=== PATIENT | male | born 1945 | race Caucasian/White ===

== ENCOUNTER 2016-11-16 01:10 | Observation (INO) ==
--- NOTE | 2016-11-16 02:07 | Emergency Department Note ---
IDenton Brittany, am scribing for, and in the presence of, Latasha Lomax DO 01:56. IDami Debra, DO, personally performed the services described in this documentation, ascribed by Carolyn Chawla in my presence, and it is both accurate and complete . Arrival - Arrival Chief Complaint: PEG TUBE Stated Complaint: feeding tube stopped up ED Nursing Triage Note: states while giving tonights meds patient's peg tube become stopped up. Mode of Arrival: Wheelchair Limitations: No Limitations Source: Significant other, RN Notes Reviewed Time Seen by Provider: 11/16/16 01:38 - History of Present Illness HPI Narrative: Patient is a 71 y/o white male presenting to the ED accompanied by with c/ o clogged PEG tube with an onset of tonight. Patient is non-verbal so his will be providing history. Patient's reports that while giving patient his dose of Flomax, a newly prescribed medication, his PEG tube became clogged. She notes that this medication was given with warm water and after noticing the clogging she tried irrigating with more water, but had no success. She states that she brought patient in due to him having other night time medications and a feeding tonight, necessitating unclogging. No other complaint/pain. Onset (ago): minute(s) Consistency: constant Allergies/Adverse Reactions: Allergies Allergy/AdvReac Type Severity Reaction Status Date / Time ciprofloxacin [From Cipro] Allergy Unknown Unknown/Unable Verified 03/14/16 22: 06 to obtain Home Medications: Home Medications Medication Instructions Recorded Confirmed Type Aspirin [Children's Aspirin] 81 mg PER TUBE BEDTIME 09/24/14 11/10/16 History Cholecalciferol (Vitamin D3) 5,000 unit PER TUBE DAILY 09/24/14 11/10/16 History [Vitamin D3] Memantine [Namenda] 5 mg PER TUBE BID 09/24/14 11/10/16 History Modafinil [Provigil] 200 mg PER TUBE DAILY 09/24/14 11/10/16 History Multivitamin [Daily Multiple 1 each PER TUBE DAILY 09/24/14 11/10/16 History Vitamin] Pregabalin [Lyrica] 200 mg PER TUBE BEDTIME 09/24/14 11/10/16 History Sertraline [Zoloft] 25 mg PER TUBE QPM 09/24/14 11/10/16 History Fluticasone 50 Mcg Nasal [place] 1 spray BOTH NARES DAILY PRN 09/26/14 11/10/16 History [Flonase Nasal [place]] Ipratropium 0.06% Nasal [place] 2 spray BOTH NARES BID 09/26/14 11/10/16 History [Atrovent 0.06% Nasal [place]] [place]-3 Fatty Acids [Fish Oil] 400 mg PER TUBE DAILY 09/26/14 11/10/16 History Cholestyramine [Questran] 4 gm PER TUBE BID 09/17/15 11/10/16 History Cetirizine HCl [ZyrTEC Cap] 10 mg PER TUBE BEDTIME 07/17/16 11/10/16 History Clorazepate [Tranxene] 3.75 mg PER TUBE BEDTIME 07/17/16 11/10/16 History Montelukast Tab [Singulair Tab] 10 mg PER TUBE DAILY 07/17/16 11/10/16 History Albuterol/Ipratropium Neb [Duoneb] 3 ml RESP TX RT QID #120 07/26/16 11/10/16 Rx nebulization solution Acetylcysteine Soln (APAP Od) 3 ml INH TID 11/10/16 11/10/16 History [Mucomyst 20% (APAP Od)] Folic Acid/Vit B Complex and C 5 mg PER TUBE DAILY 11/10/16 11/10/16 History [Folbee Plus Tablet] Glycopyrrolate Tab [Robinul Tab] 1 mg PER TUBE BID 11/10/16 11/10/16 History Omeprazole 2mg/Ml Oral Suspension 20 ml PER TUBE DAILY 11/10/16 11/10/16 History Potassium Iodide Oral Soln [Sski] 0.3 ml PER TUBE TID 11/10/16 11/10/16 History Pseudoephedrine [Sudafed] 30 mg PER TUBE Q12H 11/10/16 11/10/16 History Sodium Chloride [Sodium Chloride 2 spray BOTH NARES BID 11/10/16 11/10/16 History 0.65% Nasal [place]] Sulfameth/Trimeth 800-160 Tab 0.5 tablet PER TUBE BID 11/10/16 11/10/16 History [Bactrim DS Tab] buPROPion [Wellbutrin] 100 mg PER TUBE BID 11/10/16 11/10/16 History guaiFENesin [Guaifenesin] 20 ml PER TUBE TID 11/10/16 11/10/16 History predniSONE [PredniSONE] 2.5 mg PER TUBE DAILY 11/10/16 11/10/16 History Review of System - Review of System 12 point system: reviewed and no additional remarkable complaints except as stated - Review of System Constitutional: Absent: chills, fever Eyes: Absent: vision change Head/Ears/Nose/Throat: Absent: nasal drainage, sore throat Respiratory: Absent: respiratory distress Cardiovascular: Absent: chest pain, palpitations Gastrointestinal: Present: as per HPI (clogged PEG tube). Absent: abdominal pain, nausea, vomiting, diarrhea, constipation Genitourinary male: Absent: urgency, dysuria, frequency Musculoskeletal: Absent: arm pain, back pain, leg pain, neck pain Skin: Absent: rash Neurological: Absent: headache Psychiatric: Absent: anxiety, depression Medical,Surgical,& Family Hx - Medical History Cardio: No history of: Hypertension (HYPOTENSION) Psychological: History of: Depression Neurology: History of: Seizures, Neurological Problems (cerebellar ataxia) HEENT: History of: Eye Problem (WEARS GLASSES) Respiratory: History of: Bronchitis, COPD, Pneumonia, Respiratory Problems ( ASSOCIATED WITH CEREBLLA ATAXIA) Genitourinary: History of: Kidney Stones, Recurring Urinary Tract Infections Gastrointestinal: History of: GERD, GI Problems (difficulty swallowing) Musculoskeletal: History of: Musculoskeletal Problems (NEUROPATHY) No history of: Amputation Hematology: History of: Anemia - Surgical History Cardiac Surgeries: Patient Denies: Cardiac Catheterization Thoracic Surgeries: Patient denies;: Organ Transplant, Lobectomy Neurologic Surgeries: Surgical HX of: Neurologic Surgery HEENT Surgeries: Surgical HX of: Eye Surgery (CATARACT SURGERY) Patient denies: Thyroid Surgery, Tonsilectomy & Adenoidectomy Abdominal Surgeries: Surgical HX of: Colonoscopy Patient denies: Abdominal Surgery Reproductive Surgeries: Patient denies;: Genitourinary Surgery - Family History Family History: Reports;: Family Cancer (MOM-COLON) Denies;: Family Anesthesia Reaction, Family Diabetes, Family Heart Disease, Family Hypertension, Family Psychiatric Problems, Family Stroke - Social History Smoking Status: Never smoker Frequency of Alcohol Use: None Type of Drug Use: None Exam Vital Signs: Vital Signs Temperature 98.1 F 11/16/16 01:26 Pulse Rate 98 H 11/16/16 01:26 Respiratory Rate 20 11/16/16 01:26 Blood Pressure 103/80 11/16/16 01:26 O2 Sat by Pulse Oximetry 97 11/16/16 01:26 - General General appearance: alert, in no apparent distress - Head Head exam: Present: atraumatic, normocephalic, normal inspection - Eye Eye exam: Present: normal appearance, PERRL, EOMI - ENT ENT exam: Present: normal exam, normal oropharynx - Neck Neck exam: Present: normal inspection, full ROM, trachea midline - Chest Chest inspection: Present: normal inspection, symmetric chest wall rise - Respiratory Respiratory exam: Present: normal lung sounds bilaterally - Cardiovascular Cardiovascular exam: Present: regular rate, normal rhythm, normal heart sounds - Abdominal Exam Abdominal exam: Present: soft, normal bowel sounds, other (PEG tube) - Extremities Exam Extremities exam: Present: normal inspection - Back Exam Back exam: Present: normal inspection - Neurological Exam Neurological exam: Present: alert, oriented X3, CN II-XII intact. Absent: motor sensory deficit - Psychiatric Psychiatric exam: Present: normal affect, normal mood - Skin Skin exam: Present: warm, dry, intact, normal color
[2016-11-16] MEDS ORDERED: LIPASE/PROTEASE/AMYLASE 4,200 UNITS CAPSULE PO ONE (03:11)
[2016-11-16] MEDS ORDERED: SODIUM BICARBONATE 650 MG TABLET ONE (03:11)
--- NOTE | 2016-11-16 04:15 | Hospitalist History & Physical ---
Assessment and Plan (1) PEG tube malfunction Status: Acute Assessment and plan: Multiple efforts to correct the problem of been unsuccessful. GI plans likely procedure to clear the obstruction versus replace the tube. In the meantime antibiotics changed to IV and continue strict n.p.o. Maintenance IVF. Current Visit: Yes (2) Oropharyngeal candidiasis Status: Acute Assessment and plan: They have been doing mouth rinses at home without effect. As the patient continues antibiotics this will be difficult to clear up. Start IV Diflucan. Current Visit: Yes (3) Cerebellar ataxia Status: Chronic Assessment and plan: Debilitating chronic and progressive condition that results in multiple recurrent aspirations and bedbound status. Is receiving therapy through home health with modest progress. For the most part void spontaneously but his will occasionally in and out cath him. He is strictly n.p.o. and gets all nutrition and medications through his PEG tube. Current Visit: Yes (4) UTI (urinary tract infection) Status: Acute Assessment and plan: Patient was taking Bactrim and Ceftin at home. Will start IV Rocephin. I do not have culture data to guide my decision-making. Current Visit: Yes History of Present Illness Chief complaint: PEG tube malfunction History of present illness: Mr. Ashley is a 71 year old male with past medical history of cerebellar ataxia , multiple aspirations, PEG tube, decubital ulcers that presented with a chief complaint of PEG tube malfunction per his . Onset sudden. Duration several hours. There is no associated nausea, vomiting, abdominal pain, fever, constipation. Significant efforts both at home and in the emergency department to relieve the obstruction have been unsuccessful. The emergency department discussed the patient with Dr. Anne of GI who is aware. Other than a UTI for which he is currently undergoing treatment with Bactrim and Ceftin he was in his usual state of health with no other complaints. The is concerned about the loss of the tube as it is his only source of nutrition vacation delivery. I discussed his case with emergency department providers. I discussed CODE STATUS with the patient and his and they prefer full code. Home Medications Medication Instructions Recorded Confirmed Type Aspirin [Children's Aspirin] 81 mg PER TUBE BEDTIME 09/24/14 11/10/16 History Cholecalciferol (Vitamin D3) 5,000 unit PER TUBE DAILY 09/24/14 11/10/16 History [Vitamin D3] Memantine [Namenda] 5 mg PER TUBE BID 09/24/14 11/10/16 History Modafinil [Provigil] 200 mg PER TUBE DAILY 09/24/14 11/10/16 History Multivitamin [Daily Multiple 1 each PER TUBE DAILY 09/24/14 11/10/16 History Vitamin] Pregabalin [Lyrica] 200 mg PER TUBE BEDTIME 09/24/14 11/10/16 History Sertraline [Zoloft] 25 mg PER TUBE QPM 09/24/14 11/10/16 History Fluticasone 50 Mcg Nasal [place] 1 spray BOTH NARES DAILY PRN 09/26/14 11/10/16 History [Flonase Nasal [place]] Ipratropium 0.06% Nasal [place] 2 spray BOTH NARES BID 09/26/14 11/10/16 History [Atrovent 0.06% Nasal [place]] [place]-3 Fatty Acids [Fish Oil] 400 mg PER TUBE DAILY 09/26/14 11/10/16 History Cholestyramine [Questran] 4 gm PER TUBE BID 09/17/15 11/10/16 History Cetirizine HCl [ZyrTEC Cap] 10 mg PER TUBE BEDTIME 07/17/16 11/10/16 History Clorazepate [Tranxene] 3.75 mg PER TUBE BEDTIME 07/17/16 11/10/16 History Montelukast Tab [Singulair Tab] 10 mg PER TUBE DAILY 07/17/16 11/10/16 History Albuterol/Ipratropium Neb [Duoneb] 3 ml RESP TX RT QID #120 07/26/16 11/10/16 Rx nebulization solution Acetylcysteine Soln (APAP Od) 3 ml INH TID 11/10/16 11/10/16 History [Mucomyst 20% (APAP Od)] Folic Acid/Vit B Complex and C 5 mg PER TUBE DAILY 11/10/16 11/10/16 History [Folbee Plus Tablet] Glycopyrrolate Tab [Robinul Tab] 1 mg PER TUBE BID 11/10/16 11/10/16 History Omeprazole 2mg/Ml Oral Suspension 20 ml PER TUBE DAILY 11/10/16 11/10/16 History Potassium Iodide Oral Soln [Sski] 0.3 ml PER TUBE TID 11/10/16 11/10/16 History Pseudoephedrine [Sudafed] 30 mg PER TUBE Q12H 11/10/16 11/10/16 History Sodium Chloride [Sodium Chloride 2 spray BOTH NARES BID 11/10/16 11/10/16 History 0.65% Nasal [place]] Sulfameth/Trimeth 800-160 Tab 0.5 tablet PER TUBE BID 11/10/16 11/10/16 History [Bactrim DS Tab] buPROPion [Wellbutrin] 100 mg PER TUBE BID 11/10/16 11/10/16 History guaiFENesin [Guaifenesin] 20 ml PER TUBE TID 11/10/16 11/10/16 History predniSONE [PredniSONE] 2.5 mg PER TUBE DAILY 11/10/16 11/10/16 History Allergies Allergy/AdvReac Type Severity Reaction Status Date / Time ciprofloxacin [From Cipro] Allergy Unknown Unknown/Unable Verified 03/14/16 22: 06 to obtain Medical,Surgical,& Family Hx - Medical History Cardio: No history of: Hypertension (HYPOTENSION) Psychological: History of: Depression Neurology: History of: Seizures, Neurological Problems (cerebellar ataxia) HEENT: History of: Eye Problem (WEARS GLASSES) Respiratory: History of: Bronchitis, COPD, Pneumonia, Respiratory Problems ( ASSOCIATED WITH CEREBLLA ATAXIA) Genitourinary: History of: Kidney Stones, Recurring Urinary Tract Infections Gastrointestinal: History of: GERD, GI Problems (difficulty swallowing) Musculoskeletal: History of: Musculoskeletal Problems (NEUROPATHY) No history of: Amputation Hematology: History of: Anemia - Surgical History Cardiac Surgeries: Patient Denies: Cardiac Catheterization Thoracic Surgeries: Patient denies;: Organ Transplant, Lobectomy Neurologic Surgeries: Surgical HX of: Neurologic Surgery HEENT Surgeries: Surgical HX of: Eye Surgery (CATARACT SURGERY) Patient denies: Thyroid Surgery, Tonsilectomy & Adenoidectomy Abdominal Surgeries: Surgical HX of: Colonoscopy Patient denies: Abdominal Surgery Reproductive Surgeries: Patient denies;: Genitourinary Surgery - Family History Family History: Reports;: Family Cancer (MOM-COLON) Denies;: Family Anesthesia Reaction, Family Diabetes, Family Heart Disease, Family Hypertension, Family Psychiatric Problems, Family Stroke - Social History Smoking Status: Never smoker Frequency of Alcohol Use: None Type of Drug Use: None Marital Status: Lives With:: Spouse Functional capacity: bed bound Review of systems: - Constitutional Constitutional: Absent: chills, fatigue, fever(s), night sweats, weight loss - EENT Eyes: Absent: blurry vision Ears: Absent: decreased hearing, ear pain Nose, mouth and throat: Absent: nasal congestion, sore throat - Cardiovascular Cardiovascular: Absent: chest pain at rest, chest pain with activity, dyspnea on exertion, edema, orthopnea, palpitations - Respiratory Respiratory: Present: Bronchiectasis, recurrent aspiration absent: cough, dyspnea, hemoptysis - Gastrointestinal Gastrointestinal: Present: Malfunctioning PEG tube absent: abdominal pain, constipation, diarrhea, dysphagia, hematemesis, hematochezia, melena, nausea, vomiting - Genitourinary Genitourinary: Present: Currently on treatment for UTI absent: difficulty urinating, dysuria, hematuria - Musculoskeletal Musculoskeletal: Absent: arthralgias, joint swelling, myalgias - Neurological Neurological: Present: Diffuse weakness secondary to cerebellar ataxia, dementia absent: dizziness, focal weakness, headache(s), numbness, paresthesias , syncope - Psychiatric Psychiatric: Absent: anxiety, depression - Endocrine Endocrine: Absent: cold intolerance, heat intolerance, polydipsia, polyuria - Hematologic/Lymphatic Hematologic/Lymphatic: Absent: easy bleeding, easy bruising, lymphadenopathy Exam - Constitutional Vitals: Period Temp Pulse Resp BP Sys/Sims Pulse Ox Last 24 Hr 98 F-98.1 F 98-98 20-20 103-103/80-80 97 General appearance: under weight, other (Elderly white male appears older than stated age lying in bed with slurred speech but comfortable) Exam: - Eye Eye exam: Present: EOMI. Absent: conjunctival injection, scleral icterus Pupils: Present: JAYDE - ENT ENT exam: Present: normal external ear exam, normal oropharynx, temporal wasting - Expanded ENT Exam Mouth exam: Present: Thrush, fair dentition - Neck Neck exam: Present: normal inspection, loss of supraclavicular fat. Absent: lymphadenopathy, thyromegaly - Respiratory Respiratory exam: Present: clear to auscultation bilaterally. Absent: accessory muscle use, rales, rhonchi, wheezes - Cardiovascular Cardiovascular exam: Present: regular rate and rhythm. Absent: diastolic murmur , systolic murmur - Expanded Cardiovascular Exam Peripheral pulses: 2+: posterior tibialis (L), posterior tibialis (R) - GI/Abdominal GI/Abdominal exam: Present: normal bowel sounds, soft, PEG tube noted. Absent: distended, hyperactive bowel sounds, hypoactive bowel sounds, organomegaly, tenderness, rebound - Extremities Exam Extremities exam: Present: Mild bilateral ankle edema - Neurological Exam Neurological exam: Present: alert, oriented to place but thinks the year is 2016 , CN II-XII intact, generalized - Psychiatric Psychiatric exam: Present: Pleasantly demented affect - Skin Skin exam: Present: warm, dry. Absent: diaphoretic, rash
[2016-11-16] MEDS ORDERED: DEXTROSE 5% NACL 0.45% 1,000 ML IV SCH (05:17)
[2016-11-16] MEDS ORDERED: FLUTICASONE 50 MCG NASAL SPRAY 16 GM BOTTLE BOTH NARES PRN (05:17)
[2016-11-16] MEDS ORDERED: cefTRIAXone 1,000 MG in SODIUM CHLORIDE 0.9% 100 ML IV SCH (06:00)
[2016-11-16 06:57] LABS: Apearance,Urine Slightly Hazy (Clear); Bacteria,Urine Many /HPF (Few); Bilirubin,Urine Negative (Negative); Blood, Urine Negative (Negative); Glucose,Urine (UA) Negative (Negative); Ketones,Urine Negative (Negative); Mucus,Urine Moderate /LPF (Occasional); Nitrite,Urine Negative (Negative); Protein,Urine Negative; RBC,Urine 4 /HPF (0-4); Urine Color Yellow (Yellow); Urine Urobilinogen < 2.0 EU/DL (0.2-1.0); WBC,Urine 25 /HPF (0-6)
[2016-11-16] MEDS: ALBUTEROL/IPRATROPIUM 3 ML NEB RESP TX SCH ×3 (07:37→14:37)
[2016-11-16] MEDS ORDERED: FLUCONAZOLE INJ 200 MG in PREMIX 1 EACH IV SCH (08:00)
[2016-11-16] MEDS ORDERED: SODIUM CHLORIDE 0.65% NASAL SPRAY 45 ML BOTTLE BOTH NARES SCH (09:00)
[2016-11-16] MEDS ORDERED: IPRATROPIUM 0.06% NASAL SPRAY 15 ML BOTTLE BOTH NARES SCH (09:00)
--- NOTE | 2016-11-16 11:47 | Discharge Summary ---
Hospital Course - Hospital Course Hospital Course: Mr. Ashley is a 71 year old male with past medical history of cerebellar ataxia , multiple aspirations, PEG tube, decubital ulcers that presented with a chief complaint of PEG tube malfunction per his . Onset sudden. Duration several hours. There is no associated nausea, vomiting, abdominal pain, fever, constipation. Significant efforts both at home and in the emergency department to relieve the obstruction were unsuccessful. The emergency department discussed the patient with Dr. Leiws of GI who is aware. Other than a UTI for which he is currently undergoing treatment with Ceftin he was in his usual state of health with no other complaints. He was admitted to the hospitalist service for further evaluation. This morning his nurse was able to unclog his peg tube on the floor. The peg is now functioning normally. Patient's would like to talk to our extractor loader and unloader about patient's current tube feedings, consult has been placed. He has now reached maximal benefit of inpatient stay and will be discharged home. - Time spent with patient Time with patient DS: Less than 30 minutes (25) Diagnosis - Discharge Diagnosis (1) PEG tube malfunction Status: Resolved Discharge Plan - Discharge Data Disposition: Disch To Home/Self Care Condition at Discharge: Stable Discharge Diet: advance to your usual diet Activity: increase activity as tolerated Hygiene: no restrictions Contact your physician if you experience:: fever over 101, Nausea/Vomiting, Shortness of breath - Discharge Medications Continue Ipratropium 0.06% Nasal [place] [Atrovent 0.06% Nasal [place]] 2 spray BOTH NARES BID Fluticasone 50 Mcg Nasal [place] [Flonase Nasal [place]] 1 spray BOTH NARES DAILY PRN PRN Reason: Congestion Albuterol/Ipratropium Neb [Duoneb] 3 ml RESP TX RT QID #120 nebulization solution Sodium Chloride [Sodium Chloride 0.65% Nasal [place]] 2 spray BOTH NARES BID Acetylcysteine Soln (APAP Od) [Mucomyst 20% (APAP Od)] 3 ml INH TID No Action Multivitamin [Daily Multiple Vitamin] 1 each PER TUBE DAILY Sertraline [Zoloft] 25 mg PER TUBE QPM Cholecalciferol (Vitamin D3) [Vitamin D3] 5,000 unit PER TUBE DAILY Modafinil [Provigil] 200 mg PER TUBE DAILY Aspirin [Children's Aspirin] 81 mg PER TUBE BEDTIME Pregabalin [Lyrica] 200 mg PER TUBE BEDTIME Memantine [Namenda] 5 mg PER TUBE BID [place]-3 Fatty Acids [Fish Oil] 400 mg PER TUBE DAILY Cholestyramine [Questran] 4 gm PER TUBE BID Clorazepate [Tranxene] 3.75 mg PER TUBE BEDTIME Pseudoephedrine [Sudafed] 30 mg PER TUBE Q12H predniSONE [PredniSONE] 2.5 mg PER TUBE DAILY Potassium Iodide Oral Soln [Sski] 0.3 ml PER TUBE TID guaiFENesin [Guaifenesin] 20 ml PER TUBE TID Glycopyrrolate Tab [Robinul Tab] 1 mg PER TUBE BID buPROPion [Wellbutrin] 100 mg PER TUBE BID Sulfameth/Trimeth 800-160 Tab [Bactrim DS Tab] 0.5 tablet PER TUBE BID Cetirizine HCl [ZyrTEC Cap] 10 mg PER TUBE BEDTIME Montelukast Tab [Singulair Tab] 10 mg PER TUBE DAILY Omeprazole 2mg/Ml Oral Suspension 20 ml PER TUBE DAILY Folic Acid/Vit B Complex and C [Folbee Plus Tablet] 5 mg PER TUBE DAILY - Follow Up or Referral - Forms/Instructions Exam - Constitutional Vitals: Period Temp Pulse Resp BP Sys/Sims Pulse Ox Last 24 Hr 98 F-98.2 F 98-113 18-20 103-105/71-80 94-99 General appearance: under weight - Head Head exam: Present: normocephalic, atraumatic - Eye Eye exam: Present: EOMI Pupils: Present: JAYDE - ENT ENT exam: Present: normal exam - Neck Neck exam: Present: normal inspection - Respiratory Respiratory exam: Present: clear to auscultation bilaterally. Absent: rhonchi, wheezes - Cardiovascular Cardiovascular exam: Present: regular rate and rhythm - GI/Abdominal GI/Abdominal exam: Present: normal bowel sounds, soft. Absent: tenderness - Extremities Exam Extremities exam: Present: normal inspection - Back Exam Back exam: Present: normal inspection - Neurological Exam Neurological exam: Present: alert - Psychiatric Psychiatric exam: Present: normal affect, normal mood - Skin Skin exam: Present: warm, intact Discharge Results Procedures and tests throughout hospitalization: Pending Orders 11/16/16 Urine Culture Routine 11/17/16 04:00 Basic Metabolic Panel IN AM Comp Blood Count Auto Diff IN AM Magnesium IN AM PT & PTT IN AM Labs on day of discharge: Labs from last 24 hours 11/16/16 05:45 Urine Color Yellow Urine Appearance Slightly hazy Urine pH 8.0 Ur Specific [place] 1.010 Urine Protein Negative Urine Glucose (UA) Negative Urine Ketones Negative Urine Blood Negative Urine Nitrate Negative Urine Bilirubin Negative Urine Urobilinogen < 2.0 H Urine Leukocytes Small H Urine RBC 4 Urine WBC 25 Urine Bacteria Many Urine Mucus Moderate Ur Culture Indicated? Results to follow DS: Provider Date of admission: 11/16/16 04:05 Primary care physician: Mikael Renteria MD Attending physician on admission: Drew Barrios MD Consults: 11/16/16 11:01 Consult to Dietitian [CONS] Routine Reason for Dietitian: Other Consult Comment: weight loss, tube feedings 11/16/16 11:03 Consult to Physical Therapy [CONS] Routine Reason for Physical Therapy: Weakness Discharging clinician: Jeovanny Chery MD
[2016-11-16 22:39] VITALS: BP 114/69
== END 2016-11-16 18:55 | disposition home or self-care (01) ==
LOC: N.EDINP 01:10 → N.ED 01:10 → SUATTDRO 04:05 → N.2E 04:28
PROVIDERS: ADMIT Student in an Organized Health Care Education/Training Program; ATTEND Internal Medicine

== ENCOUNTER 2016-12-16 22:22 | Inpatient (IN) ==
[2016-12-16] MEDS ORDERED: ONDANSETRON 4 MG/2 ML VIAL ONE (23:34)
[2016-12-16] MEDS ORDERED: ONDANSETRON 4 MG/2 ML VIAL IV STA (23:36)
[2016-12-16] MEDS ORDERED: SODIUM CHLORIDE 0.9% 1,000 ML IV STA (23:36)
[2016-12-16] MEDS ORDERED: cefTRIAXone 1,000 MG in SODIUM CHLORIDE 0.9% 100 ML IV STA (23:36)
[2016-12-16 23:55] LABS: Basophils % 0.2 % (0.0-0.8); Eosinophils # 0.3 10*3/uL (0.0-0.87); Eosinophils % 1.3 % (0.00-10.9); Hematocrit 35.5 VOL% (42.0-52.0); Hemoglobin 11.8 GM/DL (14.0-18.0); Immature Granulocytes % 0.5 %; Immature Granulocytes Absolute 0.09 #; Lymphocytes # 0.5 10*3/uL (1.4-4.0); Lymphocytes % 2.5 % (21.2-54.2); Mean Corpuscular HGB Conc 33.2 GM/DL (32-36); Mean Corpuscular Hemoglobin 29 PG (27-34); Mean Corpuscular Volume 87.2 FL (87-102); Mean Platelet Volume 12.2 FL (9.6-12.0); Monocytes # 0.9 10*3/uL (0.11-0.8); Monocytes % 4.7 % (1.7-12.7); Neutrophils # 17.4 10*3/uL (1.4-7.4); Neutrophils % 90.8 % (38.7-73.9); Platelet Count 269 T/CUMM (130-400); Red Blood Count 4.07 MC/CUMM (3.8-5.5); Red Cell Distribution Width 16.1 % (9.3-17.3); White Blood Count 19.2 T/CUMM (4-12)
[2016-12-17 00:11] LABS: PT Patient Result 10.8 SECS; Partial Thromboplastin Time 26.5 SECS (0-40)
[2016-12-17 00:29] LABS: Alanine Aminotransferase 47 U/L (16-61); Albumin 3.2 G/DL (3.4-5.0); Alkaline Phosphatase 137 U/L (45-117); Amylase 37 U/L (25-115); Aspartate Amino Transferase 25 U/L (0-37); Bilirubin,Total < 0.39 MG/DL (0.2-1.0); Blood Urea Nitrogen 24 MG/DL (7-18); Glucose 126 MG/DL (74-106); Magnesium 2.3 MG/DL (1.8-2.4); Osmolality,Calculated 282.5 MOS/KG (273-304); Sodium 139 MMOL/L (136-145); Total Protein 7.3 G/DL (6.4-8.3); Troponin I Only < 0.015 NG/ML (0.00-0.045)
[2016-12-17 00:30] LABS: Eosinophils 1 % (0-10); Lymphocytes 3 % (20-55); Segmented Neutrophils 94 % (50-85)
[2016-12-17 00:32] LABS: Platelet Estimate Adequate
[2016-12-17 00:33] LABS: Total Cells Counted 100
[2016-12-17] MEDS ORDERED: cefTRIAXone 1,000 MG VIAL ONE (00:48)
[2016-12-17] MEDS ORDERED: SODIUM CHLORIDE 0.9% 100 ML IV ONE (00:49)
[2016-12-17] MEDS ORDERED: ACETAMINOPHEN 500 MG TABLET ONE (01:04)
[2016-12-17 01:16] LABS: Apearance,Urine CLOUDY (Clear); Bacteria,Urine Many /HPF (Few); Bilirubin,Urine Negative (Negative); Blood, Urine Negative (Negative); Glucose,Urine (UA) Negative (Negative); Ketones,Urine Negative (Negative); Mucus,Urine Occasional /LPF (Occasional); Nitrite,Urine Negative (Negative); Protein,Urine 30 MG/DL; RBC,Urine 3 /HPF (0-4); Squamous Epithelial Cell,Urine Few /HPF (0-10); Urine Color Yellow (Yellow); Urine Specific Gravity 1.012 (1.001-1.035); Urine Urobilinogen < 2.0 EU/DL (0.2-1.0); WBC,Urine 28 /HPF (0-6)
--- NOTE | 2016-12-17 01:56 | Emergency Department Note ---
Arrival - Arrival Chief Complaint: Shortness of Breath Stated Complaint: sob, cant walk, spitting up ED Nursing Triage Note: pt in WR vomiting and O2 sat was 82% on RA. pt brought immediately back to rm 9 and placed on O2 @ 2L/nc with HOB up. O2 sat now 98% on 2L/nc. pt gowned and triaged. reports fever, weakness and N/V and SOB x 2 hrs. Mode of Arrival: Wheelchair Limitations: Physical Limitation Source: Family Time Seen by Provider: 12/16/16 23:23 - History of Present Illness HPI Narrative: The family complains of onset of fever to 100.9, weakness, vomiting and shortness of breath approximately 2 hours prior to arrival. The patient has had problems with repeated bouts of pneumonia due to aspiration. And he has a feeding tube for this reason. He also has a history of chronic urinary tract infection. She denies any recent cough or complaints of pain Allergies/Adverse Reactions: Allergies Allergy/AdvReac Type Severity Reaction Status Date / Time ciprofloxacin [From Cipro] Allergy Unknown Unknown/Unable Verified 03/14/16 22: 06 to obtain lorazepam [From Ativan] AdvReac Intermediate Agitated Verified 11/16/16 05:58 Home Medications: Home Medications Medication Instructions Recorded Confirmed Type Aspirin [Children's Aspirin] 81 mg PER TUBE BEDTIME 09/24/14 11/10/16 History Cholecalciferol (Vitamin D3) 5,000 unit PER TUBE DAILY 09/24/14 11/10/16 History [Vitamin D3] Memantine [Namenda] 5 mg PER TUBE BID 09/24/14 11/10/16 History Modafinil [Provigil] 200 mg PER TUBE DAILY 09/24/14 11/10/16 History Multivitamin [Daily Multiple 1 each PER TUBE DAILY 09/24/14 11/10/16 History Vitamin] Pregabalin [Lyrica] 200 mg PER TUBE BEDTIME 09/24/14 11/10/16 History Sertraline [Zoloft] 25 mg PER TUBE QPM 09/24/14 11/10/16 History Fluticasone 50 Mcg Nasal [place] 1 spray BOTH NARES DAILY PRN 09/26/14 11/10/16 History [Flonase Nasal [place]] Ipratropium 0.06% Nasal [place] 2 spray BOTH NARES BID 09/26/14 11/10/16 History [Atrovent 0.06% Nasal [place]] [place]-3 Fatty Acids [Fish Oil] 400 mg PER TUBE DAILY 09/26/14 11/10/16 History Cholestyramine [Questran] 4 gm PER TUBE BID 09/17/15 11/10/16 History Cetirizine HCl [ZyrTEC Cap] 10 mg PER TUBE BEDTIME 07/17/16 11/10/16 History Clorazepate [Tranxene] 3.75 mg PER TUBE BEDTIME 07/17/16 11/10/16 History Montelukast Tab [Singulair Tab] 10 mg PER TUBE DAILY 07/17/16 11/10/16 History Albuterol/Ipratropium Neb [Duoneb] 3 ml RESP TX RT QID #120 07/26/16 11/10/16 Rx nebulization solution Acetylcysteine Soln (APAP Od) 3 ml INH TID 11/10/16 11/10/16 History [Mucomyst 20% (APAP Od)] Folic Acid/Vit B Complex and C 5 mg PER TUBE DAILY 11/10/16 11/10/16 History [Folbee Plus Tablet] Glycopyrrolate Tab [Robinul Tab] 1 mg PER TUBE BID 11/10/16 11/10/16 History Omeprazole 2mg/Ml Oral Suspension 20 ml PER TUBE DAILY 11/10/16 11/10/16 History Potassium Iodide Oral Soln [Sski] 0.3 ml PER TUBE TID 11/10/16 11/10/16 History Pseudoephedrine [Sudafed] 30 mg PER TUBE Q12H 11/10/16 11/10/16 History Sodium Chloride [Sodium Chloride 2 spray BOTH NARES BID 11/10/16 11/10/16 History 0.65% Nasal [place]] Sulfameth/Trimeth 800-160 Tab 0.5 tablet PER TUBE BID 11/10/16 11/10/16 History [Bactrim DS Tab] buPROPion [Wellbutrin] 100 mg PER TUBE BID 11/10/16 11/10/16 History guaiFENesin [Guaifenesin] 20 ml PER TUBE TID 11/10/16 11/10/16 History predniSONE [PredniSONE] 2.5 mg PER TUBE DAILY 11/10/16 11/10/16 History Review of System - Review of System Constitutional: Present: fever, weakness Respiratory: Present: respiratory distress. Absent: cough Gastrointestinal: Present: nausea, vomiting Medical,Surgical,& Family Hx - Medical History Cardio: No history of: Hypertension (HYPOTENSION) Psychological: History of: Depression Neurology: History of: Seizures, Neurological Problems (cerebellar ataxia) HEENT: History of: Eye Problem (WEARS GLASSES) Respiratory: History of: Bronchitis, COPD, Pneumonia, Respiratory Problems ( ASSOCIATED WITH CEREBLLA ATAXIA, bronchiectasis) Genitourinary: History of: Kidney Stones, Recurring Urinary Tract Infections Gastrointestinal: History of: GERD, GI Problems (difficulty swallowing) Musculoskeletal: History of: Musculoskeletal Problems (NEUROPATHY) No history of: Amputation Hematology: History of: Anemia - Surgical History Cardiac Surgeries: Patient Denies: Cardiac Catheterization Thoracic Surgeries: Patient denies;: Organ Transplant, Lobectomy Neurologic Surgeries: Surgical HX of: Neurologic Surgery HEENT Surgeries: Surgical HX of: Eye Surgery (CATARACT SURGERY) Patient denies: Thyroid Surgery, Tonsilectomy & Adenoidectomy Abdominal Surgeries: Surgical HX of: Colonoscopy Patient denies: Abdominal Surgery Reproductive Surgeries: Patient denies;: Genitourinary Surgery - Family History Family History: Reports;: Family Cancer (MOM-COLON) Denies;: Family Anesthesia Reaction, Family Diabetes, Family Heart Disease, Family Hypertension, Family Psychiatric Problems, Family Stroke - Social History Smoking Status: Never smoker Frequency of Alcohol Use: None Type of Drug Use: None Exam Physical Examination: GENERAL: Alert. No acute distress. HEENT: Normocephalic and atraumatic. There is no nasal drainage. No pharyngeal erythema or exudate. Dry mucous membranes. NECK: Normal inspection. Supple. No lymphadenopathy or meningismus. LUNGS: No respiratory distress. Coarse breath sounds in both bases. HEART: Regular rate and rhythm. ABDOMEN: Soft, nontender and nondistended with normoactive bowel sounds. There is a PEG tube in place. No drainage or erythema around the tube. The patient is vomiting while I am in the room. BACK: Normal inspection. SKIN: Color normal. Warm and dry. EXTREMITIES: Nontender. Normal range of motion. No pedal edema. NEUROLOGICAL/PSYCHIATRIC: Patient does not speak much. Cannot assess orientation.. Cranial nerves normal. No motor or sensory deficit. Vital Signs: Vital Signs Temperature 101.6 F H 12/17/16 00:37 Pulse Rate 127 H 12/16/16 22:58 Respiratory Rate 24 12/16/16 22:58 Blood Pressure 118/72 12/16/16 22:58 O2 Sat by Pulse Oximetry 82 L 12/16/16 22:58 Course - Reevaluation(s) Reevaluation #1: Still waiting on lactate. It was ordered around 1130. The labs says that the order did not print through and they are asking me to order it again. They have the blood sample. Time: 01:59 Reevaluation #2: Patient has remained stable in the ER. He appears comfortable at this time. He is still a little tachycardic but his blood pressure and oxygen saturation have remained stable. His chest x-ray does not show a definite pneumonia but given his clinical picture I think that is what he has. I have discussed the patient with Dr arias who will see him in the ER and admit. Time: 02:12 Results - Labs CBC & BMP: 12/16/16 23:25 12/16/16 23:25 Lab Results: I have reviewed the patients labs Labs: Laboratory Tests 12/16/16 12/16/16 12/17/16 23:25 23:25 01:00 INR 1.0 Calculated Osmolality 282.5 Total Bilirubin < 0.39 AST 25 ALT 47 Troponin I < 0.015 Albumin 3.2 L Globulin 4.1 H Amylase 37 Lipase 134.0 Urine Leukocytes Small H Urine RBC 3 Urine WBC 28 Urine Bacteria Many Ur Culture Indicated? Results to follow - Impressions EKG shows a sinus tachycardia at 126 with a incomplete right bundle branch block and low QRS voltage in precordial leads. Chest x-ray shows increased interstitial markings in both bases. This is unchanged from previous. Disposition Clinical Impression: Pneumonia, Nausea and vomiting, UTI (urinary tract infection) Case discussed with: patient, patient's family Disposition: Still a Patient Condition: Guarded Time of Disposition: 02:03
[2016-12-17] MEDS ORDERED: FLUTICASONE 50 MCG NASAL SPRAY 16 GM BOTTLE BOTH NARES PRN (03:55)
[2016-12-17] MEDS ORDERED: ACETAMINOPHEN 325 MG TABLET PO PRN (04:02)
[2016-12-17] MEDS ORDERED: ONDANSETRON 4 MG/2 ML VIAL IV PRN (04:02)
[2016-12-17] MEDS ORDERED: MORPHINE 2 MG/1 ML SYRINGE IV PRN (04:02)
--- NOTE | 2016-12-17 04:13 | Hospitalist History & Physical ---
Assessment and Plan (1) Aspiration pneumonia Status: Acute Current Visit: Yes Qualifiers: Aspiration pneumonia type: unspecified Laterality: unspecified laterality Lung location: unspecified part of lung Qualified Code(s): J69.0 - Pneumonitis due to inhalation of food and vomit (2) Acute UTI Status: Acute Current Visit: Yes (3) History of infection with vancomycin resistant Enterococcus (VRE) Status: Acute Current Visit: Yes (4) Infectious encephalopathy Status: Acute Current Visit: Yes (5) Cerebellar ataxia Status: Acute Current Visit: Yes (6) Status post insertion of percutaneous endoscopic gastrostomy (PEG) tube Status: Acute Assessment and plan: Plan: Start IV antibiotics to cover aspiration pneumonia and UTI, including VRE Supportive care with oxygen, steroids, duo nebs Consult his inspector publications IV fluid resuscitation Supportive care for nausea Current Visit: Yes History of Present Illness Chief complaint: Lethargy, fever History of present illness: Mr. Ashley is a 71 year old male with severe cerebellar ataxia, chronic aspiration with history of multiple episodes of aspiration pneumonia, recurrent UTIs, history of PEG tube placement who is here with abrupt onset of shortness of breath, lethargy. His states that he has been "acting a little funny," for the last 2 days. Tonight around 9:30 PM he acutely worsened and he was brought to the emergency room. At the bedside the patient is drowsy but easily arousable, blood pressure is a bit low however the states that he "always has low blood pressure, and has orthostatic blood pressure as well." He requires in and out cath and the reports change in color of the urine but no malodor. She is reported patient having fever at home as well. No diarrhea. Apparently while in the waiting room the patient vomited 2. His symptoms are constant and worsening. Home Medications Medication Instructions Recorded Confirmed Type Aspirin [Children's Aspirin] 81 mg PER TUBE BEDTIME 09/24/14 11/10/16 History Cholecalciferol (Vitamin D3) 5,000 unit PER TUBE DAILY 09/24/14 11/10/16 History [Vitamin D3] Memantine [Namenda] 5 mg PER TUBE BID 09/24/14 11/10/16 History Modafinil [Provigil] 200 mg PER TUBE DAILY 09/24/14 11/10/16 History Multivitamin [Daily Multiple 1 each PER TUBE DAILY 09/24/14 11/10/16 History Vitamin] Pregabalin [Lyrica] 200 mg PER TUBE BEDTIME 09/24/14 11/10/16 History Sertraline [Zoloft] 25 mg PER TUBE QPM 09/24/14 11/10/16 History Fluticasone 50 Mcg Nasal [place] 1 spray BOTH NARES DAILY PRN 09/26/14 11/10/16 History [Flonase Nasal [place]] Ipratropium 0.06% Nasal [place] 2 spray BOTH NARES BID 09/26/14 11/10/16 History [Atrovent 0.06% Nasal [place]] [place]-3 Fatty Acids [Fish Oil] 400 mg PER TUBE DAILY 09/26/14 11/10/16 History Cholestyramine [Questran] 4 gm PER TUBE BID 09/17/15 11/10/16 History Cetirizine HCl [ZyrTEC Cap] 10 mg PER TUBE BEDTIME 07/17/16 11/10/16 History Clorazepate [Tranxene] 3.75 mg PER TUBE BEDTIME 07/17/16 11/10/16 History Montelukast Tab [Singulair Tab] 10 mg PER TUBE DAILY 07/17/16 11/10/16 History Albuterol/Ipratropium Neb [Duoneb] 3 ml RESP TX RT QID #120 07/26/16 11/10/16 Rx nebulization solution Acetylcysteine Soln (APAP Od) 3 ml INH TID 11/10/16 11/10/16 History [Mucomyst 20% (APAP Od)] Folic Acid/Vit B Complex and C 5 mg PER TUBE DAILY 11/10/16 11/10/16 History [Folbee Plus Tablet] Glycopyrrolate Tab [Robinul Tab] 1 mg PER TUBE BID 11/10/16 11/10/16 History Omeprazole 2mg/Ml Oral Suspension 20 ml PER TUBE DAILY 11/10/16 11/10/16 History Potassium Iodide Oral Soln [Sski] 0.3 ml PER TUBE TID 11/10/16 11/10/16 History Pseudoephedrine [Sudafed] 30 mg PER TUBE Q12H 11/10/16 11/10/16 History Sodium Chloride [Sodium Chloride 2 spray BOTH NARES BID 11/10/16 11/10/16 History 0.65% Nasal [place]] Sulfameth/Trimeth 800-160 Tab 0.5 tablet PER TUBE BID 11/10/16 11/10/16 History [Bactrim DS Tab] buPROPion [Wellbutrin] 100 mg PER TUBE BID 11/10/16 11/10/16 History guaiFENesin [Guaifenesin] 20 ml PER TUBE TID 11/10/16 11/10/16 History predniSONE [PredniSONE] 2.5 mg PER TUBE DAILY 11/10/16 11/10/16 History Allergies Allergy/AdvReac Type Severity Reaction Status Date / Time ciprofloxacin [From Cipro] Allergy Unknown Unknown/Unable Verified 03/14/16 22: 06 to obtain lorazepam [From Ativan] AdvReac Intermediate Agitated Verified 11/16/16 05:58 Medical,Surgical,& Family Hx - Medical History Cardio: No history of: Hypertension (HYPOTENSION) Psychological: History of: Depression Neurology: History of: Seizures, Neurological Problems (cerebellar ataxia) HEENT: History of: Eye Problem (WEARS GLASSES) Respiratory: History of: Bronchitis, COPD, Pneumonia, Respiratory Problems ( ASSOCIATED WITH CEREBLLA ATAXIA, bronchiectasis) Genitourinary: History of: Kidney Stones, Recurring Urinary Tract Infections Gastrointestinal: History of: GERD, GI Problems (difficulty swallowing) Musculoskeletal: History of: Musculoskeletal Problems (NEUROPATHY) No history of: Amputation Hematology: History of: Anemia - Surgical History Cardiac Surgeries: Patient Denies: Cardiac Catheterization Thoracic Surgeries: Patient denies;: Organ Transplant, Lobectomy Neurologic Surgeries: Surgical HX of: Neurologic Surgery HEENT Surgeries: Surgical HX of: Eye Surgery (CATARACT SURGERY) Patient denies: Thyroid Surgery, Tonsilectomy & Adenoidectomy Abdominal Surgeries: Surgical HX of: Colonoscopy Patient denies: Abdominal Surgery Reproductive Surgeries: Patient denies;: Genitourinary Surgery - Family History Family History: Reports;: Family Cancer (MOM-COLON) Denies;: Family Anesthesia Reaction, Family Diabetes, Family Heart Disease, Family Hypertension, Family Psychiatric Problems, Family Stroke - Social History Smoking Status: Never smoker Frequency of Alcohol Use: None Type of Drug Use: None Marital Status: Lives With:: Spouse Functional capacity: uses cane/walker Review of systems: A 12 point review of systems is negative except as specified in the HPI Exam - Constitutional Vitals: Period Temp Pulse Resp BP Sys/Sims Pulse Ox Last 24 Hr 99.0 F-101.6 F 110-128 20-24 91-118/58-72 82-98 Exam: EXAM: CONSTITUTIONAL: non toxic, NAD HEENT: NC, AT, OP benign, JAYDE, EOMI CV: RRR no m/g/r RESP: clear B/L, no w/r/r GI: abd soft, NT, ND, +bowel sounds, PEG benign INTEGUMENTARY: no lesions or rash EXTREMITIES: no c/c/e NEURO: Consistent with baseline neurological disorder PSYCH: Drowsy but arousable Results - Labs CBC & BMP: 12/16/16 23:25 12/16/16 23:25 Lab Results: I have reviewed the past 24 hour labs - Diagnostic Findings Procedure: Chest x-ray: image reviewed by , STEVEN x-ray: image reviewed by me
[2016-12-17] MEDS ORDERED: SODIUM CHLORIDE 0.9% 1,000 ML IV SCH (04:30)
[2016-12-17] MEDS: ENOXAPARIN 40 MG/0.4 ML SYRINGE SUBCUT SCH (07:01)
[2016-12-17] MEDS: methylPREDNISolone SOD SUC 40 MG/1 ML VIAL IV SCH ×3 (07:01→22:49)
[2016-12-17] MEDS: PSEUDOEPHEDRINE 30 MG TABLET PER TUBE SCH ×2 (07:02→15:55)
[2016-12-17] MEDS: PIPERACILLIN/TAZOBACTAM 3,375 MG in SODIUM CHLORIDE 0.9% 100 ML IV SCH ×3 (07:10→20:38)
--- NOTE | 2016-12-17 07:43 | XRay Report ---
XR KUB Clinical Information: Abdominal Pain vomiting Comparison: 11/10/2016 Findings: The feeding tube overlies the upper abdomen, which is in similar position to prior. Bowel gas pattern is nonspecific. There is no free air identified. Multiple calcific densities overlie the left upper abdomen which may represent renal stones, which are in similar position as compared to prior. Multiple calcific pelvic phleboliths are similar to prior.. Lung bases are not visualized. There is no acute osseous abnormality. No suspicious osseous lesions are identified. Impression: Similar position of the feeding tube overlying the upper abdomen. No acute radiographic abnormality in the abdomen. Probable left nephrolithiasis. PROCEDURE INTERPRETED AT [facility] DEPARTMENT OF RADIOLOGY Final Report Signed by: Arun Lisa
[2016-12-17] MEDS: ALBUTEROL/IPRATROPIUM 3 ML NEB RESP TX SCH ×5 (07:48→23:46)
--- NOTE | 2016-12-17 07:49 | XRay Report ---
Exam: XR chest 1V portable Indication: Dyspnea Comparison study: Prior chest radiograph 11/10/2016 Findings: The heart, mediastinum and bony structures are stable from prior. Similar basilar interstitial opacities may represent underlying scarring changes. There is no focal consolidation, pneumothorax or pleural effusion identified. Impression: No acute cardiopulmonary process. Similar basilar interstitial scarring changes are suspected. PROCEDURE INTERPRETED AT [facility] DEPARTMENT OF RADIOLOGY Final Report Signed by: Arun Lisa
--- NOTE | 2016-12-17 07:58 | EKG Report ---
Stationary ECG Study [facility] ER Test Date: 12/16/2016 11:06:58 PM Pat Name: ISMAEL MCKEON Department: Room: 544 Gender: M Brass Sorter: : 1945 Requested by: Mikael Taylor Order Number: [id number] Reading MD: RICHARD ZABALA Intervals [place] Rate: 126 P: 52 AK: 166 QRS: 90 QRSD: 91 T: 52 QT: 310 QTc: 385 Interpretive Statements SINUS TACHYCARDIA at 126 bpm LOW QRS VOLTAGE IN PRECORDIAL LEADS INCOMPLETE RIGHT BUNDLE BRANCH BLOCK Mild NST Electronically Signed On 12-17-16 08:33:37 CDT by RICHARD ZABALA [email or web address]
[2016-12-17] MEDS: POTASSIUM IODIDE ORAL SOLN 1,000 MG/ML BOTTLE PER TUBE SCH ×3 (09:10→23:00)
[2016-12-17] MEDS: IPRATROPIUM 0.06% NASAL SPRAY 15 ML BOTTLE BOTH NARES SCH ×2 (09:11→20:46)
[2016-12-17] MEDS: SODIUM CHLORIDE 0.65% NASAL SPRAY 45 ML BOTTLE BOTH NARES SCH ×2 (09:13→20:46)
[2016-12-17] MEDS: CHOLECALCIFEROL 1,000 UNIT TABLET PER TUBE SCH (09:14)
[2016-12-17] MEDS: CHOLESTYRAMINE 4 GM PACK PER TUBE SCH ×2 (09:14→22:48)
[2016-12-17] MEDS: MULTIVITAMIN (CENTRUM) TABLET PER TUBE SCH (09:15)
[2016-12-17] MEDS: buPROPion 100 MG TABLET PER TUBE SCH ×2 (09:15→22:56)
[2016-12-17] MEDS: LANSOPRAZOLE ODT 30 MG TABLET PER TUBE SCH (09:15)
[2016-12-17] MEDS: MONTELUKAST 10 MG TABLET PER TUBE SCH (09:15)
[2016-12-17] MEDS: guaiFENesin 200 MG/10 ML UDCUP PER TUBE SCH ×3 (09:16→22:48)
[2016-12-17] MEDS: GLYCOPYRROLATE 1 MG TABLET PER TUBE SCH ×2 (09:16→22:48)
[2016-12-17] MEDS: OMEGA 3 ACID ETHYL ESTERS 1 GM CAPSULE PO SCH (09:17)
[2016-12-17] MEDS: MEMANTINE 5 MG TABLET PER TUBE SCH ×2 (09:18→22:48)
[2016-12-17] MEDS: MULTIVITAMIN LIQUID (CENTRUM) 60 ML BOTTLE PER TUBE SCH (09:19)
[2016-12-17] MEDS: SODIUM CHLORIDE 0.9% IV SCH (10:13)
[2016-12-17] MEDS: GENTAMICIN IV SCH (10:13)
--- NOTE | 2016-12-17 11:24 | Pulmonology Consult Note ---
History of Present Illness Chief complaint: UTI altered mental status. Possible aspiration History of present illness: Mr. Ashley is a 71 year old white male who is well known to me. He was admitted at this time with a 2 day history of altered mental status. Patient has to be cath for urinary bladder emptying. Turns out he has an acute urinary tract infection. He has also had an episode of vomiting. It was feared that he had aspiration. His chest x-ray shows some slight increase in bibasilar markings and will repeat this. Patient has had several urinary tract infections prior to this. He was reportedly having fever at home. He vomited twice while he was in the emergency room. The remainder review of systems is negative. Allergies: Cipro Home medications: See list Hospital medicines. See list. Past medical history: Cerebellar ataxia. Bronchiectasis. COPD. Obstructive sleep apnea. Peripheral neuropathy. Chronic sinusitis. History of dysphagia. PEG tube placed in [facility] spring 2016. History of anxiety and depression now under good control. History of small ulcers involving the superior gluteal folds. [place]'s hospitalization July 2016 with acute right lower and right upper lung pneumonia. Dehydration. Acute urinary tract infection. Bronchiectasis. Obstructive sleep apnea. Acute on chronic allergic sinusitis. Chronic aspiration with bilateral erosive friable bronchitis most prominent in the left lower lung and right lower lung. There was stenosis of the left lower lung superior segment. This was secondary to hypertrophied tissue. Iron deficiency anemia. [place]'s hospitalization 2016 on the care of Dr. Marni Chery. Patient had a PEG tube malfunction. Family history: His mother had colon cancer. Social history: The patient is . His is very supportive. He does not use alcohol or tobacco. Surgical history: Cataract surgery and "neurologic surgery". PEG tube. Placed in [facility] in the spring 2016 Past procedures: CT of the chest on 04/22/2016 showed worsening of his interstitial lung disease. There was no focal infiltrate seen. There is no pulmonary edema. There was borderline enlarged. Tracheal lymph nodes. There were stable subcentimeter hypodensities in the liver felt to represent benign cysts. This was read by Dr. Drew Silver and was compared to a CT scan done 03/04/2016. Microbiology. Sputum shows gram-positive cocci. Gram-positive rods. Diplococci. Gram-negative rods. Cultures are pending Lab. Urine shows evidence of infection. White blood cell count is 19,200 with 98.1 segs. H&H 11.8/35.5. Platelets of 269,000. INR is 1.0. Electrolytes are normal. Creatinine is 1.00. BUN is 24. Glucose 126. Total protein is 7.3. Albumin is low at 3.2 and globulins elevated 4.1. Alkaline [place] is minimally up to 137. Transaminases are normal and total bilirubin are normal. Magnesium is normal. Lactic acid is 1.0 which is normal KUB. No abnormalities noted. Chest x-ray. Slight increased markings in both bibasilar areas. EKG. No acute changes. Physical exam. Vital signs. See above. Patient's been febrile. Face. Symmetrical. No edema of the lips or tongue. Neck. Kyphotic. No meningismus. No masses. Thyroid was not palpated. General. No distress. Psychiatric. Patient's says he is closer back to normal. Neurologic. Cranial nerves are intact with some decreased hearing acuity. Patient can move all 4 extremities. Sensory exam was not done. Gait was not tested. Chest. Slight congestion in both bases. No chest wall tenderness. Heart. No gallop Abdomen. Nondistended. Rare bowel sounds. Lower extremities. No edema. No evidence of deep venous thrombophlebitis Musculoskeletal age-appropriate loss normal curvature cervical thoracic and lumbar spine Skin of the face and hand showed no cancerous or infectious lesions. No other areas of skin were examined. The remainder the exam is noncontributory. Impression. 1. Acute pyelonephritis. 2. Altered mental status probably secondary #1. 3. Watch for aspiration or bacterial pneumonia. 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 6. Bronchiectasis. 7. Inability to urinate. Requires bladder catheterization. 8. Inability to swallow. Has PEG tube. 9. History of obstructive sleep apnea 10. Chronic allergic sinusitis 11. Family history of colon cancer 12. History of anxiety and depression 13. History of small ulcers involving the superior gluteal folds. 10. Chronic aspiration with bilateral erosive friable bronchitis and partial stenosis of the superior segment of left lower lung secondary to hypertrophied tissue seen on fiberoptic bronchoscopy done 07/24/2016 11. History of iron deficiency anemia 12. See past history Plan. 1. I agree with your orders 2. Follow gentamicin daily BMP 3. Follow-up chest x-ray. Watch for possible lower lung infiltrates 4. See orders Home Medications Medication Instructions Recorded Confirmed Type Aspirin [Children's Aspirin] 81 mg PER TUBE BEDTIME 09/24/14 11/10/16 History Cholecalciferol (Vitamin D3) 5,000 unit PER TUBE DAILY 09/24/14 11/10/16 History [Vitamin D3] Memantine [Namenda] 5 mg PER TUBE BID 09/24/14 11/10/16 History Modafinil [Provigil] 200 mg PER TUBE DAILY 09/24/14 11/10/16 History Multivitamin [Daily Multiple 1 each PER TUBE DAILY 09/24/14 11/10/16 History Vitamin] Pregabalin [Lyrica] 200 mg PER TUBE BEDTIME 09/24/14 11/10/16 History Sertraline [Zoloft] 25 mg PER TUBE QPM 09/24/14 11/10/16 History Fluticasone 50 Mcg Nasal [place] 1 spray BOTH NARES DAILY PRN 09/26/14 11/10/16 History [Flonase Nasal [place]] Ipratropium 0.06% Nasal [place] 2 spray BOTH NARES BID 09/26/14 11/10/16 History [Atrovent 0.06% Nasal [place]] [place]-3 Fatty Acids [Fish Oil] 400 mg PER TUBE DAILY 09/26/14 11/10/16 History Cholestyramine [Questran] 4 gm PER TUBE BID 09/17/15 11/10/16 History Cetirizine HCl [ZyrTEC Cap] 10 mg PER TUBE BEDTIME 07/17/16 11/10/16 History Clorazepate [Tranxene] 3.75 mg PER TUBE BEDTIME 07/17/16 11/10/16 History Montelukast Tab [Singulair Tab] 10 mg PER TUBE DAILY 07/17/16 11/10/16 History Albuterol/Ipratropium Neb [Duoneb] 3 ml RESP TX RT QID #120 07/26/16 11/10/16 Rx nebulization solution Acetylcysteine Soln (APAP Od) 3 ml INH TID 11/10/16 11/10/16 History [Mucomyst 20% (APAP Od)] Folic Acid/Vit B Complex and C 5 mg PER TUBE DAILY 11/10/16 11/10/16 History [Folbee Plus Tablet] Glycopyrrolate Tab [Robinul Tab] 1 mg PER TUBE BID 11/10/16 11/10/16 History Omeprazole 2mg/Ml Oral Suspension 20 ml PER TUBE DAILY 11/10/16 11/10/16 History Potassium Iodide Oral Soln [Sski] 0.3 ml PER TUBE TID 11/10/16 11/10/16 History Pseudoephedrine [Sudafed] 30 mg PER TUBE Q12H 11/10/16 11/10/16 History Sodium Chloride [Sodium Chloride 2 spray BOTH NARES BID 11/10/16 11/10/16 History 0.65% Nasal [place]] Sulfameth/Trimeth 800-160 Tab 0.5 tablet PER TUBE BID 11/10/16 11/10/16 History [Bactrim DS Tab] buPROPion [Wellbutrin] 100 mg PER TUBE BID 11/10/16 11/10/16 History guaiFENesin [Guaifenesin] 20 ml PER TUBE TID 11/10/16 11/10/16 History predniSONE [PredniSONE] 2.5 mg PER TUBE DAILY 11/10/16 11/10/16 History Allergies Allergy/AdvReac Type Severity Reaction Status Date / Time ciprofloxacin [From Cipro] Allergy Unknown Unknown/Unable Verified 03/14/16 22: 06 to obtain lorazepam [From Ativan] AdvReac Intermediate Agitated Verified 11/16/16 05:58 Exam (Pulmonay) H&P - Constitutional Vitals: Period Temp Pulse Resp BP Sys/Sims Pulse Ox Last 24 Hr 98.5 F-101.6 F 94-128 16-24 91-118/56-72 82-99 Medical,Surgical,& Family Hx - Medical History Cardio: No history of: Hypertension (HYPOTENSION) Psychological: History of: Anxiety Disorders, Depression Neurology: History of: Seizures, Neurological Problems (cerebellar ataxia) HEENT: History of: Eye Problem (WEARS GLASSES) Respiratory: History of: Bronchitis, COPD, Pneumonia, Respiratory Problems ( ASSOCIATED WITH CEREBLLA ATAXIA, bronchiectasis) Genitourinary: History of: Kidney Stones, Recurring Urinary Tract Infections Gastrointestinal: History of: GERD, GI Problems (difficulty swallowing) Musculoskeletal: History of: Musculoskeletal Problems (NEUROPATHY) No history of: Amputation Hematology: History of: Anemia - Surgical History Cardiac Surgeries: Patient Denies: Cardiac Catheterization Thoracic Surgeries: Patient denies;: Organ Transplant, Lobectomy Neurologic Surgeries: Surgical HX of: Neurologic Surgery HEENT Surgeries: Surgical HX of: Eye Surgery (CATARACT SURGERY) Patient denies: Thyroid Surgery, Tonsilectomy & Adenoidectomy Abdominal Surgeries: Surgical HX of: Colonoscopy, EGD Patient denies: Abdominal Surgery Reproductive Surgeries: Patient denies;: Genitourinary Surgery - Family History Family History: Reports;: Family Cancer (MOM-COLON) Denies;: Family Anesthesia Reaction, Family Diabetes, Family Heart Disease, Family Hypertension, Family Psychiatric Problems, Family Stroke - Social History Smoking Status: Never smoker Frequency of Alcohol Use: None Type of Drug Use: None Results - Labs CBC & BMP: 12/16/16 23:25 12/16/16 23:25
[2016-12-17] MEDS: DESITIN 4OZ/NYSTATIN 15 GRAM MIXTURE PASTE TOP SCH ×2 (15:55→22:49)
--- NOTE | 2016-12-17 16:37 | Hospitalist Progress Note ---
Assessment and Plan (1) UTI (urinary tract infection) Status: Acute Assessment and plan: Patient seemed to have a sepsis with UTI as clinically improved no other source of suspected he is on antibiotics and will follow the cultures and adjust medication if needed Current Visit: Yes (2) COPD (chronic obstructive pulmonary disease) Status: Chronic Assessment and plan: Patient has a chronic obstructive lung disease and followed by the pulmonary he is stable from the standpoint will continue to monitor his respiratory status Current Visit: Yes (3) History of aspiration pneumonia Status: Chronic Assessment and plan: He has history of aspiration pneumonia and there was some suspicion on the time of admission. He has no respiratory symptom at present and his chest x-ray was also reported without any acute process. He is on PEG feeding will continue to monitor Current Visit: Yes Hospitalist: Subjective Interval history: Mr. Ashley is a 71 year old male with severe cerebellar ataxia, chronic aspiration with history of multiple episodes of aspiration pneumonia, recurrent UTIs, history of PEG tube placement. He is now being fed with a PEG tube. He is not able to provide good history is not present while I made the wrong. Looking at the record he was admitted with 2 day history of altered mental status fever vomiting and shortness of breath his WBC count was 19.2 on admission his T-max was 101.6. Urinalysis showed small 28 WBCs. X-ray as well as negative for any acute cardiopulmonary process. Patient was started on antibiotics. He is on Zosyn and gentamicin. Last month he had the UTI with the VRE and E. coli and he it was sensitive to gentamicin. Urine culture and blood culture from this admission is pending Is alert and afebrile today receiving feeding via the PEG tube Exam - Constitutional Vitals: Period Temp Pulse Resp BP Sys/Sims Pulse Ox Last 24 Hr 98.2 F-101.6 F 78-128 16-24 88-118/53-72 82-99 General appearance: no acute distress - Respiratory Respiratory exam: Present: clear to auscultation bilaterally. Absent: rales, rhonchi - Cardiovascular Cardiovascular exam: Present: regular rate and rhythm. Absent: tachycardia - GI/Abdominal GI/Abdominal exam: Present: normal bowel sounds, soft. Absent: distended, tenderness - Extremities Exam Extremities exam: Present: normal inspection. Absent: edema - Neurological Exam Neurological exam: Present: alert Results - Labs CBC & BMP: 12/16/16 23:25 12/16/16 23:25
--- NOTE | 2016-12-17 17:48 | Infectious Disease Consult ---
Assessment and Plan (1) Acute UTI Status: Acute Assessment and plan: Culture pending, patient will continue empiric gentamicin and Zosyn. Watch renal function closely and gentamicin. Current Visit: Yes (2) Aspiration pneumonia Status: Acute Assessment and plan: X-ray not impressive but patient at risk for aspiration pneumonia. Continue gentamicin and Zosyn. Thank you very much for the consult. Will follow. Current Visit: Yes Qualifiers: Aspiration pneumonia type: unspecified Laterality: unspecified laterality Lung location: unspecified part of lung Qualified Code(s): J69.0 - Pneumonitis due to inhalation of food and vomit (3) Cerebellar ataxia Status: Acute Current Visit: Yes History of Present Illness Chief complaint: Fever, pneumonia History of present illness: Mr. Ashley is a 71 year old male admitted to hospital yesterday for shortness of breath and fever. Spiked to 101.6 overnight. [place] to have pneumonia though no actual consolidation on chest x-ray. White blood cell count was 19 and he started on empiric antibiotics. He has past history of recurring aspiration pneumonia and also urinary tract infection. does not and out catheterizations at home. I am asked to assist with management. Home Medications Medication Instructions Recorded Confirmed Type Aspirin [Children's Aspirin] 81 mg PER TUBE BEDTIME 09/24/14 11/10/16 History Cholecalciferol (Vitamin D3) 5,000 unit PER TUBE DAILY 09/24/14 11/10/16 History [Vitamin D3] Memantine [Namenda] 5 mg PER TUBE BID 09/24/14 11/10/16 History Modafinil [Provigil] 200 mg PER TUBE DAILY 09/24/14 11/10/16 History Multivitamin [Daily Multiple 1 each PER TUBE DAILY 09/24/14 11/10/16 History Vitamin] Pregabalin [Lyrica] 200 mg PER TUBE BEDTIME 09/24/14 11/10/16 History Sertraline [Zoloft] 25 mg PER TUBE QPM 09/24/14 11/10/16 History Fluticasone 50 Mcg Nasal [place] 1 spray BOTH NARES DAILY PRN 09/26/14 11/10/16 History [Flonase Nasal [place]] Ipratropium 0.06% Nasal [place] 2 spray BOTH NARES BID 09/26/14 11/10/16 History [Atrovent 0.06% Nasal [place]] [place]-3 Fatty Acids [Fish Oil] 400 mg PER TUBE DAILY 09/26/14 11/10/16 History Cholestyramine [Questran] 4 gm PER TUBE BID 09/17/15 11/10/16 History Cetirizine HCl [ZyrTEC Cap] 10 mg PER TUBE BEDTIME 07/17/16 11/10/16 History Clorazepate [Tranxene] 3.75 mg PER TUBE BEDTIME 07/17/16 11/10/16 History Montelukast Tab [Singulair Tab] 10 mg PER TUBE DAILY 07/17/16 11/10/16 History Albuterol/Ipratropium Neb [Duoneb] 3 ml RESP TX RT QID #120 07/26/16 11/10/16 Rx nebulization solution Acetylcysteine Soln (APAP Od) 3 ml INH TID 11/10/16 11/10/16 History [Mucomyst 20% (APAP Od)] Folic Acid/Vit B Complex and C 5 mg PER TUBE DAILY 11/10/16 11/10/16 History [Folbee Plus Tablet] Glycopyrrolate Tab [Robinul Tab] 1 mg PER TUBE BID 11/10/16 11/10/16 History Omeprazole 2mg/Ml Oral Suspension 20 ml PER TUBE DAILY 11/10/16 11/10/16 History Potassium Iodide Oral Soln [Sski] 0.3 ml PER TUBE TID 11/10/16 11/10/16 History Pseudoephedrine [Sudafed] 30 mg PER TUBE Q12H 11/10/16 11/10/16 History Sodium Chloride [Sodium Chloride 2 spray BOTH NARES BID 11/10/16 11/10/16 History 0.65% Nasal [place]] Sulfameth/Trimeth 800-160 Tab 0.5 tablet PER TUBE BID 11/10/16 11/10/16 History [Bactrim DS Tab] buPROPion [Wellbutrin] 100 mg PER TUBE BID 11/10/16 11/10/16 History guaiFENesin [Guaifenesin] 20 ml PER TUBE TID 11/10/16 11/10/16 History predniSONE [PredniSONE] 2.5 mg PER TUBE DAILY 11/10/16 11/10/16 History Allergies Allergy/AdvReac Type Severity Reaction Status Date / Time ciprofloxacin [From Cipro] Allergy Unknown Unknown/Unable Verified 03/14/16 22: 06 to obtain lorazepam [From Ativan] AdvReac Intermediate Agitated Verified 11/16/16 05:58 ROS unobtainable: due to mental status Medical,Surgical,& Family Hx - Medical History Cardio: No history of: Hypertension (HYPOTENSION) Psychological: History of: Anxiety Disorders, Depression Neurology: History of: Seizures, Neurological Problems (cerebellar ataxia) HEENT: History of: Eye Problem (WEARS GLASSES) Respiratory: History of: Bronchitis, COPD, Pneumonia, Respiratory Problems ( ASSOCIATED WITH CEREBLLA ATAXIA, bronchiectasis) Genitourinary: History of: Kidney Stones, Recurring Urinary Tract Infections Gastrointestinal: History of: GERD, GI Problems (difficulty swallowing) Musculoskeletal: History of: Musculoskeletal Problems (NEUROPATHY) No history of: Amputation Hematology: History of: Anemia - Surgical History Cardiac Surgeries: Patient Denies: Cardiac Catheterization Thoracic Surgeries: Patient denies;: Organ Transplant, Lobectomy Neurologic Surgeries: Surgical HX of: Neurologic Surgery HEENT Surgeries: Surgical HX of: Eye Surgery (CATARACT SURGERY) Patient denies: Thyroid Surgery, Tonsilectomy & Adenoidectomy Abdominal Surgeries: Surgical HX of: Colonoscopy, EGD Patient denies: Abdominal Surgery Reproductive Surgeries: Patient denies;: Genitourinary Surgery - Family History Family History: Reports;: Family Cancer (MOM-COLON) Denies;: Family Anesthesia Reaction, Family Diabetes, Family Heart Disease, Family Hypertension, Family Psychiatric Problems, Family Stroke - Social History Smoking Status: Never smoker Frequency of Alcohol Use: None Type of Drug Use: None Infectious Disease Exam H&P - Constitutional Vitals: Vital Signs Temp Pulse Resp BP Pulse Ox 98.0 F 84 20 91/56 96 12/17/16 16:00 12/17/16 16:00 12/17/16 16:00 12/17/16 16:00 12/17/16 16:00 Intake and Output 12/17/16 12/17/16 12/17/16 07:59 15:59 23:59 Intake Total 100 / 100 Output Total 600 / 600 Balance -600 / -600 100 / 100 Intake: IV 100 / 100 Zosyn 3,375 mg In Ns 100 100 / 100 ml @ 25 mls/hr IV Q8H [facility] Rx#:[id number] Output: Urine 500 / 500 Post Void Residual Amount 100 / 100 Uretheral (Jimenez) 100 / 100 Other: Voiding Method Indwelling Catheter Weight 77.564 kg Patient Weight 12/17/16 23:59 Weight 77.564 kg Exam: General: Patient chronically ill looking HEENT: Mucous membranes pale pink and moist, anicteric acyanotic, JAYDE, no oral exudates Neck: Supple, no thyroid gland enlargement Respiratory system: Breath sounds vesicular, no crepitations or wheezes Cardiovascular: Normal S1 and S2, no murmurs appreciated Abdomen: Normal bowel sounds, soft nontender throughout, no organomegaly or mass Genitourinary: No suprapubic pain or bladder distention, clear urine from Jimenez catheter Extremities: no edema Skin: No rash, stage II clean ulcer to right side of sacrum Reports - Labs CBC & BMP: 12/16/16 23:25 12/16/16 23:25 Labs: Laboratory Results - last 24 hr 12/16/16 12/16/16 12/16/16 23:25 23:25 23:25 WBC 19.2 H RBC 4.07 Hgb 11.8 L Hct 35.5 L MCV 87.2 MCH 29 MCHC 33.2 RDW 16.1 Plt Count 269 MPV 12.2 H Neut % (Auto) 90.8 H Lymph % (Auto) 2.5 L Petroleum % (Auto) 4.7 Eos % (Auto) 1.3 Baso % (Auto) 0.2 Neut # (Auto) 17.4 H Lymph # (Auto) 0.5 L [place]roleum # (Auto) 0.9 H Eos # (Auto) 0.3 Baso # (Auto) 0.0 Total Counted 100 Immature Gran % 0.5 Nucleated RBC % 0.0 Immature Gran # 0.09 Segmented Neutrophils 94 H Lymphocytes 3 L Monocytes 2 Eosinophils 1 Nucleated RBCs # 0.00 Platelet Estimate Adequate INR 1.0 PT Patient/Control Mix 10.8 Circ Anticoag PTT 26.5 Sodium 139 Potassium 5.0 Chloride 101 Carbon Dioxide 29 Anion Gap 14.0 BUN 24 H Creatinine 1.00 GFR Calculation 90 BUN/Creatinine Ratio 24.00 H Glucose 126 H Calculated Osmolality 282.5 Lactic Acid Calcium 9.0 Magnesium 2.3 Total Bilirubin < 0.39 AST 25 ALT 47 Alkaline Phosphatase 137 H Total Creatine Kinase 60 CK-MB (CK-2) < 1.0 Troponin I < 0.015 Total Protein 7.3 Albumin 3.2 L Globulin 4.1 H Albumin/Globulin Ratio 0.7 L Amylase 37 Lipase 134.0 Urine Color Urine Appearance Urine pH Ur Specific [place] Urine Protein Urine Glucose (UA) Urine Ketones Urine Blood Urine Nitrate Urine Bilirubin Urine Urobilinogen Urine Leukocytes Urine RBC Urine WBC Ur Squamous Epith Cells Urine Bacteria Urine Mucus Ur Culture Indicated? 12/17/16 12/17/16 00:00 01:00 WBC RBC Hgb Hct MCV MCH MCHC RDW Plt Count MPV Neut % (Auto) Lymph % (Auto) Petroleum % (Auto) Eos % (Auto) Baso % (Auto) Neut # (Auto) Lymph # (Auto) [place] # (Auto) Eos # (Auto) Baso # (Auto) Total Counted Immature Gran % Nucleated RBC % Immature Gran # Segmented Neutrophils Lymphocytes Monocytes Eosinophils Nucleated RBCs # Platelet Estimate INR PT Patient/Control Mix Circ Anticoag PTT Sodium Potassium Chloride Carbon Dioxide Anion Gap BUN Creatinine GFR Calculation BUN/Creatinine Ratio Glucose Calculated Osmolality Lactic Acid 1.0 Calcium Magnesium Total Bilirubin AST ALT Alkaline Phosphatase Total Creatine Kinase CK-MB (CK-2) Troponin I Total Protein Albumin Globulin Albumin/Globulin Ratio Amylase Lipase Urine Color Yellow Urine Appearance Cloudy Urine pH 8.0 Ur Specific [place] 1.012 Urine Protein 30 Urine Glucose (UA) Negative Urine Ketones Negative Urine Blood Negative Urine Nitrate Negative Urine Bilirubin Negative Urine Urobilinogen < 2.0 H Urine Leukocytes Small H Urine RBC 3 Urine WBC 28 Ur Squamous Epith Cells Few Urine Bacteria Many Urine Mucus Occasional Ur Culture Indicated? Results to follow - Reports Microbiology: Microbiology 12/17/16 06:00 Gram Stain - Final Sputum - Expectorated - Diagnostic Findings Procedure: Chest x-ray: report reviewed by me (No consolidation reported)
[2016-12-17] MEDS: SERTRALINE 25 MG TABLET PER TUBE SCH (18:33)
[2016-12-17] MEDS: PREGABALIN 100 MG CAPSULE PER TUBE SCH (22:48)
[2016-12-17] MEDS: CETIRIZINE 10 MG TABLET PER TUBE SCH (22:49)
[2016-12-18] MEDS: ALBUTEROL/IPRATROPIUM 3 ML NEB RESP TX SCH ×6 (03:51→23:14)
[2016-12-18] MEDS: PSEUDOEPHEDRINE 30 MG TABLET PER TUBE SCH ×2 (04:37→17:47)
[2016-12-18] MEDS: PIPERACILLIN/TAZOBACTAM 3,375 MG in SODIUM CHLORIDE 0.9% 100 ML IV SCH ×3 (04:37→22:08)
[2016-12-18] MEDS: ENOXAPARIN 40 MG/0.4 ML SYRINGE SUBCUT SCH (04:41)
[2016-12-18] MEDS: methylPREDNISolone SOD SUC 40 MG/1 ML VIAL IV SCH ×3 (05:25→22:09)
[2016-12-18 06:15] LABS: Basophils % 0.1 % (0.0-0.8); Hematocrit 29.4 VOL% (42.0-52.0); Hemoglobin 9.4 GM/DL (14.0-18.0); Immature Granulocytes % 0.6 %; Immature Granulocytes Absolute 0.12 #; Lymphocytes # 0.4 10*3/uL (1.4-4.0); Lymphocytes % 2.2 % (21.2-54.2); Mean Corpuscular Hemoglobin 29 PG (27-34); Mean Corpuscular Volume 89.4 FL (87-102); Mean Platelet Volume 12.5 FL (9.6-12.0); Monocytes # 0.6 10*3/uL (0.11-0.8); Monocytes % 3.3 % (1.7-12.7); Neutrophils # 18.2 10*3/uL (1.4-7.4); Neutrophils % 93.8 % (38.7-73.9); Platelet Count 229 T/CUMM (130-400); Red Blood Count 3.29 MC/CUMM (3.8-5.5); Red Cell Distribution Width 16.2 % (9.3-17.3); White Blood Count 19.4 T/CUMM (4-12)
[2016-12-18 06:42] LABS: Alanine Aminotransferase 31 U/L (16-61); Albumin 2.4 G/DL (3.4-5.0); Alkaline Phosphatase 105 U/L (45-117); Aspartate Amino Transferase 11 U/L (0-37); Bilirubin,Total < 0.39 MG/DL (0.2-1.0); Blood Urea Nitrogen 20 MG/DL (7-18); Calcium 8.4 MG/DL (8.5-10.1); Glucose 166 MG/DL (74-106); Magnesium 2.3 MG/DL (1.8-2.4); Osmolality,Calculated 287.3 MOS/KG (273-304); Potassium 4.3 MMOL/L (3.5-5.1); Sodium 141 MMOL/L (136-145)
[2016-12-18 06:43] LABS: Band Neutrophils 1 % (0-10); Hypochromasia Slight; Lymphocytes 1 % (20-55); Platelet Estimate Adequate; Segmented Neutrophils 96 % (50-85); Total Cells Counted 100
[2016-12-18 07:07] LABS: Calcium 8.4 MG/DL (8.5-10.1); Osmolality,Calculated 289.1 MOS/KG (273-304); Phosphorous 2.2 MG/DL (2.5-4.9); Potassium 4.3 MMOL/L (3.5-5.1); Prealbumin 15.5 MG/DL (20-40)
--- NOTE | 2016-12-18 07:38 | XRay Report ---
Exam: XR chest 1V portable Date: 12/18/2016 4:00 AM Indication: Aspiration Comparison: 12/16/2016 Technical: AP Findings: Bilateral basilar interstitial infiltrates are present with some reticular nodular type pattern. The heart is probably prominent. ASVD is present. Oxygen tubing external cardiac leads are present. No pneumothorax. Lateral marginal osteophytes are present. Impression: 1. Cardiomegaly 2. Bilateral interstitial alveolar infiltrates and tiny effusions. PROCEDURE INTERPRETED AT [facility] DEPARTMENT OF RADIOLOGY Final Report Signed by: Dr. Mikael Osborn
[2016-12-18] MEDS: CHOLECALCIFEROL 1,000 UNIT TABLET PER TUBE SCH (10:12)
[2016-12-18] MEDS: OMEGA 3 ACID ETHYL ESTERS 1 GM CAPSULE PO SCH (10:12)
[2016-12-18] MEDS: MEMANTINE 5 MG TABLET PER TUBE SCH ×2 (10:13→22:16)
[2016-12-18] MEDS: POTASSIUM IODIDE ORAL SOLN 1,000 MG/ML BOTTLE PER TUBE SCH ×3 (10:13→22:09)
[2016-12-18] MEDS: guaiFENesin 200 MG/10 ML UDCUP PER TUBE SCH ×3 (10:13→22:10)
[2016-12-18] MEDS: MONTELUKAST 10 MG TABLET PER TUBE SCH (10:13)
[2016-12-18] MEDS: MULTIVITAMIN LIQUID (CENTRUM) 60 ML BOTTLE PER TUBE SCH (10:13)
[2016-12-18] MEDS: buPROPion 100 MG TABLET PER TUBE SCH ×2 (10:13→22:10)
[2016-12-18] MEDS: CHOLESTYRAMINE 4 GM PACK PER TUBE SCH ×3 (10:13→22:28)
[2016-12-18] MEDS: GLYCOPYRROLATE 1 MG TABLET PER TUBE SCH ×2 (10:13→22:16)
[2016-12-18] MEDS: MULTIVITAMIN (CENTRUM) TABLET PER TUBE SCH (10:13)
[2016-12-18] MEDS: LANSOPRAZOLE ODT 30 MG TABLET PER TUBE SCH (10:13)
[2016-12-18] MEDS: SODIUM CHLORIDE 0.65% NASAL SPRAY 45 ML BOTTLE BOTH NARES SCH ×2 (10:13→22:14)
[2016-12-18] MEDS: SODIUM CHLORIDE 0.9% IV SCH (10:14)
[2016-12-18] MEDS: IPRATROPIUM 0.06% NASAL SPRAY 15 ML BOTTLE BOTH NARES SCH ×2 (10:14→22:13)
[2016-12-18] MEDS: DESITIN 4OZ/NYSTATIN 15 GRAM MIXTURE PASTE TOP SCH ×2 (10:14→22:12)
[2016-12-18] MEDS: GENTAMICIN IV SCH (10:14)
--- NOTE | 2016-12-18 10:31 | Hospitalist Progress Note ---
Assessment and Plan - Time spent with patient Time spent with patient: Less than 30 minutes (1) UTI (urinary tract infection) Status: Acute Assessment and plan: 12/18/16 - Patient is currently on antibiotic and will continue. Blood cultures pending final results. Current Visit: Yes (2) COPD (chronic obstructive pulmonary disease) Status: Chronic Assessment and plan: Patient has a significant History of COPD. He is being followed by pulmonary services. He is stable and will continue antibiotic coverage. will continue to follow pulmonary for any further recommendations in treatment. Current Visit: Yes (3) History of aspiration pneumonia Status: Chronic Assessment and plan: 12/18/16 - patient is afebrile. Chest xray this a.m.: cardiomegaly, bilateral interstitial alveolar infiltrates and tiny effusions. Pending blood cultures. Will order a.m. labs. Will continue with current antibiotic coverage. Will continue to monitor patient tolerating PEG tube feedings. Will continue nasal cannula oxygen therapy. Current Visit: Yes Hospitalist: Subjective Interval history: Mr sarah is resting comfortable in bed, easily awakened and family (daughter) at bedside. He denies fever, chills, nausea, or vomiting. He verbalizes a better night last night. Daughter verbalizes that he has not had any vomiting and appears to be resting better without shortness of breath throughout the night, and he continues to use Nasal Cannula at 2 liters, and without any acute distress noted. Exam - Constitutional Vitals: Period Temp Pulse Resp BP Sys/Sims Pulse Ox Last 24 Hr 96.8 F-98.2 F 70-95 16-20 87-113/42-60 93-99 General appearance: under weight - Head Head exam: Present: normal inspection - Eye Eye exam: Present: EOMI Pupils: Present: JAYDE - Neck Neck exam: Present: normal inspection. Absent: tenderness - Respiratory Respiratory exam: Present: clear to auscultation bilaterally - Cardiovascular Cardiovascular exam: Present: regular rate and rhythm - GI/Abdominal GI/Abdominal exam: Present: normal bowel sounds, soft. Absent: firm, tenderness , rebound - Extremities Exam Extremities exam: Present: full ROM. Absent: edema - Neurological Exam Neurological exam: Present: alert (moves all extremities without difficulty) - Psychiatric Psychiatric exam: Present: normal mood. Absent: agitated - Skin Skin exam: Present: normal color, warm, dry Results - Labs CBC & BMP: 12/18/16 05:34 12/18/16 05:34 Lab Results: I have reviewed the past 24 hour labs - Diagnostic Findings Procedure: Chest x-ray: report reviewed by me (Cardiomegaly, bilateral interstitial alveolar infiltrate and tiny effusions)
--- NOTE | 2016-12-18 10:50 | Pulmonology Progress Note ---
Pulmonary - PN: Subj Interval history: Kj Fuller, [facility]-, acting as scribe for Dr. Mikael Renteria Mr. Ashley is a 71-year-old white male who we saw in initial pulmonary consultation on 12/17/2016. At that time, our impressions were: 1. Acute pyelonephritis. 2. Altered mental status probably secondary #1. 3. Watch for aspiration or bacterial pneumonia. 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 6. Bronchiectasis. 7. Inability to urinate. Requires bladder catheterization. 8. Inability to swallow. Has PEG tube. 9. History of obstructive sleep apnea 10. Chronic allergic sinusitis 11. Family history of colon cancer 12. History of anxiety and depression 13. History of small ulcers involving the superior gluteal folds. 14. Chronic aspiration with bilateral erosive friable bronchitis and partial stenosis of the superior segment of left lower lung secondary to hypertrophied tissue seen on fiberoptic bronchoscopy done 07/24/2016 15. History of iron deficiency anemia 16. See past history 12/18/2016. The patient was seen today along with his and a sitter. Patient's chest x-ray shows a faint right lower lung infiltrate compatible with pneumonia. In the past approximately 24 hours or so, his maximum temperature recorded has been 101.6 and that was at 0037 on 12/17/2016. He has been afebrile since approximately 5:00 yesterday morning. He is on gentamicin and Zosyn. Sputum Gram stain showed gram-positive cocci in pairs, gram-positive rods, gram-negative rods, and rare gram-negative diplococci. Sputum cultures pending. The patient's feels that he is getting back to his baseline, but is somewhat somnolent. She reports she feels he is markedly improved from admission. She asked about when the patient possibly could be discharged home. We told her we were pleased with his improvement, and he could possibly be considered for discharge tomorrow or Friday. We will repeat a chest x-ray tomorrow. Medications have been reviewed. We made no changes. [place] [address] with 93.8% segs; H&H 9.4/29.4; platelet count 229,000; creatinine 1.00, BUN 20, sodium 142, potassium 4.3, magnesium 2.3; calcium 8.4 reflected in a low albumin of 2.4, total protein 6.0 ; liver function tests within normal limits; random gentamicin level today is 1.0 Microbiology has been reviewed. Blood cultures are growing no organisms at day 1. Sputum cultures pending. Exam (Progress Note) - Constitutional Vitals: Period Temp Pulse Resp BP Sys/Sims Pulse Ox Last 24 Hr 96.8 F-98.2 F 70-95 16-20 87-113/42-60 93-99 Exam: Chest with slight congestion, but overall fairly clear Heart no gallop Abdomen is nontender and nondistended; rare bowel sounds Extremities with nothing to suggest acute deep venous thrombophlebitis Psychiatric... See above Neurologic unchanged Plan: Continue present treatment. Repeat chest x-ray in the morning. See orders. Results - Labs CBC & BMP: 12/18/16 05:34 12/18/16 05:34
--- NOTE | 2016-12-18 11:50 | Infectious Disease Progress ---
Assessment and Plan (1) Acute UTI Status: Acute Assessment and plan: Culture pending, patient will continue empiric gentamicin and Zosyn. Watch renal function closely and gentamicin [sulfites normal]. Current Visit: Yes (2) Aspiration pneumonia Status: Acute Assessment and plan: X-ray not impressive but patient at risk for aspiration pneumonia and a sputum Gram stain is positive. Continue gentamicin and Zosyn. Discussed with at bedside Current Visit: Yes Qualifiers: Aspiration pneumonia type: unspecified Laterality: unspecified laterality Lung location: unspecified part of lung Qualified Code(s): J69.0 - Pneumonitis due to inhalation of food and vomit (3) Cerebellar ataxia Status: Acute Current Visit: Yes Infectious Disease - PN: Subj Interval history: Patient is doing fair, provided not much better than yesterday still a bit lethargic. No breathing difficulties. He has not had any fever in 24 hours. Infectious Disease Exam (PN) - Constitutional Vitals: Temp Pulse Resp BP Pulse Ox 96.9 F L 85 20 118/67 98 12/18/16 11:31 12/18/16 11:31 12/18/16 11:31 12/18/16 11:31 12/18/16 11:31 General appearance: under weight Exam: General appearance: no acute distress, looks a little more alert today than when I saw him last evening - Eye Eye exam: Present: EOMI. no icterus Pupils: Present: JAYDE - ENT ENT exam: no oral exudates - Respiratory Respiratory exam: vesicular BS, no crepitations or wheezes - Cardiovascular Cardiovascular exam: regular rate and rhythm, no murmurs - GI/Abdominal GI/Abdominal exam: normal bowel sounds, soft, non-tender, no organomegaly or mass - Extremities Exam Extremities exam: no edema - Skin Skin exam: no rash Results - Labs CBC & BMP: 12/18/16 05:34 12/18/16 05:34 Lab Results: I have reviewed the past 24 hour labs (Blood cultures negative at day 1, sputum Gram stain positive) - Diagnostic Findings Procedure: Chest x-ray: image reviewed by me, report reviewed by me (Increased markings in both bases but no kory consolidation)
[2016-12-18] MEDS ORDERED: GLUCAGON 1 MG VIAL IM PRN (11:54)
[2016-12-18] MEDS ORDERED: DEXTROSE 50% 25 GM/50 ML VIAL IV PRN (11:54)
[2016-12-18] MEDS: SERTRALINE 25 MG TABLET PER TUBE SCH (17:47)
[2016-12-18] MEDS: CETIRIZINE 10 MG TABLET PER TUBE SCH (22:10)
[2016-12-18] MEDS: PREGABALIN 100 MG CAPSULE PER TUBE SCH (22:11)
[2016-12-18] MEDS: CLORAZEPATE 3.75 MG TABLET PER TUBE PRN (22:33)
[2016-12-18] MEDS ORDERED: POLYETHYLENE GLYCOL POWDER 17 GM PACK PO PRN (23:46)
[2016-12-19] MEDS: ALBUTEROL/IPRATROPIUM 3 ML NEB RESP TX SCH ×6 (03:28→23:34)
[2016-12-19] MEDS: ENOXAPARIN 40 MG/0.4 ML SYRINGE SUBCUT SCH (04:28)
[2016-12-19] MEDS: PIPERACILLIN/TAZOBACTAM 3,375 MG in SODIUM CHLORIDE 0.9% 100 ML IV SCH ×3 (04:28→21:05)
[2016-12-19] MEDS: PSEUDOEPHEDRINE 30 MG TABLET PER TUBE SCH ×2 (04:29→16:07)
[2016-12-19] MEDS: methylPREDNISolone SOD SUC 40 MG/1 ML VIAL IV SCH ×3 (05:24→22:08)
[2016-12-19 07:14] LABS: Basophils % 0.1 % (0.0-0.8); Hemoglobin 9.8 GM/DL (14.0-18.0); Immature Granulocytes % 0.7 %; Immature Granulocytes Absolute 0.13 #; Lymphocytes # 0.6 10*3/uL (1.4-4.0); Lymphocytes % 3.2 % (21.2-54.2); Mean Corpuscular HGB Conc 31.6 GM/DL (32-36); Mean Corpuscular Hemoglobin 28 PG (27-34); Mean Corpuscular Volume 89.9 FL (87-102); Mean Platelet Volume 12.2 FL (9.6-12.0); Monocytes # 0.7 10*3/uL (0.11-0.8); Monocytes % 3.7 % (1.7-12.7); Neutrophils # 17.5 10*3/uL (1.4-7.4); Neutrophils % 92.3 % (38.7-73.9); Platelet Count 257 T/CUMM (130-400); Red Blood Count 3.45 MC/CUMM (3.8-5.5); Red Cell Distribution Width 16.5 % (9.3-17.3); White Blood Count 18.9 T/CUMM (4-12)
[2016-12-19 07:39] LABS: Hypochromasia 1+; Lymphocytes 1 % (20-55); Microcytosis 1+; Segmented Neutrophils 97 % (50-85); Total Cells Counted 100
[2016-12-19 07:48] LABS: Calcium 8.1 MG/DL (8.5-10.1); Osmolality,Calculated 288.1 MOS/KG (273-304); Potassium 4.5 MMOL/L (3.5-5.1)
--- NOTE | 2016-12-19 08:38 | XRay Report ---
Exam: XR chest 1V portable Date: 12/19/2016 4:00 AM Indication: Question aspiration Comparison: 12/18/2016 Technical: AP portable Findings: Cardiomegaly is present. Patchy infiltrates are present in the basilar regions bilaterally. External cardiac leads are present. Arthritic change present over the shoulders bilaterally at the AC joints. Degenerative change present thoracic spine. Impression: 1. Cardiomegaly 2. Bibasilar atelectatic change or infiltrates and effusions. PROCEDURE INTERPRETED AT [facility] DEPARTMENT OF RADIOLOGY Final Report Signed by: Dr. Mikael Osborn
--- NOTE | 2016-12-19 09:09 | Physician Query Form ---
CLICK EDIT DOCUMENT TO SELECT QUERY ANSWER --> OK --> SIGN Lou Dee RN Clinical Developer Architect W) [phone] (f) [phone] [email or web address]: Make your selection(s) from the choices in EACH section by typing an "x" and enter comments in the comment section. Please use your independent medical judgment in providing your response. This request does not imply that any particular answer is desired or expected. CLINICAL INDICATORS: (Providers should not edit this section) Pt. admitted with UTI. Based on documentation of "He requires in and out cath". Based on the above, could you clarify the appropriate diagnosis, if significant , that supports the above abnormalities and additional evaluation, monitoring, and/or treatment rendered: (x ) UTI due to in and out catheterizations ( ) UTI not due to in and out catheterizations ( ) Other, please specify: ( ) Clinically unable to determine COMMENTS: PLEASE ALSO DOCUMENT RESPONSE IN PROGRESS NOTES AND/OR DISCHARGE SUMMARY Use of terms such as suspected, likely, or probable (associated with a specific diagnosis that is being evaluated, monitored, or treated as if it exists) are acceptable and can be restated in the discharge summary if not ruled out. [facility]
[2016-12-19] MEDS: IPRATROPIUM 0.06% NASAL SPRAY 15 ML BOTTLE BOTH NARES SCH ×2 (10:26→22:09)
[2016-12-19] MEDS: MULTIVITAMIN LIQUID (CENTRUM) 60 ML BOTTLE PER TUBE SCH (10:28)
--- NOTE | 2016-12-19 10:28 | Hospitalist Progress Note ---
Assessment and Plan - Time spent with patient Time spent with patient: Less than 30 minutes (1) UTI (urinary tract infection) Status: Acute Assessment and plan: 12/19/16 - Will continue current antibiotics. Waiting on final culture results. 12/18/16 - Patient is currently on antibiotic and will continue. Blood cultures pending final results. Current Visit: Yes (2) COPD (chronic obstructive pulmonary disease) Status: Chronic Assessment and plan: 12/19/16 - Slight decrease in WBC to 18.9 from 19.4. Will continue antibiotic coverage. Will order a.m. labs. Will order a.m. chest xray. Appreciate Pulmonary following patient and any recommendations of care. Patient has a significant History of COPD. He is being followed by pulmonary services. He is stable and will continue antibiotic coverage. will continue to follow pulmonary for any further recommendations in treatment. Current Visit: Yes (3) History of aspiration pneumonia Status: Chronic Assessment and plan: 12/19/16 -Patient continues to be afebrile. Denies any vomiting. WBC down to 18.9 from 19.4. Chest xray report this a.m. is essentially reports unchanged from yesterday. Will continue antibiotic coverage. Dr Flores is following and greatly appreciate her assistance and recommendations for further care. 12/18/16 - patient is afebrile. Chest xray this a.m.: cardiomegaly, bilateral interstitial alveolar infiltrates and tiny effusions. Pending blood cultures. Will order a.m. labs. Will continue with current antibiotic coverage. Will continue to monitor patient tolerating PEG tube feedings. Will continue nasal cannula oxygen therapy. Current Visit: Yes Hospitalist: Subjective Interval history: 12/19/16 - Mr Ashley is sitting up in bed much more alert this morning, at bedside. Reports no vomiting and a better rest. No fever noted, no chills reported. WBC is still elevated down to 18.9 from 19.4. Exam - Constitutional Vitals: Period Temp Pulse Resp BP Sys/Sims Pulse Ox Last 24 Hr 96.9 F-98.3 F 85-106 16-20 101-129/62-73 95-99 General appearance: normal weight - Head Head exam: Present: normal inspection - Eye Eye exam: Present: EOMI Pupils: Present: JAYDE - Respiratory Respiratory exam: Present: clear to auscultation bilaterally - Cardiovascular Cardiovascular exam: Present: regular rate and rhythm - GI/Abdominal GI/Abdominal exam: Present: normal bowel sounds, soft. Absent: firm, guarding, tenderness - Extremities Exam Extremities exam: Present: full ROM. Absent: edema - Neurological Exam Neurological exam: Present: alert, oriented X3 - Psychiatric Psychiatric exam: Present: other (Cerebellar ataxia) - Skin Skin exam: Present: normal color, warm, dry Results - Labs CBC & BMP: 12/19/16 06:43 12/19/16 06:43 Lab Results: I have reviewed the past 24 hour labs - Diagnostic Findings Procedure: Chest x-ray: report reviewed by me (Cardiomegaly, bibasilar atelectatic change or infiltrates and effusions)
[2016-12-19] MEDS: CHOLECALCIFEROL 1,000 UNIT TABLET PER TUBE SCH (10:30)
[2016-12-19] MEDS: GLYCOPYRROLATE 1 MG TABLET PER TUBE SCH ×2 (10:31→22:07)
[2016-12-19] MEDS: MONTELUKAST 10 MG TABLET PER TUBE SCH (10:31)
[2016-12-19] MEDS: LANSOPRAZOLE ODT 30 MG TABLET PER TUBE SCH (10:31)
[2016-12-19] MEDS: buPROPion 100 MG TABLET PER TUBE SCH ×2 (10:32→22:07)
[2016-12-19] MEDS: guaiFENesin 200 MG/10 ML UDCUP PER TUBE SCH ×3 (10:32→22:06)
[2016-12-19] MEDS: MEMANTINE 5 MG TABLET PER TUBE SCH ×2 (10:32→22:12)
[2016-12-19] MEDS: SODIUM CHLORIDE 0.65% NASAL SPRAY 45 ML BOTTLE BOTH NARES SCH ×2 (10:33→22:08)
[2016-12-19] MEDS: OMEGA 3 ACID ETHYL ESTERS 1 GM CAPSULE PO SCH (10:33)
[2016-12-19] MEDS: DESITIN 4OZ/NYSTATIN 15 GRAM MIXTURE PASTE TOP SCH ×2 (10:34→22:09)
[2016-12-19] MEDS: POTASSIUM IODIDE ORAL SOLN 1,000 MG/ML BOTTLE PER TUBE SCH ×3 (10:41→22:09)
[2016-12-19] MEDS: MULTIVITAMIN (CENTRUM) TABLET PER TUBE SCH (10:50)
--- NOTE | 2016-12-19 11:19 | Pulmonology Progress Note ---
Pulmonary - PN: Subj Interval history: [facility] acting as scribe for Dr. Mikael Renteria Mr. Ashley is a 71-year-old white male who we saw in initial pulmonary consultation on 12/17/2016. At that time, our impressions were: 1. Acute pyelonephritis. 2. Altered mental status probably secondary #1. 3. Watch for aspiration or bacterial pneumonia. 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 6. Bronchiectasis. 7. Inability to urinate. Requires bladder catheterization. 8. Inability to swallow. Has PEG tube. 9. History of obstructive sleep apnea 10. Chronic allergic sinusitis 11. Family history of colon cancer 12. History of anxiety and depression 13. History of small ulcers involving the superior gluteal folds. 14. Chronic aspiration with bilateral erosive friable bronchitis and partial stenosis of the superior segment of left lower lung secondary to hypertrophied tissue seen on fiberoptic bronchoscopy done 07/24/2016 15. History of iron deficiency anemia 16. See past history 12/18/2016. The patient was seen today along with his and a sitter. Patient's chest x-ray shows a faint right lower lung infiltrate compatible with pneumonia. In the past approximately 24 hours or so, his maximum temperature recorded has been 101.6 and that was at 0037 on 12/17/2016. He has been afebrile since approximately 5:00 yesterday morning. He is on gentamicin and Zosyn. Sputum Gram stain showed gram-positive cocci in pairs, gram-positive rods, gram-negative rods, and rare gram-negative diplococci. Sputum cultures pending. The patient's feels that he is getting back to his baseline, but is somewhat somnolent. She reports she feels he is markedly improved from admission. She asked about when the patient possibly could be discharged home. We told her we were pleased with his improvement, and he could possibly be considered for discharge tomorrow or Friday. We will repeat a chest x-ray tomorrow. 12/19/2016. Patient was seen today along with his and Fernanda Quinn RN. Eneida Lema RN was also present. Patient is more awake and alert this morning. Chest x-ray stable. Sputum cultures showing a gram-negative yudelka. Urine cultures growing a gram-negative yudelka and gram-positive cocci. Final ID and sensitivities are pending. Presently the patient is on gentamicin and Zosyn. We made no changes to these today. Mrs. Ashley inquired about the patient's Flomax being changed to another medication. She states that she has been unable to adequately crush this enough at home to give through his J-tube. We have asked nursing staff to show her how to do this correctly and safely. In the meantime, we have asked her speech therapy evaluation for bedside swallow eval. Medications have been reviewed. Labs have been reviewed. White count is 18,900 with 92.3% segs; H&H 9.8/31.0; platelet count 257,000; creatinine 0.80, BUN 20, electrolytes are normal Microbiology has been reviewed. Blood cultures are growing no organisms at day 1. Sputum culture is growing a gram-negative yudelka. Urine cultures growing a gram-negative yudelka and gram-positive cocci. Exam (Progress Note) - Constitutional Vitals: Period Temp Pulse Resp BP Sys/Sims Pulse Ox Last 24 Hr 96.9 F-98.3 F 85-106 16-20 101-129/62-73 95-99 Exam: Chest with slight congestion, but overall fairly clear Heart no gallop Abdomen is nontender and nondistended; rare bowel sounds Extremities with nothing to suggest acute deep venous thrombophlebitis Psychiatric... See above Neurologic unchanged Plan: Continue present treatment. Consult speech therapy for swallowing evaluation. Follow-up sputum culture and urine cultures when available. See orders. Results - Labs CBC & BMP: 12/19/16 06:43 12/19/16 06:43
[2016-12-19] MEDS ORDERED: BISACODYL 10 MG SUPP RECTAL PRN (11:45)
[2016-12-19] MEDS: TAMSULOSIN 0.4 MG CAPSULE PO SCH ×2 (12:53→13:54)
--- NOTE | 2016-12-19 17:59 | Infectious Disease Progress ---
Assessment and Plan (1) Acute UTI Status: Acute Assessment and plan: Due to Klebsiella, few colonies of gram-positive cocci likely a contaminant. Recommendations continue current antibiotics which are also covering the pneumonia. Current Visit: Yes (2) Aspiration pneumonia Status: Acute Assessment and plan: Continue current antibiotics and follow-up final sputum culture tomorrow. Hopefully we can put him on something oral to go home on for a few days. Current Visit: Yes Qualifiers: Aspiration pneumonia type: unspecified Laterality: unspecified laterality Lung location: unspecified part of lung Qualified Code(s): J69.0 - Pneumonitis due to inhalation of food and vomit (3) Cerebellar ataxia Status: Acute Current Visit: Yes Infectious Disease - PN: Subj Interval history: Patient says he is feeling better overall, thinks he will be ready to go home tomorrow. No fever, not coughing much. No vomiting or diarrhea. Infectious Disease Exam (PN) - Constitutional Vitals: Temp Pulse Resp BP Pulse Ox 98.6 F 98 H 18 120/63 93 L 12/19/16 15:58 12/19/16 15:58 12/19/16 15:58 12/19/16 15:58 12/19/16 15:58 General appearance: normal weight Exam: General appearance: Looks comfortable - Eye Eye exam: Present: EOMI. no icterus Pupils: Present: JAYDE - ENT ENT exam: no oropharyngeal exudates - Respiratory Respiratory exam: vesicular BS, no crepitations or wheezes - Cardiovascular Cardiovascular exam: regular rate and rhythm, no murmurs - GI/Abdominal GI/Abdominal exam: normal bowel sounds, soft, non-tender, no organomegaly or mass - Extremities Exam Extremities exam: no edema - Skin Skin exam: no rash Results - Labs CBC & BMP: 12/19/16 06:43 12/19/16 06:43 Lab Results: I have reviewed the past 24 hour labs (Klebsiella in urine along with 9000 CFU's of gram-positive cocci, gram-negative rods from sputum)
[2016-12-19] MEDS: SERTRALINE 25 MG TABLET PER TUBE SCH (18:39)
[2016-12-19] MEDS: CLORAZEPATE 3.75 MG TABLET PER TUBE PRN (22:06)
[2016-12-19] MEDS: CETIRIZINE 10 MG TABLET PER TUBE SCH (22:07)
[2016-12-19] MEDS: PREGABALIN 100 MG CAPSULE PER TUBE SCH (22:07)
[2016-12-19] MEDS: SODIUM CHLORIDE 0.9% IV SCH (22:12)
[2016-12-19] MEDS: GENTAMICIN IV SCH (22:12)
[2016-12-20] MEDS: SODIUM CHLORIDE 0.9% IV SCH (00:58)
[2016-12-20] MEDS: GENTAMICIN IV SCH (00:58)
[2016-12-20] MEDS: ALBUTEROL/IPRATROPIUM 3 ML NEB RESP TX SCH ×5 (02:42→19:23)
[2016-12-20] MEDS: methylPREDNISolone SOD SUC 40 MG/1 ML VIAL IV SCH ×2 (04:30→12:57)
[2016-12-20] MEDS: PSEUDOEPHEDRINE 30 MG TABLET PER TUBE SCH ×2 (04:30→15:33)
[2016-12-20] MEDS: ENOXAPARIN 40 MG/0.4 ML SYRINGE SUBCUT SCH (04:30)
[2016-12-20] MEDS: PIPERACILLIN/TAZOBACTAM 3,375 MG in SODIUM CHLORIDE 0.9% 100 ML IV SCH (05:19)
[2016-12-20 06:23] LABS: Basophils % 0.1 % (0.0-0.8); Hematocrit 31.4 VOL% (42.0-52.0); Hemoglobin 10.3 GM/DL (14.0-18.0); Immature Granulocytes % 0.5 %; Immature Granulocytes Absolute 0.06 #; Lymphocytes # 0.5 10*3/uL (1.4-4.0); Lymphocytes % 4.6 % (21.2-54.2); Mean Corpuscular HGB Conc 32.8 GM/DL (32-36); Mean Corpuscular Hemoglobin 29 PG (27-34); Mean Corpuscular Volume 88.7 FL (87-102); Mean Platelet Volume 12.3 FL (9.6-12.0); Monocytes # 0.6 10*3/uL (0.11-0.8); Monocytes % 5.5 % (1.7-12.7); Neutrophils # 9.8 10*3/uL (1.4-7.4); Neutrophils % 89.3 % (38.7-73.9); Platelet Count 261 T/CUMM (130-400); Red Blood Count 3.54 MC/CUMM (3.8-5.5); Red Cell Distribution Width 16.3 % (9.3-17.3)
[2016-12-20 06:48] LABS: Lymphocytes 7 % (20-55); Platelet Estimate Normal; Segmented Neutrophils 92 % (50-85); Total Cells Counted 100
[2016-12-20 06:50] LABS: Calcium 8.6 MG/DL (8.5-10.1); Magnesium 2.1 MG/DL (1.8-2.4); Osmolality,Calculated 285.3 MOS/KG (273-304); Potassium 4.3 MMOL/L (3.5-5.1)
--- NOTE | 2016-12-20 08:18 | XRay Report ---
Exam: XR chest 1V portable Date: 12/20/2016 4:00 AM Indication: Pneumonia Comparison: 12/19/2016 Technical: AP portable Findings: Mild cardiomegaly present. External cardiac leads are present. Patchy interstitial infiltrates are present in the basilar regions bilaterally with some component of underlying scarring also present. Mediastinum is intact. No pneumothorax. Lateral marginal osteophytes are present. Impression: Bilateral basilar interstitial infiltrates superimposed on component of underlying fibrotic scarring in the lung quinonez. Findings are similar to and not significant change from previous study PROCEDURE INTERPRETED AT [facility] DEPARTMENT OF RADIOLOGY Final Report Signed by: Dr. Mikael Osborn
[2016-12-20] MEDS: IPRATROPIUM 0.06% NASAL SPRAY 15 ML BOTTLE BOTH NARES SCH (10:02)
[2016-12-20] MEDS: MULTIVITAMIN LIQUID (CENTRUM) 60 ML BOTTLE PER TUBE SCH (10:02)
[2016-12-20] MEDS: TAMSULOSIN 0.4 MG CAPSULE PO SCH (10:03)
[2016-12-20] MEDS: MULTIVITAMIN (CENTRUM) TABLET PER TUBE SCH (10:03)
[2016-12-20] MEDS: OMEGA 3 ACID ETHYL ESTERS 1 GM CAPSULE PO SCH (10:04)
[2016-12-20] MEDS: MEMANTINE 5 MG TABLET PER TUBE SCH (10:04)
[2016-12-20] MEDS: GLYCOPYRROLATE 1 MG TABLET PER TUBE SCH (10:05)
[2016-12-20] MEDS: MONTELUKAST 10 MG TABLET PER TUBE SCH (10:05)
[2016-12-20] MEDS: guaiFENesin 200 MG/10 ML UDCUP PER TUBE SCH ×2 (10:05→15:33)
[2016-12-20] MEDS: LANSOPRAZOLE ODT 30 MG TABLET PER TUBE SCH (10:05)
[2016-12-20] MEDS: SODIUM CHLORIDE 0.65% NASAL SPRAY 45 ML BOTTLE BOTH NARES SCH (10:05)
[2016-12-20] MEDS: DESITIN 4OZ/NYSTATIN 15 GRAM MIXTURE PASTE TOP SCH (10:06)
[2016-12-20] MEDS: buPROPion 100 MG TABLET PER TUBE SCH (10:06)
[2016-12-20] MEDS: POTASSIUM IODIDE ORAL SOLN 1,000 MG/ML BOTTLE PER TUBE SCH ×2 (10:06→15:33)
[2016-12-20] MEDS: CHOLECALCIFEROL 1,000 UNIT TABLET PER TUBE SCH (10:06)
[2016-12-20] MEDS ORDERED: TERAZOSIN 5 MG CAPSULE PER TUBE SCH (11:00)
[2016-12-20] MEDS: MODAFINIL 200 MG PER TUBE SCH ×2 (11:33→11:34)
--- NOTE | 2016-12-20 11:38 | Pulmonology Progress Note ---
Pulmonary - PN: Subj Interval history: Kj Fuller, [facility] acting as scribe for Dr. Mikael Renteria Mr. Ashley is a 71-year-old white male who we saw in initial pulmonary consultation on 12/17/2016. At that time, our impressions were: 1. Acute pyelonephritis. 2. Altered mental status probably secondary #1. 3. Watch for aspiration or bacterial pneumonia. 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 6. Bronchiectasis. 7. Inability to urinate. Requires bladder catheterization. 8. Inability to swallow. Has PEG tube. 9. History of obstructive sleep apnea 10. Chronic allergic sinusitis 11. Family history of colon cancer 12. History of anxiety and depression 13. History of small ulcers involving the superior gluteal folds. 14. Chronic aspiration with bilateral erosive friable bronchitis and partial stenosis of the superior segment of left lower lung secondary to hypertrophied tissue seen on fiberoptic bronchoscopy done 07/24/2016 15. History of iron deficiency anemia 16. See past history 12/18/2016. The patient was seen today along with his and a sitter. Patient's chest x-ray shows a faint right lower lung infiltrate compatible with pneumonia. In the past approximately 24 hours or so, his maximum temperature recorded has been 101.6 and that was at 0037 on 12/17/2016. He has been afebrile since approximately 5:00 yesterday morning. He is on gentamicin and Zosyn. Sputum Gram stain showed gram-positive cocci in pairs, gram-positive rods, gram-negative rods, and rare gram-negative diplococci. Sputum cultures pending. The patient's feels that he is getting back to his baseline, but is somewhat somnolent. She reports she feels he is markedly improved from admission. She asked about when the patient possibly could be discharged home. We told her we were pleased with his improvement, and he could possibly be considered for discharge tomorrow or Friday. We will repeat a chest x-ray tomorrow. 12/19/2016. Patient was seen today along with his and Fernanda Quinn RN. Eneida Lema RN was also present. Patient is more awake and alert this morning. Chest x-ray stable. Sputum cultures showing a gram-negative yudelka. Urine cultures growing a gram-negative yudelka and gram-positive cocci. Final ID and sensitivities are pending. Presently the patient is on gentamicin and Zosyn. We made no changes to these today. Mrs. Ashley inquired about the patient's Flomax being changed to another medication. She states that she has been unable to adequately crush this enough at home to give through his J-tube. We have asked nursing staff to show her how to do this correctly and safely. In the meantime, we have asked her speech therapy evaluation for bedside swallow eval. 12/20/2016. Patient was seen today along with his , Fernanda Quinn, SUSAN, and Eneida Lema RN. Mr. Ashley is doing reasonably well today. Sputum and urinalysis both obtained 12/17/2016 growing multiple organisms. Urine culture is growing a gram-positive cocci which is yet to be identified and also Klebsiella pneumoniae. Sputum culture is growing a gram-negative yudelka and it has not been identified either. Clearly, the patient is improving, but we would not suggest discharging him until the final IDs have been reported and we can make sure that he has appropriate antibiotic coverage with good OTILIA's. This was discussed with the patient and his to their understanding. They are in agreement. Patient's Flomax cannot be dissolved to adequately get through his J-tube. Hytrin (name brand; not Terazosin) is a tablet. We will see if this can be crushed and put in his tub safely. There are no appropriate liquid medications for BPH that we are aware of. Nursing staff states that they have spoken with pharmacy and this is being reviewed. The patient failed his swallowing evaluation yesterday. See the speech therapy notes for more information. Medications have been reviewed. Labs have been reviewed. White count is 11,000 with 89.3% segs; H&H 10.3/31.4; platelet count 261,000; creatinine 0.90, BUN 23, electrolytes are normal Microbiology has been reviewed. Blood cultures are growing no organisms at day 3. Sputum culture is growing a gram-negative yudelka which still has not been identified. Urine cultures growing Klebsiella pneumoniae and a gram-positive cocci which has still not been identified. Exam (Progress Note) - Constitutional Vitals: Period Temp Pulse Resp BP Sys/Sims Pulse Ox Last 24 Hr 98.1 F-98.9 F 63-107 16-20 109-130/48-88 87-99 Exam: Chest with slight congestion, but overall fairly clear Heart no gallop Abdomen is nontender and nondistended; rare bowel sounds Extremities with nothing to suggest acute deep venous thrombophlebitis Psychiatric... See above Neurologic unchanged Plan: Continue present treatment. Follow-up sputum culture and urine cultures when available. We would recommend keeping him inpatient until the final ID sensitivities have been reported to assure that this patient has good OTILIA coverage with outpatient antibiotics. See orders. Results - Labs CBC & BMP: 12/20/16 04:53 12/20/16 04:54
--- NOTE | 2016-12-20 12:50 | Infectious Disease Progress ---
Assessment and Plan (1) Acute UTI Status: Acute Assessment and plan: Due to Klebsiella, few colonies of gram-positive cocci likely a contaminant. Recommendations: Can stop Zosyn and gentamicin and he will be going home on cefuroxime. Current Visit: Yes (2) Aspiration pneumonia Status: Acute Assessment and plan: Relatively sensitive E. coli cultured. Recommendations: Zosyn and gentamicin to be stopped and patient can go home on cefuroxime 500 mg twice a day for 4 days to complete a total of 7 days of therapy. The cefuroxime will also cover UTI. Current Visit: Yes Qualifiers: Aspiration pneumonia type: unspecified Laterality: unspecified laterality Lung location: unspecified part of lung Qualified Code(s): J69.0 - Pneumonitis due to inhalation of food and vomit (3) Cerebellar ataxia Status: Acute Current Visit: Yes Infectious Disease - PN: Subj Interval history: Patient generally doing well, no significant respiratory distress, mild cough nonproductive. Afebrile. Infectious Disease Exam (PN) - Constitutional Vitals: Temp Pulse Resp BP Pulse Ox 97.8 F 92 H 18 131/74 92 L 12/20/16 12:00 12/20/16 12:00 12/20/16 12:00 12/20/16 12:00 12/20/16 12:00 General appearance: normal weight Exam: General appearance: comfortable - Eye Eye exam: Present: EOMI. no icterus Pupils: Present: JAYDE - ENT ENT exam: no oral exudates - Respiratory Respiratory exam: vesicular BS, no crepitations or wheezes - Cardiovascular Cardiovascular exam: regular rate and rhythm, no murmurs - GI/Abdominal GI/Abdominal exam: normal bowel sounds, soft, non-tender, no organomegaly or mass - Extremities Exam Extremities exam: no edema - Skin Skin exam: no rash Results - Labs CBC & BMP: 12/20/16 04:53 12/20/16 04:54 Lab Results: I have reviewed the past 24 hour labs (Called and spoke with Rajiv schwarz and the gram-negative rods in the sputum E. coli sensitive to everything except ampicillin)
--- NOTE | 2016-12-20 16:56 | Discharge Summary ---
Hospital Course - Hospital Course Hospital Course: This hospitalization included patient admitted for altered mental status. Is felt the patient may have had a pneumonia versus a urinary tract infection. He continued to do acceptable. He was started on empiric antibiotics after cultures were drawn. Within a 24 hour. His mentation continued to improve. No fevers or chills. Pulmonary was consulted as patient is known to Dr. Renteria. Moreover, the patient did have a follow-up swallowing study for which he was still a high aspiration risk. Therefore his PEG tube was continued for his nutritional therapy. He does in and out cath at home and had a Jimenez placed during this hospitalization. Urine culture as well as sputum culture were noted. He grew out Klebsiella pneumonia in the urine and E. coli was noted in the sputum culture. Infectious disease was able to make modifications to antibiotics and recommended cefuroxime. The rest of hospital stay was unremarkable. He is reached maximal hospitalization is prepared to be discharged home. 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 (3) Cerebellar ataxia Status: Chronic (4) COPD (chronic obstructive pulmonary disease) Status: Chronic Discharge Plan - Discharge Data Disposition: Disch To Home/Self Care Condition at Discharge: Stable Discharge Diet: advance to your usual diet - Discharge Medications New Cefuroxime Tab [Ceftin] 500 mg PO BID #28 tablet Ipratropium 0.06% Nasal [place] [Atrovent 0.06% Nasal [place]] 2 spray BOTH NARES BID spray Pregabalin [Lyrica] 200 mg PER TUBE BEDTIME capsule Sodium Chloride 0.65% Nasal Sp [[place] Nasal [place]] 2 spray BOTH NARES BID bottle Terazosin [Hytrin] 5 mg PER TUBE BID #60 capsule Continue Multivitamin [Daily Multiple Vitamin] 1 each PO DAILY Modafinil [Provigil] 200 mg PER TUBE DAILY Aspirin [Children's Aspirin] 81 mg PO BEDTIME Memantine [Namenda] 5 mg PO BID Clorazepate [Tranxene] 3.75 mg PO BEDTIME Albuterol/Ipratropium Neb [Duoneb] 3 ml RESP TX RT QID #120 nebulization solution Pseudoephedrine [Sudafed] 30 mg PO DAILY predniSONE [PredniSONE] 2.5 mg PER TUBE DAILY Potassium Iodide Oral Soln [Sski] 0.3 ml PO TID guaiFENesin [Guaifenesin] 20 ml PER TUBE TID Glycopyrrolate Tab [Robinul Tab] 1 mg PO BID buPROPion [Wellbutrin] 100 mg PO BID Iron Fum/Folic Acid/Mv,Min 15 [Hemocyte Plus Capsule] 1 tablet PO DAILY Tamsulosin [Flomax] 1 tablet PO DAILY Pregabalin [Lyrica] 100 mg PO BEDTIME Cetirizine HCl [ZyrTEC Cap] 10 mg PER TUBE BEDTIME Montelukast Tab [Singulair Tab] 10 mg PER TUBE DAILY Acetylcysteine Soln (APAP Od) [Mucomyst 20% (APAP Od)] 3 ml INH TID Folic Acid/Vit B Complex and C [Folbee Plus Tablet] 5 mg PER TUBE DAILY Ferrous Sulfate Tab [Feosol Original Tab] 1 tablet PO BID - Follow Up or Referral - Forms/Instructions Instructions: Cefuroxime (By mouth), Terazosin (By mouth), Urinary Tract Infection in Men (DC) Additional Discharge Instructions: Follow-up primary provider in 1 week. Continue with home health. Exam - Constitutional Vitals: Period Temp Pulse Resp BP Sys/Sims Pulse Ox Last 24 Hr 97.8 F-98.9 F 63-107 16-20 109-131/73-88 92-99 General appearance: normal weight - Head Head exam: Present: normal inspection - ENT ENT exam: Present: normal exam - Respiratory Respiratory exam: Present: clear to auscultation bilaterally - Cardiovascular Cardiovascular exam: Present: regular rate and rhythm - GI/Abdominal GI/Abdominal exam: Present: normal bowel sounds Discharge Results Procedures and tests throughout hospitalization: Pending Orders 12/16/16 23:37 Blood Culture Stat 12/17/16 Urine Culture Routine 12/17/16 12:01 Factor V Leiden ([id number]) Mutati DAILY 12/23/16 04:00 Prealbumin MOTH Labs on day of discharge: Labs from last 24 hours 12/20/16 12/20/16 04:54 04:53 WBC 11.0 D RBC 3.54 L Hgb 10.3 L Hct 31.4 L MCV 88.7 MCH 29 MCHC 32.8 RDW 16.3 Plt Count 261 MPV 12.3 H Neut % (Auto) 89.3 H Lymph % (Auto) 4.6 L [place] % (Auto) 5.5 Eos % (Auto) 0.0 Baso % (Auto) 0.1 Neut # (Auto) 9.8 H Lymph # (Auto) 0.5 L [place] # (Auto) 0.6 Eos # (Auto) 0.0 Baso # (Auto) 0.0 Total Counted 100 Immature Gran % 0.5 Nucleated RBC % 0.0 Immature Gran # 0.06 Segmented Neutrophils 92 H Lymphocytes 7 L Monocytes 1 L Nucleated RBCs # 0.00 Platelet Estimate Normal Sodium 141 Potassium 4.3 Chloride 105 Carbon Dioxide 27 Anion Gap 13.3 BUN 23 H Creatinine 0.90 GFR Calculation 102 BUN/Creatinine Ratio 25.00 H Glucose 121 H Calculated Osmolality 285.3 Calcium 8.6 Magnesium 2.1 Preliminary micro results at discharge 12/17/16 Unknown Urine Culture - Preliminary Urine,Catheterized Klebsiella pneumoniae Gram Positive Cocci 12/17/16 00:13 Blood Culture - Preliminary Blood No growth at 3 days 12/17/16 00:13 Blood Culture - Preliminary Blood No growth at 3 days DS: Provider Date of admission: 12/17/16 04:02 Primary care physician: Mikael Renteria MD Attending physician on admission: Alex Barnett DO Consults: 12/17/16 04:02 Consult to Physician [CONS] Routine Comment: recurrent aspiration, SOB, hypoxia Consulting Provider: Mikael Renteria When should Consulting Provider be notified: In am Person Notified: JAMES Date Notified: 12/17/16 Time Notified: 10:21 12/17/16 04:06 Consult to Physician [CONS] Routine Comment: Consulting Provider: Naomie Flores Consult to Specialist Group: Infectious Disease Person Notified: NIRAV Date Notified: 12/17/16 Time Notified: 09:59 12/17/16 04:12 Consult to Pharmacy [CONS] Routine Reason for Pharmacy Consult: Dose/Manage Gentamicin 12/17/16 06:17 Consult to Dietitian [CONS] Routine Reason for Dietitian: Other Consult Comment: Receives J-tube feedings at home Discharging clinician: Bc Lazo Jr., MD
[2016-12-20] MEDS ORDERED: CEFUROXIME 500 MG TABLET PO SCH (21:00)
[2016-12-20 22:05] VITALS: BP 130/70
[2016-12-23 12:14] LABS: F5DNA Reviewed By SEE COMMENTS; Factor V Leiden (R506Q) Mutati Negative (Negative)
== END 2016-12-20 18:10 | disposition home or self-care (01) | DRG 177 ==
LOC: N.ED 22:22 → N.EDINP 12-17 04:02 → SUATTDRO 12-17 04:02 → N.5E 12-17 05:08
PROVIDERS: ADMIT Internal Medicine; ATTEND Internal Medicine Nephrology

== ENCOUNTER 2016-12-21 16:00 | Inpatient (IN) ==
--- NOTE | 2016-12-21 18:39 | Emergency Department Note ---
IDenton Brittany, am scribing for, and in the presence of, Latasha Lomax DO 18:25. IDami Debra, DO, personally performed the services described in this documentation, ascribed by Carolyn Chawla in my presence, and it is both accurate and complete [id number] . Arrival - Arrival Chief Complaint: Non-Specific Stated Complaint: TUBE IS CLOGGED ED Nursing Triage Note: c/o feeding tube not working , states he was released from the hospital last evening, states it is a J-TUBE , states he is unable to get any medications since this has occured., the patients states she noticed it was not working last night after they got home around 2100, currently being tx for UTI Mode of Arrival: Wheelchair Limitations: No Limitations Source: Patient, Significant other, RN Notes Reviewed Time Seen by Provider: 12/21/16 18:12 - History of Present Illness HPI Narrative: Patient is a 71 y/o white male presenting to the ED with c/o occluded J-tube which his noticed around 2100 last night. reports that she and patient arrived home s/p being DC'd from here. She states that patient was recently admitted here for Aspiration PNA and UTI. notes that she was attempting to give patient his nighttime medications last night when she noticed that his J-tube was occluded. She tried flushing the tube with water and coke, with no success. She also tried aspirating contents from J-tube, but was unsuccessful with this measure also. There is still some coke in tubing currently. She reports that her greatest concern is that patient will not be able to receive his medications, notably abx he's been rx for UTI. He has not had any nutritional feedings since yesterday. Patient had J-tube placed due to frequent aspiration. Patient does not appear to be in any discomfort. His PCP is Dr. Renteria. No other complaint/pain. Onset (ago): hour(s) Consistency: constant Allergies/Adverse Reactions: Allergies Allergy/AdvReac Type Severity Reaction Status Date / Time ciprofloxacin [From Cipro] Allergy Unknown Unknown/Unable Verified 12/21/16 16: 07 to obtain lorazepam [From Ativan] AdvReac Intermediate Agitated Verified 12/21/16 16:07 Home Medications: Home Medications Medication Instructions Recorded Confirmed Type Aspirin [Children's Aspirin] 81 mg PO BEDTIME 09/24/14 12/21/16 History Memantine [Namenda] 5 mg PO BID 09/24/14 12/21/16 History Modafinil [Provigil] 200 mg PER TUBE DAILY 09/24/14 12/21/16 History Multivitamin [Daily Multiple 1 each PO DAILY 09/24/14 12/21/16 History Vitamin] Cetirizine HCl [ZyrTEC Cap] 10 mg PER TUBE BEDTIME 07/17/16 12/21/16 History Clorazepate [Tranxene] 3.75 mg PO BEDTIME 07/17/16 12/21/16 History Montelukast Tab [Singulair Tab] 10 mg PER TUBE DAILY 07/17/16 12/21/16 History Albuterol/Ipratropium Neb [Duoneb] 3 ml RESP TX RT QID #120 07/26/16 12/21/16 Rx nebulization solution Acetylcysteine Soln (APAP Od) 3 ml INH TID 11/10/16 12/21/16 History [Mucomyst 20% (APAP Od)] Folic Acid/Vit B Complex and C 5 mg PER TUBE DAILY 11/10/16 12/21/16 History [Folbee Plus Tablet] Glycopyrrolate Tab [Robinul Tab] 1 mg PO BID 11/10/16 12/21/16 History Potassium Iodide Oral Soln [Sski] 0.3 ml PO TID 11/10/16 12/21/16 History Pseudoephedrine [Sudafed] 30 mg PO DAILY 11/10/16 12/21/16 History buPROPion [Wellbutrin] 100 mg PO BID 11/10/16 12/21/16 History guaiFENesin [Guaifenesin] 20 ml PER TUBE TID 11/10/16 12/21/16 History predniSONE [PredniSONE] 2.5 mg PER TUBE DAILY 11/10/16 12/21/16 History Ferrous Sulfate Tab [Feosol 1 tablet PO BID 12/17/16 12/21/16 History Original Tab] Iron Fum/Folic Acid/Mv,Min 15 1 tablet PO DAILY 12/17/16 12/21/16 History [Hemocyte Plus Capsule] Pregabalin [Lyrica] 100 mg PO BEDTIME 12/17/16 12/21/16 History Tamsulosin [Flomax] 1 tablet PO DAILY 12/17/16 12/21/16 History Cefuroxime Tab [Ceftin] 500 mg PO BID #28 tablet 12/20/16 12/21/16 Rx Ipratropium 0.06% Nasal [place] 2 spray BOTH NARES BID spray 12/20/16 12/21/16 Rx [Atrovent 0.06% Nasal [place]] Pregabalin [Lyrica] 200 mg PER TUBE BEDTIME capsule 12/20/16 12/21/16 Rx Sodium Chloride 0.65% Nasal Sp 2 spray BOTH NARES BID bottle 12/20/16 12/21/16 Rx [[place] Nasal [place]] Terazosin [Hytrin] 5 mg PER TUBE BID #60 capsule 12/20/16 12/21/16 Rx Review of System - Review of System 12 point system: reviewed and no additional remarkable complaints except as stated - Review of System Constitutional: Absent: chills, fever Eyes: Absent: vision change Head/Ears/Nose/Throat: Absent: nasal drainage, sore throat Respiratory: Absent: respiratory distress Cardiovascular: Absent: chest pain Gastrointestinal: Present: other (clogged J-tube). Absent: abdominal pain, nausea, vomiting, diarrhea, constipation Genitourinary male: Absent: urgency, dysuria, frequency Musculoskeletal: Absent: arm pain, back pain, leg pain, neck pain Skin: Absent: rash Neurological: Absent: headache Psychiatric: Absent: anxiety, depression Medical,Surgical,& Family Hx - Medical History Cardio: No history of: Hypertension (HYPOTENSION) Psychological: History of: Anxiety Disorders, Depression Neurology: History of: Seizures, Neurological Problems (cerebellar ataxia) HEENT: History of: Eye Problem (WEARS GLASSES) Respiratory: History of: Bronchitis, COPD, Pneumonia, Respiratory Problems ( ASSOCIATED WITH CEREBLLA ATAXIA, bronchiectasis) Genitourinary: History of: Kidney Stones, Recurring Urinary Tract Infections Gastrointestinal: History of: GERD, GI Problems (difficulty swallowing) Musculoskeletal: History of: Musculoskeletal Problems (NEUROPATHY) No history of: Amputation Hematology: History of: Anemia - Surgical History Cardiac Surgeries: Patient Denies: Cardiac Catheterization Thoracic Surgeries: Patient denies;: Organ Transplant, Lobectomy Neurologic Surgeries: Surgical HX of: Neurologic Surgery HEENT Surgeries: Surgical HX of: Eye Surgery (CATARACT SURGERY) Patient denies: Thyroid Surgery, Tonsilectomy & Adenoidectomy Abdominal Surgeries: Surgical HX of: Colonoscopy, EGD Patient denies: Abdominal Surgery Reproductive Surgeries: Patient denies;: Genitourinary Surgery - Family History Family History: Reports;: Family Cancer (MOM-COLON) Denies;: Family Anesthesia Reaction, Family Diabetes, Family Heart Disease, Family Hypertension, Family Psychiatric Problems, Family Stroke - Social History Smoking Status: Never smoker Frequency of Alcohol Use: None Type of Drug Use: None Exam Vital Signs: Vital Signs Temperature 97.9 F 12/21/16 18:28 Pulse Rate 78 12/21/16 18:30 Respiratory Rate 18 12/21/16 18:28 Blood Pressure 109/70 12/21/16 18:30 O2 Sat by Pulse Oximetry 97 12/21/16 18:30 - General General appearance: alert, in no apparent distress - Head Head exam: Present: atraumatic, normocephalic, normal inspection - Eye Eye exam: Present: normal appearance, PERRL, EOMI - ENT ENT exam: Present: normal exam, normal oropharynx - Neck Neck exam: Present: normal inspection, full ROM, trachea midline - Chest Chest inspection: Present: normal inspection, symmetric chest wall rise - Respiratory Respiratory exam: Present: normal lung sounds bilaterally - Cardiovascular Cardiovascular exam: Present: regular rate, normal rhythm, normal heart sounds - Abdominal Exam Abdominal exam: Present: soft, normal bowel sounds, other (J-tube in place). Absent: tenderness - Extremities Exam Extremities exam: Present: normal inspection - Back Exam Back exam: Present: normal inspection - Neurological Exam Neurological exam: Present: alert, oriented X3, CN II-XII intact. Absent: motor sensory deficit - Psychiatric Psychiatric exam: Present: normal affect, normal mood - Skin Skin exam: Present: warm, dry Course Course Narrative: spoke with hospitalist who will admit pt. Disposition Clinical Impression: Malfunctioning jejunostomy tube Case discussed with: patient, patient's family Disposition: Still a Patient Condition: Stable Time of Disposition: 19:04
--- NOTE | 2016-12-21 19:28 | Hospitalist History & Physical ---
Assessment and Plan (1) COPD (chronic obstructive pulmonary disease) Status: Chronic Current Visit: No (2) History of aspiration pneumonia Status: Chronic Current Visit: No (3) Malfunctioning jejunostomy tube Status: Acute Assessment and plan: Plan for this patient will be drawing labs. My concern is that he might have dehydrated secondary to nonfunctioning J-tube. Will place him on IV antibiotics for while he is in the hospital. Consult GI for their evaluation of his J-tube. Current Visit: Yes History of Present Illness Chief complaint: Malfunctioning J-tube History of present illness: Mr. Ashley is a 71 year old male who was recently admitted to our hospital for dehydration VRE COPD and cerebellar ataxia. He was admitted on 12/17/2016 and discharged on 12/20/2016. He was initially admitted for altered mental status and may have a pneumonia versus urinary tract infection. He did acceptable during the hospitalization he was started on empiric antibiotics after the cultures were drawn. Within 24 hours its mentation continued to improve no fever or chills. He is a patient of Dr. Vitale's who knows him very well. He is at high aspiration risk therefore he has a J-tube. He grew out Klebsiella pneumonia in the urine and E. coli was noted on the sputum culture. Infection disease was consulted during that time and recommend discharging him on cefuroxime. Patient was let go late in the evening yesterday. Around 9 PM realized that his J-tube was malfunctioning. He did not get any nutrition or antibiotics during this time and she brought him up to our hospital for further evaluation. They attempted working with the J-tube without any results in the emergency room. And I was consulted to admit him. Home Medications Medication Instructions Recorded Confirmed Type Aspirin [Children's Aspirin] 81 mg PO BEDTIME 09/24/14 12/21/16 History Memantine [Namenda] 5 mg PO BID 09/24/14 12/21/16 History Modafinil [Provigil] 200 mg PER TUBE DAILY 09/24/14 12/21/16 History Multivitamin [Daily Multiple 1 each PO DAILY 09/24/14 12/21/16 History Vitamin] Cetirizine HCl [ZyrTEC Cap] 10 mg PER TUBE BEDTIME 07/17/16 12/21/16 History Clorazepate [Tranxene] 3.75 mg PO BEDTIME 07/17/16 12/21/16 History Montelukast Tab [Singulair Tab] 10 mg PER TUBE DAILY 07/17/16 12/21/16 History Albuterol/Ipratropium Neb [Duoneb] 3 ml RESP TX RT QID #120 07/26/16 12/21/16 Rx nebulization solution Acetylcysteine Soln (APAP Od) 3 ml INH TID 11/10/16 12/21/16 History [Mucomyst 20% (APAP Od)] Folic Acid/Vit B Complex and C 5 mg PER TUBE DAILY 11/10/16 12/21/16 History [Folbee Plus Tablet] Glycopyrrolate Tab [Robinul Tab] 1 mg PO BID 11/10/16 12/21/16 History Potassium Iodide Oral Soln [Sski] 0.3 ml PO TID 11/10/16 12/21/16 History Pseudoephedrine [Sudafed] 30 mg PO DAILY 11/10/16 12/21/16 History buPROPion [Wellbutrin] 100 mg PO BID 11/10/16 12/21/16 History guaiFENesin [Guaifenesin] 20 ml PER TUBE TID 11/10/16 12/21/16 History predniSONE [PredniSONE] 2.5 mg PER TUBE DAILY 11/10/16 12/21/16 History Ferrous Sulfate Tab [Feosol 1 tablet PO BID 12/17/16 12/21/16 History Original Tab] Iron Fum/Folic Acid/Mv,Min 15 1 tablet PO DAILY 12/17/16 12/21/16 History [Hemocyte Plus Capsule] Pregabalin [Lyrica] 100 mg PO BEDTIME 12/17/16 12/21/16 History Tamsulosin [Flomax] 1 tablet PO DAILY 12/17/16 12/21/16 History Cefuroxime Tab [Ceftin] 500 mg PO BID #28 tablet 12/20/16 12/21/16 Rx Ipratropium 0.06% Nasal [place] 2 spray BOTH NARES BID spray 12/20/16 12/21/16 Rx [Atrovent 0.06% Nasal [place]] Pregabalin [Lyrica] 200 mg PER TUBE BEDTIME capsule 12/20/16 12/21/16 Rx Sodium Chloride 0.65% Nasal Sp 2 spray BOTH NARES BID bottle 12/20/16 12/21/16 Rx [[place] Nasal Magnolia] Terazosin [Hytrin] 5 mg PER TUBE BID #60 capsule 12/20/16 12/21/16 Rx Allergies Allergy/AdvReac Type Severity Reaction Status Date / Time ciprofloxacin [From Cipro] Allergy Unknown Unknown/Unable Verified 12/21/16 16: 07 to obtain lorazepam [From Ativan] AdvReac Intermediate Agitated Verified 12/21/16 16:07 Medical,Surgical,& Family Hx - Medical History Cardio: No history of: Hypertension (HYPOTENSION) Psychological: History of: Anxiety Disorders, Depression Neurology: History of: Seizures, Neurological Problems (cerebellar ataxia) HEENT: History of: Eye Problem (WEARS GLASSES) Respiratory: History of: Bronchitis, COPD, Pneumonia, Respiratory Problems ( ASSOCIATED WITH CEREBLLA ATAXIA, bronchiectasis) Genitourinary: History of: Kidney Stones, Recurring Urinary Tract Infections Gastrointestinal: History of: GERD, GI Problems (difficulty swallowing) Musculoskeletal: History of: Musculoskeletal Problems (NEUROPATHY) No history of: Amputation Hematology: History of: Anemia - Surgical History Cardiac Surgeries: Patient Denies: Cardiac Catheterization Thoracic Surgeries: Patient denies;: Organ Transplant, Lobectomy Neurologic Surgeries: Surgical HX of: Neurologic Surgery HEENT Surgeries: Surgical HX of: Eye Surgery (CATARACT SURGERY) Patient denies: Thyroid Surgery, Tonsilectomy & Adenoidectomy Abdominal Surgeries: Surgical HX of: Colonoscopy, EGD Patient denies: Abdominal Surgery Reproductive Surgeries: Patient denies;: Genitourinary Surgery - Family History Family History: Reports;: Family Cancer (MOM-COLON) Denies;: Family Anesthesia Reaction, Family Diabetes, Family Heart Disease, Family Hypertension, Family Psychiatric Problems, Family Stroke - Social History Smoking Status: Never smoker Frequency of Alcohol Use: None Type of Drug Use: None 12 point system: reviewed and no additional remarkable complaints except as stated Exam - Constitutional Vitals: Period Temp Pulse Resp BP Sys/Sims Pulse Ox Last 24 Hr 97.9 F-98.0 F 78-96 18-18 89-109/62-70 97-100 General appearance: normal weight - Head Head exam: Present: normal inspection - Eye Eye exam: Present: EOMI Pupils: Present: JAYDE - ENT ENT exam: Present: normal exam - Respiratory Respiratory exam: Present: clear to auscultation bilaterally - Cardiovascular Cardiovascular exam: Present: regular rate and rhythm - GI/Abdominal GI/Abdominal exam: Present: normal bowel sounds, other (J-tube in place no signs of erythema at the site nonfunctioning according to nursing staff). Absent: tenderness - Extremities Exam Extremities exam: Present: normal inspection - Back Exam Back exam: Present: normal inspection - Neurological Exam Neurological exam: Present: alert - Psychiatric Psychiatric exam: Present: normal affect, normal mood - Skin Skin exam: Present: normal color
[2016-12-21] MEDS ORDERED: ONDANSETRON 4 MG/2 ML VIAL IV PRN (19:32)
[2016-12-21 19:57] LABS: Basophils % 0.2 % (0.0-0.8); Eosinophils # 0.1 10*3/uL (0.0-0.87); Eosinophils % 1.1 % (0.00-10.9); Hematocrit 35.1 VOL% (42.0-52.0); Hemoglobin 11.6 GM/DL (14.0-18.0); Immature Granulocytes % 0.5 %; Immature Granulocytes Absolute 0.05 #; Lymphocytes # 1.2 10*3/uL (1.4-4.0); Mean Corpuscular Hemoglobin 29 PG (27-34); Mean Corpuscular Volume 88.4 FL (87-102); Monocytes # 0.9 10*3/uL (0.11-0.8); Monocytes % 9.2 % (1.7-12.7); Neutrophils # 7.4 10*3/uL (1.4-7.4); Platelet Count 253 T/CUMM (130-400); Red Blood Count 3.97 MC/CUMM (3.8-5.5); Red Cell Distribution Width 16.1 % (9.3-17.3); White Blood Count 9.6 T/CUMM (4-12)
[2016-12-21 20:19] LABS: Calcium 8.4 MG/DL (8.5-10.1); Osmolality,Calculated 287.1 MOS/KG (273-304); Potassium 3.7 MMOL/L (3.5-5.1)
[2016-12-21] MEDS: PIPERACILLIN/TAZOBACTAM 3,375 MG in SODIUM CHLORIDE 0.9% 100 ML IV SCH (23:33)
[2016-12-21] MEDS: IPRATROPIUM 0.06% NASAL SPRAY 15 ML BOTTLE BOTH NARES SCH (23:33)
[2016-12-21] MEDS: SODIUM CHLORIDE 0.9% 1,000 ML IV SCH (23:33)
[2016-12-21] MEDS: SODIUM CHLORIDE 0.65% NASAL SPRAY 45 ML BOTTLE BOTH NARES SCH (23:33)
[2016-12-22] MEDS: ALBUTEROL/IPRATROPIUM 3 ML NEB RESP TX SCH ×6 (03:00→19:08)
[2016-12-22] MEDS: PIPERACILLIN/TAZOBACTAM 3,375 MG in SODIUM CHLORIDE 0.9% 100 ML IV SCH ×3 (04:17→20:17)
[2016-12-22] MEDS: SODIUM CHLORIDE 0.9% 1,000 ML IV SCH ×2 (05:18→17:20)
[2016-12-22 05:50] LABS: Basophils % 0.2 % (0.0-0.8); Eosinophils # 0.2 10*3/uL (0.0-0.87); Eosinophils % 2.4 % (0.00-10.9); Hematocrit 33.9 VOL% (42.0-52.0); Immature Granulocytes % 0.3 %; Immature Granulocytes Absolute 0.03 #; Lymphocytes # 1.2 10*3/uL (1.4-4.0); Lymphocytes % 14.5 % (21.2-54.2); Mean Corpuscular HGB Conc 32.4 GM/DL (32-36); Mean Corpuscular Hemoglobin 28 PG (27-34); Mean Corpuscular Volume 87.4 FL (87-102); Mean Platelet Volume 11.1 FL (9.6-12.0); Monocytes # 0.9 10*3/uL (0.11-0.8); Monocytes % 10.3 % (1.7-12.7); Neutrophils # 6.2 10*3/uL (1.4-7.4); Neutrophils % 72.3 % (38.7-73.9); Platelet Count 261 T/CUMM (130-400); Red Blood Count 3.88 MC/CUMM (3.8-5.5); White Blood Count 8.6 T/CUMM (4-12)
[2016-12-22 06:23] LABS: Calcium 8.4 MG/DL (8.5-10.1); Potassium 3.6 MMOL/L (3.5-5.1)
--- NOTE | 2016-12-22 08:19 | Gastrointestinal Consult Note ---
Assessment and Plan (1) Malfunctioning jejunostomy tube Status: Acute Assessment and plan: This is a patient of Dr. Love is will return to his care tomorrow. Unfortunately despite attempts at stripping the tube at the bedside and insertion of flush into this PEJ (percutaneous endoscopic jejunal feeding tube) have failed and we will not be able to be salvage the current PEG tube. It is my strong suggestion for place this current PEG tube with a 20 or 22 [place] PEG tube and use a PEJ (percutaneous endoscopic jejunal feeding tube) adapter inserted through the center of the [place] as an alternative. I will add this to Dr. Love's list the patient is due tomorrow and inform him of the case tonight. Patient can remain n.p.o. until this procedure is done. As a potential alternative the patient could be taken to PEG/PEJ placement by interventional radiology. Current Visit: Yes (2) History of esophageal stricture Status: Acute Assessment and plan: The patient is currently not swallowing much. Dr. Love can consider if he wants to do a dilation at the time of the PEG tube insertion tomorrow. This may simply add to the risk without additional benefit as the patient is not eating and does not appear to be having any difficulty handling his secretions. Current Visit: Yes (3) History of aspiration pneumonia Status: Chronic Assessment and plan: We will leave the patient off of tube feeds for the present time in order to avoid a recurrence of the aspiration pneumonia. Patient can certainly get his current antibiotics through the IV until the PEG/PEJ can be placed tomorrow. Current Visit: No History of Present Illness Chief complaint: Blockage of PEG/PEJ--needs replacement History of present illness: Mr. Ashley is a 71 year old male who is a patient of Dr. 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 He is also followed by Dr. Vitale of pulmonology. The patient last been seen by Dr. Love as an inpatient back in April 26 2016, when he developed sudden onset of nausea and vomiting 12 hours after EGD with dilation with fever up to 102. The patient did end up getting a PEG tube around September 2016 and was transferred over to [place] for rehabilitation unfortunately developed problems with the PEG tube at their center. The full story is somewhat unclear, but appears the PEG tube came out and he was doing so poorly that the had called up his neurologist at [facility] in [place] who is a specialist in ataxic movement disorders, and it was elected to fly him out of their institution for evaluation. At that point in early October the patient's PEG tube was replaced with a PEG/PEJ combined tube which has since worked well for the patient. Unfortunately over the last 6 days or so the patient has been having some difficulties with intermittent obstruction of the PEG/PEJ, not surprisingly a jejunal feeding port, likely accelerated by the need for antibiotics to be flushed through this port as well as feedings in general. The PEJ (percutaneous endoscopic jejunal feeding tube) will now need to be changed out as an adapter to regular PEG tube to be placed tomorrow by Dr. Love. Otherwise the patient is doing fairly well with only mild pneumonia and no further feedings for the last day due to obstruction of the tube. Unfortunately the was using the enteral portion of the PEJ/PEG for all feedings and medications. He is not having any abdominal pain, he is continued to have mild dysphagia. Home Medications Medication Instructions Recorded Confirmed Type Aspirin [Children's Aspirin] 81 mg PO BEDTIME 09/24/14 12/21/16 History Memantine [Namenda] 5 mg PO BID 09/24/14 12/21/16 History Modafinil [Provigil] 200 mg PER TUBE DAILY 09/24/14 12/21/16 History Multivitamin [Daily Multiple 1 each PO DAILY 09/24/14 12/21/16 History Vitamin] Cetirizine HCl [ZyrTEC Cap] 10 mg PER TUBE BEDTIME 07/17/16 12/21/16 History Clorazepate [Tranxene] 3.75 mg PO BEDTIME 07/17/16 12/21/16 History Montelukast Tab [Singulair Tab] 10 mg PER TUBE DAILY 07/17/16 12/21/16 History Albuterol/Ipratropium Neb [Duoneb] 3 ml RESP TX RT QID #120 07/26/16 12/21/16 Rx nebulization solution Acetylcysteine Soln (APAP Od) 3 ml INH TID 11/10/16 12/21/16 History [Mucomyst 20% (APAP Od)] Folic Acid/Vit B Complex and C 5 mg PER TUBE DAILY 11/10/16 12/21/16 History [Folbee Plus Tablet] Glycopyrrolate Tab [Robinul Tab] 1 mg PO BID 11/10/16 12/21/16 History Potassium Iodide Oral Soln [Sski] 0.3 ml PO TID 11/10/16 12/21/16 History Pseudoephedrine [Sudafed] 30 mg PO DAILY 11/10/16 12/21/16 History buPROPion [Wellbutrin] 100 mg PO BID 11/10/16 12/21/16 History guaiFENesin [Guaifenesin] 20 ml PER TUBE TID 11/10/16 12/21/16 History predniSONE [PredniSONE] 2.5 mg PER TUBE DAILY 11/10/16 12/21/16 History Ferrous Sulfate Tab [Feosol 1 tablet PO BID 12/17/16 12/21/16 History Original Tab] Iron Fum/Folic Acid/Mv,Min 15 1 tablet PO DAILY 12/17/16 12/21/16 History [Hemocyte Plus Capsule] Pregabalin [Lyrica] 100 mg PO BEDTIME 12/17/16 12/21/16 History Tamsulosin [Flomax] 1 tablet PO DAILY 12/17/16 12/21/16 History Cefuroxime Tab [Ceftin] 500 mg PO BID #28 tablet 12/20/16 12/21/16 Rx Ipratropium 0.06% Nasal Media 2 spray BOTH NARES BID spray 12/20/16 12/21/16 Rx [Atrovent 0.06% Nasal Media] Pregabalin [Lyrica] 200 mg PER TUBE BEDTIME capsule 12/20/16 12/21/16 Rx Sodium Chloride 0.65% Nasal Sp 2 spray BOTH NARES BID bottle 12/20/16 12/21/16 Rx [[place] Nasal Media] Terazosin [Hytrin] 5 mg PER TUBE BID #60 capsule 12/20/16 12/21/16 Rx Allergies Allergy/AdvReac Type Severity Reaction Status Date / Time ciprofloxacin [From Cipro] Allergy Unknown Unknown/Unable Verified 12/21/16 16: 07 to obtain lorazepam [From Ativan] AdvReac Intermediate Agitated Verified 12/21/16 16:07 Medical,Surgical,& Family Hx - Medical History Cardio: No history of: Hypertension (HYPOTENSION) Psychological: History of: Anxiety Disorders, Depression Neurology: History of: Seizures, Neurological Problems (cerebellar ataxia) HEENT: History of: Eye Problem (WEARS GLASSES) Respiratory: History of: Bronchitis, COPD, Pneumonia, Respiratory Problems ( ASSOCIATED WITH CEREBLLA ATAXIA, bronchiectasis) Genitourinary: History of: Kidney Stones, Recurring Urinary Tract Infections Gastrointestinal: History of: GERD, GI Problems (difficulty swallowing) Musculoskeletal: History of: Musculoskeletal Problems (NEUROPATHY) No history of: Amputation Hematology: History of: Anemia - Surgical History Cardiac Surgeries: Patient Denies: Cardiac Catheterization Thoracic Surgeries: Patient denies;: Organ Transplant, Lobectomy Neurologic Surgeries: Surgical HX of: Neurologic Surgery HEENT Surgeries: Surgical HX of: Eye Surgery (CATARACT SURGERY) Patient denies: Thyroid Surgery, Tonsilectomy & Adenoidectomy Abdominal Surgeries: Surgical HX of: Colonoscopy, EGD Patient denies: Abdominal Surgery Reproductive Surgeries: Patient denies;: Genitourinary Surgery - Family History Family History: Reports;: Family Cancer (MOM-COLON) Denies;: Family Anesthesia Reaction, Family Diabetes, Family Heart Disease, Family Hypertension, Family Psychiatric Problems, Family Stroke - Social History Smoking Status: Never smoker Frequency of Alcohol Use: None Type of Drug Use: None Review of systems: Constitutional: Denies fever, chills, nausea, and vomiting Eyes: Denies dry eyes, and scleral icterus HENT: Occasional headaches headaches Cardiovascular: Denies acute chest pain and claudication Respiratory: Patient does have some shortness of breath, wheezing, occasional difficulty breathing, as well as occasional cough Gastrointestinal: As noted in the HPI Genitourinary: He does have mild dysuria but no hematuria Neurologic: Denies vision loss, and loss of sensation Musculoskeletal: Denies joint swelling, but does have some joint stiffness, and muscular weakness Psychiatric: Denies depression and ruth symptoms Heme-Lymph: Denies easy bruising, lymph node enlargement or tenderness, night sweats, excessive bleeding Allergies-immunologic: Denies pruritus and rhinorrhea Exam - Constitutional Vitals: Period Temp Pulse Resp BP Sys/Sims Pulse Ox Last 24 Hr 97.5 F-98.3 F 78-106 18-20 89-137/55-82 90-100 General appearance: no acute distress Exam: Constitutional: Well-developed, well-nourished, alert, and in no acute distress Head and face: Head: Normocephalic atraumatic Eyes: Conjunctiva without injection, no gross scleral icterus, pupils equal and round bilaterally Ears: Intact to conversation in both ears Nose: External appearance is normal, nares patent Mouth: Oral mucous membranes moist without erythema dentition noted to be without erosion Neck: Normal appearance, no masses or tenderness, trachea midline Thyroid: Gland midline and appropriate size for age Respiratory: Normal respiratory effort, clear to auscultation without wheezes, rhonchi or rales to my exam Cardiovascular: Regular rate and rhythm, normal S1, S2, the exam is without rubs, murmurs or gallops. Gastrointestinal: Nontender to palpation, normal active bowel sounds, tone normal without rigidity or guarding, no masses present, no hepatomegaly, no spleen tip felt. There is a PEG tube that appears to be clean and relatively fresh in the left upper quadrant with a very thin jejunal feeding tube in the center--attempts that flushing with water resulted in the proximal ballooning of the PEG tube that appears to be in danger of imminent rupture. No rectal exam obtained. Lymphatic: Neck without adenopathy, axilla without lymphadenopathy present Musculoskeletal: Right and left lower extremities without evidence of edema Skin and subcutaneous tissue: No rashes or ulcerations noted, normal skin turgor, digits and nails without clubbing/cyanosis/deformities. Neurologic: The patient can answer questions but appears to be mildly demented. He does not move much but does have signs and symptoms of cerebral ataxia Psychiatric: No hallucinations or delusions are present, does not appear depressed Results - Labs CBC & BMP: 12/22/16 05:40 12/22/16 05:40
[2016-12-22] MEDS: PANTOPRAZOLE 40 MG VIAL IV SCH (09:22)
[2016-12-22] MEDS: IPRATROPIUM 0.06% NASAL SPRAY 15 ML BOTTLE BOTH NARES SCH ×2 (09:22→20:17)
[2016-12-22] MEDS: SODIUM CHLORIDE 0.65% NASAL SPRAY 45 ML BOTTLE BOTH NARES SCH ×2 (09:24→20:17)
--- NOTE | 2016-12-22 09:27 | Hospitalist Progress Note ---
Assessment and Plan (1) Malfunctioning jejunostomy tube Status: Acute Assessment and plan: Impression: 1. Malfunctioning feeding tube 2. Chronic aspiration; this problem appears stable 3. Recurrent urinary infections; this problem appears stable 4. Cerebellar ataxia Plan: Await further GI recommendations regarding tube revision. We may try some enzymes and Coke in the tube overnight to see if this will restore patency. This note was completed using [employer] voice recognition software. There may be long term care pharmacist errors as a result. Current Visit: Yes Hospitalist: Subjective Interval history: Follow-up malfunctioning feeding tube, cerebellar ataxia, recurrent aspiration, and recurrent urinary infections. History is outlined in the GI note, and also in the history and physical. Briefly, the patient has had cerebellar ataxia since 1998. During that time, he has had a gradual deterioration in neurologic function. He has developed chronic aspiration, and had a feeding tube placed in September of this year. He has had episodes of recurrent aspiration pneumonia, as well as recurrent urinary infections. He likely has a neurogenic bladder, at least by the description of the . She reports that she does in and out catheterizations of the bladder, and that a suprapubic tube was contemplated at one time but never placed. He had just been hospitalized here, and was discharged home on . He returned today later with a malfunctioning feeding tube. The tube remains clogged despite efforts at the bedside to restore patency. He is tentatively scheduled for revision or replacement tomorrow. Exam - Constitutional Vitals: Period Temp Pulse Resp BP Sys/Sims Pulse Ox Last 24 Hr 97.5 F-98.3 F 78-106 18-20 89-137/55-82 90-100 Vital signs are noted above. Heart is regular with distant tones. I do not hear murmur. He has a few scattered rhonchi in the chest. PEG site looks clean. He is awake and attempts to converse. He appears chronically ill Results - Labs CBC & BMP: 12/22/16 05:40 12/22/16 05:40 Lab Results: I have reviewed the past 24 hour labs
[2016-12-23] MEDS: ALBUTEROL/IPRATROPIUM 3 ML NEB RESP TX SCH ×7 (00:28→23:59)
[2016-12-23] MEDS: PIPERACILLIN/TAZOBACTAM 3,375 MG in SODIUM CHLORIDE 0.9% 100 ML IV SCH ×3 (04:11→21:32)
[2016-12-23] MEDS: SODIUM CHLORIDE 0.9% 1,000 ML IV SCH ×2 (04:11→16:17)
[2016-12-23] MEDS: PANTOPRAZOLE 40 MG VIAL IV SCH (11:08)
[2016-12-23] MEDS: IPRATROPIUM 0.06% NASAL SPRAY 15 ML BOTTLE BOTH NARES SCH ×2 (11:09→21:32)
[2016-12-23] MEDS: SODIUM CHLORIDE 0.65% NASAL SPRAY 45 ML BOTTLE BOTH NARES SCH ×2 (11:09→21:32)
--- NOTE | 2016-12-23 11:10 | Pulmonology Progress Note ---
Pulmonary - PN: Subj Interval history: [facility]j Fuller[facility] acting as scribe for Dr. Mikael Renteria Mr. Ashley is a 71-year-old white male who we saw in initial pulmonary consultation on 12/17/2016. He was discharged home on 12/20/2016. Please see the hospital records for more information. At the time of our initial consultation on 12/17/2016, our impressions were: 1. Acute pyelonephritis. 2. Altered mental status probably secondary #1. 3. Watch for aspiration or bacterial pneumonia. 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 6. Bronchiectasis. 7. Inability to urinate. Requires bladder catheterization. 8. Inability to swallow. Has PEG tube. 9. History of obstructive sleep apnea 10. Chronic allergic sinusitis 11. Family history of colon cancer 12. History of anxiety and depression 13. History of small ulcers involving the superior gluteal folds. 14. Chronic aspiration with bilateral erosive friable bronchitis and partial stenosis of the superior segment of left lower lung secondary to hypertrophied tissue seen on fiberoptic bronchoscopy done 07/24/2016 15. History of iron deficiency anemia 16. See past history 12/18/2016. The patient was seen today along with his and a sitter. Patient's chest x-ray shows a faint right lower lung infiltrate compatible with pneumonia. In the past approximately 24 hours or so, his maximum temperature recorded has been 101.6 and that was at 0037 on 12/17/2016. He has been afebrile since approximately 5:00 yesterday morning. He is on gentamicin and Zosyn. Sputum Gram stain showed gram-positive cocci in pairs, gram-positive rods, gram-negative rods, and rare gram-negative diplococci. Sputum cultures pending. The patient's feels that he is getting back to his baseline, but is somewhat somnolent. She reports she feels he is markedly improved from admission. She asked about when the patient possibly could be discharged home. We told her we were pleased with his improvement, and he could possibly be considered for discharge tomorrow or Friday. We will repeat a chest x-ray tomorrow. 12/19/2016. Patient was seen today along with his and Fernanda Quinn RN. Eneida Lema RN was also present. Patient is more awake and alert this morning. Chest x-ray stable. Sputum cultures showing a gram-negative yudelka. Urine cultures growing a gram-negative yudelka and gram-positive cocci. Final ID and sensitivities are pending. Presently the patient is on gentamicin and Zosyn. We made no changes to these today. Mrs. Ashley inquired about the patient's Flomax being changed to another medication. She states that she has been unable to adequately crush this enough at home to give through his J-tube. We have asked nursing staff to show her how to do this correctly and safely. In the meantime, we have asked her speech therapy evaluation for bedside swallow eval. 12/20/2016. Patient was seen today along with his , Fernanda Quinn RN, and Eneida Lema RN. Mr. Ashley is doing reasonably well today. Sputum and urinalysis both obtained 12/17/2016 growing multiple organisms. Urine culture is growing a gram-positive cocci which is yet to be identified and also Klebsiella pneumoniae. Sputum culture is growing a gram-negative yudelka and it has not been identified either. Clearly, the patient is improving, but we would not suggest discharging him until the final IDs have been reported and we can make sure that he has appropriate antibiotic coverage with good OTILIA's. This was discussed with the patient and his to their understanding. They are in agreement. Patient's Flomax cannot be dissolved to adequately get through his J-tube. Hytrin (name brand; not Terazosin) is a tablet. We will see if this can be crushed and put in his tube safely. There are no appropriate liquid medications for BPH that we are aware of. Nursing staff states that they have spoken with pharmacy and this is being reviewed. The patient failed his swallowing evaluation yesterday. See the speech therapy notes for more information. 12/23/2016. The patient was readmitted on 12/21/2016. His reports that after they got home, his J-tube malfunction. She was unable to get anything to pass through it. Presented back to the ER, and on evaluation it was felt that the patient could possibly be dehydrated secondary to no intake in 24 hours and also that he would most likely require replacement of his J-tube. According to Mrs. Ashley, they have had a very difficult weekend. This is being handled by nursing administration. Nonetheless, the patient has been seen in GI consultation by Dr. Taylor and it is felt that the patient require a replacement J-tube. He is routinely followed by Dr. Love. Dr. Love we will see him later on today. Mrs. Ashley states that she would like to speak with Dr. Love before having this done. We have explained to her that we would wholeheartedly agree with any recommendations from Dr. Taylor and/or Dr. Love. In the meantime, we will ask dietary to initiate PPN. He has had no chest x-ray this admission, so one has been ordered. Again, he was recently inpatient with acute pyelonephritis secondary to Klebsiella pneumoniae and VRE. I am unsure if all the ID and sensitivities were available at discharge. He also had an acute pneumonia secondary to E. coli. He is presently on Zosyn which covers the Klebsiella and E. coli with OTILIA's of less than 16. The VRE had a low colony count, but Zosyn does not cover it. Given his significant past history, multiple comorbidities, and acute illness, we will start Zyvox 300 mg IV every 12 hours. Repeat urinalysis has been ordered. Medications have been reviewed. We would suggest restarting his home medications. Labs have been reviewed. Yesterday, white count was 8600 with 72.3% segs, 14.5 % lymphs, and 10.3% monos; H&H 11.0/33.9 with normal indices and top normal red blood cell distribution width; platelet count 261,000; creatinine 0.90, BUN 28, sodium 143, potassium 3.6 Exam (Progress Note) - Constitutional Vitals: Period Temp Pulse Resp BP Sys/Sims Pulse Ox Last 24 Hr 97 F-98.2 F 74-98 16-20 100-120/59-73 94-100 Exam: Chest with loose large airway congestion; no wheeze Heart no gallop Abdomen is nontender and nondistended; bowel sounds are positive 4; J-tube is in place Extremities with nothing to suggest acute deep venous thrombophlebitis Psychiatric awake, alert, and oriented Neurologic unchanged Plan: Continue Zosyn, but add Zyvox 300 mg IV every 12 hours. Start IV peripheral hyperalimentation. Obtain chest x-ray and urinalysis. Agree with workup by Dr. Taylor. Await Dr. Love' recommendations. Would recommend restarting the patient's home medications. See orders. Results - Labs CBC & BMP: 12/22/16 05:40 12/22/16 05:40
[2016-12-23] MEDS ORDERED: DEXTROSE 50% 25 GM/50 ML VIAL IV PRN (11:13)
[2016-12-23] MEDS ORDERED: GLUCAGON 1 MG VIAL IM PRN (11:13)
--- NOTE | 2016-12-23 11:28 | XRay Report ---
History is coughing Comparison 12/20/2016 The heart is normal in size There are mild reticular nodular opacities in both lung bases similar on multiple prior studies. No new consolidative infiltrates are seen Impression: Mild chronic interstitial opacities in the lung bases without more confluent infiltrates seen PROCEDURE INTERPRETED AT [facility] DEPARTMENT OF RADIOLOGY Final Report Signed by: Dr. Liz Chilel
[2016-12-23] MEDS: LINEZOLID INJ 600 MG in PREMIX 1 EACH IV SCH (12:42)
--- NOTE | 2016-12-23 12:51 | Gastrointestinal Progress Note ---
<Oumou Foster - Last Filed: 12/23/16 12:49> Assessment and Plan (1) Malfunctioning jejunostomy tube Status: Acute Assessment and plan: 12/23-PEG tube replacement postponed at present time. Awaiting procedure records from last feeding tube placement in [place] per patient's . Will reevaluate tomorrow. Plan an addendum to followed by Dr. Love. Current Visit: Yes Gastroenterology - PN: Subj Interval history: CC: Malfunctioning PEG tube Patient is seen, awake and alert, with at bedside. He had an uneventful night but denies any abdominal pain at this time. Patient was scheduled for PEG replacement however further evaluation was necessary to determine specifics on his current feeding tube. After discussion with patient's , we will await records from [place] regarding the placement of his current PEG tube before proceeding with replacement. Abdomen is soft, nontender. Patient's is in agreement with this plan at this time. She is going to attempt to obtain these records today. ROS: No acute distress noted Exam (Progress Note) - Constitutional Vitals: Period Temp Pulse Resp BP Sys/Sims Pulse Ox Last 24 Hr 97 F-98.2 F 74-98 16-20 100-131/59-85 94-100 General appearance: normal weight, no acute distress - Head Head exam: Present: normal inspection, normocephalic - Eye Eye exam: Present: other (Lids and conjunctive are unremarkable). Absent: scleral icterus - ENT ENT exam: Present: normal exam, normal oropharynx - Neck Neck exam: Present: normal inspection - Respiratory Respiratory exam: Present: clear to auscultation bilaterally. Absent: rales, rhonchi, wheezes - Cardiovascular Cardiovascular exam: Present: regular rate and rhythm. Absent: diastolic murmur , JVD, systolic murmur - GI/Abdominal GI/Abdominal exam: Present: normal bowel sounds, soft. Absent: ascites, distended, mass, organomegaly, tenderness - Extremities Exam Extremities exam: Present: normal inspection, full ROM - Back Exam Back exam: Present: normal inspection - Neurological Exam Neurological exam: Present: alert, altered - Psychiatric Psychiatric exam: Present: normal affect, normal mood - Skin Skin exam: Present: normal color, warm, dry Results - Labs CBC & BMP: 12/22/16 05:40 12/22/16 05:40 Lab Results: I have reviewed the past 24 hour labs <Zeyad Love - Last Filed: 12/23/16 20:29> Exam (Progress Note) - Constitutional Vitals: Period Temp Pulse Resp BP Sys/Sims Pulse Ox Last 24 Hr 97.4 F-98.2 F 82-98 16-20 100-131/59-85 96-100 Results - Labs CBC & BMP: 12/22/16 05:40 12/22/16 05:40
[2016-12-23 14:21] LABS: Apearance,Urine CLEAR (Clear); Bilirubin,Urine Negative (Negative); Blood, Urine Negative (Negative); Glucose,Urine (UA) Negative (Negative); Ketones,Urine 20 mg/dL (Negative); Nitrite,Urine Negative (Negative); Protein,Urine Negative; RBC,Urine 1 /HPF (0-4); Urine Color Yellow (Yellow); Urine Specific Gravity 1.015 (1.001-1.035); Urine Urobilinogen < 2.0 EU/DL (0.2-1.0); WBC,Urine 1 /HPF (0-6)
[2016-12-23] MEDS: FAT EMULSION 20% 250 ML IV SCH (15:41)
[2016-12-23] MEDS: DEXT 5% NACL 0.45% KCL 20 MEQ 20 MEQ/1,000 ML BAG IV SCH (16:14)
--- NOTE | 2016-12-23 16:33 | Hospitalist Progress Note ---
Assessment and Plan - Time spent with patient Time spent with patient: Less than 30 minutes (1) Malfunctioning jejunostomy tube Status: Acute Assessment and plan: GI is following for J tube replacement, currently awaiting records from [place] where tube was originally placedHe is NPO due to risk of aspiration, cont IVF. Current Visit: Yes Hospitalist: Subjective Interval history: Follow-up malfunctioning feeding tube, cerebellar ataxia, recurrent aspiration, and recurrent urinary infections. History is outlined in the GI note, and also in the history and physical. Briefly, the patient has had cerebellar ataxia since 1998. During that time, he has had a gradual deterioration in neurologic function. He has developed chronic aspiration, and had a feeding tube placed in September of this year. He has had episodes of recurrent aspiration pneumonia, as well as recurrent urinary infections. He likely has a neurogenic bladder, at least by the description of the . She reports that she does in and out catheterizations of the bladder, and that a suprapubic tube was contemplated at one time but never placed. He had just been hospitalized here, and was discharged home on . He returned today with a malfunctioning feeding tube. The tube remains clogged despite efforts at the bedside to restore patency. GI is following for tube replacement. Exam - Constitutional Vitals: Period Temp Pulse Resp BP Sys/Sims Pulse Ox Last 24 Hr 97 F-98.2 F 82-98 16-20 100-131/59-85 96-100 General appearance: no acute distress - Head Head exam: Present: normal inspection, normocephalic - Eye Eye exam: Present: EOMI Pupils: Present: JAYDE - ENT ENT exam: Present: normal exam - Neck Neck exam: Present: normal inspection - Respiratory Respiratory exam: Present: clear to auscultation bilaterally - Cardiovascular Cardiovascular exam: Present: regular rate and rhythm - GI/Abdominal GI/Abdominal exam: Present: normal bowel sounds - Extremities Exam Extremities exam: Present: normal inspection - Back Exam Back exam: Present: normal inspection - Neurological Exam Neurological exam: Present: alert - Psychiatric Psychiatric exam: Present: normal affect, normal mood - Skin Skin exam: Present: normal color, warm, dry Results - Labs CBC & BMP: 12/22/16 05:40 12/22/16 05:40
--- NOTE | 2016-12-23 16:51 | Hospitalist Progress Note ---
Assessment and Plan (1) Malfunctioning jejunostomy tube Status: Acute Assessment and plan: GI is following for J tube replacement, currently awaiting records from [place] where tube was originally placedHe is NPO due to risk of aspiration, cont IVF. 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 Pt underwent excisional debridement of left lower extremity ulcer and underlying necrotizing fascitis 12/23 Exam - Constitutional Vitals: Period Temp Pulse Resp BP Sys/Sims Pulse Ox Last 24 Hr 97 F-98.2 F 82-98 16-20 100-131/59-85 96-100 Results - Labs CBC & BMP: 12/22/16 05:40 12/22/16 05:40
[2016-12-23] MEDS: TRACE ELEMENTS (5) 1 ML, MULTIVITAMIN INJ 10 ML in AMINO ACIDS/DEXT/LYTES 4.25-5% 2,000 ML IV SCH (17:28)
[2016-12-24] MEDS: LINEZOLID INJ 600 MG in PREMIX 1 EACH IV SCH ×2 (01:24→11:40)
[2016-12-24] MEDS: ALBUTEROL/IPRATROPIUM 3 ML NEB RESP TX SCH ×6 (03:31→23:52)
[2016-12-24] MEDS: PIPERACILLIN/TAZOBACTAM 3,375 MG in SODIUM CHLORIDE 0.9% 100 ML IV SCH ×3 (04:02→21:12)
[2016-12-24] MEDS: DEXT 5% NACL 0.45% KCL 20 MEQ 20 MEQ/1,000 ML BAG IV SCH ×3 (05:40→19:26)
[2016-12-24 06:57] LABS: Calcium 7.9 MG/DL (8.5-10.1); Magnesium 2.2 MG/DL (1.8-2.4); Osmolality,Calculated 281.4 MOS/KG (273-304); Phosphorous 2.1 MG/DL (2.5-4.9); Potassium 3.8 MMOL/L (3.5-5.1)
[2016-12-24] MEDS: IPRATROPIUM 0.06% NASAL SPRAY 15 ML BOTTLE BOTH NARES SCH ×2 (09:17→20:25)
[2016-12-24] MEDS: SODIUM CHLORIDE 0.65% NASAL SPRAY 45 ML BOTTLE BOTH NARES SCH ×2 (09:17→20:25)
[2016-12-24] MEDS: PANTOPRAZOLE 40 MG VIAL IV SCH (09:18)
--- NOTE | 2016-12-24 11:19 | Pulmonology Progress Note ---
Pulmonary - PN: Subj Interval history: Mr. Ashley is a 71-year-old white male who we saw in initial pulmonary consultation on 12/17/2016. He was discharged home on 12/20/2016. Please see the hospital records for more information. At the time of our initial consultation on 12/17/2016, our impressions were: 1. Acute pyelonephritis. 2. Altered mental status probably secondary #1. 3. Watch for aspiration or bacterial pneumonia. 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 6. Bronchiectasis. 7. Inability to urinate. Requires bladder catheterization. 8. Inability to swallow. Has PEG tube. 9. History of obstructive sleep apnea 10. Chronic allergic sinusitis 11. Family history of colon cancer 12. History of anxiety and depression 13. History of small ulcers involving the superior gluteal folds. 14. Chronic aspiration with bilateral erosive friable bronchitis and partial stenosis of the superior segment of left lower lung secondary to hypertrophied tissue seen on fiberoptic bronchoscopy done 07/24/2016 15. History of iron deficiency anemia 16. See past history 12/18/2016. The patient was seen today along with his and a sitter. Patient's chest x-ray shows a faint right lower lung infiltrate compatible with pneumonia. In the past approximately 24 hours or so, his maximum temperature recorded has been 101.6 and that was at 0037 on 12/17/2016. He has been afebrile since approximately 5:00 yesterday morning. He is on gentamicin and Zosyn. Sputum Gram stain showed gram-positive cocci in pairs, gram-positive rods, gram-negative rods, and rare gram-negative diplococci. Sputum cultures pending. The patient's feels that he is getting back to his baseline, but is somewhat somnolent. She reports she feels he is markedly improved from admission. She asked about when the patient possibly could be discharged home. We told her we were pleased with his improvement, and he could possibly be considered for discharge tomorrow or Friday. We will repeat a chest x-ray tomorrow. 12/19/2016. Patient was seen today along with his and Fernanda Quinn RN. Eneida Lema RN was also present. Patient is more awake and alert this morning. Chest x-ray stable. Sputum cultures showing a gram-negative yudelka. Urine cultures growing a gram-negative yudelka and gram-positive cocci. Final ID and sensitivities are pending. Presently the patient is on gentamicin and Zosyn. We made no changes to these today. Mrs. Ashley inquired about the patient's Flomax being changed to another medication. She states that she has been unable to adequately crush this enough at home to give through his J-tube. We have asked nursing staff to show her how to do this correctly and safely. In the meantime, we have asked her speech therapy evaluation for bedside swallow eval. 12/20/2016. Patient was seen today along with his , Fernanda Quinn, SUSAN, and Eneida Lema RN. Mr. Ashley is doing reasonably well today. Sputum and urinalysis both obtained 12/17/2016 growing multiple organisms. Urine culture is growing a gram-positive cocci which is yet to be identified and also Klebsiella pneumoniae. Sputum culture is growing a gram-negative yudelka and it has not been identified either. Clearly, the patient is improving, but we would not suggest discharging him until the final IDs have been reported and we can make sure that he has appropriate antibiotic coverage with good OTILIA's. This was discussed with the patient and his to their understanding. They are in agreement. Patient's Flomax cannot be dissolved to adequately get through his J-tube. Hytrin (name brand; not Terazosin) is a tablet. We will see if this can be crushed and put in his tube safely. There are no appropriate liquid medications for BPH that we are aware of. Nursing staff states that they have spoken with pharmacy and this is being reviewed. The patient failed his swallowing evaluation yesterday. See the speech therapy notes for more information. 12/23/2016. The patient was readmitted on 12/21/2016. His reports that after they got home, his J-tube malfunction. She was unable to get anything to pass through it. Presented back to the ER, and on evaluation it was felt that the patient could possibly be dehydrated secondary to no intake in 24 hours and also that he would most likely require replacement of his J-tube. According to Mrs. Ashley, they have had a very difficult weekend. This is being handled by nursing administration. Nonetheless, the patient has been seen in GI consultation by Dr. Taylor and it is felt that the patient require a replacement J-tube. He is routinely followed by Dr. Love. Dr. Love we will see him later on today. Mrs. Ashley states that she would like to speak with Dr. Love before having this done. We have explained to her that we would wholeheartedly agree with any recommendations from Dr. Taylor and/or Dr. Love. In the meantime, we will ask dietary to initiate PPN. He has had no chest x-ray this admission, so one has been ordered. Again, he was recently inpatient with acute pyelonephritis secondary to Klebsiella pneumoniae and VRE. I am unsure if all the ID and sensitivities were available at discharge. He also had an acute pneumonia secondary to E. coli. He is presently on Zosyn which covers the Klebsiella and E. coli with OTILIA's of less than 16. The VRE had a low colony count, but Zosyn does not cover it. Given his significant past history, multiple comorbidities, and acute illness, we will start Zyvox 300 mg IV every 12 hours. Repeat urinalysis has been ordered. Medications have been reviewed. We would suggest restarting his home medications. Labs have been reviewed. Yesterday, white count was 8600 with 72.3% segs, 14.5 % lymphs, and 10.3% monos; H&H 11.0/33.9 with normal indices and top normal red blood cell distribution width; platelet count 261,000; creatinine 0.90, BUN 28, sodium 143, potassium 3.6 12/24/2016. Chest x-ray done 12/23/2016 showed that there are some residual increase markings in the right lower lung. Pneumonia is resolving like it should. See my note 12/23/2016 concerning antibiotics. Follow-up urinalysis done 12/23/2016 shows resolution of patient's urinary tract infection. Electrolytes are normal. Creatinine is 0.90 with a BUN of 17. Calcium is low at 7.9 and phosphorus is low at 2.1. I will check a vitamin D. Agree with GI and interventional radiology plans. Follow-up chest x-ray in the morning Exam (Progress Note) - Constitutional Vitals: Period Temp Pulse Resp BP Sys/Sims Pulse Ox Last 24 Hr 97 F-98.2 F 74-98 16-20 100-120/59-73 94-100 Exam: Head. Symmetrical. No edema of the lips or tongue. Neck. Symmetrical. No meningismus. Lymphatics. No submandibular cervical supraclavicular or epitrochlear adenopathy. Chest with loose large airway congestion; no wheeze Heart no gallop Abdomen is nontender and nondistended; bowel sounds are positive 4; J-tube is in place Extremities with nothing to suggest acute deep venous thrombophlebitis Psychiatric awake, alert, and oriented Neurologic unchanged Plan: 12/23/2016 1. Continue Zosyn, but add Zyvox 300 mg IV every 12 hours. 2. Start IV peripheral hyperalimentation. Obtain chest x-ray and urinalysis. 3. Agree with workup by Dr. Taylor. 4. Await Dr. Love' recommendations. 5. Would recommend restarting the patient's home medications. 6.. 12/24/2016. 1. See my note above for today. 2. Follow-up chest x-ray tomorrow see orders. Exam (Progress Note) - Constitutional Vitals: Period Temp Pulse Resp BP Sys/Sims Pulse Ox Last 24 Hr 97.2 F-98.3 F 79-96 16-20 109-151/65-89 94-100 Results - Labs CBC & BMP: 12/22/16 05:40 12/24/16 04:54
--- NOTE | 2016-12-24 11:58 | Gastrointestinal Progress Note ---
<Augusta Fosterher Meme - Last Filed: 12/24/16 11:55> Assessment and Plan (1) Malfunctioning jejunostomy tube Status: Acute Assessment and plan: 12/24-no changes at present time. For tentative jejunal feeding tube replacement tomorrow with Dr. Lisa. Plan an addendum to follow by Dr. Love. 12/23-PEG tube replacement postponed at present time. Awaiting procedure records from last feeding tube placement in [place] per patient's . Will reevaluate tomorrow. Plan an addendum to followed by Dr. Love. Current Visit: Yes Gastroenterology - PN: Subj Interval history: CC: Malfunctioning PEG tube Patient is seen awake and alert with at bedside. He is denying any abdominal pain at this time. Dr. Lisa has consulted with patient and tentatively is scheduled to replace the jejunal feeding tube on tomorrow, without sedation, however awaiting for the arrival of the supplies. Abdomen is soft, nontender. ROS: Denies shortness of breath or chest pain Exam (Progress Note) - Constitutional Vitals: Period Temp Pulse Resp BP Sys/Sims Pulse Ox Last 24 Hr 97.2 F-98.3 F 79-96 16-20 109-151/65-89 94-100 General appearance: normal weight, no acute distress - Head Head exam: Present: normal inspection, normocephalic - Eye Eye exam: Present: other (Lids and conjunctivae are unremarkable). Absent: scleral icterus - ENT ENT exam: Present: normal exam, normal oropharynx - Neck Neck exam: Present: normal inspection - Respiratory Respiratory exam: Present: clear to auscultation bilaterally. Absent: rales, rhonchi, wheezes - Cardiovascular Cardiovascular exam: Present: regular rate and rhythm. Absent: diastolic murmur , JVD, systolic murmur - GI/Abdominal GI/Abdominal exam: Present: normal bowel sounds, soft. Absent: ascites, distended, mass, organomegaly, tenderness - Extremities Exam Extremities exam: Present: normal inspection, full ROM - Back Exam Back exam: Present: normal inspection - Neurological Exam Neurological exam: Present: alert, oriented X3 - Psychiatric Psychiatric exam: Present: normal affect, normal mood - Skin Skin exam: Present: normal color, warm, dry Results - Labs CBC & BMP: 12/22/16 05:40 12/24/16 04:54 Lab Results: I have reviewed the past 24 hour labs <Zeyad Love - Last Filed: 12/24/16 17:05> Exam (Progress Note) - Constitutional Vitals: Period Temp Pulse Resp BP Sys/Sims Pulse Ox Last 24 Hr 97.2 F-98.3 F 79-96 17-20 116-151/75-89 94-100 Results - Labs CBC & BMP: 12/22/16 05:40 12/24/16 04:54
[2016-12-24] MEDS: FAT EMULSION 20% 250 ML IV SCH (14:16)
--- NOTE | 2016-12-24 15:49 | Hospitalist Progress Note ---
Assessment and Plan (1) Malfunctioning jejunostomy tube Status: Acute Current Visit: Yes Hospitalist: Subjective Interval history: The patient has had cerebellar ataxia since 1998. During that time, he has had a gradual deterioration in neurologic function. He has developed chronic aspiration, and had a feeding tube placed in September of this year. He has had episodes of recurrent aspiration pneumonia, as well as recurrent urinary infections. He likely has a neurogenic bladder, at least by the description of the . She reports that she does in and out catheterizations of the bladder , and that a suprapubic tube was contemplated at one time but never placed. He had just been hospitalized here, and was discharged home on 12/20. He returned today with a malfunctioning feeding tube. The tube remains clogged despite efforts at the bedside to restore patency. GI is following for tube replacement. Exam - Constitutional Vitals: Period Temp Pulse Resp BP Sys/Sims Pulse Ox Last 24 Hr 97.2 F-98.3 F 79-96 17-20 109-151/65-89 94-100 Exam: EXAM: General: No Acute Distress HEENT: Normocephalic, atraumatic, Extra ocular movements intact Neck: Supple, No JVD Chest: Clear to auscultation B/L CV: S1 + S2 audible without murmur, gallop or rub Abd: soft, NT, Non-distended, BS + Ext: No edema Skin: No purpura, bruising or rash Rheumatologic: No Joint deformities Neurologic: Strengtg 5/5 all extremities, no gross sensory deficits Results - Labs CBC & BMP: 12/22/16 05:40 12/24/16 04:54 - Impressions (1) Malfunctioning jejunostomy tube Status: Acute Assessment and plan: GI is following for J tube replacement. He is NPO due to risk of aspiration, cont IVF. Current Visit: Yes (2) Ch COPD (chronic obstructive pulmonary disease) Status: Chronic, stable Current Visit: No (3) History of aspiration pneumonia Status: Chronic Current Visit: No (4) Ch Neurogenic Bladder Status: Chronic Current Visit: Yes Pt undergoes in and out catheterization at home as well as is to be continued in the hospital as well with as needed bladder scans. Urology has been consulted as per 's request. We will resume his oral Hytrin once his J- tube is replaced
[2016-12-24] MEDS: TRACE ELEMENTS (5) 1 ML, MULTIVITAMIN INJ 10 ML in AMINO ACIDS/DEXT/LYTES 4.25-5% 2,000 ML IV SCH (16:50)
--- NOTE | 2016-12-24 17:50 | Inventional Radiology Consult ---
Assessment and Plan - Time spent with patient Time spent with patient: Less than 30 minutes (1) Malfunctioning jejunostomy tube Problem details: plan for exchange tomorrow (as long as the ordered replacement arrives) Status: Acute Assessment and plan: plan for GJ exchange tomorrow Current Visit: Yes IR Consult - Data of Consult Patient: new to practice Consult date: 12/24/16 Requesting Physician: Zeyad Love - Consult Narrative Reason for consult: malfunctioning GJ tube History of present illness: Scales is a 71 year old M With cerebellar ataxia and nutrition via a gastrojejunostomy tube placed approximately 3 months ago while receiving treatment out of town. Patient has a gastrojejunostomy tube due to chronic aspiration related to prior gastric tube feedings. During this admission, the patient's GJ tube is noted to be malfunctioning with some leakage. - Home Medications and Allergies Home Medications: Home Medications Medication Instructions Recorded Confirmed Type Aspirin [Children's Aspirin] 81 mg PO BEDTIME 09/24/14 12/21/16 History Memantine [Namenda] 5 mg PO BID 09/24/14 12/21/16 History Modafinil [Provigil] 200 mg PER TUBE DAILY 09/24/14 12/21/16 History Multivitamin [Daily Multiple 1 each PO DAILY 09/24/14 12/21/16 History Vitamin] Cetirizine HCl [ZyrTEC Cap] 10 mg PER TUBE BEDTIME 07/17/16 12/21/16 History Clorazepate [Tranxene] 3.75 mg PO BEDTIME 07/17/16 12/21/16 History Montelukast Tab [Singulair Tab] 10 mg PER TUBE DAILY 07/17/16 12/21/16 History Albuterol/Ipratropium Neb [Duoneb] 3 ml RESP TX RT QID #120 07/26/16 12/21/16 Rx nebulization solution Acetylcysteine Soln (APAP Od) 3 ml INH TID 11/10/16 12/21/16 History [Mucomyst 20% (APAP Od)] Folic Acid/Vit B Complex and C 5 mg PER TUBE DAILY 11/10/16 12/21/16 History [[place] Plus Tablet] Glycopyrrolate Tab [Robinul Tab] 1 mg PO BID 11/10/16 12/21/16 History Potassium Iodide Oral Soln [Sski] 0.3 ml PO TID 11/10/16 12/21/16 History Pseudoephedrine [Sudafed] 30 mg PO DAILY 11/10/16 12/21/16 History buPROPion [Wellbutrin] 100 mg PO BID 11/10/16 12/21/16 History guaiFENesin [Guaifenesin] 20 ml PER TUBE TID 11/10/16 12/21/16 History predniSONE [PredniSONE] 2.5 mg PER TUBE DAILY 11/10/16 12/21/16 History Ferrous Sulfate Tab [Feosol 1 tablet PO BID 12/17/16 12/21/16 History Original Tab] Iron Fum/Folic Acid/Mv,Min 15 1 tablet PO DAILY 12/17/16 12/21/16 History [Hemocyte Plus Capsule] Pregabalin [Lyrica] 100 mg PO BEDTIME 12/17/16 12/21/16 History Tamsulosin [Flomax] 1 tablet PO DAILY 12/17/16 12/21/16 History Cefuroxime Tab [Ceftin] 500 mg PO BID #28 tablet 12/20/16 12/21/16 Rx Ipratropium 0.06% Nasal [place] 2 spray BOTH NARES BID spray 12/20/16 12/21/16 Rx [Atrovent 0.06% Nasal [place]] Pregabalin [Lyrica] 200 mg PER TUBE BEDTIME capsule 12/20/16 12/21/16 Rx Sodium Chloride 0.65% Nasal [place] 2 spray BOTH NARES BID bottle 12/20/16 12/21/16 Rx [[place] Nasal [place]] Terazosin [Hytrin] 5 mg PER TUBE BID #60 capsule 12/20/16 12/21/16 Rx Allergies/Adverse Reactions: Allergies Allergy/AdvReac Type Severity Reaction Status Date / Time ciprofloxacin [From Cipro] Allergy Unknown Unknown/Unable Verified 12/21/16 16: 07 to obtain lorazepam [From Ativan] AdvReac Intermediate Agitated Verified 12/21/16 16:07 12 point system: reviewed and no additional remarkable complaints except as stated Medical,Surgical,& Family Hx - Medical History Cardio: No history of: Hypertension (HYPOTENSION) Psychological: History of: Anxiety Disorders, Depression Neurology: History of: Seizures, Neurological Problems (cerebellar ataxia) HEENT: History of: Eye Problem (WEARS GLASSES) Respiratory: History of: Bronchitis, COPD, Pneumonia, Respiratory Problems ( ASSOCIATED WITH CEREBLLA ATAXIA, bronchiectasis) Genitourinary: History of: Kidney Stones, Recurring Urinary Tract Infections Gastrointestinal: History of: GERD, GI Problems (difficulty swallowing) Musculoskeletal: History of: Musculoskeletal Problems (NEUROPATHY) No history of: Amputation Hematology: History of: Anemia - Surgical History Cardiac Surgeries: Patient Denies: Cardiac Catheterization Thoracic Surgeries: Patient denies;: Organ Transplant, Lobectomy Neurologic Surgeries: Surgical HX of: Neurologic Surgery HEENT Surgeries: Surgical HX of: Eye Surgery (CATARACT SURGERY) Patient denies: Thyroid Surgery, Tonsilectomy & Adenoidectomy Abdominal Surgeries: Surgical HX of: Colonoscopy, EGD Patient denies: Abdominal Surgery Reproductive Surgeries: Patient denies;: Genitourinary Surgery - Family History Family History: Reports;: Family Cancer (MOM-COLON) Denies;: Family Anesthesia Reaction, Family Diabetes, Family Heart Disease, Family Hypertension, Family Psychiatric Problems, Family Stroke - Social History Smoking Status: Never smoker Frequency of Alcohol Use: None Type of Drug Use: None Exam - Labs CBC & BMP: 12/22/16 05:40 12/24/16 04:54 Lab Results: I have reviewed the past 24 hour labs - Constitutional Vitals: Period Temp Pulse Resp BP Sys/Sims Pulse Ox Last 24 Hr 97.2 F-98.3 F 79-96 17-20 116-151/75-89 94-100 General appearance: under weight - Eye Eye exam: Present: EOMI - Respiratory Respiratory exam: Present: clear to auscultation bilaterally - Cardiovascular Cardiovascular exam: Present: regular rate and rhythm - GI/Abdominal GI/Abdominal exam: Absent: tenderness, rebound - Neurological Exam Neurological exam: Present: alert, other (limited conversation ability) - Psychiatric Psychiatric exam: Present: flat affect - Skin Skin exam: Present: normal color, dry
--- NOTE | 2016-12-24 17:58 | Urology Consultation ---
Assessment and Plan - Time spent with patient Time spent with patient: Less than 30 minutes (1) BPH loc w urin obs/LUTS Status: Acute Assessment and plan: We will adjust his BPH medications. He now has a PEG tube. Flomax cannot go down through this. Uroxatrol can either. Rapaflo is the only one. It unfortunately is pricey. We can put the Proscar down the tube and we will order that. Current Visit: Yes History of Present Illness - Data of Consult Patient: known to practice within the last 3 years Consult date: 12/24/16 - Consult Narrative Reason for consult: BPH History of present illness: Mr. Ashley is a 71 year old male is a patient of Dr. Jeter's. He is on Flomax and Proscar by review of the last chart note. He has had 3 appointments that he did not show at. He is now in the hospital with a PEG tube in. Unfortunately Flomax cannot be opened or crush. Has to be swallowed whole so we will have to DC that and place him on Rapaflo. The other generic his Uroxatrol but it cannot be crushed either. He supposed to be on Proscar and that can be crushed and we can place that down the PEG tube. If he has to use the PEG tube and can swallow they are not going to like the andrade of Rapaflo. But I will let Dr. Jeter decide on that later. CC: Guera Logan MD - Home Medications and Allergies Home Medications: Home Medications Medication Instructions Recorded Confirmed Type Aspirin [Children's Aspirin] 81 mg PO BEDTIME 09/24/14 12/21/16 History Memantine [Namenda] 5 mg PO BID 09/24/14 12/21/16 History Modafinil [Provigil] 200 mg PER TUBE DAILY 09/24/14 12/21/16 History Multivitamin [Daily Multiple 1 each PO DAILY 09/24/14 12/21/16 History Vitamin] Cetirizine HCl [ZyrTEC Cap] 10 mg PER TUBE BEDTIME 07/17/16 12/21/16 History Clorazepate [Tranxene] 3.75 mg PO BEDTIME 07/17/16 12/21/16 History Montelukast Tab [Singulair Tab] 10 mg PER TUBE DAILY 07/17/16 12/21/16 History Albuterol/Ipratropium Neb [Duoneb] 3 ml RESP TX RT QID #120 07/26/16 12/21/16 Rx nebulization solution Acetylcysteine Soln (APAP Od) 3 ml INH TID 11/10/16 12/21/16 History [Mucomyst 20% (APAP Od)] Folic Acid/Vit B Complex and C 5 mg PER TUBE DAILY 11/10/16 12/21/16 History [Folbee Plus Tablet] Glycopyrrolate Tab [Robinul Tab] 1 mg PO BID 11/10/16 12/21/16 History Potassium Iodide Oral Soln [Sski] 0.3 ml PO TID 11/10/16 12/21/16 History Pseudoephedrine [Sudafed] 30 mg PO DAILY 11/10/16 12/21/16 History buPROPion [Wellbutrin] 100 mg PO BID 11/10/16 12/21/16 History guaiFENesin [Guaifenesin] 20 ml PER TUBE TID 11/10/16 12/21/16 History predniSONE [PredniSONE] 2.5 mg PER TUBE DAILY 11/10/16 12/21/16 History Ferrous Sulfate Tab [Feosol 1 tablet PO BID 12/17/16 12/21/16 History Original Tab] Iron Fum/Folic Acid/Mv,Min 15 1 tablet PO DAILY 12/17/16 12/21/16 History [Hemocyte Plus Capsule] Pregabalin [Lyrica] 100 mg PO BEDTIME 12/17/16 12/21/16 History Tamsulosin [Flomax] 1 tablet PO DAILY 12/17/16 12/21/16 History Cefuroxime Tab [Ceftin] 500 mg PO BID #28 tablet 12/20/16 12/21/16 Rx Ipratropium 0.06% Nasal [place] 2 spray BOTH NARES BID spray 12/20/16 12/21/16 Rx [Atrovent 0.06% Nasal [place]] Pregabalin [Lyrica] 200 mg PER TUBE BEDTIME capsule 12/20/16 12/21/16 Rx Sodium Chloride 0.65% Nasal Sp 2 spray BOTH NARES BID bottle 12/20/16 12/21/16 Rx [[place] Nasal [place]] Terazosin [Hytrin] 5 mg PER TUBE BID #60 capsule 12/20/16 12/21/16 Rx Allergies/Adverse Reactions: Allergies Allergy/AdvReac Type Severity Reaction Status Date / Time ciprofloxacin [From Cipro] Allergy Unknown Unknown/Unable Verified 12/21/16 16: 07 to obtain lorazepam [From Ativan] AdvReac Intermediate Agitated Verified 12/21/16 16:07 Exam - Constitutional Vitals: Period Temp Pulse Resp BP Sys/Sims Pulse Ox Last 24 Hr 97.2 F-98.3 F 79-96 17-20 116-151/75-89 94-100 Results - Labs CBC & BMP: 12/22/16 05:40 12/24/16 04:54
[2016-12-25] MEDS: LINEZOLID INJ 600 MG in PREMIX 1 EACH IV SCH ×2 (01:35→11:30)
[2016-12-25 02:20] LABS: Basophils % 0.2 % (0.0-0.8); Eosinophils # 0.5 10*3/uL (0.0-0.87); Hematocrit 34.8 VOL% (42.0-52.0); Hemoglobin 11.2 GM/DL (14.0-18.0); Immature Granulocytes % 0.7 %; Immature Granulocytes Absolute 0.06 #; Lymphocytes # 1.2 10*3/uL (1.4-4.0); Lymphocytes % 13.7 % (21.2-54.2); Mean Corpuscular HGB Conc 32.2 GM/DL (32-36); Mean Corpuscular Hemoglobin 28 PG (27-34); Mean Corpuscular Volume 87.2 FL (87-102); Mean Platelet Volume 10.9 FL (9.6-12.0); Monocytes # 1.1 10*3/uL (0.11-0.8); Monocytes % 12.2 % (1.7-12.7); Neutrophils # 5.8 10*3/uL (1.4-7.4); Neutrophils % 67.2 % (38.7-73.9); Platelet Count 294 T/CUMM (130-400); Red Blood Count 3.99 MC/CUMM (3.8-5.5); Red Cell Distribution Width 15.7 % (9.3-17.3); White Blood Count 8.7 T/CUMM (4-12)
[2016-12-25 02:47] LABS: Calcium 8.4 MG/DL (8.5-10.1); Osmolality,Calculated 279.5 MOS/KG (273-304); Potassium 3.8 MMOL/L (3.5-5.1)
[2016-12-25] MEDS: ALBUTEROL/IPRATROPIUM 3 ML NEB RESP TX SCH ×6 (03:03→23:00)
[2016-12-25] MEDS: PIPERACILLIN/TAZOBACTAM 3,375 MG in SODIUM CHLORIDE 0.9% 100 ML IV SCH ×3 (06:13→21:18)
--- NOTE | 2016-12-25 08:11 | XRay Report ---
History: Cough Date: 12/25/2016 Study: Chest x-ray AP portable Comparison exam: December 23, 2016 The cardiomediastinal silhouette is unchanged. The pulmonary vasculature is not engorged. There is reticular nodular chronic interstitial lung disease without change. There is no new or worsening infiltrate. There is no gross pleural effusion. There is mild to moderate thoracic spondylosis. Impression: There is slightly improved aeration in the lung bases compared to the previous study. There are chronic interstitial lung changes as before. There is no new or worsening process PROCEDURE INTERPRETED AT [facility] DEPARTMENT OF RADIOLOGY Final Report Signed by: Dr. Lynnette Keith
[2016-12-25] MEDS ORDERED: DIAZEPAM 5 MG TABLET PO ONE (08:30)
[2016-12-25] MEDS: PANTOPRAZOLE 40 MG VIAL IV SCH (08:58)
[2016-12-25] MEDS: FINASTERIDE 5 MG TABLET PO SCH ×2 (09:00→21:46)
[2016-12-25] MEDS ORDERED: SILODOSIN 8 MG CAPSULE PO SCH (09:00)
[2016-12-25] MEDS: SODIUM CHLORIDE 0.65% NASAL SPRAY 45 ML BOTTLE BOTH NARES SCH ×2 (09:00→21:20)
[2016-12-25] MEDS: IPRATROPIUM 0.06% NASAL SPRAY 15 ML BOTTLE BOTH NARES SCH ×2 (09:00→21:19)
[2016-12-25] MEDS: DEXT 5% NACL 0.45% KCL 20 MEQ 20 MEQ/1,000 ML BAG IV SCH ×2 (09:20→23:17)
--- NOTE | 2016-12-25 11:12 | Gastrointestinal Progress Note ---
<Augusta Fosterher Meme - Last Filed: 12/25/16 11:10> Assessment and Plan (1) Malfunctioning jejunostomy tube Problem details: plan for exchange tomorrow (as long as the ordered replacement arrives) Status: Acute Assessment and plan: 12/25-No changes at present time. For replacement tube today tentatively. Plan and addendum to follow by Dr Love. 12/24-no changes at present time. For tentative jejunal feeding tube replacement tomorrow with Dr. Lisa. Plan an addendum to follow by Dr. Love. 12/23-PEG tube replacement postponed at present time. Awaiting procedure records from last feeding tube placement in [place] per patient's . Will reevaluate tomorrow. Plan an addendum to followed by Dr. Love. Current Visit: Yes Gastroenterology - PN: Subj Interval history: CC: Malfunctioning feeding tube Pt is awake and alert with at bedside. He had a difficult night again up and down with the urgency to urinate. He has some relief now after being catherized. He is scheduled today to have his feeding tube replaced however this is pending arrival of the replacement tube. Abdomen is soft, nontender. ROS: No acute distress noted Exam (Progress Note) - Constitutional Vitals: Period Temp Pulse Resp BP Sys/Sims Pulse Ox Last 24 Hr 97.4 F-98.2 F 81-115 16-20 92-138/62-87 94-99 General appearance: normal weight, no acute distress - Head Head exam: Present: normal inspection, normocephalic - Eye Eye exam: Present: other (lids and conjunctiva unremarkable). Absent: scleral icterus - ENT ENT exam: Present: normal exam, normal oropharynx - Neck Neck exam: Present: normal inspection - Respiratory Respiratory exam: Present: clear to auscultation bilaterally. Absent: rales, rhonchi, wheezes - Cardiovascular Cardiovascular exam: Present: regular rate and rhythm. Absent: diastolic murmur , JVD, systolic murmur - GI/Abdominal GI/Abdominal exam: Present: normal bowel sounds, soft. Absent: ascites, distended, mass, organomegaly, tenderness - Extremities Exam Extremities exam: Present: normal inspection, full ROM - Back Exam Back exam: Present: normal inspection - Neurological Exam Neurological exam: Present: alert, oriented X3 - Psychiatric Psychiatric exam: Present: normal affect, normal mood - Skin Skin exam: Present: normal color, warm, dry Results - Labs CBC & BMP: 12/25/16 02:01 12/25/16 02:01 Lab Results: I have reviewed the past 24 hour labs <Zeyad Lvoe - Last Filed: 12/25/16 17:25> Exam (Progress Note) - Constitutional Vitals: Period Temp Pulse Resp BP Sys/Sims Pulse Ox Last 24 Hr 97.4 F-98.8 F 82-115 16-20 92-138/53-87 91-99 Results - Labs CBC & BMP: 12/25/16 02:01 12/25/16 02:01
--- NOTE | 2016-12-25 11:46 | Pulmonology Progress Note ---
Pulmonary - PN: Subj Interval history: Kj Fuller[facility] acting as scribe for Dr. Mikael Renteria Mr. Ashley is a 71-year-old white male who we saw in initial pulmonary consultation on 12/17/2016. He was discharged home on 12/20/2016. Please see the hospital records for more information. At the time of our initial consultation on 12/17/2016, our impressions were: 1. Acute pyelonephritis. 2. Altered mental status probably secondary #1. 3. Watch for aspiration or bacterial pneumonia. 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 6. Bronchiectasis. 7. Inability to urinate. Requires bladder catheterization. 8. Inability to swallow. Has PEG tube. 9. History of obstructive sleep apnea 10. Chronic allergic sinusitis 11. Family history of colon cancer 12. History of anxiety and depression 13. History of small ulcers involving the superior gluteal folds. 14. Chronic aspiration with bilateral erosive friable bronchitis and partial stenosis of the superior segment of left lower lung secondary to hypertrophied tissue seen on fiberoptic bronchoscopy done 07/24/2016 15. History of iron deficiency anemia 16. See past history 12/18/2016. The patient was seen today along with his and a sitter. Patient's chest x-ray shows a faint right lower lung infiltrate compatible with pneumonia. In the past approximately 24 hours or so, his maximum temperature recorded has been 101.6 and that was at 0037 on 12/17/2016. He has been afebrile since approximately 5:00 yesterday morning. He is on gentamicin and Zosyn. Sputum Gram stain showed gram-positive cocci in pairs, gram-positive rods, gram-negative rods, and rare gram-negative diplococci. Sputum cultures pending. The patient's feels that he is getting back to his baseline, but is somewhat somnolent. She reports she feels he is markedly improved from admission. She asked about when the patient possibly could be discharged home. We told her we were pleased with his improvement, and he could possibly be considered for discharge tomorrow or Friday. We will repeat a chest x-ray tomorrow. 12/19/2016. Patient was seen today along with his and Fernanda Quinn RN. Eneida Lema RN was also present. Patient is more awake and alert this morning. Chest x-ray stable. Sputum cultures showing a gram-negative yudelka. Urine cultures growing a gram-negative yudelka and gram-positive cocci. Final ID and sensitivities are pending. Presently the patient is on gentamicin and Zosyn. We made no changes to these today. Mrs. Ashley inquired about the patient's Flomax being changed to another medication. She states that she has been unable to adequately crush this enough at home to give through his J-tube. We have asked nursing staff to show her how to do this correctly and safely. In the meantime, we have asked her speech therapy evaluation for bedside swallow eval. 12/20/2016. Patient was seen today along with his , Fernanda Quinn RN, and Eneida Lema RN. Mr. Ashley is doing reasonably well today. Sputum and urinalysis both obtained 12/17/2016 growing multiple organisms. Urine culture is growing a gram-positive cocci which is yet to be identified and also Klebsiella pneumoniae. Sputum culture is growing a gram-negative yudelka and it has not been identified either. Clearly, the patient is improving, but we would not suggest discharging him until the final IDs have been reported and we can make sure that he has appropriate antibiotic coverage with good OTILIA's. This was discussed with the patient and his to their understanding. They are in agreement. Patient's Flomax cannot be dissolved to adequately get through his J-tube. Hytrin (name brand; not Terazosin) is a tablet. We will see if this can be crushed and put in his tube safely. There are no appropriate liquid medications for BPH that we are aware of. Nursing staff states that they have spoken with pharmacy and this is being reviewed. The patient failed his swallowing evaluation yesterday. See the speech therapy notes for more information. 12/23/2016. The patient was readmitted on 12/21/2016. His reports that after they got home, his J-tube malfunction. She was unable to get anything to pass through it. Presented back to the ER, and on evaluation it was felt that the patient could possibly be dehydrated secondary to no intake in 24 hours and also that he would most likely require replacement of his J-tube. According to Mrs. Ashley, they have had a very difficult weekend. This is being handled by nursing administration. Nonetheless, the patient has been seen in GI consultation by Dr. Taylor and it is felt that the patient require a replacement J-tube. He is routinely followed by Dr. Love. Dr. Love we will see him later on today. Mrs. Ashley states that she would like to speak with Dr. Love before having this done. We have explained to her that we would wholeheartedly agree with any recommendations from Dr. Taylor and/or Dr. Love. In the meantime, we will ask dietary to initiate PPN. He has had no chest x-ray this admission, so one has been ordered. Again, he was recently inpatient with acute pyelonephritis secondary to Klebsiella pneumoniae and VRE. I am unsure if all the ID and sensitivities were available at discharge. He also had an acute pneumonia secondary to E. coli. He is presently on Zosyn which covers the Klebsiella and E. coli with OTILIA's of less than 16. The VRE had a low colony count, but Zosyn does not cover it. Given his significant past history, multiple comorbidities, and acute illness, we will start Zyvox 300 mg IV every 12 hours. Repeat urinalysis has been ordered. 12/24/2016. Chest x-ray done 12/23/2016 showed that there are some residual increase markings in the right lower lung. Pneumonia is resolving like it should. See my note 12/23/2016 concerning antibiotics. Follow-up urinalysis done 12/23/2016 shows resolution of patient's urinary tract infection. Electrolytes are normal. Creatinine is 0.90 with a BUN of 17. Calcium is low at 7.9 and phosphorus is low at 2.1. I will check a vitamin D. Agree with GI and interventional radiology plans. Follow-up chest x-ray in the morning. 12/25/2016. The patient was seen today along with his . His nurse, Tatum, was also present. The patient will have his J-tube replaced by interventional radiology, however, we are awaiting for the appropriate devices to arrive. He has a malfunctioning J-tube and, therefore, his only way of nutrition at this time is TPN. TPN was started 12/23/2016. Mrs. Ashley reports that someone with the paper in the room stating that the patient was in observation only. Again, this patient requires TPN for nutrition. He cannot safely be discharged home as this serves as a source of infection in the outpatient setting. In our opinion, the patient should have met inpatient criteria at least by 12/23/2016 secondary to the initiation of TPN and due to his malfunctioning J-tube. The patient is having decreased urine output. He is requiring in and out caths. When his bladder gets distended, obviously, there is significant pain. He has been seen in consultation by Dr. Barry. His note has been reviewed. Medications have been reviewed. Labs have been reviewed. White count is 8700 with a normal differential; H&H 11.2/34.8; platelet count 294,000; creatinine 0.90, BUN 18, electrolytes were normal; D level was normal at 46.5 Exam (Progress Note) - Constitutional Vitals: Period Temp Pulse Resp BP Sys/Sims Pulse Ox Last 24 Hr 97.4 F-98.2 F 81-115 16-20 92-138/62-87 94-99 Exam: Chest with mild loose large airway congestion; no wheeze Heart no gallop Abdomen is nontender and nondistended; bowel sounds are positive 4 Extremities with nothing to suggest acute deep venous thrombophlebitis Psychiatric awake, alert, and oriented Neurologic unchanged Plan: Continue TPN. Agree with replacement of J-tube when appropriate devices are received. Continue present treatment. See orders. Results - Labs CBC & BMP: 12/25/16 02:01 12/25/16 02:01
[2016-12-25] MEDS: FAT EMULSION 20% 250 ML IV SCH (13:19)
[2016-12-25] MEDS: TRACE ELEMENTS (5) 1 ML, MULTIVITAMIN INJ 10 ML in AMINO ACIDS/DEXT/LYTES 4.25-5% 2,000 ML IV SCH (13:20)
--- NOTE | 2016-12-25 16:56 | Post Interventional Procedure ---
Pre-op diagnosis: malfunctioning GJ tube Post-op diagnosis: same Procedure: GJ tube exchange Contrast: 30 mL Flouroscopy: 40 min Radiologist: Arun Lisa Anesthesia: local Specimens: none sent Estimated blood loss: none Complications: none Condition: stable Description/Findings: Clogged indwelling GJ tube removed and a ew 18 Fr GJ tube placed. The tube is ready to use. I have discussed with the patient's /caregiver a scheduled exchange for this tube in approximately 3 months. She understands and will call sooner if needed. Assessment and Plan - Time spent with patient Time spent with patient: Greater than 30 minutes (1) Malfunctioning jejunostomy tube Problem details: plan for exchange tomorrow (as long as the ordered replacement arrives) Status: Acute Assessment and plan: plan for GJ exchange tomorrow 12/25 - New tube placement done will need regular exchanges (by IR) every three months or sooner if needed - I have discussed this with the patient's . Current Visit: Yes
--- NOTE | 2016-12-25 17:10 | Interventional Radiology Rpt ---
IR exchange GJ tube IR Gastrojejunostomy Catheter Exchange Gastrojejunostomy catheter exchange with fluoroscopic guidance Clinical Information: 71-year-old male with malfunctioning GJ tube. Patient requires jejunal feeds due to chronic aspiration. Indwelling tube is approximately 3 months old with new leakage noted externally. Physician[s]: Dr. Lisa Total fluoroscopy time: 41.1 minutes. Total number of images for the procedure: 253 Procedure: The patient was advised of the benefits, risks, and alternatives of the procedure and informed consent was obtained. A time out was performed with verification of the patient's name, MRN, site of procedure, and type of procedure to be performed. The patient was positioned in the supine position on the angiographic table. The site was prepped and draped in the usual sterile fashion. Local anesthesia only was used for the procedure. A ocean rescue lieutenant radiograph reveals a gastrojejunostomy catheter in expected location. The gastric port was patent. The jejunal port unfortunately was completely clogged. A Glidewire could not be advanced through the indwelling jejunal tube. Initial attempts at cannulation of the duodenum or unsuccessful with the indwelling tube in place. Therefore, with the distal duodenum accessed, the indwelling tube was removed. An 8 Mauritian sheath was advanced into the duodenum. After considerable effort, the duodenum was cannulated and a Glidewire was advanced to the jejunum. However, the large loop within the duodenal bulb could not be reduced initially. Subsequently, the large loop within the duodenal bulb was able to be reduced with a Major catheter (Ertel) traction technique. The standard Glidewire was exchanged for a stiff Glidewire, which was advanced through the catheter into the mid jejunum under fluoroscopic guidance. A new 18 Mauritian OTILIA gastrojejunostomy catheter was advanced over the wire into the proximal jejunum. The retention balloon was inflated and then retracted against the anterior stomach wall. Appropriate positioning of the catheter was confirmed with injection of contrast through the gastric and jejunal ports. The retention disc was approximated to the skin of the abdominal wall and secured with 2-0 prolene. A sterile dressing was applied. The patient tolerated the procedure well and was returned to the PRU in stable condition. EBL: < 5 mL. Complications: None. Conclusion: Successful exchange of a 18 Mauritian double lumen OTILIA gastrojejunostomy catheter. The catheter is ready for immediate use. Plan: Patient will return in approximately 3 months for routine catheter exchange by IR or sooner if needed. PROCEDURE INTERPRETED AT [facility] DEPARTMENT OF RADIOLOGY Final Report Signed by: Arun Lisa
--- NOTE | 2016-12-25 19:07 | Hospitalist Progress Note ---
Assessment and Plan (1) Malfunctioning jejunostomy tube Problem details: plan for exchange tomorrow (as long as the ordered replacement arrives) Status: Acute Current Visit: Yes Hospitalist: Subjective Interval history: The patient has had cerebellar ataxia since 1998. During that time, he has had a gradual deterioration in neurologic function. He has developed chronic aspiration, and had a feeding tube placed in September of this year. He has had episodes of recurrent aspiration pneumonia, as well as recurrent urinary infections. He likely has a neurogenic bladder, at least by the description of the . She reports that she does in and out catheterizations of the bladder , and that a suprapubic tube was contemplated at one time but never placed. He had just been hospitalized here, and was discharged home on 12/20. He returned with a malfunctioning feeding tube. Radiology placed a new J-tube today. He is currently on TPN only. We will initiate J-tube feedings and consult dietitian as well Exam - Constitutional Vitals: Period Temp Pulse Resp BP Sys/Sims Pulse Ox Last 24 Hr 97.4 F-98.8 F 82-115 16-20 92-138/53-87 91-99 Exam: EXAM: General: No Acute Distress HEENT: Normocephalic, atraumatic, Extra ocular movements intact Neck: Supple, No JVD Chest: Clear to auscultation B/L CV: S1 + S2 audible without murmur, gallop or rub Abd: soft, NT, Non-distended, BS + Ext: No edema Skin: No purpura, bruising or rash Rheumatologic: No Joint deformities Neurologic: Strengtg 5/5 all extremities, no gross sensory deficits Results - Labs CBC & BMP: 12/25/16 02:01 12/25/16 02:01 - Impressions (1) Malfunctioning jejunostomy tube Status: Acute Assessment and plan: GI is following for J tube replacement. He is NPO due to risk of aspiration, cont IVF. Current Visit: Yes (2) Ch COPD (chronic obstructive pulmonary disease) Status: Chronic, stable Current Visit: No (3) History of aspiration pneumonia Status: Chronic Current Visit: No (4) Ch Neurogenic Bladder Status: Chronic Current Visit: Yes Pt undergoes in and out catheterization at home as well as is to be continued in the hospital as well with as needed bladder scans. Urology has been consulted as per 's request. We will resume his oral Hytrin once his J- tube is replaced (5) BPH with Obstruction/LUTS This is a acute on chronic problem, he has been started on Proscar and Hytrin. Urologist is following (6) Nutrition Currently he is only on TPN. We have consulted nutrition to make recommendations for J-tube feedings, will need to initiate medications via J- tube as well as he is n.p.o. for aspiration risk
[2016-12-25] MEDS ORDERED: TERAZOSIN 10 MG CAPSULE PO SCH (21:00)
[2016-12-25] MEDS ORDERED: SODIUM CHLORIDE 0.9% 250 ML IV ONE ×2 (22:49→23:18)
--- NOTE | 2016-12-25 22:52 | Event Note ---
Rapid response and heart alert was called patient's room. Apparently patient had become decreased responsive. Complaining of chest pain. EKG was ordered there is no ST elevation. Cardiac enzymes were ordered. We will start patient back on some of his medications. He was restarted on some of his home medications. Will hold all blood pressure medications at this time blood pressure is low ordered a a fluid bolus.
[2016-12-25] MEDS: SODIUM CHLORIDE 0.9% 1,000 ML IV SCH (23:10)
[2016-12-25] MEDS: CLORAZEPATE 3.75 MG TABLET PO SCH (23:42)
[2016-12-25] MEDS: PREGABALIN 100 MG CAPSULE PO SCH (23:42)
[2016-12-26] MEDS: LINEZOLID INJ 600 MG in PREMIX 1 EACH IV SCH ×2 (01:37→11:59)
[2016-12-26] MEDS: PHENYLEPHRINE DRIP 40 MG/250 ML PREMIX IV SCH ×3 (01:37→23:42)
[2016-12-26] MEDS: ALBUTEROL/IPRATROPIUM 3 ML NEB RESP TX SCH ×5 (03:00→20:27)
--- NOTE | 2016-12-26 03:16 | EKG Report ---
Stationary ECG Study [facility] Test Date: 12/25/2016 10:44:03 PM Pat Name: ISMAEL MCKEON Department: Room: 123 Gender: M Latcher: OLGA LIDIA : 1945 Requested by: Drew Thomas Order Number: [id number] Reading MD: GREG LEON Intervals [place] Rate: 104 P: 37 W[place]: 152 QRS: 51 QRSD: 89 T: 46 QT: 340 QTc: 400 Interpretive Statements SINUS TACHYCARDIA LOW QRS VOLTAGE IN PRECORDIAL LEADS POOR QUALITY TRACING Electronically Signed On 12-27-16 15:57:17 CDT by GREG LEON [email or web address]
[2016-12-26] MEDS: SODIUM CHLORIDE 0.9% 1,000 ML IV SCH ×2 (03:19→14:41)
[2016-12-26 04:47] LABS: Calcium 8.2 MG/DL (8.5-10.1); Magnesium 2.2 MG/DL (1.8-2.4); Osmolality,Calculated 285.3 MOS/KG (273-304); Phosphorous 3.2 MG/DL (2.5-4.9); Potassium 4.2 MMOL/L (3.5-5.1)
[2016-12-26] MEDS: DEXT 5% NACL 0.45% KCL 20 MEQ 20 MEQ/1,000 ML BAG IV SCH ×3 (05:14→23:42)
[2016-12-26] MEDS: PIPERACILLIN/TAZOBACTAM 3,375 MG in SODIUM CHLORIDE 0.9% 100 ML IV SCH ×3 (06:02→21:37)
--- NOTE | 2016-12-26 08:10 | XRay Report ---
History is chest pain Comparison 12/25/2016 The heart is at the upper range normal in size Mild reticular opacities in both lung bases remain. No consolidation or pneumothorax seen Impression: No interval change PROCEDURE INTERPRETED AT [facility] DEPARTMENT OF RADIOLOGY Final Report Signed by: Dr. Liz Chilel
--- NOTE | 2016-12-26 09:58 | Gastrointestinal Progress Note ---
<CristianOumou Meme - Last Filed: 12/26/16 09:56> Assessment and Plan (1) Malfunctioning jejunostomy tube Problem details: plan for exchange tomorrow (as long as the ordered replacement arrives) Status: Acute Assessment and plan: 12/26-GJ tube exchange noted yesterday. Event also noted with drop in blood pressure and responsiveness and transferred to ICU. Awake and oriented today with continued Donnell infusion for pressor support. Plan an addendum to follow by Dr. Love. 12/25-No changes at present time. For replacement tube today tentatively. Plan and addendum to follow by Dr Love. 12/24-no changes at present time. For tentative jejunal feeding tube replacement tomorrow with Dr. Lisa. Plan an addendum to follow by Dr. Love. 12/23-PEG tube replacement postponed at present time. Awaiting procedure records from last feeding tube placement in [place] per patient's . Will reevaluate tomorrow. Plan an addendum to followed by Dr. Love. Current Visit: Yes Gastroenterology - PN: Subj Interval history: CC: Malfunctioning feeding tube Patient is seen, arouses to verbal stimuli. Noted to be moved to the ICU last night after he had a drop in his blood pressure. He was also reported to be less responsive. He is currently awake and alert and he does answer questions appropriately. He is noted to be on Donnell-Synephrine infusion for pressor support. He did have his GJ tube exchanged yesterday. He tolerated this well and is just having some abdominal soreness related to this today. Abdomen is soft, mild tenderness. ROS: Denies shortness of breath or chest pain Exam (Progress Note) - Constitutional Vitals: Period Temp Pulse Resp BP Sys/Sims Pulse Ox Last 24 Hr 98.0 F-98.8 F 79-122 10-30 48-133/33-83 91-100 General appearance: normal weight, no acute distress - Head Head exam: Present: normal inspection, normocephalic - Eye Eye exam: Present: other (Lids and conjunctive are unremarkable). Absent: scleral icterus - ENT ENT exam: Present: normal exam, normal oropharynx - Neck Neck exam: Present: normal inspection - Respiratory Respiratory exam: Present: clear to auscultation bilaterally. Absent: rales, rhonchi, wheezes - Cardiovascular Cardiovascular exam: Present: regular rate and rhythm. Absent: diastolic murmur , JVD, systolic murmur - GI/Abdominal GI/Abdominal exam: Present: normal bowel sounds, soft. Absent: ascites, distended, mass, organomegaly, tenderness - Extremities Exam Extremities exam: Present: normal inspection, full ROM - Back Exam Back exam: Present: normal inspection - Neurological Exam Neurological exam: Present: alert, oriented X3 - Psychiatric Psychiatric exam: Present: normal affect, normal mood - Skin Skin exam: Present: normal color, warm, dry Results - Labs CBC & BMP: 12/25/16 02:01 12/26/16 03:51 Lab Results: I have reviewed the past 24 hour labs <Zeyad Love - Last Filed: 12/26/16 17:17> Exam (Progress Note) - Constitutional Vitals: Period Temp Pulse Resp BP Sys/Sims Pulse Ox Last 24 Hr 98.0 F-98.8 F 77-122 10-30 48-144/33-129 96-100 Results - Labs CBC & BMP: 12/25/16 02:01 12/26/16 03:51
[2016-12-26] MEDS: TRACE ELEMENTS (5) 1 ML, MULTIVITAMIN INJ 10 ML in AMINO ACIDS/DEXT/LYTES 4.25-5% 2,000 ML IV SCH (10:21)
[2016-12-26] MEDS: PANTOPRAZOLE 40 MG VIAL IV SCH (10:41)
[2016-12-26] MEDS: buPROPion 100 MG TABLET PO SCH ×2 (10:41→21:37)
[2016-12-26] MEDS: MULTIVITAMIN (BEROCCA) TABLET PER TUBE SCH (10:41)
[2016-12-26] MEDS: POTASSIUM IODIDE ORAL SOLN 1,000 MG/ML BOTTLE PO SCH ×3 (10:42→21:37)
[2016-12-26] MEDS: MEMANTINE 5 MG TABLET PO SCH ×2 (10:42→21:37)
[2016-12-26] MEDS: FERROUS SULFATE 325 MG TABLET PO SCH ×2 (10:42→21:37)
[2016-12-26] MEDS: FINASTERIDE 5 MG TABLET PO SCH (10:42)
--- NOTE | 2016-12-26 10:43 | EKG Report ---
Stationary ECG Study [facility] Test Date: 12/26/2016 10:46:03 AM Pat Name: ISMAEL MCKEON Department: Room: 123 Gender: M Sound Effects Person: FROILAN : 1945 Requested by: Kj Fuller Order Number: [id number] Reading MD: RICHARD ZABALA Intervals [place] Rate: 81 P: 69 OR: 164 QRS: 84 QRSD: 96 T: 78 QT: 356 QTc: 393 Interpretive Statements SINUS RHYTHM 81 bpm LOW QRS VOLTAGE IN PRECORDIAL LEADS POSSIBLE RIGHT VENTRICULAR CONDUCTION DELAY Electronically Signed On 12-28-16 12:08:21 CDT by RICHARD ZBAALA [email or web address]
--- NOTE | 2016-12-26 11:28 | Pulmonology Progress Note ---
Pulmonary - PN: Subj Interval history: Mr. Ashley is a 71-year-old white male who we saw in initial pulmonary consultation on 12/17/2016. He was discharged home on 12/20/2016. Please see the hospital records for more information. At the time of our initial consultation on 12/17/2016, our impressions were: 1. Acute pyelonephritis. 2. Altered mental status probably secondary #1. 3. Watch for aspiration or bacterial pneumonia. 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 6. Bronchiectasis. 7. Inability to urinate. Requires bladder catheterization. 8. Inability to swallow. Has PEG tube. 9. History of obstructive sleep apnea 10. Chronic allergic sinusitis 11. Family history of colon cancer 12. History of anxiety and depression 13. History of small ulcers involving the superior gluteal folds. 14. Chronic aspiration with bilateral erosive friable bronchitis and partial stenosis of the superior segment of left lower lung secondary to hypertrophied tissue seen on fiberoptic bronchoscopy done 07/24/2016 15. History of iron deficiency anemia 16. See past history 12/18/2016. The patient was seen today along with his and a sitter. Patient's chest x-ray shows a faint right lower lung infiltrate compatible with pneumonia. In the past approximately 24 hours or so, his maximum temperature recorded has been 101.6 and that was at 0037 on 12/17/2016. He has been afebrile since approximately 5:00 yesterday morning. He is on gentamicin and Zosyn. Sputum Gram stain showed gram-positive cocci in pairs, gram-positive rods, gram-negative rods, and rare gram-negative diplococci. Sputum cultures pending. The patient's feels that he is getting back to his baseline, but is somewhat somnolent. She reports she feels he is markedly improved from admission. She asked about when the patient possibly could be discharged home. We told her we were pleased with his improvement, and he could possibly be considered for discharge tomorrow or Friday. We will repeat a chest x-ray tomorrow. 12/19/2016. Patient was seen today along with his and Fernanda Quinn RN. Eneida Lema RN was also present. Patient is more awake and alert this morning. Chest x-ray stable. Sputum cultures showing a gram-negative yudelka. Urine cultures growing a gram-negative yudelka and gram-positive cocci. Final ID and sensitivities are pending. Presently the patient is on gentamicin and Zosyn. We made no changes to these today. Mrs. Ashley inquired about the patient's Flomax being changed to another medication. She states that she has been unable to adequately crush this enough at home to give through his J-tube. We have asked nursing staff to show her how to do this correctly and safely. In the meantime, we have asked her speech therapy evaluation for bedside swallow eval. 12/20/2016. Patient was seen today along with his , Fernanda Quinn, SUSAN, and Eneida Lema RN. Mr. Ashley is doing reasonably well today. Sputum and urinalysis both obtained 12/17/2016 growing multiple organisms. Urine culture is growing a gram-positive cocci which is yet to be identified and also Klebsiella pneumoniae. Sputum culture is growing a gram-negative yudelka and it has not been identified either. Clearly, the patient is improving, but we would not suggest discharging him until the final IDs have been reported and we can make sure that he has appropriate antibiotic coverage with good OTILIA's. This was discussed with the patient and his to their understanding. They are in agreement. Patient's Flomax cannot be dissolved to adequately get through his J-tube. Hytrin (name brand; not Terazosin) is a tablet. We will see if this can be crushed and put in his tube safely. There are no appropriate liquid medications for BPH that we are aware of. Nursing staff states that they have spoken with pharmacy and this is being reviewed. The patient failed his swallowing evaluation yesterday. See the speech therapy notes for more information. 12/23/2016. The patient was readmitted on 12/21/2016. His reports that after they got home, his J-tube malfunction. She was unable to get anything to pass through it. Presented back to the ER, and on evaluation it was felt that the patient could possibly be dehydrated secondary to no intake in 24 hours and also that he would most likely require replacement of his J-tube. According to Mrs. Ashley, they have had a very difficult weekend. This is being handled by nursing administration. Nonetheless, the patient has been seen in GI consultation by Dr. Taylor and it is felt that the patient require a replacement J-tube. He is routinely followed by Dr. Love. Dr. Love we will see him later on today. Mrs. Ashley states that she would like to speak with Dr. Lvoe before having this done. We have explained to her that we would wholeheartedly agree with any recommendations from Dr. Taylor and/or Dr. Love. In the meantime, we will ask dietary to initiate PPN. He has had no chest x-ray this admission, so one has been ordered. Again, he was recently inpatient with acute pyelonephritis secondary to Klebsiella pneumoniae and VRE. I am unsure if all the ID and sensitivities were available at discharge. He also had an acute pneumonia secondary to E. coli. He is presently on Zosyn which covers the Klebsiella and E. coli with OTILIA's of less than 16. The VRE had a low colony count, but Zosyn does not cover it. Given his significant past history, multiple comorbidities, and acute illness, we will start Zyvox 300 mg IV every 12 hours. Repeat urinalysis has been ordered. Medications have been reviewed. We would suggest restarting his home medications. Labs have been reviewed. Yesterday, white count was 8600 with 72.3% segs, 14.5 % lymphs, and 10.3% monos; H&H 11.0/33.9 with normal indices and top normal red blood cell distribution width; platelet count 261,000; creatinine 0.90, BUN 28, sodium 143, potassium 3.6 12/24/2016. Chest x-ray done 12/23/2016 showed that there are some residual increase markings in the right lower lung. Pneumonia is resolving like it should. See my note 12/23/2016 concerning antibiotics. Follow-up urinalysis done 12/23/2016 shows resolution of patient's urinary tract infection. Electrolytes are normal. Creatinine is 0.90 with a BUN of 17. Calcium is low at 7.9 and phosphorus is low at 2.1. I will check a vitamin D. Agree with GI and interventional radiology plans. Follow-up chest x-ray in the morning 12/26/2016. This patient had procedure done to his abdomen yesterday. Last night he had severe chest pain. His says on 2 instances he has shaking of his arms and legs. This lasted 2 or 3 minutes. She said they had a similar episode in [place] and they thought it was a seizure but the EEG was negative. As far as his shaking is concerned this patient has cerebella disease and it he may have an abnormal response to pain etc. I will have her repeat a EEG and I will ask for neurology consultation. I am not sure why he had chest pain. His chest x-ray is stable and his EKG 2 shows no acute changes. His cardiac enzymes are negative. Certainly a possibility this was related to reflux or his GI procedure yesterday. Will ask cardiology to look at him and will get a echocardiogram since this patient is not very good at communicating what is wrong with him. Case was reviewed in detail with his . Kj Fuller RN was present. Lab is stable. Patient was moved to ICU last night after rapid response was called. Exam (Progress Note) - Constitutional Vitals: Period Temp Pulse Resp BP Sys/Sims Pulse Ox Last 24 Hr 97 F-98.2 F 74-98 16-20 100-120/59-73 94-100 Exam: Head. Symmetrical. No edema of the lips or tongue. Neck. Symmetrical. No meningismus. Lymphatics. No submandibular cervical supraclavicular or epitrochlear adenopathy. Chest with loose large airway congestion; no wheeze Heart no gallop Abdomen is nontender and nondistended; bowel sounds are positive 4; J-tube is in place Extremities with nothing to suggest acute deep venous thrombophlebitis Psychiatric awake, alert, and oriented Neurologic unchanged Plan: 12/23/2016 1. Continue Zosyn, but add Zyvox 300 mg IV every 12 hours. 2. Start IV peripheral hyperalimentation. Obtain chest x-ray and urinalysis. 3. Agree with workup by Dr. Taylor. 4. Await Dr. Love' recommendations. 5. Would recommend restarting the patient's home medications. 6.. 12/24/2016. 1. See my note above for today. 2. Follow-up chest x-ray tomorrow see orders. 12/26/2016. 1. See today's note above Exam (Progress Note) - Constitutional Vitals: Period Temp Pulse Resp BP Sys/Sims Pulse Ox Last 24 Hr 98.0 F-98.8 F 79-122 10-30 48-133/33-83 91-100 Results - Labs CBC & BMP: 12/25/16 02:01 12/26/16 03:51
[2016-12-26 11:55] LABS: Troponin I Only < 0.015 NG/ML (0.00-0.045)
--- NOTE | 2016-12-26 13:29 | ECHO Report ---
Matthew Ashley Exam Date: 12/26/2016 10:59 Referring Physician: Technologist: buck Seay ARDMS, RVT Age: 71 Ht (in): 75 Wt (lb): 171 Gender: M Exam Location: [facility] Echo Indications: Chest pain, unspecified, Cerebellar ataxia, Hypotension, Esophogeal stricture BP: 104 / 67 HR: 88 Rhythm: Sinus Technical Quality: IMPRESSIONS Technically adequate study Approximately 1-2+ right ventricular enlargement Normal LV systolic function with ejection fraction estimated 65% without segmental wall abnormality MEASUREMENTS (Male / Female) Normal Values 2D ECHO LV Diastolic Diameter PLAX 4.4 cm 4.2 - 5.9 / 3.9 - 5.3 cm LV Systolic Diameter PLAX 1.9 cm LV Fractional Shortening PLAX 57.5 % IVS Diastolic Thickness 0.9 cm 0.6 - 1.0 / 0.6 - 0.9 cm LVPW Diastolic Thickness 1.0 cm 0.6 - 1.0 / 0.6 - 0.9 cm RV Internal Dim ED PLAX 5.5 cm Aortic Root Diameter 4.0 cm LA Systolic Diameter LX 2.2 cm 3.0 - 4.0 / 2.7 - 3.8 cm FINDINGS Left Ventricle Normal left ventricular cavity size. Normal left ventricular wall thickness. Left ventricular ejection fraction is estimated at 60+ %. Right Ventricle Moderately increased right ventricular size. Right Atrium The right atrium is mildly enlarged. Left Atrium The left atrium is normal in size. Mitral Valve Morphologically normal mitral valve without significant stenosis or prolapse. There is no mitral regurgitation. Aortic Valve Morphologically normal aortic valve without significant sclerosis or stenosis. There is no aortic regurgitation. Tricuspid Valve Morphologically normal tricuspid valve. Trace tricuspid valve regurgitation. Pulmonic Valve Pulmonic valve not well visualized. Pericardium Normal pericardium without effusion. Aorta Normal ascending aorta dimension. Yogesh Thapa (Electronically Signed) Final Date: 26 December 2016 13:28
[2016-12-26] MEDS: IPRATROPIUM 0.06% NASAL SPRAY 15 ML BOTTLE BOTH NARES SCH ×2 (14:15→21:36)
[2016-12-26] MEDS: SODIUM CHLORIDE 0.65% NASAL SPRAY 45 ML BOTTLE BOTH NARES SCH ×2 (14:15→21:37)
[2016-12-26] MEDS: FAT EMULSION 20% 250 ML IV SCH (14:23)
--- NOTE | 2016-12-26 15:37 | Hospitalist Progress Note ---
Assessment and Plan (1) UTI (urinary tract infection) Status: Acute Assessment and plan: Continue antibiotics. History of Klebsiella and VRE. Current Visit: No (2) Cerebellar ataxia Status: Chronic Current Visit: Yes (3) COPD (chronic obstructive pulmonary disease) Status: Chronic Current Visit: No (4) History of aspiration pneumonia Status: Chronic Current Visit: No (5) BPH loc w urin obs/LUTS Status: Acute Current Visit: Yes (6) Chest pain Status: Acute Assessment and plan: Follow-up cardiology consult. Cardiac enzymes negative. Echo reviewed Technically adequate study Approximately 1-2+ right ventricular enlargement Normal LV systolic function with ejection fraction estimated 65% without segmental wall abnormality Current Visit: Yes Hospitalist: Subjective Interval history: The patient was transferred to the CCU overnight after a rapid response and hardware were called. The patient complained of chest pain and was found to be hypotensive. He was transferred to the CCU and started on IV fluids as well as pressors. Cardiac enzymes have been negative. His reports some jerking movements suspicious for seizure activity. An EEG and neurology consult have been ordered as well as a cardiology consult. Echocardiogram done this morning shows Approximately 1-2+ right ventricular enlargement. Normal LV systolic function with ejection fraction estimated 65% without segmental wall abnormality. The patient is in no acute distress and is on low dose of Donnell-Synephrine. I had a lengthy discussion with the patient's at the bedside regarding his chest x-ray and previous diagnosis of pneumonia versus atelectasis secondary to bronchiectasis. He is afebrile and does not have a leukocytosis and is on broad -spectrum antibiotics therefore recurrence of the pneumonia is less likely. Further recommendations will depend on his response to therapy and subspecialty evaluations by neurology and cardiology. He will remain in the ICU while on pressors. Exam - Constitutional Vitals: Period Temp Pulse Resp BP Sys/Sims Pulse Ox Last 24 Hr 98.0 F-98.8 F 79-122 10-30 48-129/33-83 91-100 Exam: Constitutional System: no distress. No tremulousness. Head: Normocephalic, atraumatic. Ears, Nose and Throat System: No pain or tenderness. No epistaxis or discharge Eyes System: Pupils equal, round, and reactive. Extraocular muscles intact. Neck: Supple, without adenopathy, No jugular venous distention. Respiratory System: Chest clear but diminished to auscultation. Cardiovascular System: Heart with regular rate and rhythm. No murmur. GI System: Abdomen soft, nontender. Normo active bowel sounds present. Musculoskeletal System: limbs with no pedal edema. Full distal pulses. Psychiatric System: Conversation is rational Results - Labs CBC & BMP: 12/25/16 02:01 12/26/16 03:51 Lab Results: I have reviewed the past 24 hour labs - Diagnostic Findings Procedure: Chest x-ray: image reviewed by me, report reviewed by me
[2016-12-26] MEDS: CETIRIZINE 10 MG TABLET PER TUBE SCH (21:37)
[2016-12-26] MEDS: PREGABALIN 100 MG CAPSULE PO SCH (21:37)
[2016-12-26] MEDS: CLORAZEPATE 3.75 MG TABLET PO SCH (21:37)
[2016-12-27] MEDS: ALBUTEROL/IPRATROPIUM 3 ML NEB RESP TX SCH ×6 (00:02→19:27)
[2016-12-27] MEDS: LINEZOLID INJ 600 MG in PREMIX 1 EACH IV SCH ×2 (00:36→12:16)
[2016-12-27 05:28] LABS: Basophils % 0.3 % (0.0-0.8); Eosinophils # 0.5 10*3/uL (0.0-0.87); Eosinophils % 6.3 % (0.00-10.9); Hematocrit 30.1 VOL% (42.0-52.0); Hemoglobin 9.8 GM/DL (14.0-18.0); Immature Granulocytes % 0.4 %; Immature Granulocytes Absolute 0.03 #; Lymphocytes # 1.1 10*3/uL (1.4-4.0); Lymphocytes % 15.3 % (21.2-54.2); Mean Corpuscular HGB Conc 32.6 GM/DL (32-36); Mean Corpuscular Hemoglobin 29 PG (27-34); Mean Corpuscular Volume 88.3 FL (87-102); Mean Platelet Volume 11.4 FL (9.6-12.0); Monocytes # 0.8 10*3/uL (0.11-0.8); Neutrophils # 4.8 10*3/uL (1.4-7.4); Neutrophils % 66.7 % (38.7-73.9); Platelet Count 225 T/CUMM (130-400); Red Blood Count 3.41 MC/CUMM (3.8-5.5); Red Cell Distribution Width 16.1 % (9.3-17.3); White Blood Count 7.2 T/CUMM (4-12)
[2016-12-27] MEDS: TRACE ELEMENTS (5) 1 ML, MULTIVITAMIN INJ 10 ML in AMINO ACIDS/DEXT/LYTES 4.25-5% 2,000 ML IV SCH (05:50)
[2016-12-27] MEDS: PIPERACILLIN/TAZOBACTAM 3,375 MG in SODIUM CHLORIDE 0.9% 100 ML IV SCH ×3 (05:50→21:46)
[2016-12-27 06:10] LABS: Alanine Aminotransferase 32 U/L (16-61); Albumin 2.4 G/DL (3.4-5.0); Alkaline Phosphatase 77 U/L (45-117); Aspartate Amino Transferase 22 U/L (0-37); Bilirubin,Total < 0.39 MG/DL (0.2-1.0); Blood Urea Nitrogen 17 MG/DL (7-18); Calcium 7.7 MG/DL (8.5-10.1); Glucose 92 MG/DL (74-106); Magnesium 2.3 MG/DL (1.8-2.4); Potassium 3.9 MMOL/L (3.5-5.1); Sodium 143 MMOL/L (136-145); Total Protein 5.2 G/DL (6.4-8.3)
[2016-12-27 06:18] LABS: Calcium 7.7 MG/DL (8.5-10.1); Osmolality,Calculated 284.1 MOS/KG (273-304); Potassium 3.8 MMOL/L (3.5-5.1)
--- NOTE | 2016-12-27 08:07 | XRay Report ---
History: Pneumonia Date: 12/27/2016 Study: Chest x-ray AP portable Comparison exam: December 25, 2016 chest x-ray There is increasing patchy and hazy pneumonia in the right lung base compared to the previous study. Minor strandy subsegmental atelectasis or scar in the left lung base is noted. There is no gross pleural effusion. The cardiomediastinal silhouette and pulmonary vasculature are stable. Osseous structures are unchanged. Impression: Worsening pneumonia right lung base compared to the previous study PROCEDURE INTERPRETED AT [facility] DEPARTMENT OF RADIOLOGY Final Report Signed by: Dr. Lynnette Keith
--- NOTE | 2016-12-27 10:08 | Cardiology Progress Note ---
Assessment and Plan - Time spent with patient Time spent with patient: Less than 30 minutes (1) Chest pain Status: Acute Assessment and plan: See plan of care listed below. Current Visit: Yes (2) Malfunctioning jejunostomy tube Status: Acute Assessment and plan: See plan of care listed below. Current Visit: Yes (3) Cerebellar ataxia Status: Chronic Assessment and plan: See plan of care listed below. Current Visit: Yes Cardiology - PN: Subj Interval history: Nursing Clerk: New to cardiology PCP: Dr. Renteria SUMMARY: Mr. Ashley is a 71 year old male with a history of cerebellar ataxia since 1998 and a gradual deterioration in his neurologic function. He also has a history of orthostatic hypotension and multiple pulmonary problems. He was admitted December 21 for a malfunctioning J-tube. On 12/25/16, a rapid response and heart alert was called to the patient's room. He became less responsive and the reports he had what she describes as a drawing of his hands. He had a sudden drop in his blood pressure and complained of an episode of chest pain. Cardiology was consulted to see him. He has had negative cardiac biomarkers and unremarkable EKGs. Echocardiogram revealed EF of 65% without segmental wall motion abnormality, 1-2+ right ventricular enlargement. DECEMBER 27, 2016 UPDATE: Mr. Ashley has had no further episodes of chest discomfort. He denies shortness of breath or palpitations. According to the nursing staff, his reports his baseline systolic blood pressure is around the 70s-80s. He is no longer requiring the use of vasopressors. ASSESSMENT/PLAN: 1. CHEST PAIN - The patient is unable to describe this very well for us, however he does tell me that he is able to perform transfers to his power chair without exertional dyspnea or chest pain. He has ruled out for OR. Will discuss further cardiac evaluation including possible outpatient stress testing with Dr. Thapa and await his additional recommendations. H&H is stable. Will resume low-dose aspirin and monitor. 2. MALFUNCTIONING JEJUNOSTOMY TUBE - S/p GJ tube exchange on 12/25/16. 3. CEREBELLAR ATAXIA - Present since 1998. Patient is non-ambulatory and uses a power wheelchair at home. Exam (Progress Note) - Constitutional Vitals: Period Temp Pulse Resp BP Sys/Sims Pulse Ox Last 24 Hr 97.8 F-98.8 F 63-115 12-31 76-160/50-129 95-100 Exam: General: Present: Appears chronically ill, No Apparent Distress. Pleasant and cooperative. HEENT: Present: PERRL, Normocephaly, atraumatic. Mucus Membranes Moist. No jaundice noted. Conjunctiva moist and clear. Neck: Present: Supple Neck, Midline Trachea, No Masses, No Bruit, No tenderness Cardiac: Present: Regular Rate and Rhythm, No Murmur Lungs: Present: clear to auscultation bilaterally, no wheezes, rhonchi, rales. Neuro: Present: Awake, alert, and oriented x3. Grossly Intact. Absent: Resting Tremor, Essential Tremor Abdomen: Present: Soft, hypoactive Bowel Sounds, No Masses, Non-Tender, nondistended. GJ tube noted to upper abdomen. Skin: Present: Clear. Absent: Rash, No skin breakdown. Musculoskeletal: Present: No Fluid Collection, No Pain Extremities: Present: Impaired gait, No Clubbing, No Cyanosis, Upper Extr. Pulses 2+, Lower Extr. Pulses 2+, No edema. Capillary refill less than 3 seconds. Result/EKG - Labs CBC & BMP: 12/27/16 04:13 12/27/16 04:13 Lab Results: I have reviewed the past 24 hour labs Labs: Laboratory Results - last 24 hr 12/26/16 12/27/16 12/27/16 10:58 04:13 04:13 WBC 7.2 RBC 3.41 L Hgb 9.8 L Hct 30.1 L MCV 88.3 MCH 29 MCHC 32.6 RDW 16.1 Plt Count 225 D MPV 11.4 Neut % (Auto) 66.7 Lymph % (Auto) 15.3 L [place] % (Auto) 11.0 Eos % (Auto) 6.3 Baso % (Auto) 0.3 Neut # (Auto) 4.8 Lymph # (Auto) 1.1 L [place] # (Auto) 0.8 Eos # (Auto) 0.5 Baso # (Auto) 0.0 Immature Gran % 0.4 Nucleated RBC % 0.0 Immature Gran # 0.03 Nucleated RBCs # 0.00 Sodium 143 Potassium 3.9 Chloride 111 H Carbon Dioxide 24 Anion Gap 11.9 BUN 17 Creatinine 0.90 GFR Calculation 101 BUN/Creatinine Ratio 18.00 Glucose 92 Calculated Osmolality 286.0 Calcium 7.7 L Magnesium 2.3 Total Bilirubin < 0.39 AST 22 ALT 32 Alkaline Phosphatase 77 Total Creatine Kinase 68 CK-MB (CK-2) 2.2 Troponin I < 0.015 Total Protein 5.2 L Albumin 2.4 L Globulin 2.8 Albumin/Globulin Ratio 0.8 L 12/27/16 04:13 WBC RBC Hgb Hct MCV MCH MCHC RDW Plt Count MPV Neut % (Auto) Lymph % (Auto) [place] % (Auto) Eos % (Auto) Baso % (Auto) Neut # (Auto) Lymph # (Auto) [place] # (Auto) Eos # (Auto) Baso # (Auto) Immature Gran % Nucleated RBC % Immature Gran # Nucleated RBCs # Sodium 142 Potassium 3.8 Chloride 110 H Carbon Dioxide 24 Anion Gap 11.8 BUN 17 Creatinine 0.90 GFR Calculation 101 BUN/Creatinine Ratio 18.00 Glucose 90 Calculated Osmolality 284.1 Calcium 7.7 L Magnesium Total Bilirubin AST ALT Alkaline Phosphatase Total Creatine Kinase CK-MB (CK-2) Troponin I Total Protein Albumin Globulin Albumin/Globulin Ratio - EKG EKG results: interpreted by me, sinus rhythm (With occasional PVC)
--- NOTE | 2016-12-27 10:41 | Pulmonology Progress Note ---
Pulmonary - PN: Subj Interval history: Mr. Ashley is a 71-year-old white male who we saw in initial pulmonary consultation on 12/17/2016. He was discharged home on 12/20/2016. Please see the hospital records for more information. At the time of our initial consultation on 12/17/2016, our impressions were: 1. Acute pyelonephritis. 2. Altered mental status probably secondary #1. 3. Watch for aspiration or bacterial pneumonia. 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 6. Bronchiectasis. 7. Inability to urinate. Requires bladder catheterization. 8. Inability to swallow. Has PEG tube. 9. History of obstructive sleep apnea 10. Chronic allergic sinusitis 11. Family history of colon cancer 12. History of anxiety and depression 13. History of small ulcers involving the superior gluteal folds. 14. Chronic aspiration with bilateral erosive friable bronchitis and partial stenosis of the superior segment of left lower lung secondary to hypertrophied tissue seen on fiberoptic bronchoscopy done 07/24/2016 15. History of iron deficiency anemia 16. See past history 12/18/2016. The patient was seen today along with his and a sitter. Patient's chest x-ray shows a faint right lower lung infiltrate compatible with pneumonia. In the past approximately 24 hours or so, his maximum temperature recorded has been 101.6 and that was at 0037 on 12/17/2016. He has been afebrile since approximately 5:00 yesterday morning. He is on gentamicin and Zosyn. Sputum Gram stain showed gram-positive cocci in pairs, gram-positive rods, gram-negative rods, and rare gram-negative diplococci. Sputum cultures pending. The patient's feels that he is getting back to his baseline, but is somewhat somnolent. She reports she feels he is markedly improved from admission. She asked about when the patient possibly could be discharged home. We told her we were pleased with his improvement, and he could possibly be considered for discharge tomorrow or Friday. We will repeat a chest x-ray tomorrow. 12/19/2016. Patient was seen today along with his and Fernanda Quinn RN. Eneida Lema RN was also present. Patient is more awake and alert this morning. Chest x-ray stable. Sputum cultures showing a gram-negative yudelka. Urine cultures growing a gram-negative yudelka and gram-positive cocci. Final ID and sensitivities are pending. Presently the patient is on gentamicin and Zosyn. We made no changes to these today. Mrs. Ashley inquired about the patient's Flomax being changed to another medication. She states that she has been unable to adequately crush this enough at home to give through his J-tube. We have asked nursing staff to show her how to do this correctly and safely. In the meantime, we have asked her speech therapy evaluation for bedside swallow eval. 12/20/2016. Patient was seen today along with his , Fernanda Quinn, SUSAN, and Eneida Lema RN. Mr. Ashley is doing reasonably well today. Sputum and urinalysis both obtained 12/17/2016 growing multiple organisms. Urine culture is growing a gram-positive cocci which is yet to be identified and also Klebsiella pneumoniae. Sputum culture is growing a gram-negative yudelka and it has not been identified either. Clearly, the patient is improving, but we would not suggest discharging him until the final IDs have been reported and we can make sure that he has appropriate antibiotic coverage with good OTILIA's. This was discussed with the patient and his to their understanding. They are in agreement. Patient's Flomax cannot be dissolved to adequately get through his J-tube. Hytrin (name brand; not Terazosin) is a tablet. We will see if this can be crushed and put in his tube safely. There are no appropriate liquid medications for BPH that we are aware of. Nursing staff states that they have spoken with pharmacy and this is being reviewed. The patient failed his swallowing evaluation yesterday. See the speech therapy notes for more information. 12/23/2016. The patient was readmitted on 12/21/2016. His reports that after they got home, his J-tube malfunction. She was unable to get anything to pass through it. Presented back to the ER, and on evaluation it was felt that the patient could possibly be dehydrated secondary to no intake in 24 hours and also that he would most likely require replacement of his J-tube. According to Mrs. Ashley, they have had a very difficult weekend. This is being handled by nursing administration. Nonetheless, the patient has been seen in GI consultation by Dr. Taylor and it is felt that the patient require a replacement J-tube. He is routinely followed by Dr. Love. Dr. Love we will see him later on today. Mrs. Ashley states that she would like to speak with Dr. Love before having this done. We have explained to her that we would wholeheartedly agree with any recommendations from Dr. Taylor and/or Dr. Love. In the meantime, we will ask dietary to initiate PPN. He has had no chest x-ray this admission, so one has been ordered. Again, he was recently inpatient with acute pyelonephritis secondary to Klebsiella pneumoniae and VRE. I am unsure if all the ID and sensitivities were available at discharge. He also had an acute pneumonia secondary to E. coli. He is presently on Zosyn which covers the Klebsiella and E. coli with OTILIA's of less than 16. The VRE had a low colony count, but Zosyn does not cover it. Given his significant past history, multiple comorbidities, and acute illness, we will start Zyvox 300 mg IV every 12 hours. Repeat urinalysis has been ordered. Medications have been reviewed. We would suggest restarting his home medications. Labs have been reviewed. Yesterday, white count was 8600 with 72.3% segs, 14.5 % lymphs, and 10.3% monos; H&H 11.0/33.9 with normal indices and top normal red blood cell distribution width; platelet count 261,000; creatinine 0.90, BUN 28, sodium 143, potassium 3.6 12/24/2016. Chest x-ray done 12/23/2016 showed that there are some residual increase markings in the right lower lung. Pneumonia is resolving like it should. See my note 12/23/2016 concerning antibiotics. Follow-up urinalysis done 12/23/2016 shows resolution of patient's urinary tract infection. Electrolytes are normal. Creatinine is 0.90 with a BUN of 17. Calcium is low at 7.9 and phosphorus is low at 2.1. I will check a vitamin D. Agree with GI and interventional radiology plans. Follow-up chest x-ray in the morning 12/26/2016. This patient had procedure done to his abdomen yesterday. Last night he had severe chest pain. His says on 2 instances he has shaking of his arms and legs. This lasted 2 or 3 minutes. She said they had a similar episode in [place] and they thought it was a seizure but the EEG was negative. As far as his shaking is concerned this patient has cerebella disease and it he may have an abnormal response to pain etc. I will have her repeat a EEG and I will ask for neurology consultation. I am not sure why he had chest pain. His chest x-ray is stable and his EKG 2 shows no acute changes. His cardiac enzymes are negative. Certainly a possibility this was related to reflux or his GI procedure yesterday. Will ask cardiology to look at him and will get a echocardiogram since this patient is not very good at communicating what is wrong with him. Case was reviewed in detail with his . Kj Fuller RN was present. Lab is stable. Patient was moved to ICU last night after rapid response was called. 12/27/2016. This 71-year-old white male was here recently with a urinary tract infection pneumonia. He went home and his feeding tube which was placed in [place] became occluded and he was brought back into the hospital. This is infectious by Dr. Lisa interventional radiology. On the night of 12/25/2016 this patient developed chest pain and some jerking motion of his arms. Neurology is to see him in consultation. Most likely this is related to his ataxia and his response to pain but his said he had an episode like this in [place] and they thought it was a seizure but could not prove it. Patient chest x-ray today shows slight return of his right lower lung infiltrate. Will continue his antibiotics. Note that his natruretic peptide is 19. We have started physical therapy occupational therapy and speech therapy on the patient today. Patient has developed some diarrhea. Number going to ask dietary to look at changing his feedings. We will check his stools for C. difficile. We can start Questran on them. All of this was discussed with the . Kj Fuller nurse practitioner was present Exam (Progress Note) - Constitutional Vitals: Period Temp Pulse Resp BP Sys/Sims Pulse Ox Last 24 Hr 97 F-98.2 F 74-98 16-20 100-120/59-73 94-100 Exam: Head. Symmetrical. No edema of the lips or tongue. Neck. Symmetrical. No meningismus. Lymphatics. No submandibular cervical supraclavicular or epitrochlear adenopathy. Chest with loose large airway congestion; no wheeze Heart no gallop Abdomen is nontender and nondistended; bowel sounds are positive 4; J-tube is in place Extremities with nothing to suggest acute deep venous thrombophlebitis Psychiatric awake, alert, and oriented Neurologic unchanged Plan: 12/23/2016 1. Continue Zosyn, but add Zyvox 300 mg IV every 12 hours. 2. Start IV peripheral hyperalimentation. Obtain chest x-ray and urinalysis. 3. Agree with workup by Dr. Taylor. 4. Await Dr. Love' recommendations. 5. Would recommend restarting the patient's home medications. 6.. 12/24/2016. 1. See my note above for today. 2. Follow-up chest x-ray tomorrow see orders. 12/26/2016. 1. See today's note above 12/27/2016. 1. See my note for today above 2. Physical therapy, Occupational Therapy, speech therapy. 3. Check stools for C. difficile 4. Questran. Do not occlude feeding tube. 5. Follow-up chest x-ray. 6. Cardiology consult pending 7. Neurology consult Exam (Progress Note) - Constitutional Vitals: Period Temp Pulse Resp BP Sys/Sims Pulse Ox Last 24 Hr 97.8 F-98.8 F 63-115 12-31 76-160/50-129 95-100 Results - Labs CBC & BMP: 12/27/16 04:13 12/27/16 04:13
--- NOTE | 2016-12-27 10:43 | Hospitalist Progress Note ---
Assessment and Plan (1) History of aspiration pneumonia Status: Chronic Assessment and plan: Continue IV antibiotics with Zosyn and Zyvox. Patient with evidence of right lower lobe pneumonia versus bronchiectasis. Chest PT and Mucomyst with nebs ordered. Continue IV antibiotics. Pulmonary following. Current Visit: No (2) UTI (urinary tract infection) Status: Acute Assessment and plan: Continue antibiotics. History of Klebsiella and VRE. Patient on Zosyn and Zyvox Current Visit: No (3) Cerebellar ataxia Status: Chronic Current Visit: Yes (4) COPD (chronic obstructive pulmonary disease) Status: Chronic Current Visit: No (5) BPH loc w urin obs/LUTS Status: Acute Current Visit: Yes (6) Chest pain Status: Acute Assessment and plan: Follow-up cardiology consult. Cardiac enzymes negative. Echo reviewed Technically adequate study Approximately 1-2+ right ventricular enlargement Normal LV systolic function with ejection fraction estimated 65% without segmental wall abnormality Current Visit: Yes Hospitalist: Subjective Interval history: My subjective case discussed with the patient's at the bedside. She reports some diarrhea. C. difficile testing on stool has been ordered. Questran started. She also requested chest PT and Mucomyst with nebs. Patient continues to improve. Phenylephrine has been turned off. Exam - Constitutional Vitals: Period Temp Pulse Resp BP Sys/Sims Pulse Ox Last 24 Hr 97.8 F-98.8 F 63-115 12-31 76-160/50-129 95-100 Exam: Constitutional System: no distress. No tremulousness. Head: Normocephalic, atraumatic. Ears, Nose and Throat System: No pain or tenderness. No epistaxis or discharge Eyes System: Pupils equal, round, and reactive. Extraocular muscles intact. Neck: Supple, without adenopathy, No jugular venous distention. Respiratory System: Chest clear but diminished to auscultation. Cardiovascular System: Heart with regular rate and rhythm. No murmur. GI System: Abdomen soft, nontender. Normo active bowel sounds present. Musculoskeletal System: limbs with no pedal edema. Full distal pulses. Results - Labs CBC & BMP: 12/27/16 04:13 12/27/16 04:13 Lab Results: I have reviewed the past 24 hour labs - Diagnostic Findings Procedure: Chest x-ray: image reviewed by me, report reviewed by me
[2016-12-27] MEDS: ACETYLCYSTEINE 20% 800 MG/4 ML VIAL RESP TX SCH ×2 (12:13→19:28)
[2016-12-27] MEDS: FERROUS SULFATE 325 MG TABLET PO SCH ×2 (12:14→21:30)
[2016-12-27] MEDS: IPRATROPIUM 0.06% NASAL SPRAY 15 ML BOTTLE BOTH NARES SCH ×2 (12:14→21:54)
[2016-12-27] MEDS: MULTIVITAMIN (BEROCCA) TABLET PER TUBE SCH (12:14)
[2016-12-27] MEDS: FINASTERIDE 5 MG TABLET PO SCH (12:14)
[2016-12-27] MEDS: SODIUM CHLORIDE 0.65% NASAL SPRAY 45 ML BOTTLE BOTH NARES SCH ×2 (12:14→21:30)
[2016-12-27] MEDS: MEMANTINE 5 MG TABLET PO SCH ×2 (12:14→21:29)
[2016-12-27] MEDS: buPROPion 100 MG TABLET PO SCH ×2 (12:15→21:29)
[2016-12-27] MEDS: DEXT 5% NACL 0.45% KCL 20 MEQ 20 MEQ/1,000 ML BAG IV SCH ×2 (12:15→22:30)
[2016-12-27] MEDS: PANTOPRAZOLE 40 MG VIAL IV SCH (12:15)
[2016-12-27] MEDS: POTASSIUM IODIDE ORAL SOLN 1,000 MG/ML BOTTLE PO SCH ×3 (12:15→21:30)
[2016-12-27] MEDS: CHOLESTYRAMINE 4 GM PACK PO SCH (12:16)
--- NOTE | 2016-12-27 13:09 | Physician Query Form ---
CLICK EDIT DOCUMENT TO SELECT QUERY ANSWER --> OK --> SIGN Lou Dee RN Clinical Cost Coordinator W) [phone] (f) [phone] [email or web address] PROVIDERS: Make your selection(s) from the choices in EACH section by typing an "x" and enter comments in the comment section. Please use your independent medical judgment in providing your response. This request does not imply that any particular answer is desired or expected. CLINICAL INDICATORS: (Providers should not edit this section) Based on documentation of "moved to the ICU last night after he had a drop in his blood pressure. He is noted to be on Donnell-Synephrine infusion for pressor support". Blood pressure of 52/40. "Will hold all blood pressure medications at this time blood pressure is low ordered a a fluid bolus". Please clarify which, if any, of the following is the etiology of the above symptoms and treatment rendered: (X ) Hypovolemic shock ( ) Septic shock ( ) Cardiogenic shock ( ) Hemorrhagic shock ( ) Traumatic shock ( ) Shock due to, please specify etiology: ( ) Shock, unknown etiology ( ) Drug induced, please specify substance: ( ) Iatrogenic Hypotension ( ) Orthostatic Hypotension (X ) Hypotension, unknown etiology ( ) Other, please specify: This patient has a combination of hypovolemia as well as autonomic dysfunction related to his history of cerebral ataxia. He frequently runs a low blood pressure and fluctuates secondary to autonomic dysfunction ( ) Clinically unable to determine COMMENTS: PLEASE ALSO DOCUMENT RESPONSE IN PROGRESS NOTES AND/OR DISCHARGE SUMMARY Use of terms such as suspected, likely, or probable (associated with a specific diagnosis that is being evaluated, monitored, or treated as if it exists) are acceptable and can be restated in the discharge summary if not ruled out. MTDD
--- NOTE | 2016-12-27 15:15 | Neurology Consult Note ---
History of Present Illness History of present illness: Mr. Ashley is a 71-year-old right-handed white gentleman well-known to me with a history of spinal cerebellar ataxia was here recently with a urinary tract infection and pneumonia. He went home and his feeding tube which was placed in [place] became occluded and he was brought back into the hospital. This is infectious by Dr. Lisa interventional radiology. On the night of 12/25/2016 this patient developed chest pain and some jerking motion of his arms. He never passed out. No tongue biting or urinary incontinence reported. He had an episode like this in [place] and they thought it was a seizure but could not prove it. Patient chest x-ray today shows slight return of his right lower lung infiltrate. EEG revealed generalized slowing. No epileptiform discharges. Probably will require long-term video EEG monitoring for further clarification of those spells. It does not sound like seizure though. Home Medications Medication Instructions Recorded Confirmed Type Aspirin [Children's Aspirin] 81 mg PO BEDTIME 09/24/14 12/21/16 History Memantine [Namenda] 5 mg PO BID 09/24/14 12/21/16 History Modafinil [Provigil] 200 mg PER TUBE DAILY 09/24/14 12/21/16 History Multivitamin [Daily Multiple 1 each PO DAILY 09/24/14 12/21/16 History Vitamin] Cetirizine HCl [ZyrTEC Cap] 10 mg PER TUBE BEDTIME 07/17/16 12/21/16 History Clorazepate [Tranxene] 3.75 mg PO BEDTIME 07/17/16 12/21/16 History Montelukast Tab [Singulair Tab] 10 mg PER TUBE DAILY 07/17/16 12/21/16 History Albuterol/Ipratropium Neb [Duoneb] 3 ml RESP TX RT QID #120 07/26/16 12/21/16 Rx nebulization solution Acetylcysteine Soln (APAP Od) 3 ml INH TID 11/10/16 12/21/16 History [Mucomyst 20% (APAP Od)] Folic Acid/Vit B Complex and C 5 mg PER TUBE DAILY 11/10/16 12/21/16 History [Folbee Plus Tablet] Glycopyrrolate Tab [Robinul Tab] 1 mg PO BID 11/10/16 12/21/16 History Potassium Iodide Oral Soln [Sski] 0.3 ml PO TID 11/10/16 12/21/16 History Pseudoephedrine [Sudafed] 30 mg PO DAILY 11/10/16 12/21/16 History buPROPion [Wellbutrin] 100 mg PO BID 11/10/16 12/21/16 History guaiFENesin [Guaifenesin] 20 ml PER TUBE TID 11/10/16 12/21/16 History predniSONE [PredniSONE] 2.5 mg PER TUBE DAILY 11/10/16 12/21/16 History Ferrous Sulfate Tab [Feosol 1 tablet PO BID 12/17/16 12/21/16 History Original Tab] Iron Fum/Folic Acid/Mv,Min 15 1 tablet PO DAILY 12/17/16 12/21/16 History [Hemocyte Plus Capsule] Pregabalin [Lyrica] 100 mg PO BEDTIME 12/17/16 12/21/16 History Tamsulosin [Flomax] 1 tablet PO DAILY 12/17/16 12/21/16 History Cefuroxime Tab [Ceftin] 500 mg PO BID #28 tablet 12/20/16 12/21/16 Rx Ipratropium 0.06% Nasal [place] 2 spray BOTH NARES BID spray 12/20/16 12/21/16 Rx [Atrovent 0.06% Nasal [place]] Pregabalin [Lyrica] 200 mg PER TUBE BEDTIME capsule 12/20/16 12/21/16 Rx Sodium Chloride 0.65% Nasal [place] 2 spray BOTH NARES BID bottle 12/20/16 12/21/16 Rx [[place] Nasal [place]] Terazosin [Hytrin] 5 mg PER TUBE BID #60 capsule 12/20/16 12/21/16 Rx Allergies Allergy/AdvReac Type Severity Reaction Status Date / Time ciprofloxacin [From Cipro] Allergy Unknown Unknown/Unable Verified 12/21/16 16: 07 to obtain lorazepam [From Ativan] AdvReac Intermediate Agitated Verified 12/21/16 16:07 12 point system: reviewed and no additional remarkable complaints except as stated Medical,Surgical,& Family Hx - Medical History Cardio: No history of: Hypertension (HYPOTENSION) Psychological: History of: Anxiety Disorders, Depression Neurology: History of: Neurological Problems (cerebellar ataxia) No history of: Seizures HEENT: History of: Eye Problem (WEARS GLASSES) Respiratory: History of: Bronchitis, COPD, Pneumonia, Respiratory Problems ( ASSOCIATED WITH CEREBLLA ATAXIA, bronchiectasis) Genitourinary: History of: Kidney Stones, Recurring Urinary Tract Infections Gastrointestinal: History of: GERD, GI Problems (difficulty swallowing) Musculoskeletal: History of: Musculoskeletal Problems (NEUROPATHY) No history of: Amputation Hematology: History of: Anemia - Surgical History Cardiac Surgeries: Patient Denies: Cardiac Catheterization Thoracic Surgeries: Patient denies;: Organ Transplant, Lobectomy Neurologic Surgeries: Surgical HX of: Neurologic Surgery HEENT Surgeries: Surgical HX of: Eye Surgery (CATARACT SURGERY) Patient denies: Thyroid Surgery, Tonsilectomy & Adenoidectomy Abdominal Surgeries: Surgical HX of: Colonoscopy, EGD Patient denies: Abdominal Surgery Reproductive Surgeries: Patient denies;: Genitourinary Surgery - Family History Family History: Reports;: Family Cancer (MOM-COLON) Denies;: Family Anesthesia Reaction, Family Diabetes, Family Heart Disease, Family Hypertension, Family Psychiatric Problems, Family Stroke - Social History Smoking Status: Never smoker Frequency of Alcohol Use: None Type of Drug Use: None Exam - Constitutional Vitals: Period Temp Pulse Resp BP Sys/Sims Pulse Ox Last 24 Hr 97.5 F-98.7 F 63-115 12-31 71-160/43-129 95-100 Exam: GENERAL: Patient is in no acute distress. NECK: Neck is supple. There is no JVD. No carotid bruits present. No thyroid masses. CVS: First and second heart sounds are normal. There is no S3 present. Regular rate and rhythm. RESPIRATORY: Lungs are clear to auscultation without any rales or rhonchi. ABDOMEN: Soft and non-tender. Bowel sounds are present. There is no hepatosplenomegaly. EXT: There is no palpable edema. Peripheral pulses are present. Skin: No rashes Central Nervous system: General: Alert, awake and Oriented x 3 Speech: Fluent but dysarthric and dysphonic Comprehension: Fair Facial expressions: Normal Cranial Nerves: CN1/Olfactory: Normal CN II/ Optic: Normal, Visual [place] unreliable CN III, and : JAYDE & EOMI CN V: Normal & intact CN VII: face is symmetric CNVIII: Normal CN XI/X/XI/XII: Intact and Normal Motor: Bulk normal. Mild hypotonia in all 4 extremities Strength in the right 5/5 Strength in the left 5/5 Sensory: Cannot be assessed Reflexes: 2+ and symmetrical Cerebellar function: Marked dysmetria upon finger to nose test Toes: Equivocal Gait: Cannot be tested Results - Labs CBC & BMP: 12/27/16 04:13 12/27/16 04:13 Assessment and Plan (1) Seizure-like activity Status: Acute Assessment and plan: No further intervention needed at this time. We will perform long-term video EEG monitoring at home as an outpatient However please call Dr. Richardson immediately if symptoms recur Current Visit: Yes (2) Cerebellar ataxia Status: Chronic Assessment and plan: Continue supportive management Thank you for the consultation Sign off please call as needed Current Visit: Yes Specialty Discharge - Follow Up or Referrals Follow up with: Theo Richardson MD [Physician] - 1 Month
--- NOTE | 2016-12-27 15:20 | Cardiology Consult Note ---
I, Radha Pearson RN, am scribing for, and in the presence of, Yogesh Thapa MD 15:20. Assessment and Plan - Time spent with patient Time spent with patient: Greater than 30 minutes (Due to assessment, plan, documentation, medication review) (1) Chest pain Status: Acute Assessment and plan: Late entry: I saw Mr. ashley December 26, 2016. At that time his was no longer present and he is a difficult historian. I agree with note below and add the followin. 71-year-old with long history of cerebellar ataxia, and recent J-tube malfunction reportedly had some chest pain earlier (cannot describe it is not having any currently), with reported negative stress test over 10 years ago with no known cardiac history. 2. Echocardiogram shows normal LV function without significant abnormality with perhaps mild right ventricular enlargement. 3. Normal EKG with sinus rhythm 4. Negative troponin, don not suspect ACS Current Visit: Yes (2) Malfunctioning jejunostomy tube Status: Acute Current Visit: Yes (3) Cerebellar ataxia Status: Chronic Current Visit: Yes History of Present Illness - Data of Consult Patient: new to practice Consult date: 12/26/16 Requesting Physician: Kj Fuller Primary care physician: Mikael Renteria - Consult Narrative Reason for consult: Chest pain History of present illness: Information Clerk Brokerage: New to cardiology PCP: Dr. Renteria Mr. Ashley is a 71 year old male who is unable to give any history, history was obtained from his who is at bedside. She reports he saw a envelope stuffer many years ago for syncopal episode. She said nothing was found wrong related to his heart. She said he had a stress test done about 10 years ago that they were told was okay. He has never had a heart catheterization done. He has had cerebellar ataxia since 1998 and has had a gradual deterioration in his neurologic function. He also has a history of orthostatic hypotension and multiple pulmonary problems. Surgical history includes bilateral cataract surgery and PEG tube placement. Family history is positive for mother with cancer in siblings with cerebellar ataxia. She reports he is a lifetime non- smoker. Mr. Ashley was admitted December 21 for a malfunctioning J-tube. GI has been seeing him and he had tube replaced December 25. Last night a rapid response and heart alert was called to the patient's room. He became less responsive and the reports he had what she describes as a drawing of his hands. She says he has had these episodes before and were thought to be seizures. She noted no jerking movements. She is unaware if he had loss of bladder or bowel at the time. She says this episode did seem to be more severe than when she has had in the past and he complained of chest pain which she said he has not done in the past. She said he did not describe the pain last night, and this morning he does not remember the pain. EKG was done at the time that showed sinus tachycardia with heart rate of 104. Chest x-ray done at that time showed no interval change. Troponin done at that time was negative. All of the labs have been unremarkable. This morning he is resting in bed. He is alert and will answer questions although sometimes it is hard to understand him. He denies any chest pain at this time. finish mender currently shows sinus rhythm with heart rate of 87. Oxygen is in use via nasal cannula, O2 sat 98%. Current blood pressure 108/67. An echocardiogram has been ordered, we will continue to check cardiac biomarkers. CC: Jordan Ayala MD - Home Medications and Allergies Home Medications: Home Medications Medication Instructions Recorded Confirmed Type Aspirin [Children's Aspirin] 81 mg PO BEDTIME 09/24/14 12/21/16 History Memantine [Namenda] 5 mg PO BID 09/24/14 12/21/16 History Modafinil [Provigil] 200 mg PER TUBE DAILY 09/24/14 12/21/16 History Multivitamin [Daily Multiple 1 each PO DAILY 09/24/14 12/21/16 History Vitamin] Cetirizine HCl [ZyrTEC Cap] 10 mg PER TUBE BEDTIME 07/17/16 12/21/16 History Clorazepate [Tranxene] 3.75 mg PO BEDTIME 07/17/16 12/21/16 History Montelukast Tab [Singulair Tab] 10 mg PER TUBE DAILY 07/17/16 12/21/16 History Albuterol/Ipratropium Neb [Duoneb] 3 ml RESP TX RT QID #120 07/26/16 12/21/16 Rx nebulization solution Acetylcysteine Soln (APAP Od) 3 ml INH TID 11/10/16 12/21/16 History [Mucomyst 20% (APAP Od)] Folic Acid/Vit B Complex and C 5 mg PER TUBE DAILY 11/10/16 12/21/16 History [Folbee Plus Tablet] Glycopyrrolate Tab [Robinul Tab] 1 mg PO BID 11/10/16 12/21/16 History Potassium Iodide Oral Soln [Sski] 0.3 ml PO TID 11/10/16 12/21/16 History Pseudoephedrine [Sudafed] 30 mg PO DAILY 11/10/16 12/21/16 History buPROPion [Wellbutrin] 100 mg PO BID 11/10/16 12/21/16 History guaiFENesin [Guaifenesin] 20 ml PER TUBE TID 11/10/16 12/21/16 History predniSONE [PredniSONE] 2.5 mg PER TUBE DAILY 11/10/16 12/21/16 History Ferrous Sulfate Tab [Feosol 1 tablet PO BID 12/17/16 12/21/16 History Original Tab] Iron Fum/Folic Acid/Mv,Min 15 1 tablet PO DAILY 12/17/16 12/21/16 History [Hemocyte Plus Capsule] Pregabalin [Lyrica] 100 mg PO BEDTIME 12/17/16 12/21/16 History Tamsulosin [Flomax] 1 tablet PO DAILY 12/17/16 12/21/16 History Cefuroxime Tab [Ceftin] 500 mg PO BID #28 tablet 12/20/16 12/21/16 Rx Ipratropium 0.06% Nasal [place] 2 spray BOTH NARES BID spray 12/20/16 12/21/16 Rx [Atrovent 0.06% Nasal [place]] Pregabalin [Lyrica] 200 mg PER TUBE BEDTIME capsule 12/20/16 12/21/16 Rx Sodium Chloride 0.65% Nasal [place] 2 spray BOTH NARES BID bottle 12/20/16 12/21/16 Rx [[place] Nasal [place]] Terazosin [Hytrin] 5 mg PER TUBE BID #60 capsule 12/20/16 12/21/16 Rx Allergies/Adverse Reactions: Allergies Allergy/AdvReac Type Severity Reaction Status Date / Time ciprofloxacin [From Cipro] Allergy Unknown Unknown/Unable Verified 12/21/16 16: 07 to obtain lorazepam [From Ativan] AdvReac Intermediate Agitated Verified 12/21/16 16:07 ROS unobtainable: due to mental status Medical,Surgical,& Family Hx - Medical History Psychological: History of: Anxiety Disorders, Depression Neurology: History of: Neurological Problems (cerebellar ataxia) HEENT: History of: Eye Problem (WEARS GLASSES) Respiratory: History of: Bronchitis, COPD, Pneumonia, Respiratory Problems ( ASSOCIATED WITH CEREBLLA ATAXIA, bronchiectasis) Genitourinary: History of: Kidney Stones, Recurring Urinary Tract Infections Gastrointestinal: History of: GERD, GI Problems (difficulty swallowing) Musculoskeletal: History of: Musculoskeletal Problems (NEUROPATHY) Hematology: History of: Anemia - Surgical History HEENT Surgeries: Surgical HX of: Eye Surgery (CATARACT SURGERY) Abdominal Surgeries: Surgical HX of: Colonoscopy, EGD - Family History Family History: Reports;: Family Cancer (MOM-COLON) - Social History Smoking Status: Never smoker Have you smoked in the last 12 months: No Frequency of Alcohol Use: None Type of Drug Use: None Marital Status: Lives With:: Spouse Functional capacity: wheelchair bound Physical Examination Vital Signs Temp Pulse Resp BP Pulse Ox 98.0 F 96 H 18 98/67 98 12/21/16 16:03 12/21/16 16:03 12/21/16 16:03 12/21/16 16:03 12/21/16 16:03 General: Present: Other (Ill-appearing) Neck: Present: Supple Neck, Midline Trachea Cardiac: Present: Reg Rate and Rhythm, No Murmur Lungs: Present: Normal Breath Sounds, Oxygen (Via nasal cannula), No Wheeze, Rales, Rhonchi Neuro: Present: Other (Alert and oriented). Absent: Essential Tremor Abdomen: Present: Soft, Active Bowel Sounds, Other (PEG tube) Skin: Absent: Rash, Suspicious Lesions Extremities: Present: No Edema, Normal Upper Extr. Pulses, Normal Lower Extr. Pulses. Absent: Normal Gait Result/EKG - Labs CBC & BMP: 12/27/16 04:13 12/27/16 04:13 Lab Results: I have reviewed the past 24 hour labs Labs: Laboratory Results - last 24 hr 12/25/16 12/25/16 12/26/16 22:19 22:47 03:51 Sodium 141 Potassium 4.2 Chloride 110 H Carbon Dioxide 24 Anion Gap 11.2 BUN 26 H Creatinine 0.90 GFR Calculation 102 BUN/Creatinine Ratio 28.00 H Glucose 99 POC Glucose 94 Calculated Osmolality 285.3 Calcium 8.2 L Phosphorus 3.2 Magnesium 2.2 Troponin I < 0.015 Triglycerides 100 - Diagnostic Findings Procedure: Chest x-ray: report reviewed by me - EKG EKG results: interpreted by me EKG shows: sinus rhythm Elier Jones Randall Scott, MD, personally performed the services described in this documentation, ascribed by Radha Pearson RN in my presence, and it is both accurate and complete 520 .
--- NOTE | 2016-12-27 20:27 | Electroencephalogram ---
EEG REPORT HISTORY: A 71-year-old patient with a history of questionable seizures. INTRODUCTION: A digital EEG was performed using the standard 10/20 system of electrode placement wit h one channel of EKG monitoring. Photic stimulation is performed. DESCRIPTION OF RECORD: The background is somewhat disorganized, consists of 7 to 8 Hz moderate ampli tude bilaterally symmetrical rhythm. Photic stimulation elicits driving response at all flash freque ncies. Hyperventilation was not performed. Drowsiness and sleep is not achieved. There are no foca l, sharp wave, spike or wave activity seen. Heart rate 90 beats per minute. IMPRESSION: ABNORMAL EEG DUE TO GENERALIZED SLOWING. CLINICAL CORRELATION: This record is supportive of mild encephalopathy, which could be secondary to postictal state, post-hypoxic state, metabolic disorder, diffuse APPRAISER LAND insult, or increased intracrania l pressure. No epileptiform/seizure activity seen. Clinical correlation suggested.
[2016-12-27] MEDS: PREGABALIN 100 MG CAPSULE PO SCH (21:29)
[2016-12-27] MEDS: CETIRIZINE 10 MG TABLET PER TUBE SCH (21:29)
[2016-12-27] MEDS: CLORAZEPATE 3.75 MG TABLET PO SCH (21:29)
[2016-12-27] MEDS: ASPIRIN CHEW 81 MG TABLET PO SCH (21:30)
[2016-12-27] MEDS: LACTOBACILLUS RHAMNOSUS GG CAPSULE PER TUBE SCH (21:30)
[2016-12-28] MEDS: ALBUTEROL/IPRATROPIUM 3 ML NEB RESP TX SCH ×5 (00:10→23:54)
[2016-12-28] MEDS: ACETYLCYSTEINE 20% 800 MG/4 ML VIAL RESP TX SCH ×5 (00:10→23:54)
[2016-12-28] MEDS: PHENYLEPHRINE DRIP 40 MG/250 ML PREMIX IV SCH (02:07)
[2016-12-28] MEDS: LINEZOLID INJ 600 MG in PREMIX 1 EACH IV SCH ×2 (02:23→15:31)
[2016-12-28 05:08] LABS: Basophils % 0.2 % (0.0-0.8); Eosinophils # 0.7 10*3/uL (0.0-0.87); Eosinophils % 7.8 % (0.00-10.9); Immature Granulocytes % 0.5 %; Immature Granulocytes Absolute 0.05 #; Lymphocytes % 10.9 % (21.2-54.2); Mean Corpuscular HGB Conc 32.3 GM/DL (32-36); Mean Corpuscular Hemoglobin 29 PG (27-34); Mean Corpuscular Volume 88.8 FL (87-102); Mean Platelet Volume 11.4 FL (9.6-12.0); Monocytes # 0.8 10*3/uL (0.11-0.8); Monocytes % 8.8 % (1.7-12.7); Neutrophils # 6.6 10*3/uL (1.4-7.4); Neutrophils % 71.8 % (38.7-73.9); Platelet Count 236 T/CUMM (130-400); Red Blood Count 3.49 MC/CUMM (3.8-5.5); Red Cell Distribution Width 16.5 % (9.3-17.3); White Blood Count 9.2 T/CUMM (4-12)
[2016-12-28] MEDS: PIPERACILLIN/TAZOBACTAM 3,375 MG in SODIUM CHLORIDE 0.9% 100 ML IV SCH ×3 (05:11→21:37)
--- NOTE | 2016-12-28 08:13 | Pulmonology Progress Note ---
Pulmonary - PN: Subj Interval history: The patient is a 71-year-old white man that has spinal cerebellar ataxia and apparently is quite debilitated. He has recently had problems with his gastric tube and this was recently replaced. Then he had some chest pain jerking motions but no definite seizure. His EEG apparently does not show seizures. He has been felt to possibly have some mild pneumonia. He is also been treated for UTI. Has not had any respiratory difficulties during the night. He is not having any fever. Cardiology does not think he needs any chest pain workup. At present he appears to be reasonably stable Exam (Progress Note) - Constitutional Vitals: Period Temp Pulse Resp BP Sys/Sims Pulse Ox Last 24 Hr 97.6 F-98.2 F 70-98 10-26 71-131/43-87 95-100 General appearance: no acute distress, cachectic, other (The patient is sleeping and looks comfortable. He does appear chronically ill.) - Head Head exam: Present: normal inspection, normocephalic - Eye Eye exam: Present: EOMI. Absent: scleral icterus Pupils: Present: JAYDE - ENT ENT exam: Present: normal exam - Neck Neck exam: Present: normal inspection. Absent: lymphadenopathy, thyromegaly - Respiratory Respiratory exam: Present: clear to auscultation bilaterally. Absent: wheezes - Cardiovascular Cardiovascular exam: Present: regular rate and rhythm. Absent: gallop, systolic murmur - GI/Abdominal GI/Abdominal exam: Present: soft, other (Patient has a G-tube present.). Absent : distended, organomegaly, tenderness - Extremities Exam Extremities exam: Present: other (Lower extremities are somewhat wasted.). Absent: calf tenderness, edema - Neurological Exam Neurological exam: Present: abnormal gait (Patient has extreme weakness of his legs.) - Psychiatric Psychiatric exam: Absent: anxious - Skin Skin exam: Present: warm, dry Results - Labs CBC & BMP: 12/28/16 04:32 12/27/16 04:13 Assessment and Plan (1) Cerebellar ataxia Status: Chronic Assessment and plan: The patient has a chronic neurological illness and is quite debilitated. Current Visit: Yes (2) COPD (chronic obstructive pulmonary disease) Status: Chronic Assessment and plan: Patient apparently has a component of COPD but he is having no trouble with his breathing now Current Visit: No (3) History of aspiration pneumonia Status: Chronic Assessment and plan: The patient is being treated for mild right lower lobe pneumonia. He has not had any respiratory distress now. Current Visit: No (4) Chest pain Status: Acute Assessment and plan: His chest pain was atypical and cardiology has evaluated. He is not having any further problems. Current Visit: Yes (5) Seizure-like activity Status: Acute Assessment and plan: Neurology is evaluating and does not think he is having seizures. Current Visit: Yes Specialty Discharge - Follow Up or Referrals Follow up with: Theo Richardson MD [Physician] - 1 Month
[2016-12-28] MEDS: MULTIVITAMIN (BEROCCA) TABLET PER TUBE SCH (09:39)
[2016-12-28] MEDS: buPROPion 100 MG TABLET PO SCH ×2 (09:40→21:35)
[2016-12-28] MEDS: POTASSIUM IODIDE ORAL SOLN 1,000 MG/ML BOTTLE PO SCH ×3 (09:41→21:36)
[2016-12-28] MEDS: CHOLESTYRAMINE 4 GM PACK PO SCH (09:41)
[2016-12-28] MEDS: FINASTERIDE 5 MG TABLET PO SCH (09:42)
[2016-12-28] MEDS: MEMANTINE 5 MG TABLET PO SCH ×2 (09:43→21:34)
[2016-12-28] MEDS: LACTOBACILLUS RHAMNOSUS GG CAPSULE PER TUBE SCH ×2 (09:44→21:35)
[2016-12-28] MEDS: FERROUS SULFATE 325 MG TABLET PO SCH ×2 (09:44→21:35)
[2016-12-28] MEDS: SODIUM CHLORIDE 0.65% NASAL SPRAY 45 ML BOTTLE BOTH NARES SCH ×2 (09:45→21:36)
[2016-12-28] MEDS: IPRATROPIUM 0.06% NASAL SPRAY 15 ML BOTTLE BOTH NARES SCH ×2 (09:45→21:36)
[2016-12-28] MEDS: PANTOPRAZOLE 40 MG VIAL IV SCH (09:46)
[2016-12-28] MEDS: DEXT 5% NACL 0.45% KCL 20 MEQ 20 MEQ/1,000 ML BAG IV SCH ×4 (12:25→22:48)
--- NOTE | 2016-12-28 12:28 | Hospitalist Progress Note ---
Assessment and Plan (1) Aspiration pneumonia Status: Acute Assessment and plan: Continue IV antibiotics with Zosyn and Zyvox. Patient with evidence of right lower lobe pneumonia versus bronchiectasis. Continue with Chest PT and Mucomyst. Pulmonary following. Current Visit: No Qualifiers: Aspiration pneumonia type: unspecified Laterality: unspecified laterality Lung location: unspecified part of lung Qualified Code(s): J69.0 - Pneumonitis due to inhalation of food and vomit (2) UTI (urinary tract infection) Status: Acute Assessment and plan: History of Klebsiella and VRE. Patient on Zosyn and Zyvox. We will repeat cultures. Current Visit: No (3) Chest pain Status: Acute Assessment and plan: He is currently chest pain free. Cardiac enzymes negative. Echo reviewed Technically adequate study Approximately 1-2+ right ventricular enlargement Normal LV systolic function with ejection fraction estimated 65% without segmental wall abnormality Current Visit: Yes (4) BPH loc w urin obs/LUTS Status: Acute Assessment and plan: stable Current Visit: Yes (5) Cerebellar ataxia Status: Chronic Assessment and plan: stable Current Visit: Yes (6) Diarrhea Status: Acute Assessment and plan: stool C.difficile is negative. Current Visit: Yes Hospitalist: Subjective Interval history: Patient seen this am, sleeping. was at bed side. He is still having some diarrhea but C. difficile was negative.Neurology was consulted yesterday to r/o seizures. Exam - Constitutional Vitals: Period Temp Pulse Resp BP Sys/Sims Pulse Ox Last 24 Hr 97.6 F-98.1 F 70-97 10-26 84-131/53-87 95-100 General appearance: no acute distress - Head Head exam: Present: normal inspection - Respiratory Respiratory exam: Present: clear to auscultation bilaterally - Cardiovascular Cardiovascular exam: Present: regular rate and rhythm - GI/Abdominal GI/Abdominal exam: Present: normal bowel sounds, other (peg tube in place) - Extremities Exam Extremities exam: Present: normal inspection Results - Labs CBC & BMP: 12/28/16 04:32 12/27/16 04:13 Lab Results: I have reviewed the past 24 hour labs Specialty Discharge - Follow Up or Referrals Follow up with: Theo Richardson MD [Physician] - 1 Month
[2016-12-28] MEDS: CETIRIZINE 10 MG TABLET PER TUBE SCH (21:35)
[2016-12-28] MEDS: ASPIRIN CHEW 81 MG TABLET PO SCH (21:35)
[2016-12-28] MEDS: PREGABALIN 100 MG CAPSULE PO SCH (21:35)
[2016-12-28] MEDS: CLORAZEPATE 3.75 MG TABLET PO SCH (22:57)
[2016-12-29] MEDS: PHENYLEPHRINE DRIP 40 MG/250 ML PREMIX IV SCH (00:30)
[2016-12-29] MEDS: LINEZOLID INJ 600 MG in PREMIX 1 EACH IV SCH (03:11)
[2016-12-29] MEDS: PIPERACILLIN/TAZOBACTAM 3,375 MG in SODIUM CHLORIDE 0.9% 100 ML IV SCH ×3 (05:25→21:49)
[2016-12-29] MEDS: DEXT 5% NACL 0.45% KCL 20 MEQ 20 MEQ/1,000 ML BAG IV SCH ×4 (05:41→21:50)
[2016-12-29] MEDS: ALBUTEROL/IPRATROPIUM 3 ML NEB RESP TX SCH ×3 (07:51→19:30)
[2016-12-29] MEDS: ACETYLCYSTEINE 20% 800 MG/4 ML VIAL RESP TX SCH ×3 (07:53→19:31)
--- NOTE | 2016-12-29 08:11 | Pulmonology Progress Note ---
Pulmonary - PN: Subj Interval history: The patient is a 71-year-old white man that has spinal cerebellar ataxia and apparently is quite debilitated. He has recently had problems with his gastric tube and this was recently replaced. Then he had some chest pain jerking motions but no definite seizure. His EEG apparently does not show seizures. He has been felt to possibly have some mild pneumonia. He is also been treated for UTI. Has not had any respiratory difficulties during the night. He says he is feeling okay and not very congested. He has not had any shortness of breath. He is not having any fever and his white count is okay. So far there is nothing on culture. Overall he is fairly stable Exam (Progress Note) - Constitutional Vitals: Period Temp Pulse Resp BP Sys/Sims Pulse Ox Last 24 Hr 97.9 F-99.5 F 58-108 13-23 84-136/54-96 96-100 Exam: General appearance: no acute distress, cachectic, other (The patient is alert and comfortable and in no distress. ) - Head Head exam: Present: normal inspection, normocephalic - Eye Eye exam: Present: EOMI. Absent: scleral icterus Pupils: Present: JAYDE - ENT ENT exam: Present: normal exam - Neck Neck exam: Present: normal inspection. Absent: lymphadenopathy, thyromegaly - Respiratory Respiratory exam: Present: clear to auscultation bilaterally. Absent: wheezes - Cardiovascular Cardiovascular exam: Present: regular rate and rhythm. Absent: gallop, systolic murmur - GI/Abdominal GI/Abdominal exam: Present: soft, other (Patient has a G-tube present.). He still has a BMS in place. - Extremities Exam Extremities exam: Present: other (Lower extremities are somewhat wasted.). Absent: calf tenderness, edema - Neurological Exam Neurological exam: Present: abnormal gait (Patient has extreme weakness of his legs.) - Psychiatric Psychiatric exam: Absent: anxious - Skin Skin exam: Present: warm, dry Results - Labs CBC & BMP: 12/28/16 04:32 12/27/16 04:13 Assessment and Plan (1) Cerebellar ataxia Status: Chronic Assessment and plan: The patient has a chronic neurological illness and is quite debilitated. He is followed by neurology. Current Visit: Yes (2) COPD (chronic obstructive pulmonary disease) Status: Chronic Assessment and plan: Patient apparently has a component of COPD but he is having no trouble with his breathing now. Clinically he is doing fairly well. Current Visit: No (3) History of aspiration pneumonia Status: Chronic Assessment and plan: The patient is being treated for mild right lower lobe pneumonia. He has not had any respiratory distress now. Will check a chest x-ray tomorrow. Will cut back on his antibiotics. Current Visit: No (4) Chest pain Status: Acute Assessment and plan: His chest pain was atypical and cardiology has evaluated. He is not having any further problems. Current Visit: Yes (5) Seizure-like activity Status: Acute Assessment and plan: Neurology is evaluating and does not think he is having seizures. Clinically he seems to be stable and can move to a regular room. 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 Will cut back on his antibiotics so his diarrhea may decrease. His C. difficile titer was negative. Current Visit: No Specialty Discharge - Follow Up or Referrals Follow up with: Theo Richardson MD [Physician] - 1 Month
[2016-12-29] MEDS: IPRATROPIUM 0.06% NASAL SPRAY 15 ML BOTTLE BOTH NARES SCH ×2 (09:34→21:48)
[2016-12-29] MEDS: POTASSIUM IODIDE ORAL SOLN 1,000 MG/ML BOTTLE PO SCH ×3 (09:35→21:48)
[2016-12-29] MEDS: buPROPion 100 MG TABLET PO SCH ×2 (09:35→21:47)
[2016-12-29] MEDS: FINASTERIDE 5 MG TABLET PO SCH (09:36)
[2016-12-29] MEDS: CHOLESTYRAMINE 4 GM PACK PO SCH (09:36)
[2016-12-29] MEDS: FERROUS SULFATE 325 MG TABLET PO SCH ×2 (09:37→21:47)
[2016-12-29] MEDS: MEMANTINE 5 MG TABLET PO SCH ×2 (09:37→21:47)
[2016-12-29] MEDS: LACTOBACILLUS RHAMNOSUS GG CAPSULE PER TUBE SCH ×2 (09:38→21:47)
[2016-12-29] MEDS: MULTIVITAMIN (BEROCCA) TABLET PER TUBE SCH (09:38)
[2016-12-29] MEDS: SODIUM CHLORIDE 0.65% NASAL SPRAY 45 ML BOTTLE BOTH NARES SCH ×2 (09:39→21:48)
[2016-12-29] MEDS: PANTOPRAZOLE 40 MG VIAL IV SCH (09:40)
--- NOTE | 2016-12-29 12:02 | Hospitalist Progress Note ---
Assessment and Plan (1) Aspiration pneumonia Status: Acute Assessment and plan: Continue IV antibiotics with Zosyn and Zyvox. Patient with evidence of right lower lobe pneumonia versus bronchiectasis. Continue with Chest PT and Mucomyst. Pulmonary following. Current Visit: No Qualifiers: Aspiration pneumonia type: unspecified Laterality: unspecified laterality Lung location: unspecified part of lung Qualified Code(s): J69.0 - Pneumonitis due to inhalation of food and vomit (2) UTI (urinary tract infection) Status: Acute Assessment and plan: History of Klebsiella and VRE. Patient on Zosyn and Zyvox. Repeat culture was negative Current Visit: No (3) Chest pain Status: Acute Assessment and plan: He is currently chest pain free. Cardiac enzymes negative. Echo reviewed Technically adequate study Approximately 1-2+ right ventricular enlargement Normal LV systolic function with ejection fraction estimated 65% without segmental wall abnormality Current Visit: Yes (4) BPH loc w urin obs/LUTS Status: Acute Assessment and plan: stable Current Visit: Yes (5) Cerebellar ataxia Status: Chronic Assessment and plan: stable PT consult Current Visit: Yes (6) Diarrhea Status: Acute Assessment and plan: Improved. Stool C.difficile was negative. Current Visit: Yes (7) Seizure-like activity Status: Acute Assessment and plan: Neurology has seen. EEG revealed generalized slowing. No epileptiform discharges. Neurology thinks he will probably require long-term video EEG monitoring for further clarification of those spells. They do not think it is seizure though. Current Visit: Yes Hospitalist: Subjective Interval history: Patient was awake, talking though his speech was impaired. Diarrhoea has improved. No new complaints.Consider moving to the floor in am. Exam - Constitutional Vitals: Period Temp Pulse Resp BP Sys/Sims Pulse Ox Last 24 Hr 98 F-99.5 F 58-108 13-24 84-136/54-96 95-100 General appearance: no acute distress - Head Head exam: Present: normal inspection - Respiratory Respiratory exam: Present: clear to auscultation bilaterally - Cardiovascular Cardiovascular exam: Present: regular rate and rhythm - GI/Abdominal GI/Abdominal exam: Present: normal bowel sounds - Extremities Exam Extremities exam: Present: normal inspection - Neurological Exam Neurological exam: Present: alert, oriented X3, other (impaired speech) Results - Labs CBC & BMP: 12/28/16 04:32 12/27/16 04:13 Lab Results: I have reviewed the past 24 hour labs Specialty Discharge - Follow Up or Referrals Follow up with: Theo Richardson MD [Physician] - 1 Month
[2016-12-29] MEDS: CLORAZEPATE 3.75 MG TABLET PO SCH (21:46)
[2016-12-29] MEDS: ASPIRIN CHEW 81 MG TABLET PO SCH (21:47)
[2016-12-29] MEDS: PREGABALIN 100 MG CAPSULE PO SCH (21:47)
[2016-12-29] MEDS: CETIRIZINE 10 MG TABLET PER TUBE SCH (21:47)
[2016-12-30] MEDS: PHENYLEPHRINE DRIP 40 MG/250 ML PREMIX IV SCH ×2 (01:47→04:03)
[2016-12-30] MEDS: ALBUTEROL/IPRATROPIUM 3 ML NEB RESP TX SCH ×4 (01:59→20:29)
[2016-12-30] MEDS: ACETYLCYSTEINE 20% 800 MG/4 ML VIAL RESP TX SCH ×4 (01:59→20:29)
[2016-12-30] MEDS: PIPERACILLIN/TAZOBACTAM 3,375 MG in SODIUM CHLORIDE 0.9% 100 ML IV SCH ×3 (05:27→21:04)
[2016-12-30 06:20] LABS: Calcium 7.7 MG/DL (8.5-10.1); Magnesium 2.4 MG/DL (1.8-2.4); Osmolality,Calculated 281.3 MOS/KG (273-304); Phosphorous 2.3 MG/DL (2.5-4.9); Potassium 4.2 MMOL/L (3.5-5.1); Prealbumin 25.1 MG/DL (20-40)
[2016-12-30] MEDS: DEXT 5% NACL 0.45% KCL 20 MEQ 20 MEQ/1,000 ML BAG IV SCH ×2 (08:22→19:42)
--- NOTE | 2016-12-30 08:54 | Cardiology Progress Note ---
Cardiology - PN: Subj Interval history: Cardiology note 71-year-old man debilitated from cerebellar ataxia. Status post JG tube exchange December 25, 2016. Was placed on Donnell-Synephrine for low blood pressure last night. reports his blood pressure does tend to run low at home. Awake alert and responsive. Telemetry shows sinus rhythm in the 85-90 range O2 sat 97 on room air Blood pressure 95/72 on Donnell-Synephrine Impression Cerebellar ataxia Debilitated Recurrent UTI Status post JG tube exchange December 25, 2016 Recent echo showed ejection fraction of 65% Hypotension Plan Wean Donnell-Synephrine as tolerated Tube feedings Discussed with Exam (Progress Note) - Constitutional Vitals: Period Temp Pulse Resp BP Sys/Sims Pulse Ox Last 24 Hr 97.5 F-98.4 F 83-106 12-25 70-130/42-82 90-100 Result/EKG - Labs CBC & BMP: 12/28/16 04:32 12/30/16 05:21 Labs: Laboratory Results - last 24 hr 12/30/16 05:21 Sodium 141 Potassium 4.2 Chloride 109 H Carbon Dioxide 26 Anion Gap 10.2 BUN 13 Creatinine 0.90 GFR Calculation 101 BUN/Creatinine Ratio 14.00 Glucose 112 H Calculated Osmolality 281.3 Calcium 7.7 L Phosphorus 2.3 L Magnesium 2.4 Prealbumin 25.1 Specialty Discharge - Follow Up or Referrals Follow up with: Theo Richardson MD [Physician] - 1 Month
[2016-12-30] MEDS: POTASSIUM IODIDE ORAL SOLN 1,000 MG/ML BOTTLE PO SCH ×3 (09:16→21:01)
[2016-12-30] MEDS: FERROUS SULFATE 325 MG TABLET PO SCH ×2 (09:16→21:02)
[2016-12-30] MEDS: IPRATROPIUM 0.06% NASAL SPRAY 15 ML BOTTLE BOTH NARES SCH ×2 (09:17→21:02)
[2016-12-30] MEDS: SODIUM CHLORIDE 0.65% NASAL SPRAY 45 ML BOTTLE BOTH NARES SCH ×2 (09:17→21:01)
[2016-12-30] MEDS: buPROPion 100 MG TABLET PO SCH ×2 (09:17→14:55)
[2016-12-30] MEDS: LACTOBACILLUS RHAMNOSUS GG CAPSULE PER TUBE SCH ×2 (09:17→21:02)
[2016-12-30] MEDS: CHOLESTYRAMINE 4 GM PACK PO SCH (09:17)
[2016-12-30] MEDS: FINASTERIDE 5 MG TABLET PO SCH (09:17)
[2016-12-30] MEDS: MULTIVITAMIN (BEROCCA) TABLET PER TUBE SCH (09:17)
[2016-12-30] MEDS: MEMANTINE 5 MG TABLET PO SCH ×2 (09:17→21:02)
[2016-12-30] MEDS: PANTOPRAZOLE 40 MG VIAL IV SCH (09:18)
--- NOTE | 2016-12-30 09:35 | XRay Report ---
Exam: XR chest 1V portable Indication: Pneumonia Comparison study: 12/27/2016 Findings: Cardiac silhouette and mediastinal structures appear stable from prior there is significantly improved aeration within the lung bases with near complete clearing of the patchy basilar opacity seen previously. Minimal residual interstitial opacities are noted in the lung bases, which may represent atelectasis. Upper lungs are clear. There is no residual focal consolidation. There is no significant pneumothorax or pleural effusion identified. Impression: Near complete clearing of basilar opacities with minimal residual interstitial infiltrates. PROCEDURE INTERPRETED AT [facility] DEPARTMENT OF RADIOLOGY Final Report Signed by: Arun Lisa
--- NOTE | 2016-12-30 10:16 | Pulmonology Progress Note ---
Pulmonary - PN: Subj Interval history: Mr. Ashley is a 71-year-old white male who we saw in initial pulmonary consultation on 12/17/2016. He was discharged home on 12/20/2016. Please see the hospital records for more information. At the time of our initial consultation on 12/17/2016, our impressions were: 1. Acute pyelonephritis. 2. Altered mental status probably secondary #1. 3. Watch for aspiration or bacterial pneumonia. 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 6. Bronchiectasis. 7. Inability to urinate. Requires bladder catheterization. 8. Inability to swallow. Has PEG tube. 9. History of obstructive sleep apnea 10. Chronic allergic sinusitis 11. Family history of colon cancer 12. History of anxiety and depression 13. History of small ulcers involving the superior gluteal folds. 14. Chronic aspiration with bilateral erosive friable bronchitis and partial stenosis of the superior segment of left lower lung secondary to hypertrophied tissue seen on fiberoptic bronchoscopy done 07/24/2016 15. History of iron deficiency anemia 16. See past history 12/18/2016. The patient was seen today along with his and a sitter. Patient's chest x-ray shows a faint right lower lung infiltrate compatible with pneumonia. In the past approximately 24 hours or so, his maximum temperature recorded has been 101.6 and that was at 0037 on 12/17/2016. He has been afebrile since approximately 5:00 yesterday morning. He is on gentamicin and Zosyn. Sputum Gram stain showed gram-positive cocci in pairs, gram-positive rods, gram-negative rods, and rare gram-negative diplococci. Sputum cultures pending. The patient's feels that he is getting back to his baseline, but is somewhat somnolent. She reports she feels he is markedly improved from admission. She asked about when the patient possibly could be discharged home. We told her we were pleased with his improvement, and he could possibly be considered for discharge tomorrow or Friday. We will repeat a chest x-ray tomorrow. 12/19/2016. Patient was seen today along with his and Fernanda Quinn RN. Eneida Lema RN was also present. Patient is more awake and alert this morning. Chest x-ray stable. Sputum cultures showing a gram-negative yudelka. Urine cultures growing a gram-negative yudelka and gram-positive cocci. Final ID and sensitivities are pending. Presently the patient is on gentamicin and Zosyn. We made no changes to these today. Mrs. Ashley inquired about the patient's Flomax being changed to another medication. She states that she has been unable to adequately crush this enough at home to give through his J-tube. We have asked nursing staff to show her how to do this correctly and safely. In the meantime, we have asked her speech therapy evaluation for bedside swallow eval. 12/20/2016. Patient was seen today along with his , Fernanda Quinn, SUSAN, and Eneida Lema RN. Mr. Ashley is doing reasonably well today. Sputum and urinalysis both obtained 12/17/2016 growing multiple organisms. Urine culture is growing a gram-positive cocci which is yet to be identified and also Klebsiella pneumoniae. Sputum culture is growing a gram-negative yudelka and it has not been identified either. Clearly, the patient is improving, but we would not suggest discharging him until the final IDs have been reported and we can make sure that he has appropriate antibiotic coverage with good OTILIA's. This was discussed with the patient and his to their understanding. They are in agreement. Patient's Flomax cannot be dissolved to adequately get through his J-tube. Hytrin (name brand; not Terazosin) is a tablet. We will see if this can be crushed and put in his tube safely. There are no appropriate liquid medications for BPH that we are aware of. Nursing staff states that they have spoken with pharmacy and this is being reviewed. The patient failed his swallowing evaluation yesterday. See the speech therapy notes for more information. 12/23/2016. The patient was readmitted on 12/21/2016. His reports that after they got home, his J-tube malfunction. She was unable to get anything to pass through it. Presented back to the ER, and on evaluation it was felt that the patient could possibly be dehydrated secondary to no intake in 24 hours and also that he would most likely require replacement of his J-tube. According to Mrs. Ashley, they have had a very difficult weekend. This is being handled by nursing administration. Nonetheless, the patient has been seen in GI consultation by Dr. Taylor and it is felt that the patient require a replacement J-tube. He is routinely followed by Dr. Love. Dr. Love we will see him later on today. Mrs. Ashley states that she would like to speak with Dr. Love before having this done. We have explained to her that we would wholeheartedly agree with any recommendations from Dr. Taylor and/or Dr. Love. In the meantime, we will ask dietary to initiate PPN. He has had no chest x-ray this admission, so one has been ordered. Again, he was recently inpatient with acute pyelonephritis secondary to Klebsiella pneumoniae and VRE. I am unsure if all the ID and sensitivities were available at discharge. He also had an acute pneumonia secondary to E. coli. He is presently on Zosyn which covers the Klebsiella and E. coli with OTILIA's of less than 16. The VRE had a low colony count, but Zosyn does not cover it. Given his significant past history, multiple comorbidities, and acute illness, we will start Zyvox 300 mg IV every 12 hours. Repeat urinalysis has been ordered. Medications have been reviewed. We would suggest restarting his home medications. Labs have been reviewed. Yesterday, white count was 8600 with 72.3% segs, 14.5 % lymphs, and 10.3% monos; H&H 11.0/33.9 with normal indices and top normal red blood cell distribution width; platelet count 261,000; creatinine 0.90, BUN 28, sodium 143, potassium 3.6 12/24/2016. Chest x-ray done 12/23/2016 showed that there are some residual increase markings in the right lower lung. Pneumonia is resolving like it should. See my note 12/23/2016 concerning antibiotics. Follow-up urinalysis done 12/23/2016 shows resolution of patient's urinary tract infection. Electrolytes are normal. Creatinine is 0.90 with a BUN of 17. Calcium is low at 7.9 and phosphorus is low at 2.1. I will check a vitamin D. Agree with GI and interventional radiology plans. Follow-up chest x-ray in the morning 12/26/2016. This patient had procedure done to his abdomen yesterday. Last night he had severe chest pain. His says on 2 instances he has shaking of his arms and legs. This lasted 2 or 3 minutes. She said they had a similar episode in [place] and they thought it was a seizure but the EEG was negative. As far as his shaking is concerned this patient has cerebella disease and it he may have an abnormal response to pain etc. I will have her repeat a EEG and I will ask for neurology consultation. I am not sure why he had chest pain. His chest x-ray is stable and his EKG 2 shows no acute changes. His cardiac enzymes are negative. Certainly a possibility this was related to reflux or his GI procedure yesterday. Will ask cardiology to look at him and will get a echocardiogram since this patient is not very good at communicating what is wrong with him. Case was reviewed in detail with his . Kj Fuller RN was present. Lab is stable. Patient was moved to ICU last night after rapid response was called. 12/27/2016. This 71-year-old white male was here recently with a urinary tract infection pneumonia. He went home and his feeding tube which was placed in [place] became occluded and he was brought back into the hospital. This is infectious by Dr. Lisa interventional radiology. On the night of 12/25/2016 this patient developed chest pain and some jerking motion of his arms. Neurology is to see him in consultation. Most likely this is related to his ataxia and his response to pain but his said he had an episode like this in [place] and they thought it was a seizure but could not prove it. Patient chest x-ray today shows slight return of his right lower lung infiltrate. Will continue his antibiotics. Note that his natruretic peptide is 19. We have started physical therapy occupational therapy and speech therapy on the patient today. Patient has developed some diarrhea. Number going to ask dietary to look at changing his feedings. We will check his stools for C. difficile. We can start Questran on them. All of this was discussed with the . Kj Fuller nurse practitioner was present 12/30/2016. Patient was seen along with his and Kj Fuller nurse practitioner. Also his nurse Hehsam was present. Patient's pneumonia is resolved. He had hypotension last night and is on Donnell-Synephrine. Not sure why this happened. He is getting enough fluids. I went to cut back on his Lyrica and we are going to make his second dose of Wellbutrin a little earlier in the day. NG tube is working well. Diarrhea has resolved. Stools were negative for C. difficile. Neurology has seen the patient and his said he will require a long-term video EEG for further clarification of the spells. Neurology said this does not sound like seizures. Cardiology noted no positive cardiac markers and an ejection fraction of 65% without segmental wall motion abnormality. There was +1-+2 right ventricular enlargement. EKG was unremarkable. Microbiology is negative. Electrolytes and creatinine are normal. Additional labs been ordered. Patient will need to stay in CCU since he is on pressor agents. Overall he looks a lot better. Exam (Progress Note) - Constitutional Vitals: Period Temp Pulse Resp BP Sys/Sims Pulse Ox Last 24 Hr 97 F-98.2 F 74-98 16-20 100-120/59-73 94-100 Exam: Head. Symmetrical. No edema of the lips or tongue. Neck. Symmetrical. No meningismus. Lymphatics. No submandibular cervical supraclavicular or epitrochlear adenopathy. Chest with loose large airway congestion; no wheeze Heart no gallop Abdomen is nontender and nondistended; bowel sounds are positive 4; J-tube is in place Extremities with nothing to suggest acute deep venous thrombophlebitis Psychiatric awake, alert, and oriented Neurologic unchanged Plan: 12/23/2016 1. Continue Zosyn, but add Zyvox 300 mg IV every 12 hours. 2. Start IV peripheral hyperalimentation. Obtain chest x-ray and urinalysis. 3. Agree with workup by Dr. Taylor. 4. Await Dr. Love' recommendations. 5. Would recommend restarting the patient's home medications. 6.. 12/24/2016. 1. See my note above for today. 2. Follow-up chest x-ray tomorrow see orders. 12/26/2016. 1. See today's note above 12/27/2016. 1. See my note for today above 2. Physical therapy, Occupational Therapy, speech therapy. 3. Check stools for C. difficile 4. Questran. Do not occlude feeding tube. 5. Follow-up chest x-ray. 6. Cardiology consult pending 7. Neurology consult 12/30/2016. 1. See my note for today above. 2. Donnell-Synephrine 3. Follow-up lab 4. Decrease Lyrica 5. Change timing of Wellbutrin dose Exam (Progress Note) - Constitutional Vitals: Period Temp Pulse Resp BP Sys/Sims Pulse Ox Last 24 Hr 97.5 F-98.4 F 83-106 12- 70-130/42-82 90-100 Results - Labs CBC & BMP: 12/28/16 04:32 12/30/16 05:21 Specialty Discharge - Follow Up or Referrals Follow up with: Theo Richardson MD [Physician] - 1 Month
[2016-12-30 10:20] LABS: Apearance,Urine CLEAR (Clear); Bilirubin,Urine Negative (Negative); Blood, Urine Negative (Negative); Glucose,Urine (UA) Negative (Negative); Ketones,Urine Negative (Negative); Nitrite,Urine Negative (Negative); Protein,Urine Negative; RBC,Urine 1 /HPF (0-4); Squamous Epithelial Cell,Urine Occasional /HPF (0-10); Urine Color Straw (Yellow); Urine Specific Gravity 1.005 (1.001-1.035); Urine Urobilinogen < 2.0 EU/DL (0.2-1.0); WBC,Urine 4 /HPF (0-6)
--- NOTE | 2016-12-30 10:45 | Hospitalist Progress Note ---
Assessment and Plan (1) History of aspiration pneumonia Status: Chronic Assessment and plan: Continue IV antibiotics with Zosyn and Zyvox. Pneumonia appears resolved on chest x-ray. Chest PT and Mucomyst with nebs ordered. Continue IV antibiotics. Pulmonary following- Dr. Renteria. Current Visit: No (2) UTI (urinary tract infection) Status: Acute Assessment and plan: Continue antibiotics. History of Klebsiella and VRE. Patient on Zosyn and Zyvox Current Visit: No (3) Cerebellar ataxia Status: Chronic Current Visit: Yes (4) COPD (chronic obstructive pulmonary disease) Status: Chronic Current Visit: No (5) BPH loc w urin obs/LUTS Status: Acute Current Visit: Yes (6) Chest pain Status: Acute Assessment and plan: Cardiac enzymes negative. Echo reviewed Technically adequate study Approximately 1-2+ right ventricular enlargement Normal LV systolic function with ejection fraction estimated 65% without segmental wall abnormality Current Visit: Yes Hospitalist: Subjective Interval history: Patient was seen and examined in CCU room 123 with his at the bedside. He was restarted on phenylephrine overnight due to low blood pressure. He is otherwise asymptomatic. He looks and feels well. Chest x-ray has improved with resolution of his right lower lobe pneumonia. After lengthy discussion with the patient and his it appears that he has had history of hypotension in the past and been on Florinef in the past. I am going to start him back on Florinef in an effort to wean off the phenylephrine. Continue ICU care while on pressors. Exam - Constitutional Vitals: Period Temp Pulse Resp BP Sys/Sims Pulse Ox Last 24 Hr 97.5 F-98.4 F 83-106 12-25 70-130/42-82 90-100 Exam: Constitutional System: no distress. No tremulousness. Head: Normocephalic, atraumatic. Ears, Nose and Throat System: No pain or tenderness. No epistaxis or discharge Eyes System: Pupils equal, round, and reactive. Extraocular muscles intact. Neck: Supple, without adenopathy, No jugular venous distention. Respiratory System: Chest clear to auscultation. Cardiovascular System: Heart with regular rate and rhythm. No murmur. GI System: Abdomen soft, nontender. Normo active bowel sounds present. Musculoskeletal System: limbs with no pedal edema. Full distal pulses. Results - Labs CBC & BMP: 07/22/17 04:32 12/30/16 05:21 Lab Results: I have reviewed the past 24 hour labs - Diagnostic Findings Procedure: Chest x-ray: image reviewed by me, report reviewed by me Specialty Discharge - Follow Up or Referrals Follow up with: Theo Richardson MD [Physician] - 1 Month
[2016-12-30 11:01] LABS: Basophils % 0.2 % (0.0-0.8); Eosinophils # 0.8 10*3/uL (0.0-0.87); Eosinophils % 5.6 % (0.00-10.9); Hematocrit 33.6 VOL% (42.0-52.0); Hemoglobin 10.8 GM/DL (14.0-18.0); Immature Granulocytes % 0.5 %; Immature Granulocytes Absolute 0.08 #; Lymphocytes # 0.7 10*3/uL (1.4-4.0); Lymphocytes % 4.5 % (21.2-54.2); Mean Corpuscular HGB Conc 32.1 GM/DL (32-36); Mean Corpuscular Hemoglobin 29 PG (27-34); Mean Corpuscular Volume 89.8 FL (87-102); Mean Platelet Volume 11.6 FL (9.6-12.0); Monocytes # 1.1 10*3/uL (0.11-0.8); Monocytes % 7.4 % (1.7-12.7); Neutrophils % 81.8 % (38.7-73.9); Platelet Count 243 T/CUMM (130-400); Red Blood Count 3.74 MC/CUMM (3.8-5.5); Red Cell Distribution Width 16.7 % (9.3-17.3); White Blood Count 14.7 T/CUMM (4-12)
[2016-12-30 11:22] LABS: Eosinophils 4 % (0-10); Hypochromasia 1+; Lymphocytes 2 % (20-55); Ovalocytes Slight; Platelet Estimate Adequate; Segmented Neutrophils 86 % (50-85); Total Cells Counted 100
[2016-12-30] MEDS: FLUDROCORTISONE 0.1 MG TABLET PO SCH ×2 (12:07→21:02)
[2016-12-30] MEDS: PREGABALIN 75 MG CAPSULE PO SCH (21:01)
[2016-12-30] MEDS: CETIRIZINE 10 MG TABLET PER TUBE SCH (21:01)
[2016-12-30] MEDS: CLORAZEPATE 3.75 MG TABLET PO SCH (21:02)
[2016-12-30] MEDS: ASPIRIN CHEW 81 MG TABLET PO SCH (21:02)
[2016-12-31] MEDS: ALBUTEROL/IPRATROPIUM 3 ML NEB RESP TX SCH ×4 (00:53→20:00)
[2016-12-31] MEDS: ACETYLCYSTEINE 20% 800 MG/4 ML VIAL RESP TX SCH ×4 (00:53→20:01)
[2016-12-31 05:13] LABS: Basophils % 0.3 % (0.0-0.8); Eosinophils % 7.6 % (0.00-10.9); Hematocrit 32.8 VOL% (42.0-52.0); Hemoglobin 10.6 GM/DL (14.0-18.0); Immature Granulocytes % 0.5 %; Immature Granulocytes Absolute 0.06 #; Lymphocytes # 0.9 10*3/uL (1.4-4.0); Lymphocytes % 7.1 % (21.2-54.2); Mean Corpuscular HGB Conc 32.3 GM/DL (32-36); Mean Corpuscular Hemoglobin 29 PG (27-34); Mean Corpuscular Volume 88.4 FL (87-102); Mean Platelet Volume 11.4 FL (9.6-12.0); Monocytes # 1.2 10*3/uL (0.11-0.8); Monocytes % 9.7 % (1.7-12.7); Neutrophils # 9.5 10*3/uL (1.4-7.4); Neutrophils % 74.8 % (38.7-73.9); Platelet Count 220 T/CUMM (130-400); Red Blood Count 3.71 MC/CUMM (3.8-5.5); Red Cell Distribution Width 16.4 % (9.3-17.3); White Blood Count 12.7 T/CUMM (4-12)
[2016-12-31 05:43] LABS: Osmolality,Calculated 283.1 MOS/KG (273-304); Potassium 4.3 MMOL/L (3.5-5.1)
[2016-12-31] MEDS: PIPERACILLIN/TAZOBACTAM 3,375 MG in SODIUM CHLORIDE 0.9% 100 ML IV SCH ×3 (06:10→22:38)
[2016-12-31] MEDS: buPROPion 100 MG TABLET PO SCH ×2 (06:10→13:50)
[2016-12-31] MEDS: DEXT 5% NACL 0.45% KCL 20 MEQ 20 MEQ/1,000 ML BAG IV SCH ×2 (06:18→16:58)
--- NOTE | 2016-12-31 07:07 | Cardiology Progress Note ---
Cardiology - PN: Subj Interval history: Cardiology note 71-year-old man debilitated from cerebellar ataxia Status post JG tube exchange December 25 Was placed on Donnell-Synephrine for low blood pressure. Weaned off last night that pressure again became low and restarted. Patient is alert and responsive. Presently blood pressure is 140/86 Telemetry shows sinus rhythm 90 O2 sat 97 on room air Regular rhythm no murmur or gallop Abdomen soft benign Decreased breath sounds but clear No leg edema Impression Cerebellar ataxia Debilitated History recurrent UTI Status post JG tube exchange December 25, 2016 Recent echo showed ejection fraction 65% Hypotension Plan Wean Donnell-Synephrine as tolerated Tube feeding Discussed with Exam (Progress Note) - Constitutional Vitals: Period Temp Pulse Resp BP Sys/Sims Pulse Ox Last 24 Hr 97.8 F-99.4 F 78-105 12-23 67-143/44-106 94-100 Result/EKG - Labs CBC & BMP: 12/31/16 04:26 12/31/16 04:25 Labs: Laboratory Results - last 24 hr 12/30/16 12/30/16 12/31/16 10:10 10:28 04:25 WBC 14.7 H D RBC 3.74 L Hgb 10.8 L Hct 33.6 L MCV 89.8 MCH 29 MCHC 32.1 RDW 16.7 Plt Count 243 MPV 11.6 Neut % (Auto) 81.8 H Lymph % (Auto) 4.5 L Mcminn % (Auto) 7.4 Eos % (Auto) 5.6 Baso % (Auto) 0.2 Neut # (Auto) 12.0 H Lymph # (Auto) 0.7 L Mcminn # (Auto) 1.1 H Eos # (Auto) 0.8 Baso # (Auto) 0.0 Total Counted 100 Immature Gran % 0.5 Nucleated RBC % 0.0 Immature Gran # 0.08 Segmented Neutrophils 86 H Lymphocytes 2 L Monocytes 8 Eosinophils 4 Nucleated RBCs # 0.00 Platelet Estimate Adequate Hypochromasia 1+ Ovalocytes Slight Morphology Comment Sodium 142 Potassium 4.3 Chloride 108 H Carbon Dioxide 27 Anion Gap 11.3 BUN 14 Creatinine 0.80 GFR Calculation 106 BUN/Creatinine Ratio 17.00 Glucose 105 Calculated Osmolality 283.1 Calcium 8.0 L Urine Color Straw Urine Appearance Clear Urine pH 7.0 Ur Specific [place] 1.005 Urine Protein Negative Urine Glucose (UA) Negative Urine Ketones Negative Urine Blood Negative Urine Nitrate Negative Urine Bilirubin Negative Urine Urobilinogen < 2.0 H Urine Leukocytes Trace Urine RBC 1 Urine WBC 4 Ur Squamous Epith Cells Occasional Ur Culture Indicated? Not indicated 12/31/16 04:26 WBC 12.7 H RBC 3.71 L Hgb 10.6 L Hct 32.8 L MCV 88.4 MCH 29 MCHC 32.3 RDW 16.4 Plt Count 220 MPV 11.4 Neut % (Auto) 74.8 H Lymph % (Auto) 7.1 L Mcminn % (Auto) 9.7 Eos % (Auto) 7.6 Baso % (Auto) 0.3 Neut # (Auto) 9.5 H Lymph # (Auto) 0.9 L Mcminn # (Auto) 1.2 H Eos # (Auto) 1.0 H Baso # (Auto) 0.0 Total Counted Immature Gran % 0.5 Nucleated RBC % 0.0 Immature Gran # 0.06 Segmented Neutrophils Lymphocytes Monocytes Eosinophils Nucleated RBCs # 0.00 Platelet Estimate Hypochromasia Ovalocytes Morphology Comment Sodium Potassium Chloride Carbon Dioxide Anion Gap BUN Creatinine GFR Calculation BUN/Creatinine Ratio Glucose Calculated Osmolality Calcium Urine Color Urine Appearance Urine pH Ur Specific [place] Urine Protein Urine Glucose (UA) Urine Ketones Urine Blood Urine Nitrate Urine Bilirubin Urine Urobilinogen Urine Leukocytes Urine RBC Urine WBC Ur Squamous Epith Cells Ur Culture Indicated? Specialty Discharge - Follow Up or Referrals Follow up with: Theo Richardson MD [Physician] - 1 Month
[2016-12-31] MEDS: PHENYLEPHRINE DRIP 40 MG/250 ML PREMIX IV SCH (07:25)
--- NOTE | 2016-12-31 08:05 | XRay Report ---
XR chest 1V portable Indication: Ventilator patient Comparison: 30 December 2016 Findings: The heart and mediastinum are normal in size and configuration. The pulmonary vascularity is normal in caliber. Lung volumes are increased with prominent bronchial markings. Trace left lower lung density is present similar to previous exam. No other lung infiltrates, effusions, pneumothorax or other abnormality is demonstrated. Impression: No significant change. PROCEDURE INTERPRETED AT [facility] [place] DEPARTMENT OF RADIOLOGY Final Report Signed by: Dr. Dennys Quevedo
[2016-12-31] MEDS: IPRATROPIUM 0.06% NASAL SPRAY 15 ML BOTTLE BOTH NARES SCH ×2 (08:40→22:38)
[2016-12-31] MEDS: POTASSIUM IODIDE ORAL SOLN 1,000 MG/ML BOTTLE PO SCH ×3 (08:40→22:37)
[2016-12-31] MEDS: SODIUM CHLORIDE 0.65% NASAL SPRAY 45 ML BOTTLE BOTH NARES SCH ×2 (08:41→22:37)
[2016-12-31] MEDS: PANTOPRAZOLE 40 MG VIAL IV SCH (08:43)
[2016-12-31] MEDS: LACTOBACILLUS RHAMNOSUS GG CAPSULE PER TUBE SCH ×2 (08:44→22:36)
[2016-12-31] MEDS: MULTIVITAMIN (BEROCCA) TABLET PER TUBE SCH (08:44)
[2016-12-31] MEDS: FERROUS SULFATE 325 MG TABLET PO SCH ×2 (08:44→22:36)
[2016-12-31] MEDS: FLUDROCORTISONE 0.1 MG TABLET PO SCH ×2 (08:44→22:35)
[2016-12-31] MEDS: MEMANTINE 5 MG TABLET PO SCH ×2 (08:44→22:36)
[2016-12-31] MEDS: FINASTERIDE 5 MG TABLET PO SCH (08:45)
[2016-12-31] MEDS: CHOLESTYRAMINE 4 GM PACK PO SCH (08:45)
--- NOTE | 2016-12-31 09:25 | Pulmonology Progress Note ---
Pulmonary - PN: Subj Interval history: Mr. Ashley is a 71-year-old white male who we saw in initial pulmonary consultation on 12/17/2016. He was discharged home on 12/20/2016. Please see the hospital records for more information. At the time of our initial consultation on 12/17/2016, our impressions were: 1. Acute pyelonephritis. 2. Altered mental status probably secondary #1. 3. Watch for aspiration or bacterial pneumonia. 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 6. Bronchiectasis. 7. Inability to urinate. Requires bladder catheterization. 8. Inability to swallow. Has PEG tube. 9. History of obstructive sleep apnea 10. Chronic allergic sinusitis 11. Family history of colon cancer 12. History of anxiety and depression 13. History of small ulcers involving the superior gluteal folds. 14. Chronic aspiration with bilateral erosive friable bronchitis and partial stenosis of the superior segment of left lower lung secondary to hypertrophied tissue seen on fiberoptic bronchoscopy done 07/24/2016 15. History of iron deficiency anemia 16. See past history 12/18/2016. The patient was seen today along with his and a sitter. Patient's chest x-ray shows a faint right lower lung infiltrate compatible with pneumonia. In the past approximately 24 hours or so, his maximum temperature recorded has been 101.6 and that was at 0037 on 12/17/2016. He has been afebrile since approximately 5:00 yesterday morning. He is on gentamicin and Zosyn. Sputum Gram stain showed gram-positive cocci in pairs, gram-positive rods, gram-negative rods, and rare gram-negative diplococci. Sputum cultures pending. The patient's feels that he is getting back to his baseline, but is somewhat somnolent. She reports she feels he is markedly improved from admission. She asked about when the patient possibly could be discharged home. We told her we were pleased with his improvement, and he could possibly be considered for discharge tomorrow or Friday. We will repeat a chest x-ray tomorrow. 12/19/2016. Patient was seen today along with his and Fernanda Quinn RN. Eneida Lema RN was also present. Patient is more awake and alert this morning. Chest x-ray stable. Sputum cultures showing a gram-negative yudelka. Urine cultures growing a gram-negative yudelka and gram-positive cocci. Final ID and sensitivities are pending. Presently the patient is on gentamicin and Zosyn. We made no changes to these today. Mrs. Ashley inquired about the patient's Flomax being changed to another medication. She states that she has been unable to adequately crush this enough at home to give through his J-tube. We have asked nursing staff to show her how to do this correctly and safely. In the meantime, we have asked her speech therapy evaluation for bedside swallow eval. 12/20/2016. Patient was seen today along with his , Fernanda Quinn, SUSAN, and Eneida Lema RN. Mr. Ashley is doing reasonably well today. Sputum and urinalysis both obtained 12/17/2016 growing multiple organisms. Urine culture is growing a gram-positive cocci which is yet to be identified and also Klebsiella pneumoniae. Sputum culture is growing a gram-negative yudelka and it has not been identified either. Clearly, the patient is improving, but we would not suggest discharging him until the final IDs have been reported and we can make sure that he has appropriate antibiotic coverage with good OTILIA's. This was discussed with the patient and his to their understanding. They are in agreement. Patient's Flomax cannot be dissolved to adequately get through his J-tube. Hytrin (name brand; not Terazosin) is a tablet. We will see if this can be crushed and put in his tube safely. There are no appropriate liquid medications for BPH that we are aware of. Nursing staff states that they have spoken with pharmacy and this is being reviewed. The patient failed his swallowing evaluation yesterday. See the speech therapy notes for more information. 12/23/2016. The patient was readmitted on 12/21/2016. His reports that after they got home, his J-tube malfunction. She was unable to get anything to pass through it. Presented back to the ER, and on evaluation it was felt that the patient could possibly be dehydrated secondary to no intake in 24 hours and also that he would most likely require replacement of his J-tube. According to Mrs. Ashley, they have had a very difficult weekend. This is being handled by nursing administration. Nonetheless, the patient has been seen in GI consultation by Dr. Taylor and it is felt that the patient require a replacement J-tube. He is routinely followed by Dr. Love. Dr. Love we will see him later on today. Mrs. Ashley states that she would like to speak with Dr. Love before having this done. We have explained to her that we would wholeheartedly agree with any recommendations from Dr. Taylor and/or Dr. Love. In the meantime, we will ask dietary to initiate PPN. He has had no chest x-ray this admission, so one has been ordered. Again, he was recently inpatient with acute pyelonephritis secondary to Klebsiella pneumoniae and VRE. I am unsure if all the ID and sensitivities were available at discharge. He also had an acute pneumonia secondary to E. coli. He is presently on Zosyn which covers the Klebsiella and E. coli with OTILIA's of less than 16. The VRE had a low colony count, but Zosyn does not cover it. Given his significant past history, multiple comorbidities, and acute illness, we will start Zyvox 300 mg IV every 12 hours. Repeat urinalysis has been ordered. Medications have been reviewed. We would suggest restarting his home medications. Labs have been reviewed. Yesterday, white count was 8600 with 72.3% segs, 14.5 % lymphs, and 10.3% monos; H&H 11.0/33.9 with normal indices and top normal red blood cell distribution width; platelet count 261,000; creatinine 0.90, BUN 28, sodium 143, potassium 3.6 12/24/2016. Chest x-ray done 12/23/2016 showed that there are some residual increase markings in the right lower lung. Pneumonia is resolving like it should. See my note 12/23/2016 concerning antibiotics. Follow-up urinalysis done 12/23/2016 shows resolution of patient's urinary tract infection. Electrolytes are normal. Creatinine is 0.90 with a BUN of 17. Calcium is low at 7.9 and phosphorus is low at 2.1. I will check a vitamin D. Agree with GI and interventional radiology plans. Follow-up chest x-ray in the morning 12/26/2016. This patient had procedure done to his abdomen yesterday. Last night he had severe chest pain. His says on 2 instances he has shaking of his arms and legs. This lasted 2 or 3 minutes. She said they had a similar episode in [place] and they thought it was a seizure but the EEG was negative. As far as his shaking is concerned this patient has cerebella disease and it he may have an abnormal response to pain etc. I will have her repeat a EEG and I will ask for neurology consultation. I am not sure why he had chest pain. His chest x-ray is stable and his EKG 2 shows no acute changes. His cardiac enzymes are negative. Certainly a possibility this was related to reflux or his GI procedure yesterday. Will ask cardiology to look at him and will get a echocardiogram since this patient is not very good at communicating what is wrong with him. Case was reviewed in detail with his . Kj Fuller RN was present. Lab is stable. Patient was moved to ICU last night after rapid response was called. 12/27/2016. This 71-year-old white male was here recently with a urinary tract infection pneumonia. He went home and his feeding tube which was placed in [place] became occluded and he was brought back into the hospital. This is infectious by Dr. Lisa interventional radiology. On the night of 12/25/2016 this patient developed chest pain and some jerking motion of his arms. Neurology is to see him in consultation. Most likely this is related to his ataxia and his response to pain but his said he had an episode like this in [place] and they thought it was a seizure but could not prove it. Patient chest x-ray today shows slight return of his right lower lung infiltrate. Will continue his antibiotics. Note that his natruretic peptide is 19. We have started physical therapy occupational therapy and speech therapy on the patient today. Patient has developed some diarrhea. Number going to ask dietary to look at changing his feedings. We will check his stools for C. difficile. We can start Questran on them. All of this was discussed with the . Kj Fuller nurse practitioner was present 12/30/2016. Patient was seen along with his and Kj Fuller nurse practitioner. Also his nurse Hesham was present. Patient's pneumonia is resolved. He had hypotension last night and is on Donnell-Synephrine. Not sure why this happened. He is getting enough fluids. I went to cut back on his Lyrica and we are going to make his second dose of Wellbutrin a little earlier in the day. NG tube is working well. Diarrhea has resolved. Stools were negative for C. difficile. Neurology has seen the patient and his said he will require a long-term video EEG for further clarification of the spells. Neurology said this does not sound like seizures. Cardiology noted no positive cardiac markers and an ejection fraction of 65% without segmental wall motion abnormality. There was +1-+2 right ventricular enlargement. EKG was unremarkable. Microbiology is negative. Electrolytes and creatinine are normal. Additional labs been ordered. Patient will need to stay in CCU since he is on pressor agents. Overall he looks a lot better. 12/31/2016. Chest x-ray shows moderate bibasilar atelectasis. Patient is on pressor agents. says systolic blood pressure usually runs 9205 at home. I am going to taper off the patient's pressor agents and will settle for systolic blood pressure 90 or above if he remains asymptomatic. If the patient tolerates this well he will be moved to the floor and hopefully he will be ready for discharge back to home in a few days. prefers to take him home. Patient is getting physical therapy, Occupational Therapy and has been seen by speech therapy. Electrolytes are normal. Creatinine is 0.8 BUN is 14 CBC is stable white count is 12,775 segs 7 lymphs and 10 monos. Platelets are 220, 000. Patient is afebrile he looks stronger. Decreasing level Lyrica and retiming Wellbutrin seems to have worked Exam (Progress Note) - Constitutional Vitals: Period Temp Pulse Resp BP Sys/Sims Pulse Ox Last 24 Hr 97 F-98.2 F 74-98 16-20 100-120/59-73 94-100 Exam: Head. Symmetrical. No edema of the lips or tongue. Neck. Symmetrical. No meningismus. Lymphatics. No submandibular cervical supraclavicular or epitrochlear adenopathy. Chest with loose large airway congestion; no wheeze Heart no gallop Abdomen is nontender and nondistended; bowel sounds are positive 4; J-tube is in place Extremities with nothing to suggest acute deep venous thrombophlebitis Psychiatric awake, alert, and oriented Neurologic unchanged Plan: 12/23/2016 1. Continue Zosyn, but add Zyvox 300 mg IV every 12 hours. 2. Start IV peripheral hyperalimentation. Obtain chest x-ray and urinalysis. 3. Agree with workup by Dr. Taylor. 4. Await Dr. Love' recommendations. 5. Would recommend restarting the patient's home medications. 6.. 12/24/2016. 1. See my note above for today. 2. Follow-up chest x-ray tomorrow see orders. 12/26/2016. 1. See today's note above 12/27/2016. 1. See my note for today above 2. Physical therapy, Occupational Therapy, speech therapy. 3. Check stools for C. difficile 4. Questran. Do not occlude feeding tube. 5. Follow-up chest x-ray. 6. Cardiology consult pending 7. Neurology consult 12/30/2016. 1. See my note for today above. 2. Donnell-Synephrine 3. Follow-up lab 4. Decrease Lyrica 5. Change timing of Wellbutrin dose 12/31/2016. 1. See today's note above. 2. Taper Donnell-Synephrine and settle for systolic blood pressure 90 or above if patient's asymptomatic. 3. Patient can do well without pressor agents should be able to move to a regular room by tomorrow morning. The goal will be able to discharge him home to the care of his in the near future Exam (Progress Note) - Constitutional Vitals: Period Temp Pulse Resp BP Sys/Sims Pulse Ox Last 24 Hr 97.8 F-99.4 F 78-105 12-23 67-143/44-106 94-100 Results - Labs CBC & BMP: 12/31/16 04:26 12/31/16 04:25 Specialty Discharge - Follow Up or Referrals Follow up with: Theo Richardson MD [Physician] - 1 Month
--- NOTE | 2016-12-31 14:29 | Hospitalist Progress Note ---
Assessment and Plan (1) History of aspiration pneumonia Status: Chronic Assessment and plan: Continue IV antibiotics with Zosyn and Zyvox. Pneumonia appears resolved on chest x-ray. Chest PT and Mucomyst with nebs ordered. Continue IV antibiotics. Pulmonary following- Dr. Renteria. Current Visit: No (2) UTI (urinary tract infection) Status: Acute Assessment and plan: Continue antibiotics. History of Klebsiella and VRE. Patient on Zosyn and Zyvox Current Visit: No (3) Cerebellar ataxia Status: Chronic Current Visit: Yes (4) COPD (chronic obstructive pulmonary disease) Status: Chronic Current Visit: No (5) BPH loc w urin obs/LUTS Status: Acute Current Visit: Yes (6) Chest pain Status: Acute Assessment and plan: Cardiac enzymes negative. Echo reviewed Technically adequate study Approximately 1-2+ right ventricular enlargement Normal LV systolic function with ejection fraction estimated 65% without segmental wall abnormality Current Visit: Yes Hospitalist: Subjective Interval history: Patient seen and examined. No acute events overnight. Case discussed with nursing staff. Labs reviewed. Florinef started yesterday. Weaning Donnell- Synephrine. He looks and feels well. Case discussed with his at the bedside. Exam - Constitutional Vitals: Period Temp Pulse Resp BP Sys/Sims Pulse Ox Last 24 Hr 98.4 F-99.4 F 69-99 12-28 67-147/44-106 94-100 Exam: Constitutional System: no distress. No tremulousness. Head: Normocephalic, atraumatic. Ears, Nose and Throat System: No pain or tenderness. No epistaxis or discharge Eyes System: Pupils equal, round, and reactive. Extraocular muscles intact. Neck: Supple, without adenopathy, No jugular venous distention. Respiratory System: Chest clear to auscultation. Cardiovascular System: Heart with regular rate and rhythm. No murmur. GI System: Abdomen soft, nontender. Normo active bowel sounds present. Musculoskeletal System: limbs with no pedal edema. Full distal pulses. Results - Labs CBC & BMP: 12/31/16 04:26 12/31/16 04:25 Lab Results: I have reviewed the past 24 hour labs Specialty Discharge - Follow Up or Referrals Follow up with: Theo Richardson MD [Physician] - 1 Month
[2016-12-31] MEDS: CETIRIZINE 10 MG TABLET PER TUBE SCH (22:35)
[2016-12-31] MEDS: CLORAZEPATE 3.75 MG TABLET PO SCH (22:36)
[2016-12-31] MEDS: ASPIRIN CHEW 81 MG TABLET PO SCH (22:37)
[2016-12-31] MEDS: PREGABALIN 75 MG CAPSULE PO SCH (22:37)
[2017-01-01] MEDS: ALBUTEROL/IPRATROPIUM 3 ML NEB RESP TX SCH ×4 (01:05→20:17)
[2017-01-01] MEDS: ACETYLCYSTEINE 20% 800 MG/4 ML VIAL RESP TX SCH ×4 (01:05→20:17)
[2017-01-01] MEDS: DEXT 5% NACL 0.45% KCL 20 MEQ 20 MEQ/1,000 ML BAG IV SCH (03:36)
[2017-01-01] MEDS: PHENYLEPHRINE DRIP 40 MG/250 ML PREMIX IV SCH (04:26)
--- NOTE | 2017-01-01 06:56 | Cardiology Progress Note ---
Cardiology - PN: Subj Interval history: Cardiology note 71-year-old man debilitated from cerebellar ataxia. Status post JG tube exchange December 25, 2016. Donnell-Synephrine has been off since 4 PM yesterday. I believe this patient has chronic hypotension. As long as he has clear mentation and no symptoms, no need to restart. Telemetry shows steady sinus rhythm in the high 80s. O2 sat 95% on room air Regular rhythm no murmur Abdomen soft benign decreased breath sounds but fairly clear No leg edema Impression Cerebellar ataxia Debilitated History recurrent UTI Status post JG exchange December 25, 2016 Chronic hypotension. reports he did not tolerate Florinef in the past. Recent echo showed ejection fraction 65%. Plan Tube feedings Transfer to floor okay with me Exam (Progress Note) - Constitutional Vitals: Period Temp Pulse Resp BP Sys/Sims Pulse Ox Last 24 Hr 97.2 F-98.9 F 69-104 13-28 70-147/41-93 94-100 Result/EKG - Labs CBC & BMP: 12/31/16 04:26 12/31/16 04:25 Specialty Discharge - Follow Up or Referrals Follow up with: Theo Richardson MD [Physician] - 1 Month
[2017-01-01] MEDS: buPROPion 100 MG TABLET PO SCH ×2 (07:13→13:16)
[2017-01-01] MEDS: PIPERACILLIN/TAZOBACTAM 3,375 MG in SODIUM CHLORIDE 0.9% 100 ML IV SCH (07:13)
--- NOTE | 2017-01-01 07:36 | XRay Report ---
XR chest 1V portable Indication: Pneumonia Comparison: 30 December 2016 Findings: The heart and mediastinum are normal in size and configuration. The pulmonary vascularity is normal in caliber. Lung volumes are increased with prominent bronchial markings. Interstitial densities are present in the lung bases similar to previous exam. No other lung infiltrates, effusions, pneumothorax or other abnormality is demonstrated. Impression: No significant change. PROCEDURE INTERPRETED AT [facility] DEPARTMENT OF RADIOLOGY Final Report Signed by: Dr. Dennys Quevedo
[2017-01-01] MEDS: IPRATROPIUM 0.06% NASAL SPRAY 15 ML BOTTLE BOTH NARES SCH ×2 (09:21→21:48)
[2017-01-01] MEDS: POTASSIUM IODIDE ORAL SOLN 1,000 MG/ML BOTTLE PO SCH ×3 (09:21→21:50)
[2017-01-01] MEDS: FINASTERIDE 5 MG TABLET PO SCH (09:22)
[2017-01-01] MEDS: CHOLESTYRAMINE 4 GM PACK PO SCH (09:22)
[2017-01-01] MEDS: MEMANTINE 5 MG TABLET PO SCH ×2 (09:23→21:50)
[2017-01-01] MEDS: FERROUS SULFATE 325 MG TABLET PO SCH ×2 (09:23→21:49)
[2017-01-01] MEDS: FLUDROCORTISONE 0.1 MG TABLET PO SCH ×3 (09:24→22:27)
[2017-01-01] MEDS: MULTIVITAMIN (BEROCCA) TABLET PER TUBE SCH (09:25)
[2017-01-01] MEDS: LACTOBACILLUS RHAMNOSUS GG CAPSULE PER TUBE SCH ×2 (09:25→21:50)
[2017-01-01] MEDS: SODIUM CHLORIDE 0.65% NASAL SPRAY 45 ML BOTTLE BOTH NARES SCH ×2 (09:26→21:49)
[2017-01-01] MEDS: PANTOPRAZOLE 40 MG VIAL IV SCH (09:28)
--- NOTE | 2017-01-01 10:25 | Pulmonology Progress Note ---
Pulmonary - PN: Subj Interval history: Mr. Ashley is a 71-year-old white male who we saw in initial pulmonary consultation on 12/17/2016. He was discharged home on 12/20/2016. Please see the hospital records for more information. At the time of our initial consultation on 12/17/2016, our impressions were: 1. Acute pyelonephritis. 2. Altered mental status probably secondary #1. 3. Watch for aspiration or bacterial pneumonia. 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 6. Bronchiectasis. 7. Inability to urinate. Requires bladder catheterization. 8. Inability to swallow. Has PEG tube. 9. History of obstructive sleep apnea 10. Chronic allergic sinusitis 11. Family history of colon cancer 12. History of anxiety and depression 13. History of small ulcers involving the superior gluteal folds. 14. Chronic aspiration with bilateral erosive friable bronchitis and partial stenosis of the superior segment of left lower lung secondary to hypertrophied tissue seen on fiberoptic bronchoscopy done 07/24/2016 15. History of iron deficiency anemia 16. See past history 12/18/2016. The patient was seen today along with his and a sitter. Patient's chest x-ray shows a faint right lower lung infiltrate compatible with pneumonia. In the past approximately 24 hours or so, his maximum temperature recorded has been 101.6 and that was at 0037 on 12/17/2016. He has been afebrile since approximately 5:00 yesterday morning. He is on gentamicin and Zosyn. Sputum Gram stain showed gram-positive cocci in pairs, gram-positive rods, gram-negative rods, and rare gram-negative diplococci. Sputum cultures pending. The patient's feels that he is getting back to his baseline, but is somewhat somnolent. She reports she feels he is markedly improved from admission. She asked about when the patient possibly could be discharged home. We told her we were pleased with his improvement, and he could possibly be considered for discharge tomorrow or Friday. We will repeat a chest x-ray tomorrow. 12/19/2016. Patient was seen today along with his and Fernanda Quinn RN. Eneida Lema RN was also present. Patient is more awake and alert this morning. Chest x-ray stable. Sputum cultures showing a gram-negative yudelka. Urine cultures growing a gram-negative yudelka and gram-positive cocci. Final ID and sensitivities are pending. Presently the patient is on gentamicin and Zosyn. We made no changes to these today. Mrs. Ashley inquired about the patient's Flomax being changed to another medication. She states that she has been unable to adequately crush this enough at home to give through his J-tube. We have asked nursing staff to show her how to do this correctly and safely. In the meantime, we have asked her speech therapy evaluation for bedside swallow eval. 12/20/2016. Patient was seen today along with his , Fernanda Quinn, SUSAN, and Eneida Lema RN. Mr. Ashley is doing reasonably well today. Sputum and urinalysis both obtained 12/17/2016 growing multiple organisms. Urine culture is growing a gram-positive cocci which is yet to be identified and also Klebsiella pneumoniae. Sputum culture is growing a gram-negative yudelka and it has not been identified either. Clearly, the patient is improving, but we would not suggest discharging him until the final IDs have been reported and we can make sure that he has appropriate antibiotic coverage with good OTILIA's. This was discussed with the patient and his to their understanding. They are in agreement. Patient's Flomax cannot be dissolved to adequately get through his J-tube. Hytrin (name brand; not Terazosin) is a tablet. We will see if this can be crushed and put in his tube safely. There are no appropriate liquid medications for BPH that we are aware of. Nursing staff states that they have spoken with pharmacy and this is being reviewed. The patient failed his swallowing evaluation yesterday. See the speech therapy notes for more information. 12/23/2016. The patient was readmitted on 12/21/2016. His reports that after they got home, his J-tube malfunction. She was unable to get anything to pass through it. Presented back to the ER, and on evaluation it was felt that the patient could possibly be dehydrated secondary to no intake in 24 hours and also that he would most likely require replacement of his J-tube. According to Mrs. Ashley, they have had a very difficult weekend. This is being handled by nursing administration. Nonetheless, the patient has been seen in GI consultation by Dr. Taylor and it is felt that the patient require a replacement J-tube. He is routinely followed by Dr. oLve. Dr. Love we will see him later on today. Mrs. Ashley states that she would like to speak with Dr. Love before having this done. We have explained to her that we would wholeheartedly agree with any recommendations from Dr. Taylor and/or Dr. Love. In the meantime, we will ask dietary to initiate PPN. He has had no chest x-ray this admission, so one has been ordered. Again, he was recently inpatient with acute pyelonephritis secondary to Klebsiella pneumoniae and VRE. I am unsure if all the ID and sensitivities were available at discharge. He also had an acute pneumonia secondary to E. coli. He is presently on Zosyn which covers the Klebsiella and E. coli with OTILIA's of less than 16. The VRE had a low colony count, but Zosyn does not cover it. Given his significant past history, multiple comorbidities, and acute illness, we will start Zyvox 300 mg IV every 12 hours. Repeat urinalysis has been ordered. Medications have been reviewed. We would suggest restarting his home medications. Labs have been reviewed. Yesterday, white count was 8600 with 72.3% segs, 14.5 % lymphs, and 10.3% monos; H&H 11.0/33.9 with normal indices and top normal red blood cell distribution width; platelet count 261,000; creatinine 0.90, BUN 28, sodium 143, potassium 3.6 12/24/2016. Chest x-ray done 12/23/2016 showed that there are some residual increase markings in the right lower lung. Pneumonia is resolving like it should. See my note 12/23/2016 concerning antibiotics. Follow-up urinalysis done 12/23/2016 shows resolution of patient's urinary tract infection. Electrolytes are normal. Creatinine is 0.90 with a BUN of 17. Calcium is low at 7.9 and phosphorus is low at 2.1. I will check a vitamin D. Agree with GI and interventional radiology plans. Follow-up chest x-ray in the morning 12/26/2016. This patient had procedure done to his abdomen yesterday. Last night he had severe chest pain. His says on 2 instances he has shaking of his arms and legs. This lasted 2 or 3 minutes. She said they had a similar episode in [place] and they thought it was a seizure but the EEG was negative. As far as his shaking is concerned this patient has cerebella disease and it he may have an abnormal response to pain etc. I will have her repeat a EEG and I will ask for neurology consultation. I am not sure why he had chest pain. His chest x-ray is stable and his EKG 2 shows no acute changes. His cardiac enzymes are negative. Certainly a possibility this was related to reflux or his GI procedure yesterday. Will ask cardiology to look at him and will get a echocardiogram since this patient is not very good at communicating what is wrong with him. Case was reviewed in detail with his . Kj Fuller RN was present. Lab is stable. Patient was moved to ICU last night after rapid response was called. 12/27/2016. This 71-year-old white male was here recently with a urinary tract infection pneumonia. He went home and his feeding tube which was placed in [place] became occluded and he was brought back into the hospital. This is infectious by Dr. Lisa interventional radiology. On the night of 12/25/2016 this patient developed chest pain and some jerking motion of his arms. Neurology is to see him in consultation. Most likely this is related to his ataxia and his response to pain but his said he had an episode like this in [place] and they thought it was a seizure but could not prove it. Patient chest x-ray today shows slight return of his right lower lung infiltrate. Will continue his antibiotics. Note that his natruretic peptide is 19. We have started physical therapy occupational therapy and speech therapy on the patient today. Patient has developed some diarrhea. Number going to ask dietary to look at changing his feedings. We will check his stools for C. difficile. We can start Questran on them. All of this was discussed with the . Kj Fuller nurse practitioner was present 12/30/2016. Patient was seen along with his and Kj Fuller nurse practitioner. Also his nurse Hesham was present. Patient's pneumonia is resolved. He had hypotension last night and is on Donnell-Synephrine. Not sure why this happened. He is getting enough fluids. I went to cut back on his Lyrica and we are going to make his second dose of Wellbutrin a little earlier in the day. NG tube is working well. Diarrhea has resolved. Stools were negative for C. difficile. Neurology has seen the patient and his said he will require a long-term video EEG for further clarification of the spells. Neurology said this does not sound like seizures. Cardiology noted no positive cardiac markers and an ejection fraction of 65% without segmental wall motion abnormality. There was +1-+2 right ventricular enlargement. EKG was unremarkable. Microbiology is negative. Electrolytes and creatinine are normal. Additional labs been ordered. Patient will need to stay in CCU since he is on pressor agents. Overall he looks a lot better. 12/31/2016. Chest x-ray shows moderate bibasilar atelectasis. Patient is on pressor agents. says systolic blood pressure usually runs 9205 at home. I am going to taper off the patient's pressor agents and will settle for systolic blood pressure 90 or above if he remains asymptomatic. If the patient tolerates this well he will be moved to the floor and hopefully he will be ready for discharge back to home in a few days. prefers to take him home. Patient is getting physical therapy, Occupational Therapy and has been seen by speech therapy. Electrolytes are normal. Creatinine is 0.8 BUN is 14 CBC is stable white count is 12,775 segs 7 lymphs and 10 monos. Platelets are 220, 000. Patient is afebrile he looks stronger. Decreasing level Lyrica and retiming Wellbutrin seems to have worked 01/01/2017. Patient was seen along with his and along with Kj Fuller nurse practitioner. Mr. ashley had an uneventful night. He is off pressor agents and his systolic blood pressure is about 103. He is asymptomatic. His chest x-ray shows a small amount of bibasilar atelectasis. His cultures and sensitivities have been reviewed. His sputum is growing a gram-negative yudelka. Based on his previous cultures from previous hospitalization when he had a Klebsiella I am made the decision to change his Zosyn to Fortaz. Patient is good enough to move to the floor today. Watch him closely. Depending on the cultures and sensitivities he could be ready for discharge in a day or so. This is all been discussed with the who wants to take him home. CBC is stable. Electrolytes are normal. Patient's afebrile. Follow-up urinalysis shows all infection has resolved Exam (Progress Note) - Constitutional Vitals: Period Temp Pulse Resp BP Sys/Sims Pulse Ox Last 24 Hr 97 F-98.2 F 74-98 16-20 100-120/59-73 94-100 Exam: Head. Symmetrical. No edema of the lips or tongue. Neck. Symmetrical. No meningismus. Lymphatics. No submandibular cervical supraclavicular or epitrochlear adenopathy. Chest with loose large airway congestion; no wheeze Heart no gallop Abdomen is nontender and nondistended; bowel sounds are positive 4; J-tube is in place Extremities with nothing to suggest acute deep venous thrombophlebitis Psychiatric awake, alert, and oriented Neurologic unchanged Plan: 12/23/2016 1. Continue Zosyn, but add Zyvox 300 mg IV every 12 hours. 2. Start IV peripheral hyperalimentation. Obtain chest x-ray and urinalysis. 3. Agree with workup by Dr. Taylor. 4. Await Dr. Love' recommendations. 5. Would recommend restarting the patient's home medications. 6.. 12/24/2016. 1. See my note above for today. 2. Follow-up chest x-ray tomorrow see orders. 12/26/2016. 1. See today's note above 12/27/2016. 1. See my note for today above 2. Physical therapy, Occupational Therapy, speech therapy. 3. Check stools for C. difficile 4. Questran. Do not occlude feeding tube. 5. Follow-up chest x-ray. 6. Cardiology consult pending 7. Neurology consult 12/30/2016. 1. See my note for today above. 2. Donnell-Synephrine 3. Follow-up lab 4. Decrease Lyrica 5. Change timing of Wellbutrin dose 12/31/2016. 1. See today's note above. 2. Taper Donnell-Synephrine and settle for systolic blood pressure 90 or above if patient's asymptomatic. 3. Patient can do well without pressor agents should be able to move to a regular room by tomorrow morning. The goal will be able to discharge him home to the care of his in the near future 01/01/2017. 1. See my note above. 2. Off pressor agents 3. Move to floor 4. Check cultures and sensitivity Exam (Progress Note) - Constitutional Vitals: Period Temp Pulse Resp BP Sys/Sims Pulse Ox Last 24 Hr 97.2 F-98.4 F 77-104 13-20 67-132/39-93 94-100 Results - Labs CBC & BMP: 12/31/16 04:26 12/31/16 04:25 Specialty Discharge - Follow Up or Referrals Follow up with: Theo Richardson MD [Physician] - 1 Month
[2017-01-01] MEDS ORDERED: FLUDROCORTISONE 0.1 MG TABLET PO ONE (11:10)
--- NOTE | 2017-01-01 11:25 | Hospitalist Progress Note ---
Assessment and Plan (1) History of aspiration pneumonia Status: Chronic Assessment and plan: Continue IV antibiotics with Zosyn and Zyvox. Pneumonia appears resolved on chest x-ray. Chest PT and Mucomyst with nebs ordered. Continue IV antibiotics. Pulmonary following- Dr. Renteria. Sputum cx with GNR- final pending. Current Visit: No (2) UTI (urinary tract infection) Status: Acute Assessment and plan: Continue antibiotics. History of Klebsiella and VRE. Patient on Zosyn and Zyvox Current Visit: No Qualifiers: Urinary tract infection type: acute cystitis Hematuria presence: without hematuria Qualified Code(s): N30.00 - Acute cystitis without hematuria (3) Cerebellar ataxia Status: Chronic Current Visit: Yes (4) COPD (chronic obstructive pulmonary disease) Status: Chronic Current Visit: No (5) BPH loc w urin obs/LUTS Status: Acute Current Visit: Yes (6) Chest pain Status: Resolved Assessment and plan: Cardiac enzymes negative. Echo reviewed Technically adequate study Approximately 1-2+ right ventricular enlargement Normal LV systolic function with ejection fraction estimated 65% without segmental wall abnormality Current Visit: Yes Hospitalist: Subjective Interval history: Patient seen and examined. No acute events overnight. Case discussed with nursing staff. Labs reviewed. The patient has been off phenylephrine since yesterday afternoon. He had some low blood pressures throughout the night while he was asleep. Once awakened the patient is completely asymptomatic. Review of his home medication list includes Sudafed and Provigil. these have not been continued and could be a reason for his perceived low BP. Exam - Constitutional Vitals: Period Temp Pulse Resp BP Sys/Sims Pulse Ox Last 24 Hr 97.2 F-98.4 F 77-104 13-20 67-127/39-79 94-100 Exam: Constitutional System: no distress. No tremulousness. Head: Normocephalic, atraumatic. Ears, Nose and Throat System: No pain or tenderness. No epistaxis or discharge Eyes System: Pupils equal, round, and reactive. Extraocular muscles intact. Neck: Supple, without adenopathy, No jugular venous distention. Respiratory System: Chest clear to auscultation. Cardiovascular System: Heart with regular rate and rhythm. No murmur. GI System: Abdomen soft, nontender. Normo active bowel sounds present. Musculoskeletal System: limbs with no pedal edema. Full distal pulses. Results - Labs CBC & BMP: 12/31/16 04:26 12/31/16 04:25 Lab Results: I have reviewed the past 24 hour labs Specialty Discharge - Follow Up or Referrals Follow up with: Theo Richardson MD [Physician] - 1 Month
[2017-01-01] MEDS: CETIRIZINE 10 MG TABLET PER TUBE SCH (21:50)
[2017-01-01] MEDS: PREGABALIN 75 MG CAPSULE PO SCH (21:50)
[2017-01-01] MEDS: ASPIRIN CHEW 81 MG TABLET PO SCH (22:20)
[2017-01-02] MEDS: ALBUTEROL/IPRATROPIUM 3 ML NEB RESP TX SCH ×4 (00:11→19:27)
[2017-01-02] MEDS: ACETYLCYSTEINE 20% 800 MG/4 ML VIAL RESP TX SCH ×4 (00:11→19:30)
[2017-01-02] MEDS: buPROPion 100 MG TABLET PO SCH ×2 (05:27→16:20)
[2017-01-02 05:53] LABS: Magnesium 2.3 MG/DL (1.8-2.4); Phosphorous 2.9 MG/DL (2.5-4.9); Prealbumin 28.2 MG/DL (20-40)
[2017-01-02] MEDS ORDERED: PROVIGIL 200 MG PER TUBE SCH (09:00)
--- NOTE | 2017-01-02 09:33 | Pulmonology Progress Note ---
Pulmonary - PN: Subj Interval history: Mr. Ashley is a 71-year-old white male who we saw in initial pulmonary consultation on 12/17/2016. He was discharged home on 12/20/2016. Please see the hospital records for more information. At the time of our initial consultation on 12/17/2016, our impressions were: 1. Acute pyelonephritis. 2. Altered mental status probably secondary #1. 3. Watch for aspiration or bacterial pneumonia. 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 6. Bronchiectasis. 7. Inability to urinate. Requires bladder catheterization. 8. Inability to swallow. Has PEG tube. 9. History of obstructive sleep apnea 10. Chronic allergic sinusitis 11. Family history of colon cancer 12. History of anxiety and depression 13. History of small ulcers involving the superior gluteal folds. 14. Chronic aspiration with bilateral erosive friable bronchitis and partial stenosis of the superior segment of left lower lung secondary to hypertrophied tissue seen on fiberoptic bronchoscopy done 07/24/2016 15. History of iron deficiency anemia 16. See past history 12/18/2016. The patient was seen today along with his and a sitter. Patient's chest x-ray shows a faint right lower lung infiltrate compatible with pneumonia. In the past approximately 24 hours or so, his maximum temperature recorded has been 101.6 and that was at 0037 on 12/17/2016. He has been afebrile since approximately 5:00 yesterday morning. He is on gentamicin and Zosyn. Sputum Gram stain showed gram-positive cocci in pairs, gram-positive rods, gram-negative rods, and rare gram-negative diplococci. Sputum cultures pending. The patient's feels that he is getting back to his baseline, but is somewhat somnolent. She reports she feels he is markedly improved from admission. She asked about when the patient possibly could be discharged home. We told her we were pleased with his improvement, and he could possibly be considered for discharge tomorrow or Friday. We will repeat a chest x-ray tomorrow. 12/19/2016. Patient was seen today along with his and Fernanda Quinn RN. Eneida Lema RN was also present. Patient is more awake and alert this morning. Chest x-ray stable. Sputum cultures showing a gram-negative yudelka. Urine cultures growing a gram-negative yudelka and gram-positive cocci. Final ID and sensitivities are pending. Presently the patient is on gentamicin and Zosyn. We made no changes to these today. Mrs. Ashley inquired about the patient's Flomax being changed to another medication. She states that she has been unable to adequately crush this enough at home to give through his J-tube. We have asked nursing staff to show her how to do this correctly and safely. In the meantime, we have asked her speech therapy evaluation for bedside swallow eval. 12/20/2016. Patient was seen today along with his , Fernanda Quinn, SUSAN, and Eneida Lema RN. Mr. Ashley is doing reasonably well today. Sputum and urinalysis both obtained 12/17/2016 growing multiple organisms. Urine culture is growing a gram-positive cocci which is yet to be identified and also Klebsiella pneumoniae. Sputum culture is growing a gram-negative yudelka and it has not been identified either. Clearly, the patient is improving, but we would not suggest discharging him until the final IDs have been reported and we can make sure that he has appropriate antibiotic coverage with good OTILIA's. This was discussed with the patient and his to their understanding. They are in agreement. Patient's Flomax cannot be dissolved to adequately get through his J-tube. Hytrin (name brand; not Terazosin) is a tablet. We will see if this can be crushed and put in his tube safely. There are no appropriate liquid medications for BPH that we are aware of. Nursing staff states that they have spoken with pharmacy and this is being reviewed. The patient failed his swallowing evaluation yesterday. See the speech therapy notes for more information. 12/23/2016. The patient was readmitted on 12/21/2016. His reports that after they got home, his J-tube malfunction. She was unable to get anything to pass through it. Presented back to the ER, and on evaluation it was felt that the patient could possibly be dehydrated secondary to no intake in 24 hours and also that he would most likely require replacement of his J-tube. According to Mrs. Ashley, they have had a very difficult weekend. This is being handled by nursing administration. Nonetheless, the patient has been seen in GI consultation by Dr. Taylor and it is felt that the patient require a replacement J-tube. He is routinely followed by Dr. Love. Dr. Love we will see him later on today. Mrs. Ashley states that she would like to speak with Dr. Love before having this done. We have explained to her that we would wholeheartedly agree with any recommendations from Dr. Taylor and/or Dr. Love. In the meantime, we will ask dietary to initiate PPN. He has had no chest x-ray this admission, so one has been ordered. Again, he was recently inpatient with acute pyelonephritis secondary to Klebsiella pneumoniae and VRE. I am unsure if all the ID and sensitivities were available at discharge. He also had an acute pneumonia secondary to E. coli. He is presently on Zosyn which covers the Klebsiella and E. coli with OTILIA's of less than 16. The VRE had a low colony count, but Zosyn does not cover it. Given his significant past history, multiple comorbidities, and acute illness, we will start Zyvox 300 mg IV every 12 hours. Repeat urinalysis has been ordered. Medications have been reviewed. We would suggest restarting his home medications. Labs have been reviewed. Yesterday, white count was 8600 with 72.3% segs, 14.5 % lymphs, and 10.3% monos; H&H 11.0/33.9 with normal indices and top normal red blood cell distribution width; platelet count 261,000; creatinine 0.90, BUN 28, sodium 143, potassium 3.6 12/24/2016. Chest x-ray done 12/23/2016 showed that there are some residual increase markings in the right lower lung. Pneumonia is resolving like it should. See my note 12/23/2016 concerning antibiotics. Follow-up urinalysis done 12/23/2016 shows resolution of patient's urinary tract infection. Electrolytes are normal. Creatinine is 0.90 with a BUN of 17. Calcium is low at 7.9 and phosphorus is low at 2.1. I will check a vitamin D. Agree with GI and interventional radiology plans. Follow-up chest x-ray in the morning 12/26/2016. This patient had procedure done to his abdomen yesterday. Last night he had severe chest pain. His says on 2 instances he has shaking of his arms and legs. This lasted 2 or 3 minutes. She said they had a similar episode in [place] and they thought it was a seizure but the EEG was negative. As far as his shaking is concerned this patient has cerebella disease and it he may have an abnormal response to pain etc. I will have her repeat a EEG and I will ask for neurology consultation. I am not sure why he had chest pain. His chest x-ray is stable and his EKG 2 shows no acute changes. His cardiac enzymes are negative. Certainly a possibility this was related to reflux or his GI procedure yesterday. Will ask cardiology to look at him and will get a echocardiogram since this patient is not very good at communicating what is wrong with him. Case was reviewed in detail with his . Kj Fuller RN was present. Lab is stable. Patient was moved to ICU last night after rapid response was called. 12/27/2016. This 71-year-old white male was here recently with a urinary tract infection pneumonia. He went home and his feeding tube which was placed in [place] became occluded and he was brought back into the hospital. This is infectious by Dr. Lisa interventional radiology. On the night of 12/25/2016 this patient developed chest pain and some jerking motion of his arms. Neurology is to see him in consultation. Most likely this is related to his ataxia and his response to pain but his said he had an episode like this in [place] and they thought it was a seizure but could not prove it. Patient chest x-ray today shows slight return of his right lower lung infiltrate. Will continue his antibiotics. Note that his natruretic peptide is 19. We have started physical therapy occupational therapy and speech therapy on the patient today. Patient has developed some diarrhea. Number going to ask dietary to look at changing his feedings. We will check his stools for C. difficile. We can start Questran on them. All of this was discussed with the . Kj Fuller nurse practitioner was present 12/30/2016. Patient was seen along with his and Kj Fuller nurse practitioner. Also his nurse Hesham was present. Patient's pneumonia is resolved. He had hypotension last night and is on Donnell-Synephrine. Not sure why this happened. He is getting enough fluids. I went to cut back on his Lyrica and we are going to make his second dose of Wellbutrin a little earlier in the day. NG tube is working well. Diarrhea has resolved. Stools were negative for C. difficile. Neurology has seen the patient and his said he will require a long-term video EEG for further clarification of the spells. Neurology said this does not sound like seizures. Cardiology noted no positive cardiac markers and an ejection fraction of 65% without segmental wall motion abnormality. There was +1-+2 right ventricular enlargement. EKG was unremarkable. Microbiology is negative. Electrolytes and creatinine are normal. Additional labs been ordered. Patient will need to stay in CCU since he is on pressor agents. Overall he looks a lot better. 12/31/2016. Chest x-ray shows moderate bibasilar atelectasis. Patient is on pressor agents. says systolic blood pressure usually runs 9205 at home. I am going to taper off the patient's pressor agents and will settle for systolic blood pressure 90 or above if he remains asymptomatic. If the patient tolerates this well he will be moved to the floor and hopefully he will be ready for discharge back to home in a few days. prefers to take him home. Patient is getting physical therapy, Occupational Therapy and has been seen by speech therapy. Electrolytes are normal. Creatinine is 0.8 BUN is 14 CBC is stable white count is 12,775 segs 7 lymphs and 10 monos. Platelets are 220, 000. Patient is afebrile he looks stronger. Decreasing level Lyrica and retiming Wellbutrin seems to have worked 01/01/2017. Patient was seen along with his and along with Kj Fuller nurse practitioner. Mr. ashley had an uneventful night. He is off pressor agents and his systolic blood pressure is about 103. He is asymptomatic. His chest x-ray shows a small amount of bibasilar atelectasis. His cultures and sensitivities have been reviewed. His sputum is growing a gram-negative yudelka. Based on his previous cultures from previous hospitalization when he had a Klebsiella I am made the decision to change his Zosyn to Fortaz. Patient is good enough to move to the floor today. Watch him closely. Depending on the cultures and sensitivities he could be ready for discharge in a day or so. This is all been discussed with the who wants to take him home. CBC is stable. Electrolytes are normal. Patient's afebrile. Follow-up urinalysis shows all infection has resolved 01/02/2017. Sputum for grown E. coli and stenotrophomonas maltophilia. Patient' s on Fortaz which has a best OTILIA. Allowing for his allergies and the sensitivities to best choice when he goes home would be Ceftin 500 mg by mouth twice a day for 10 days. As far as to stenotrophomonas maltophilia is concerned Ceftin will probably get that but we could cover this with Bactrim DS one half tablet equivalent (liquid) twice a day. Overall the patient looks better. He could be ready for discharge today or tomorrow. I favor 1 more day of Fortaz if possible. Exam (Progress Note) - Constitutional Vitals: Period Temp Pulse Resp BP Sys/Sims Pulse Ox Last 24 Hr 97 F-98.2 F 74-98 16-20 100-120/59-73 94-100 Exam: Head. Symmetrical. No edema of the lips or tongue. Neck. Symmetrical. No meningismus. Lymphatics. No submandibular cervical supraclavicular or epitrochlear adenopathy. Chest with loose large airway congestion; no wheeze Heart no gallop Abdomen is nontender and nondistended; bowel sounds are positive 4; J-tube is in place Extremities with nothing to suggest acute deep venous thrombophlebitis Psychiatric awake, alert, and oriented Neurologic unchanged Plan: 12/23/2016 1. Continue Zosyn, but add Zyvox 300 mg IV every 12 hours. 2. Start IV peripheral hyperalimentation. Obtain chest x-ray and urinalysis. 3. Agree with workup by Dr. Taylor. 4. Await Dr. Love' recommendations. 5. Would recommend restarting the patient's home medications. 6.. 12/24/2016. 1. See my note above for today. 2. Follow-up chest x-ray tomorrow see orders. 12/26/2016. 1. See today's note above 12/27/2016. 1. See my note for today above 2. Physical therapy, Occupational Therapy, speech therapy. 3. Check stools for C. difficile 4. Questran. Do not occlude feeding tube. 5. Follow-up chest x-ray. 6. Cardiology consult pending 7. Neurology consult 12/30/2016. 1. See my note for today above. 2. Donnell-Synephrine 3. Follow-up lab 4. Decrease Lyrica 5. Change timing of Wellbutrin dose 12/31/2016. 1. See today's note above. 2. Taper Donnell-Synephrine and settle for systolic blood pressure 90 or above if patient's asymptomatic. 3. Patient can do well without pressor agents should be able to move to a regular room by tomorrow morning. The goal will be able to discharge him home to the care of his in the near future 01/01/2017. 1. See my note above. 2. Off pressor agents 3. Move to floor 4. Check cultures and sensitivity 01/02/2017 1. See today's note above 2. See above concerning antibiotic Exam (Progress Note) - Constitutional Vitals: Period Temp Pulse Resp BP Sys/Sims Pulse Ox Last 24 Hr 96.9 F-98.4 F 74-92 13-74 86-116/46-76 94-100 Results - Labs CBC & BMP: 12/31/16 04:26 12/31/16 04:25 Specialty Discharge - Follow Up or Referrals Follow up with: Theo Richardson MD [Physician] - 1 Month
[2017-01-02] MEDS: MULTIVITAMIN (BEROCCA) TABLET PER TUBE SCH (10:44)
[2017-01-02] MEDS: LACTOBACILLUS RHAMNOSUS GG CAPSULE PER TUBE SCH ×2 (10:45→22:03)
[2017-01-02] MEDS: FAMOTIDINE 20 MG TABLET PO SCH (10:45)
[2017-01-02] MEDS: FERROUS SULFATE 325 MG TABLET PO SCH ×2 (10:45→22:03)
[2017-01-02] MEDS: FLUDROCORTISONE 0.1 MG TABLET PO SCH ×2 (10:45→22:03)
[2017-01-02] MEDS: FINASTERIDE 5 MG TABLET PO SCH (10:46)
[2017-01-02] MEDS: MEMANTINE 5 MG TABLET PO SCH ×2 (10:46→22:04)
[2017-01-02] MEDS: PSEUDOEPHEDRINE 30 MG TABLET PO SCH (11:10)
[2017-01-02] MEDS: CHOLESTYRAMINE 4 GM PACK PO SCH (11:10)
[2017-01-02] MEDS: IPRATROPIUM 0.06% NASAL SPRAY 15 ML BOTTLE BOTH NARES SCH ×2 (11:11→22:04)
[2017-01-02] MEDS: SODIUM CHLORIDE 0.65% NASAL SPRAY 45 ML BOTTLE BOTH NARES SCH ×2 (11:11→22:04)
[2017-01-02] MEDS: POTASSIUM IODIDE ORAL SOLN 1,000 MG/ML BOTTLE PO SCH ×3 (11:11→22:05)
--- NOTE | 2017-01-02 13:56 | Hospitalist Progress Note ---
Assessment and Plan (1) History of aspiration pneumonia Status: Chronic Assessment and plan: 01/02/2017. Sputum for grown E. coli and stenotrophomonas maltophilia. Patient' s on Fortaz which has a best OTILIA. Allowing for his allergies and the sensitivities to best choice when he goes home would be Ceftin 500 mg by mouth twice a day for 10 days. As far as to stenotrophomonas maltophilia is concerned Ceftin will probably get that but we could cover this with Bactrim DS one half tablet equivalent (liquid) twice a day. Overall the patient looks better. He could be ready for discharge tomorrow. Current Visit: No (2) UTI (urinary tract infection) Status: Acute Assessment and plan: Continue antibiotics. History of Klebsiella and VRE. Patient on Fortaz Current Visit: No Qualifiers: Urinary tract infection type: acute cystitis Hematuria presence: without hematuria Qualified Code(s): N30.00 - Acute cystitis without hematuria (3) Cerebellar ataxia Status: Chronic Current Visit: Yes (4) COPD (chronic obstructive pulmonary disease) Status: Chronic Current Visit: No (5) BPH loc w urin obs/LUTS Status: Acute Current Visit: Yes (6) Chest pain Status: Resolved Assessment and plan: Cardiac enzymes negative. Echo reviewed Technically adequate study Approximately 1-2+ right ventricular enlargement Normal LV systolic function with ejection fraction estimated 65% without segmental wall abnormality Current Visit: Yes Hospitalist: Subjective Interval history: Patient seen and examined. No acute events overnight. Case discussed with nursing staff. Labs reviewed. Cultures have been reviewed. Pulmonary note reviewed and appreciated. Per Dr. Renteria's note today: 01/02/2017. Sputum for grown E. coli and stenotrophomonas maltophilia. Patient' s on Fortaz which has a best OTILIA. Allowing for his allergies and the sensitivities to best choice when he goes home would be Ceftin 500 mg by mouth twice a day for 10 days. As far as to stenotrophomonas maltophilia is concerned Ceftin will probably get that but we could cover this with Bactrim DS one half tablet equivalent (liquid) twice a day. Overall the patient looks better. He could be ready for discharge today or tomorrow. I favor 1 more day of Fortaz if possible. Exam - Constitutional Vitals: Period Temp Pulse Resp BP Sys/Sims Pulse Ox Last 24 Hr 96.9 F-98.4 F 74-92 13-74 93-121/46-76 95-100 Exam: Constitutional System: no distress. No tremulousness. Head: Normocephalic, atraumatic. Ears, Nose and Throat System: No pain or tenderness. No epistaxis or discharge Eyes System: Pupils equal, round, and reactive. Extraocular muscles intact. Neck: Supple, without adenopathy, No jugular venous distention. Respiratory System: Chest clear to auscultation. Cardiovascular System: Heart with regular rate and rhythm. No murmur. GI System: Abdomen soft, nontender. Normo active bowel sounds present. Musculoskeletal System: limbs with no pedal edema. Full distal pulses. Results - Labs CBC & BMP: 12/31/16 04:26 12/31/16 04:25 Lab Results: I have reviewed the past 24 hour labs - Diagnostic Findings Procedure: Chest x-ray: image reviewed by me, report reviewed by me Specialty Discharge - Follow Up or Referrals Follow up with: Theo Richardson MD [Physician] - 1 Month
--- NOTE | 2017-01-02 15:51 | Cardiology Progress Note ---
Cardiology - PN: Subj Interval history: Cardiology note Blood pressure 110 systolic today Telemetry shows steady sinus rhythm in the 80s and 90s Alert and responsive Sputum results noted Impression Cerebellar ataxia Debilitated Recurrent history UTI Status post JG exchange December 25, 2016 Hypotension resolved Sputum culture growing E. coli and stenotrophomonas maltophilia Plan antibiotics Tube feedings Exam (Progress Note) - Constitutional Vitals: Period Temp Pulse Resp BP Sys/Sims Pulse Ox Last 24 Hr 96.9 F-98.4 F 71-92 16-20 98-121/46-76 95-100 Result/EKG - Labs CBC & BMP: 12/31/16 04:26 12/31/16 04:25 Labs: Laboratory Results - last 24 hr 01/02/17 04:40 Phosphorus 2.9 Magnesium 2.3 Prealbumin 28.2 Specialty Discharge - Follow Up or Referrals Follow up with: Theo Richardson MD [Physician] - 1 Month
[2017-01-02] MEDS: ASPIRIN CHEW 81 MG TABLET PO SCH (22:03)
[2017-01-02] MEDS: PREGABALIN 75 MG CAPSULE PO SCH (22:04)
[2017-01-02] MEDS: CETIRIZINE 10 MG TABLET PER TUBE SCH (22:04)
[2017-01-03] MEDS: ALBUTEROL/IPRATROPIUM 3 ML NEB RESP TX SCH ×3 (01:13→14:21)
[2017-01-03] MEDS: ACETYLCYSTEINE 20% 800 MG/4 ML VIAL RESP TX SCH ×3 (01:15→14:21)
[2017-01-03] MEDS: buPROPion 100 MG TABLET PO SCH ×2 (05:15→14:41)
[2017-01-03] MEDS ORDERED: DEXTROSE 50% 25 GM/50 ML SYRINGE IV PRN (08:30)
--- NOTE | 2017-01-03 09:55 | Pulmonology Progress Note ---
Pulmonary - PN: Subj Interval history: Mr. Ashley is a 71-year-old white male who we saw in initial pulmonary consultation on 12/17/2016. He was discharged home on 12/20/2016. Please see the hospital records for more information. At the time of our initial consultation on 12/17/2016, our impressions were: 1. Acute pyelonephritis. 2. Altered mental status probably secondary #1. 3. Watch for aspiration or bacterial pneumonia. 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 6. Bronchiectasis. 7. Inability to urinate. Requires bladder catheterization. 8. Inability to swallow. Has PEG tube. 9. History of obstructive sleep apnea 10. Chronic allergic sinusitis 11. Family history of colon cancer 12. History of anxiety and depression 13. History of small ulcers involving the superior gluteal folds. 14. Chronic aspiration with bilateral erosive friable bronchitis and partial stenosis of the superior segment of left lower lung secondary to hypertrophied tissue seen on fiberoptic bronchoscopy done 07/24/2016 15. History of iron deficiency anemia 16. See past history 12/18/2016. The patient was seen today along with his and a sitter. Patient's chest x-ray shows a faint right lower lung infiltrate compatible with pneumonia. In the past approximately 24 hours or so, his maximum temperature recorded has been 101.6 and that was at 0037 on 12/17/2016. He has been afebrile since approximately 5:00 yesterday morning. He is on gentamicin and Zosyn. Sputum Gram stain showed gram-positive cocci in pairs, gram-positive rods, gram-negative rods, and rare gram-negative diplococci. Sputum cultures pending. The patient's feels that he is getting back to his baseline, but is somewhat somnolent. She reports she feels he is markedly improved from admission. She asked about when the patient possibly could be discharged home. We told her we were pleased with his improvement, and he could possibly be considered for discharge tomorrow or Friday. We will repeat a chest x-ray tomorrow. 12/19/2016. Patient was seen today along with his and Fernanda Quinn RN. Eneida Lema RN was also present. Patient is more awake and alert this morning. Chest x-ray stable. Sputum cultures showing a gram-negative yudelka. Urine cultures growing a gram-negative yudelka and gram-positive cocci. Final ID and sensitivities are pending. Presently the patient is on gentamicin and Zosyn. We made no changes to these today. Mrs. Ashley inquired about the patient's Flomax being changed to another medication. She states that she has been unable to adequately crush this enough at home to give through his J-tube. We have asked nursing staff to show her how to do this correctly and safely. In the meantime, we have asked her speech therapy evaluation for bedside swallow eval. 12/20/2016. Patient was seen today along with his , Fernanda Quinn, SUSAN, and Eneida Lema RN. Mr. Ashley is doing reasonably well today. Sputum and urinalysis both obtained 12/17/2016 growing multiple organisms. Urine culture is growing a gram-positive cocci which is yet to be identified and also Klebsiella pneumoniae. Sputum culture is growing a gram-negative yudelka and it has not been identified either. Clearly, the patient is improving, but we would not suggest discharging him until the final IDs have been reported and we can make sure that he has appropriate antibiotic coverage with good OTILIA's. This was discussed with the patient and his to their understanding. They are in agreement. Patient's Flomax cannot be dissolved to adequately get through his J-tube. Hytrin (name brand; not Terazosin) is a tablet. We will see if this can be crushed and put in his tube safely. There are no appropriate liquid medications for BPH that we are aware of. Nursing staff states that they have spoken with pharmacy and this is being reviewed. The patient failed his swallowing evaluation yesterday. See the speech therapy notes for more information. 12/23/2016. The patient was readmitted on 12/21/2016. His reports that after they got home, his J-tube malfunction. She was unable to get anything to pass through it. Presented back to the ER, and on evaluation it was felt that the patient could possibly be dehydrated secondary to no intake in 24 hours and also that he would most likely require replacement of his J-tube. According to Mrs. Ashley, they have had a very difficult weekend. This is being handled by nursing administration. Nonetheless, the patient has been seen in GI consultation by Dr. Taylor and it is felt that the patient require a replacement J-tube. He is routinely followed by Dr. Love. Dr. Love we will see him later on today. Mrs. Ashley states that she would like to speak with Dr. Love before having this done. We have explained to her that we would wholeheartedly agree with any recommendations from Dr. Taylor and/or Dr. Love. In the meantime, we will ask dietary to initiate PPN. He has had no chest x-ray this admission, so one has been ordered. Again, he was recently inpatient with acute pyelonephritis secondary to Klebsiella pneumoniae and VRE. I am unsure if all the ID and sensitivities were available at discharge. He also had an acute pneumonia secondary to E. coli. He is presently on Zosyn which covers the Klebsiella and E. coli with OTILIA's of less than 16. The VRE had a low colony count, but Zosyn does not cover it. Given his significant past history, multiple comorbidities, and acute illness, we will start Zyvox 300 mg IV every 12 hours. Repeat urinalysis has been ordered. Medications have been reviewed. We would suggest restarting his home medications. Labs have been reviewed. Yesterday, white count was 8600 with 72.3% segs, 14.5 % lymphs, and 10.3% monos; H&H 11.0/33.9 with normal indices and top normal red blood cell distribution width; platelet count 261,000; creatinine 0.90, BUN 28, sodium 143, potassium 3.6 12/24/2016. Chest x-ray done 12/23/2016 showed that there are some residual increase markings in the right lower lung. Pneumonia is resolving like it should. See my note 12/23/2016 concerning antibiotics. Follow-up urinalysis done 12/23/2016 shows resolution of patient's urinary tract infection. Electrolytes are normal. Creatinine is 0.90 with a BUN of 17. Calcium is low at 7.9 and phosphorus is low at 2.1. I will check a vitamin D. Agree with GI and interventional radiology plans. Follow-up chest x-ray in the morning 12/26/2016. This patient had procedure done to his abdomen yesterday. Last night he had severe chest pain. His says on 2 instances he has shaking of his arms and legs. This lasted 2 or 3 minutes. She said they had a similar episode in [place] and they thought it was a seizure but the EEG was negative. As far as his shaking is concerned this patient has cerebella disease and it he may have an abnormal response to pain etc. I will have her repeat a EEG and I will ask for neurology consultation. I am not sure why he had chest pain. His chest x-ray is stable and his EKG 2 shows no acute changes. His cardiac enzymes are negative. Certainly a possibility this was related to reflux or his GI procedure yesterday. Will ask cardiology to look at him and will get a echocardiogram since this patient is not very good at communicating what is wrong with him. Case was reviewed in detail with his . Kj Fuller RN was present. Lab is stable. Patient was moved to ICU last night after rapid response was called. 12/27/2016. This 71-year-old white male was here recently with a urinary tract infection pneumonia. He went home and his feeding tube which was placed in [place] became occluded and he was brought back into the hospital. This is infectious by Dr. Lisa interventional radiology. On the night of 12/25/2016 this patient developed chest pain and some jerking motion of his arms. Neurology is to see him in consultation. Most likely this is related to his ataxia and his response to pain but his said he had an episode like this in [place] and they thought it was a seizure but could not prove it. Patient chest x-ray today shows slight return of his right lower lung infiltrate. Will continue his antibiotics. Note that his natruretic peptide is 19. We have started physical therapy occupational therapy and speech therapy on the patient today. Patient has developed some diarrhea. Number going to ask dietary to look at changing his feedings. We will check his stools for C. difficile. We can start Questran on them. All of this was discussed with the . Kj Fuller nurse practitioner was present 12/30/2016. Patient was seen along with his and Kj Fuller nurse practitioner. Also his nurse Hesham was present. Patient's pneumonia is resolved. He had hypotension last night and is on Donnell-Synephrine. Not sure why this happened. He is getting enough fluids. I went to cut back on his Lyrica and we are going to make his second dose of Wellbutrin a little earlier in the day. NG tube is working well. Diarrhea has resolved. Stools were negative for C. difficile. Neurology has seen the patient and his said he will require a long-term video EEG for further clarification of the spells. Neurology said this does not sound like seizures. Cardiology noted no positive cardiac markers and an ejection fraction of 65% without segmental wall motion abnormality. There was +1-+2 right ventricular enlargement. EKG was unremarkable. Microbiology is negative. Electrolytes and creatinine are normal. Additional labs been ordered. Patient will need to stay in CCU since he is on pressor agents. Overall he looks a lot better. 12/31/2016. Chest x-ray shows moderate bibasilar atelectasis. Patient is on pressor agents. says systolic blood pressure usually runs 9205 at home. I am going to taper off the patient's pressor agents and will settle for systolic blood pressure 90 or above if he remains asymptomatic. If the patient tolerates this well he will be moved to the floor and hopefully he will be ready for discharge back to home in a few days. prefers to take him home. Patient is getting physical therapy, Occupational Therapy and has been seen by speech therapy. Electrolytes are normal. Creatinine is 0.8 BUN is 14 CBC is stable white count is 12,775 segs 7 lymphs and 10 monos. Platelets are 220, 000. Patient is afebrile he looks stronger. Decreasing level Lyrica and retiming Wellbutrin seems to have worked 01/01/2017. Patient was seen along with his and along with Kj Fuller nurse practitioner. Mr. ashley had an uneventful night. He is off pressor agents and his systolic blood pressure is about 103. He is asymptomatic. His chest x-ray shows a small amount of bibasilar atelectasis. His cultures and sensitivities have been reviewed. His sputum is growing a gram-negative yudelka. Based on his previous cultures from previous hospitalization when he had a Klebsiella I am made the decision to change his Zosyn to Fortaz. Patient is good enough to move to the floor today. Watch him closely. Depending on the cultures and sensitivities he could be ready for discharge in a day or so. This is all been discussed with the who wants to take him home. CBC is stable. Electrolytes are normal. Patient's afebrile. Follow-up urinalysis shows all infection has resolved 01/02/2017. Sputum for grown E. coli and stenotrophomonas maltophilia. Patient' s on Fortaz which has a best OTILIA. Allowing for his allergies and the sensitivities to best choice when he goes home would be Ceftin 500 mg by mouth twice a day for 10 days. As far as to stenotrophomonas maltophilia is concerned Ceftin will probably get that but we could cover this with Bactrim DS one half tablet equivalent (liquid) twice a day. Overall the patient looks better. He could be ready for discharge today or tomorrow. I favor 1 more day of Fortaz if possible. 01/03/2017. Patient was seen along with his , Kj Fuller nurse practitioner and aster Cerna RN. Patient had a good night. All of his medicines have been added back. He appears to be stable and I think he can be discharged from a pulmonary standpoint. I discussed this with his and she is comfortable with this. Patient should be sent home on the antibiotics mentioned in my note 01/02/2017. We need to continue all of his home medicines. I have reviewed his medicines this morning and he is on all of them. Patient is followed in my office and a follow-up appointment will be arranged. Medicines and labs have been reviewed. Exam (Progress Note) - Constitutional Vitals: Period Temp Pulse Resp BP Sys/Sims Pulse Ox Last 24 Hr 97 F-98.2 F 74-98 16-20 100-120/59-73 94-100 Exam: Head. Symmetrical. No edema of the lips or tongue. Neck. Symmetrical. No meningismus. Lymphatics. No submandibular cervical supraclavicular or epitrochlear adenopathy. Chest with loose large airway congestion; no wheeze Heart no gallop Abdomen is nontender and nondistended; bowel sounds are positive 4; J-tube is in place Extremities with nothing to suggest acute deep venous thrombophlebitis Psychiatric awake, alert, and oriented Neurologic unchanged Plan: 12/23/2016 1. Continue Zosyn, but add Zyvox 300 mg IV every 12 hours. 2. Start IV peripheral hyperalimentation. Obtain chest x-ray and urinalysis. 3. Agree with workup by Dr. Taylor. 4. Await Dr. Love' recommendations. 5. Would recommend restarting the patient's home medications. 6.. 12/24/2016. 1. See my note above for today. 2. Follow-up chest x-ray tomorrow see orders. 12/26/2016. 1. See today's note above 12/27/2016. 1. See my note for today above 2. Physical therapy, Occupational Therapy, speech therapy. 3. Check stools for C. difficile 4. Questran. Do not occlude feeding tube. 5. Follow-up chest x-ray. 6. Cardiology consult pending 7. Neurology consult 12/30/2016. 1. See my note for today above. 2. Donnell-Synephrine 3. Follow-up lab 4. Decrease Lyrica 5. Change timing of Wellbutrin dose 12/31/2016. 1. See today's note above. 2. Taper Donnell-Synephrine and settle for systolic blood pressure 90 or above if patient's asymptomatic. 3. Patient can do well without pressor agents should be able to move to a regular room by tomorrow morning. The goal will be able to discharge him home to the care of his in the near future 01/01/2017. 1. See my note above. 2. Off pressor agents 3. Move to floor 4. Check cultures and sensitivity 01/02/2017 1. See today's note above 2. See above concerning antibiotic 01/03/2017. 1. See today's note above with suggestions about antibiotics and home medicines. 2. From a pulmonary standpoint patient can be discharged when you are ready from your standpoint Exam (Progress Note) - Constitutional Vitals: Period Temp Pulse Resp BP Sys/Sims Pulse Ox Last 24 Hr 97.2 F-98.9 F 71-105 17-25 96-141/57-80 95-100 Results - Labs CBC & BMP: 12/31/16 04:26 12/31/16 04:25 Specialty Discharge - Follow Up or Referrals Follow up with: Theo Richardson MD [Physician] - 1 Month
[2017-01-03] MEDS: PSEUDOEPHEDRINE 30 MG TABLET PO SCH (10:19)
[2017-01-03] MEDS: MEMANTINE 5 MG TABLET PO SCH (10:19)
[2017-01-03] MEDS: FERROUS SULFATE 325 MG TABLET PO SCH (10:19)
[2017-01-03] MEDS: FAMOTIDINE 20 MG TABLET PO SCH (10:20)
[2017-01-03] MEDS: MULTIVITAMIN (BEROCCA) TABLET PER TUBE SCH (10:20)
[2017-01-03] MEDS: LACTOBACILLUS RHAMNOSUS GG CAPSULE PER TUBE SCH (10:20)
[2017-01-03] MEDS: FLUDROCORTISONE 0.1 MG TABLET PO SCH (10:20)
[2017-01-03] MEDS: FINASTERIDE 5 MG TABLET PO SCH (10:21)
[2017-01-03] MEDS: CHOLESTYRAMINE 4 GM PACK PO SCH (10:23)
[2017-01-03] MEDS: SODIUM CHLORIDE 0.65% NASAL SPRAY 45 ML BOTTLE BOTH NARES SCH (10:23)
[2017-01-03] MEDS: IPRATROPIUM 0.06% NASAL SPRAY 15 ML BOTTLE BOTH NARES SCH (10:23)
[2017-01-03] MEDS: POTASSIUM IODIDE ORAL SOLN 1,000 MG/ML BOTTLE PO SCH ×2 (10:24→14:44)
--- NOTE | 2017-01-03 15:13 | Discharge Summary ---
Hospital Course - Hospital Course Hospital Course: This is a chronically ill 71-year-old male that presented to the ED at [facility] on the evening of December 21, 2016 for further evaluation of a malfunctioning jejunostomy tube. Patient has a long and complex medical history significant for hypertension, anxiety, depression, seizures, cerebellar ataxia, bronchitis, chronic obstructive pulmonary disease, pneumonia, bronchiectasis, renal calculi, chronic urinary tract infections, gastroesophageal reflux disease, dysphasia, neuropathy, and anemia. The patient has a surgical history significant for cataract surgery, colonoscopy, esophagogastroduodenoscopy, and jejunostomy tube placement. The patient had been recently discharged from [facility] on the day prior to presentation for dehydration, chronic obstructive pulmonary disease exacerbation, and cerebella ataxia. Around 9 PM on the day of discharge, the patient's who is his primary caregiver noticed that the patient's jejunostomy tube was malfunctioning. His attempted to flush the tube several times without success. She became concerned because the patient was unable to receive any nutrition or medications so she decided to transport the patient back to the ED for further evaluation. The patient was assessed at the time of ED presentation and multiple attempts to flush the jejunostomy tube were made without success. Labs were obtained which were significant for hemoglobin noted at 11.6, hematocrit 35.1, BUN 30, and calcium at 8.4. The patient was subsequently admitted to the hospitalist services for continuation of care. The was gently rehydrated and empiric antibiotics were initiated. A gastroenterology, urology, cardiology, pulmonary, and interventional radiology consultations were requested. TPN was initiated. To meet nutritional requirements. On December 26, 2016, the patient underwent a removal of his GJ tube and a new GJ tube was replaced. On the night of December 26, 2016, the patient was noted to have an acute drop in blood pressure and responsiveness. The patient was subsequently transferred to the critical care unit and supportive measures were initiated. Prior to the onset of those symptoms, the patient complained of chest pain. A cardiac workup was performed and was essentially unremarkable. Echocardiogram reported normal left ventricular systolic function with an ejection fraction estimated at 65% without segmental wall abnormality; however approximately 12+ right ventricular enlargement was noted. Neurology consultation was requested when the patient was transferred to the critical care setting. An EEG was performed which only revealed generalized slowing. Sputum cultures obtained at the time of admission were significant for E. coli and stenotrophomonas maltophilia and stool cultures were positive for C. difficile. Empiric antibiotic coverage was continued. The patient's condition gradually improved. The patient's condition is stable. The patient has not experienced any significant overnight events. The patient has been cleared from each involved area of care and deemed appropriate for discharge. The patient will be discharged home this afternoon to follow-up with his primary care physician, aircraft steel fabricator, urologist, freight car repairer, and die tester as indicated. The patient's home medications will be resumed. The patient will be discharged home with Ceftin 500 mg per tube for 10 days and Bactrim DS one half tab equivalent(liquid) twice daily. Specialty Discharge - Follow Up or Referrals Follow up with: Theo Richardson MD [Physician] - 1 Month Discharge Plan - Discharge Medications No Action Multivitamin [Daily Multiple Vitamin] 1 each PO DAILY Modafinil [Provigil] 200 mg PER TUBE DAILY Aspirin [Children's Aspirin] 81 mg PO BEDTIME Memantine [Namenda] 5 mg PO BID Clorazepate [Tranxene] 3.75 mg PO BEDTIME Albuterol/Ipratropium Neb [Duoneb] 3 ml RESP TX RT QID #120 nebulization solution Pseudoephedrine [Sudafed] 30 mg PO DAILY predniSONE [PredniSONE] 2.5 mg PER TUBE DAILY Potassium Iodide Oral Soln [Sski] 0.3 ml PO TID guaiFENesin [Guaifenesin] 20 ml PER TUBE TID Glycopyrrolate Tab [Robinul Tab] 1 mg PO BID buPROPion [Wellbutrin] 100 mg PO BID Iron Fum/Folic Acid/Mv,Min 15 [Hemocyte Plus Capsule] 1 tablet PO DAILY Tamsulosin [Flomax] 1 tablet PO DAILY Pregabalin [Lyrica] 100 mg PO BEDTIME Cefuroxime Tab [Ceftin] 500 mg PO BID #28 tablet Ipratropium 0.06% Nasal [place] [Atrovent 0.06% Nasal [place]] 2 spray BOTH NARES BID spray Pregabalin [Lyrica] 200 mg PER TUBE BEDTIME capsule Sodium Chloride 0.65% Nasal Sp [[place] Nasal [place]] 2 spray BOTH NARES BID bottle Terazosin [Hytrin] 5 mg PER TUBE BID #60 capsule Cetirizine HCl [ZyrTEC Cap] 10 mg PER TUBE BEDTIME Montelukast Tab [Singulair Tab] 10 mg PER TUBE DAILY Acetylcysteine Soln (APAP Od) [Mucomyst 20% (APAP Od)] 3 ml INH TID Folic Acid/Vit B Complex and C [[place] Plus Tablet] 5 mg PER TUBE DAILY Ferrous Sulfate Tab [Feosol Original Tab] 1 tablet PO BID - Follow Up or Referral Follow Up: Theo Richardson MD [Physician] - 1 Month - Forms/Instructions Exam - Constitutional Vitals: Period Temp Pulse Resp BP Sys/Sims Pulse Ox Last 24 Hr 97.2 F-98.9 F 75-105 17- 96-141/57-80 95-100 DS: Provider Date of admission: 12/23/16 15:26 Primary care physician: Mikael Renteria MD Attending physician on admission: Drew Thomas MD Consults: 12/21/16 19:32 Consult to Physician [CONS] Routine Comment: nonfunction J tube Consulting Provider: Zeyad Love Person Notified: tito Date Notified: 12/23/16 Time Notified: 07:57 12/21/16 20:49 Consult to Dietitian [CONS] Routine Reason for Dietitian: Diet Recommendations 12/23/16 09:03 Consult to Physician [CONS] Routine Comment: Consulting Provider: Mikael Renteria Person Notified: giulia jackson Date Notified: 12/23/16 Time Notified: 08:00 12/23/16 10:19 Consult to Dietitian [CONS] Routine Reason for Dietitian: TPN/PPN-Initiate/Manage 12/24/16 09:23 Consult to Physician [CONS] Routine Comment: Consulting Provider: Chad Barry When should Consulting Provider be notified: Now Consult to Specialist Group: Urology When should Consulting Provider be notified: Now Person Notified: giulia Date Notified: 12/24/16 Time Notified: 10:04 Consult Notification Comment: Please evaluate for worsening Neurogenic Bladder, pt known to Urology Service 12/25/16 18:58 Consult to Dietitian [CONS] Routine Reason for Dietitian: TF-Initiate/Manage 12/26/16 10:31 Consult to Physician [CONS] Routine Comment: ? seizure; EEG ordered Consulting Provider: Theo Richardson Date Notified: 12/26/16 Time Notified: 13:17 Consult Notification Comment: Left message at office and paged Dr. Richardson at [phone]. Dr. Richardson returned page at [phone]. 12/26/16 10:33 Consult to Physician [CONS] Routine Comment: chest pain Consulting Provider: Cardiology - [facility] 12/27/16 10:12 Consult to Occupational Therapy [CONS] Routine Reason for Occupational Therapy: Evaluate and Treat Consult to Physical Therapy [CONS] Routine Reason for Physical Therapy: Evaluate and Treat 12/27/16 12:18 Consult to Dietitian [CONS] Routine Reason for Dietitian: TF-Initiate/Manage Consult Comment: change tf if possible to help control loose stools Discharging clinician: Deny Scherer, [employer]
[2017-01-03 17:12] VITALS: BP 111/68
--- NOTE | 2017-01-09 14:29 | Physician Query Form ---
CLICK EDIT DOCUMENT TO SELECT QUERY ANSWER --> OK --> SIGN Lou Dee RN Clinical Wet End Tester W) [phone] (f) [phone] [email or web address]: Make your selection(s) from the choices in EACH section by typing an "x" and enter comments in the comment section. Please use your independent medical judgment in providing your response. This request does not imply that any particular answer is desired or expected. CLINICAL INDICATORS: (Providers should not edit this section) Based on conflicting documentation of "History of aspiration pneumonia. Chronic aspiration; this problem appears stable". Progress note 12/28/16 states "acute aspiration pneumonia. Continue IV antibiotics with Zosyn and Zyvox. Patient with evidence of right lower lobe pneumonia versus bronchiectasis". Sputum culture grew E. coli and stenotrophomonas. Community Acquired and Healthcare Acquired are both unspecified terms and require further specificity. Based on the above, could you please clarify further specificity regarding the type of pneumonia you are treating (even if specific organism may not be known) ? (x ) Acute Aspiration pneumonia ( ) History of aspiration pneumonia only ( ) Gram negative pneumonia ( ) Gram positive pneumonia ( ) Bacterial pneumonia due to, please specify organism (if known): ( ) Pneumonia with Influenza ( ) Viral pneumonia ( ) Post procedural ( ) HIV associated pneumonia ( ) Radiation Pneumonitis ( ) Pneumonia due to, please specify: ( ) Clinically unable to determine ( ) Other, please specify: COMMENTS: PLEASE ALSO DOCUMENT RESPONSE IN PROGRESS NOTES AND/OR DISCHARGE SUMMARY Use of terms such as suspected, likely, or probable (associated with a specific diagnosis that is being evaluated, monitored, or treated as if it exists) are acceptable and can be restated in the discharge summary if not ruled out. MTDD
== END 2017-01-03 18:04 | disposition home health service (06) | DRG 393 ==
LOC: N.EDINP 16:00 → N.ED 16:00 → SUATTDRO 19:09 → N.2E 19:58 → SUATTDRO 12-23 15:26 → N.CC 12-25 23:07 → N.TELEN 01-01 16:24
PROVIDERS: ADMIT Internal Medicine; ATTEND Hospitalist

== ENCOUNTER 2017-02-23 03:08 | Inpatient (IN) ==
[2017-02-23] MEDS ORDERED: cefTRIAXone 1,000 MG in SODIUM CHLORIDE 0.9% 100 ML IV STA (04:45)
[2017-02-23] MEDS ORDERED: SODIUM CHLORIDE 0.9% 1,000 ML IV STA (04:45)
[2017-02-23] MEDS ORDERED: cefTRIAXone 1,000 MG VIAL ONE (04:54)
[2017-02-23 05:04] LABS: Basophils # 0.1 10*3/uL (0.0-0.2); Basophils % 0.3 % (0.0-0.8); Eosinophils # 0.1 10*3/uL (0.0-0.87); Eosinophils % 0.3 % (0.00-10.9); Hematocrit 37.8 VOL% (42.0-52.0); Hemoglobin 12.5 GM/DL (14.0-18.0); Immature Granulocytes % 0.6 %; Immature Granulocytes Absolute 0.12 #; Lymphocytes # 0.4 10*3/uL (1.4-4.0); Lymphocytes % 1.8 % (21.2-54.2); Mean Corpuscular HGB Conc 33.1 GM/DL (32-36); Mean Corpuscular Hemoglobin 29 PG (27-34); Mean Corpuscular Volume 88.5 FL (87-102); Mean Platelet Volume 11.6 FL (9.6-12.0); Monocytes # 0.8 10*3/uL (0.11-0.8); Monocytes % 3.7 % (1.7-12.7); Neutrophils # 20.1 10*3/uL (1.4-7.4); Neutrophils % 93.3 % (38.7-73.9); Platelet Count 345 T/CUMM (130-400); Red Blood Count 4.27 MC/CUMM (3.8-5.5); Red Cell Distribution Width 16.6 % (9.3-17.3); White Blood Count 21.5 T/CUMM (4-12)
[2017-02-23 05:09] LABS: PT Patient Result 10.4 SECS
[2017-02-23 05:12] LABS: Apearance,Urine CLOUDY (Clear); Bacteria,Urine Occasional /HPF (Few); Bilirubin,Urine Negative (Negative); Blood, Urine Negative (Negative); Glucose,Urine (UA) Negative (Negative); Ketones,Urine Negative (Negative); Mucus,Urine Occasional /LPF (Occasional); Nitrite,Urine Negative (Negative); Protein,Urine Negative; RBC,Urine 2 /HPF (0-4); Urine Color Yellow (Yellow); Urine Specific Gravity 1.014 (1.001-1.035); Urine Urobilinogen < 2.0 EU/DL (0.2-1.0); WBC,Urine 5 /HPF (0-6)
--- NOTE | 2017-02-23 05:22 | Emergency Department Note ---
Denton Jones Brittany, am scribing for, and in the presence of, Roberto Moreau MD 04:59. Prieot Jones Charles R, MD, personally performed the services described in this documentation, ascribed by Carolyn Chawla in my presence, and it is both accurate and complete [id number] . Arrival - Arrival Chief Complaint: Fever Stated Complaint: has a uti? fever ED Nursing Triage Note: C/O Fever and decreased urine output. Onset earlier tonight. Family reports frequent UTIs Mode of Arrival: Wheelchair Limitations: No Limitations Source: Patient, Family, RN Notes Reviewed - History of Present Illness HPI Narrative: Patient is a 71 y/o white male presenting to the ED with c/o decrease in urine output and fever that began tonight. reports that patient is followed by Dr. Jeter and previously required in/out cath, but states on last visit Dr. Jeter instructed her to only cath unless necessary. She reports that patient was able to urinate normally over the past two days, but today he had a decrease in urine output. She states that patient also seemed to have more anxiety and was frantic which is not normal for him. Patient does have a history of Recurrent UTI, Cerebral Ataxia, and Orthostatic Hypotension. Patient is hypotensive on the monitor with a blood pressure reading of 86/[address] Vitale. No further complaints. Allergies/Adverse Reactions: Allergies Allergy/AdvReac Type Severity Reaction Status Date / Time ciprofloxacin [From Cipro] Allergy Unknown Unknown/Unable Verified 12/21/16 16: 07 to obtain lorazepam [From Ativan] AdvReac Intermediate Agitated Verified 12/21/16 16:07 Home Medications: Home Medications Medication Instructions Recorded Confirmed Type Memantine [Namenda] 5 mg PEG BID 09/24/14 01/12/17 History Modafinil [Provigil] 200 mg PER TUBE DAILY 09/24/14 01/12/17 History Multivitamin [Daily Multiple 1 each PEG DAILY 09/24/14 01/12/17 History Vitamin] Cetirizine HCl [ZyrTEC Cap] 10 mg PER TUBE BEDTIME 07/17/16 01/12/17 History Clorazepate [Tranxene] 3.75 mg PEG BEDTIME 07/17/16 01/12/17 History Montelukast Tab [Singulair Tab] 10 mg PER TUBE DAILY 07/17/16 01/12/17 History Albuterol/Ipratropium Neb [Duoneb] 3 ml RESP TX RT QID #120 07/26/16 01/12/17 Rx nebulization solution Acetylcysteine Soln (APAP Od) 3 ml INH TID 11/10/16 01/12/17 History [Mucomyst 20% (APAP Od)] Folic Acid/Vit B Complex and C 5 mg PER TUBE DAILY 11/10/16 01/12/17 History [Folbee Plus Tablet] Potassium Iodide Oral Soln [Sski] 0.3 ml PEG TID 11/10/16 01/12/17 History Pseudoephedrine [Sudafed] 30 mg PEG DAILY 11/10/16 01/12/17 History buPROPion [Wellbutrin] 100 mg PEG BID 11/10/16 01/12/17 History guaiFENesin [Guaifenesin] 20 ml PER TUBE TID 11/10/16 01/12/17 History predniSONE [PredniSONE] 2.5 mg PER TUBE DAILY 11/10/16 01/12/17 History Ferrous Sulfate Tab [Feosol 1 tablet PEG BID 12/17/16 01/12/17 History Original Tab] Iron Fum/Folic Acid/Mv,Min 15 1 tablet PEG DAILY 12/17/16 01/12/17 History [Hemocyte Plus Capsule] Pregabalin [Lyrica] 100 mg PEG BEDTIME 12/17/16 01/12/17 History Ipratropium 0.06% Nasal [place] 2 spray BOTH NARES BID spray 12/20/16 01/12/17 Rx [Atrovent 0.06% Nasal [place]] Sodium Chloride 0.65% Nasal [place] 2 spray BOTH NARES BID bottle 12/20/16 01/12/17 Rx [[place] Nasal [place]] Aspirin EC Tab 81 mg PEG DAILY 01/12/17 01/12/17 History Cefuroxime Tab [Ceftin] 500 mg PEG BID 01/12/17 01/12/17 History Pantoprazole Sodium [Protonix] 40 mg PEG DAILY 01/12/17 01/12/17 History Sulfameth/Trimeth Liquid [Bactrim 10 ml PEG BID 01/12/17 01/12/17 History Susp] Review of System - Review of System 12 point system: reviewed and no additional remarkable complaints except as stated - Review of System Constitutional: Present: fever Respiratory: Absent: respiratory distress Cardiovascular: Absent: chest pain Gastrointestinal: Absent: abdominal pain, nausea, vomiting Genitourinary male: Present: other (decrease in urine output). Absent: urgency , dysuria, frequency Musculoskeletal: Absent: arm pain, back pain, leg pain, neck pain Medical,Surgical,& Family Hx - Medical History Cardio: History of: Cardiovascular Problems (hypotension) No history of: Hypertension (HYPOTENSION) Psychological: History of: Anxiety Disorders, Depression Neurology: History of: Neurological Problems (cerebellar ataxia) No history of: Seizures HEENT: History of: Eye Problem (WEARS GLASSES) Respiratory: History of: Bronchitis, COPD, Pneumonia, Respiratory Problems ( ASSOCIATED WITH CEREBLLA ATAXIA, bronchiectasis) Genitourinary: History of: Kidney Stones, Recurring Urinary Tract Infections Gastrointestinal: History of: GERD, GI Problems (difficulty swallowing) Musculoskeletal: History of: Musculoskeletal Problems (NEUROPATHY) No history of: Amputation Hematology: History of: Anemia - Surgical History Cardiac Surgeries: Patient Denies: Cardiac Catheterization Thoracic Surgeries: Patient denies;: Organ Transplant, Lobectomy Neurologic Surgeries: Surgical HX of: Neurologic Surgery HEENT Surgeries: Surgical HX of: Eye Surgery (CATARACT SURGERY) Patient denies: Thyroid Surgery, Tonsilectomy & Adenoidectomy Abdominal Surgeries: Surgical HX of: Colonoscopy, EGD Patient denies: Abdominal Surgery Reproductive Surgeries: Patient denies;: Genitourinary Surgery - Family History Family History: Reports;: Family Cancer (MOM-COLON) Denies;: Family Anesthesia Reaction, Family Diabetes, Family Heart Disease, Family Hypertension, Family Psychiatric Problems, Family Stroke - Social History Smoking Status: Never smoker Frequency of Alcohol Use: None Type of Drug Use: None Exam Vital Signs: Vital Signs Temperature 99.5 F 02/23/17 03:13 Pulse Rate 127 H 02/23/17 03:13 Respiratory Rate 20 02/23/17 03:30 Blood Pressure 102/63 02/23/17 03:13 O2 Sat by Pulse Oximetry 97 02/23/17 03:13 - General General appearance: alert, in no apparent distress, other (Septic appearing) - Head Head exam: Present: atraumatic, normocephalic - Eye Eye exam: Present: PERRL, EOMI. Absent: normal appearance (sunken orbits bilaterally) - ENT ENT exam: Present: normal exam, normal oropharynx - Neck Neck exam: Present: normal inspection, full ROM, trachea midline - Chest Chest inspection: Present: normal inspection, symmetric chest wall rise - Respiratory Respiratory exam: Present: normal lung sounds bilaterally - Cardiovascular Cardiovascular exam: Present: normal rhythm, tachycardia, normal heart sounds. Absent: regular rate - Abdominal Exam Abdominal exam: Present: soft, normal bowel sounds, other (suprapubic fullness; peg tube). Absent: tenderness - Extremities Exam Extremities exam: Absent: normal inspection (atrophy and weakness of extremities ) - Back Exam Back exam: Present: normal inspection - Neurological Exam Neurological exam: Present: alert, oriented X3, CN II-XII intact, other ( difficulty speaking secondary to ataxia). Absent: motor sensory deficit - Psychiatric Psychiatric exam: Present: normal affect, normal mood - Skin Skin exam: Present: warm (febrile), dry, intact, normal color, other (poor skin turgor) Course - Consultations Consultation #1: Hospitalist will admit patient Time: 05:39 Results - Labs CBC & BMP: 02/23/17 04:10 Lab Results: I have reviewed the patients labs Labs: Laboratory Tests 03/15/16 03/15/16 03/15/16 00:26 00:26 00:26 WBC RBC Hgb Hct Plt Count Neut % (Auto) Lymph % (Auto) Neut # (Auto) Lymph # (Auto) INR 1.0 PT Patient/Control Mix 10.2 BUN 20 H Lactic Acid C-Reactive Protein 1.46 H Globulin 4.2 H Albumin/Globulin Ratio 0.8 L Urine Color Urine Appearance Urine pH Ur Specific Lucas Urine Protein Urine Glucose (UA) Urine Ketones Urine Blood Urine Nitrate Urine Bilirubin Urine Urobilinogen < 2.0 H Urine Leukocytes Urine RBC Urine WBC Urine Bacteria Urine Mucus 02/23/17 02/23/17 02/23/17 04:10 04:10 04:10 WBC 21.5 H RBC 4.27 Hgb 12.5 L Hct 37.8 L Plt Count 345 Neut % (Auto) 93.3 H Lymph % (Auto) 1.8 L Neut # (Auto) 20.1 H Lymph # (Auto) 0.4 L INR 1.0 PT Patient/Control Mix 10.4 BUN Lactic Acid 1.7 C-Reactive Protein Globulin Albumin/Globulin Ratio Urine Color Urine Appearance Urine pH Ur Specific Lucas Urine Protein Urine Glucose (UA) Urine Ketones Urine Blood Urine Nitrate Urine Bilirubin Urine Urobilinogen Urine Leukocytes Urine RBC Urine WBC Urine Bacteria Urine Mucus 02/23/17 04:10 WBC RBC Hgb Hct Plt Count Neut % (Auto) Lymph % (Auto) Neut # (Auto) Lymph # (Auto) INR PT Patient/Control Mix BUN Lactic Acid C-Reactive Protein Globulin Albumin/Globulin Ratio Urine Color Yellow Urine Appearance Cloudy Urine pH 7.0 Ur Specific Lucas 1.014 Urine Protein Negative Urine Glucose (UA) Negative Urine Ketones Negative Urine Blood Negative Urine Nitrate Negative Urine Bilirubin Negative Urine Urobilinogen < 2.0 H Urine Leukocytes Trace Urine RBC 2 Urine WBC 5 Urine Bacteria Occasional Urine Mucus Occasional Disposition Clinical Impression: Sepsis, Fever, Possible pneumonia, Leukocytosis, Cerebellar ataxia, Debility, unspecified Case discussed with: patient, patient's family Disposition: Still a Patient Condition: Guarded Time of Disposition: 05:40
[2017-02-23] MEDS ORDERED: MEROPENEM 1,000 MG VIAL IV ONE (05:35)
[2017-02-23] MEDS: MEROPENEM 1,000 MG in SODIUM CHLORIDE 0.9% 100 ML IV SCH ×3 (05:40→23:24)
[2017-02-23 05:48] LABS: Alanine Aminotransferase 48 U/L (16-61); Albumin 3.4 G/DL (3.4-5.0); Alkaline Phosphatase 169 U/L (45-117); Amylase 96 U/L (25-115); Aspartate Amino Transferase 25 U/L (0-37); Bilirubin,Total < 0.39 MG/DL (0.2-1.0); Blood Urea Nitrogen 22 MG/DL (7-18); Calcium 9.2 MG/DL (8.5-10.1); Glucose 118 MG/DL (74-106); Osmolality,Calculated 269.4 MOS/KG (273-304); Potassium 4.5 MMOL/L (3.5-5.1); Sodium 133 MMOL/L (136-145); Total Protein 8.5 G/DL (6.4-8.3)
[2017-02-23] MEDS ORDERED: ONDANSETRON 4 MG/2 ML VIAL IV PRN (06:40)
[2017-02-23] MEDS ORDERED: ACETAMINOPHEN 325 MG TABLET PO PRN (06:40)
[2017-02-23 06:45] LABS: Anisocytosis 1+; Band Neutrophils 2 % (0-10); Hypochromasia 1+; Lymphocytes 1 % (20-55); Platelet Estimate Normal; Segmented Neutrophils 96 % (50-85); Total Cells Counted 100
--- NOTE | 2017-02-23 06:50 | Hospitalist History & Physical ---
Assessment and Plan (1) Fever Status: Acute Assessment and plan: Start Mer[place]. Follow blood and urine and sputum cultures Current Visit: Yes Qualifiers: Encounter type: initial encounter (2) Pneumonia, aspiration Status: Acute Current Visit: Yes Qualifiers: Laterality: left Lung location: lower lobe of lung (3) COPD (chronic obstructive pulmonary disease) Status: Chronic Current Visit: Yes (4) Leukocytosis Status: Acute Current Visit: Yes (5) Cerebellar ataxia Status: Acute Current Visit: Yes History of Present Illness Chief complaint: fever, cough History of present illness: Mr. Ashley is a 71 year old male presenting to the ED with c/o decrease in urine output and fever that began tonight. reports that patient is followed by Dr. Jeter and previously required in/out cath, but states on last visit Dr. Jeter instructed her to only cath when necessary. She reports that patient was able to urinate normally over the past two days, but today he had a decrease in urine output. She states that patient also seemed to have more anxiety and was frantic which is not normal for him. Patient does have a history of Recurrent UTI, Cerebral Ataxia, and Orthostatic Hypotension. Patient is hypotensive on the monitor with a blood pressure reading of 86/[address] Renteria. He receives Tube feeding daily. He has had aspiration pneumonia in the past. He has been coughing more frequently - especially in the morning. His BP is normal for him. He does appear ill. I was consulted to admit the patient for treatment of pneumonia and fever. He also has a decubitus ulcer that could be a possible source of fever. Home Medications Medication Instructions Recorded Confirmed Type Memantine [Namenda] 5 mg PEG BID 09/24/14 01/12/17 History Modafinil [Provigil] 200 mg PER TUBE DAILY 09/24/14 01/12/17 History Multivitamin [Daily Multiple 1 each PEG DAILY 09/24/14 01/12/17 History Vitamin] Cetirizine HCl [ZyrTEC Cap] 10 mg PER TUBE BEDTIME 07/17/16 01/12/17 History Clorazepate [Tranxene] 3.75 mg PEG BEDTIME 07/17/16 01/12/17 History Montelukast Tab [Singulair Tab] 10 mg PER TUBE DAILY 07/17/16 01/12/17 History Albuterol/Ipratropium Neb [Duoneb] 3 ml RESP TX RT QID #120 07/26/16 01/12/17 Rx nebulization solution Acetylcysteine Soln (APAP Od) 3 ml INH TID 11/10/16 01/12/17 History [Mucomyst 20% (APAP Od)] Folic Acid/Vit B Complex and C 5 mg PER TUBE DAILY 11/10/16 01/12/17 History [Folbee Plus Tablet] Potassium Iodide Oral Soln [Sski] 0.3 ml PEG TID 11/10/16 01/12/17 History Pseudoephedrine [Sudafed] 30 mg PEG DAILY 11/10/16 01/12/17 History buPROPion [Wellbutrin] 100 mg PEG BID 11/10/16 01/12/17 History guaiFENesin [Guaifenesin] 20 ml PER TUBE TID 11/10/16 01/12/17 History predniSONE [PredniSONE] 2.5 mg PER TUBE DAILY 11/10/16 01/12/17 History Ferrous Sulfate Tab [Feosol 1 tablet PEG BID 12/17/16 01/12/17 History Original Tab] Iron Fum/Folic Acid/Mv,Min 15 1 tablet PEG DAILY 12/17/16 01/12/17 History [Hemocyte Plus Capsule] Pregabalin [Lyrica] 100 mg PEG BEDTIME 12/17/16 01/12/17 History Ipratropium 0.06% Nasal [place] 2 spray BOTH NARES BID spray 12/20/16 01/12/17 Rx [Atrovent 0.06% Nasal [place]] Sodium Chloride 0.65% Nasal Sp 2 spray BOTH NARES BID bottle 12/20/16 01/12/17 Rx [[place] Nasal [place]] Aspirin EC Tab 81 mg PEG DAILY 01/12/17 01/12/17 History Cefuroxime Tab [Ceftin] 500 mg PEG BID 01/12/17 01/12/17 History Pantoprazole Sodium [Protonix] 40 mg PEG DAILY 01/12/17 01/12/17 History Sulfameth/Trimeth Liquid [Bactrim 10 ml PEG BID 01/12/17 01/12/17 History Susp] Allergies Allergy/AdvReac Type Severity Reaction Status Date / Time ciprofloxacin [From Cipro] Allergy Unknown Unknown/Unable Verified 12/21/16 16: 07 to obtain lorazepam [From Ativan] AdvReac Intermediate Agitated Verified 12/21/16 16:07 Medical,Surgical,& Family Hx - Medical History Cardio: History of: Cardiovascular Problems (hypotension) No history of: Hypertension (HYPOTENSION) Psychological: History of: Anxiety Disorders, Depression Neurology: History of: Neurological Problems (cerebellar ataxia) No history of: Seizures HEENT: History of: Eye Problem (WEARS GLASSES) Respiratory: History of: Bronchitis, COPD, Pneumonia, Respiratory Problems ( ASSOCIATED WITH CEREBLLA ATAXIA, bronchiectasis) Genitourinary: History of: Kidney Stones, Recurring Urinary Tract Infections Gastrointestinal: History of: GERD, GI Problems (difficulty swallowing) Musculoskeletal: History of: Musculoskeletal Problems (NEUROPATHY) No history of: Amputation Hematology: History of: Anemia - Surgical History Cardiac Surgeries: Patient Denies: Cardiac Catheterization Thoracic Surgeries: Patient denies;: Organ Transplant, Lobectomy Neurologic Surgeries: Surgical HX of: Neurologic Surgery HEENT Surgeries: Surgical HX of: Eye Surgery (CATARACT SURGERY) Patient denies: Thyroid Surgery, Tonsilectomy & Adenoidectomy Abdominal Surgeries: Surgical HX of: Colonoscopy, EGD Patient denies: Abdominal Surgery Reproductive Surgeries: Patient denies;: Genitourinary Surgery - Family History Family History: Reports;: Family Cancer (MOM-COLON) Denies;: Family Anesthesia Reaction, Family Diabetes, Family Heart Disease, Family Hypertension, Family Psychiatric Problems, Family Stroke - Social History Smoking Status: Never smoker Have you smoked in the last 12 months: No Frequency of Alcohol Use: None Type of Drug Use: None Marital Status: Lives With:: Spouse Functional capacity: bed bound Exam - Constitutional Vitals: Period Temp Pulse Resp BP Sys/Sims Pulse Ox Last 24 Hr 99.5 F-99.5 F 127-127 18-20 102-102/63-63 97 Exam: Constitutional System: Mild distress. No tremulousness. Head: Normocephalic, atraumatic. Ears, Nose and Throat System: No pain or tenderness. No epistaxis or discharge Eyes System: Pupils equal, round, and reactive. Extraocular muscles intact. Neck: Supple, without adenopathy, No jugular venous distention. No thyromegaly, neck mass, or prior surgery apparent. Respiratory System: Chest rhonchi to auscultation left lower lobe. Cardiovascular System: Heart with regular rate and rhythm. No murmur. GI System: Abdomen soft, nontender. Normo active bowel sounds present. Musculoskeletal System: limbs with no pedal edema. Full distal pulses. Normal capillary refill. Neurological System: No discernable sensory deficit. Results - Labs CBC & BMP: 02/23/17 04:10 02/23/17 04:10 Lab Results: I have reviewed the past 24 hour labs Sepsis - Sepsis Classification of Sepsis: Sepsis - Physical Exam Respiratory exam: rhonchi Capillary Refill: Less Than 3 Seconds Peripheral pulses: Radial (L): 3+/4+, Radial (R): 3+/4+, Dorsalis Pedis (L) PM: 3+/4+, Dorsalis Pedis (R) PM: 3+/4+, Posterior Tibialis (L): 3+/4+, Posterior Tibialis (R): 3+/4+ Cardiovascular exam: regular rate and rhythm Skin exam: normal color
[2017-02-23] MEDS: ALBUTEROL/IPRATROPIUM 3 ML NEB RESP TX SCH ×4 (07:58→18:50)
[2017-02-23] MEDS: SODIUM CHLORIDE 0.9% 1,000 ML IV SCH ×2 (08:39→17:20)
[2017-02-23] MEDS ORDERED: MEROPENEM 1,000 MG in SODIUM CHLORIDE 0.9% 100 ML IV SCH (09:00)
--- NOTE | 2017-02-23 09:22 | XRay Report ---
Portable chest. Indication: Shortness of breath. Fever. Comparison: January 01, 2017. The heart is normal in size. The lung quinonez are hyperexpanded. There is calcific plaque present within the aortic knob. The pulmonary vasculature is normal. Residual fibrotic change is stable. Impression: Prominent findings of COPD. No definite acute process. PROCEDURE INTERPRETED AT [facility] DEPARTMENT OF RADIOLOGY Final Report Signed by: Dr. Holly Chilel
--- NOTE | 2017-02-23 09:47 | Pulmonology Consult Note ---
Assessment and Plan (1) Aspiration pneumonia Status: Acute Assessment and plan: Has probably had a recurrent episode of aspiration. Will put on appropriate antibiotics and set him up for bronchoscopy in the morning with Dr. Renteria. Current Visit: No Qualifiers: Aspiration pneumonia type: unspecified Laterality: unspecified laterality Lung location: unspecified part of lung Qualified Code(s): J69.0 - Pneumonitis due to inhalation of food and vomit (2) COPD (chronic obstructive pulmonary disease) Status: Chronic Assessment and plan: Bronchodilators and low-dose steroids. Current Visit: Yes (3) BPH loc w urin obs/LUTS Status: Acute Assessment and plan: Requires intermittent catheterization Current Visit: No (4) Cerebellar ataxia Status: Acute Assessment and plan: Leads to problems with aspiration. Current Visit: Yes (5) Debility, unspecified Status: Acute Assessment and plan: Generalized weakness. Will need physical therapy at some point Current Visit: Yes History of Present Illness Chief complaint: Cough congestion fever History of present illness: Mr. Ashley is a 71 year old male who came in with fever dehydration hypotension. He has been having some problems with requiring intermittent catheterizations. He has had previous stroke and has a PEG tube. He has a history of bronchiectasis and bronchial stenosis. He has cerebellar ataxia and has difficulty swallowing. He had a PEG tube placed in [place] about 6 months ago. He also has COPD and obstructive sleep apnea. Dr. Vitale has bronchoscoped him several times with acute episodes of aspiration and is noted that he has right and left lower lobe probable mucosa and stenosis of the left lower lobe superior segment. 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 Home Medications Medication Instructions Recorded Confirmed Type Memantine [Namenda] 5 mg PEG BID 09/24/14 02/23/17 History Modafinil [Provigil] 200 mg PER TUBE DAILY 09/24/14 02/23/17 History Multivitamin [Daily Multiple 1 each PEG DAILY 09/24/14 02/23/17 History Vitamin] Cetirizine HCl [ZyrTEC Cap] 10 mg PER TUBE BEDTIME 07/17/16 02/23/17 History Clorazepate [Tranxene] 3.75 mg PEG BEDTIME 07/17/16 02/23/17 History Montelukast Tab [Singulair Tab] 10 mg PER TUBE DAILY 07/17/16 02/23/17 History Albuterol/Ipratropium Neb [Duoneb] 3 ml RESP TX RT QID #120 07/26/16 02/23/17 Rx nebulization solution Acetylcysteine Soln (APAP Od) 3 ml INH TID 11/10/16 02/23/17 History [Mucomyst 20% (APAP Od)] Folic Acid/Vit B Complex and C 5 mg PER TUBE DAILY 11/10/16 02/23/17 History [[place] Plus Tablet] Potassium Iodide Oral Soln [Sski] 0.3 ml PEG TID 11/10/16 02/23/17 History Pseudoephedrine [Sudafed] 30 mg PEG DAILY 11/10/16 02/23/17 History buPROPion [Wellbutrin] 100 mg PEG BID 11/10/16 02/23/17 History guaiFENesin [Guaifenesin] 20 ml PER TUBE TID 11/10/16 02/23/17 History predniSONE [PredniSONE] 2.5 mg PER TUBE DAILY 11/10/16 02/23/17 History Ferrous Sulfate Tab [Feosol 1 tablet PEG BID 12/17/16 02/23/17 History Original Tab] Iron Fum/Folic Acid/Mv,Min 15 1 tablet PEG DAILY 12/17/16 02/23/17 History [Hemocyte Plus Capsule] Pregabalin [Lyrica] 100 mg PEG BEDTIME 12/17/16 02/23/17 History Ipratropium 0.06% Nasal [place] 2 spray BOTH NARES BID spray 12/20/16 02/23/17 Rx [Atrovent 0.06% Nasal [place]] Sodium Chloride 0.65% Nasal Sp 2 spray BOTH NARES BID bottle 12/20/16 02/23/17 Rx [[place] Nasal [place]] Aspirin EC Tab 81 mg PEG DAILY 01/12/17 02/23/17 History Albuterol Inhaler [Proventil 1 puff INH Q8H PRN 02/23/17 02/23/17 History Inhaler] Bifidobacterium Infantis [Align] 4 mg PER TUBE BID 02/23/17 02/23/17 History Cholestyramine (with Sugar) 4 gm PER TUBE DAILY PRN 02/23/17 02/23/17 History [Cholestyramine Packet] Cranberry Fruit Extract [Cranberry] 1,000 mg PER TUBE DAILY 02/23/17 02/23/17 History Finasteride 5 mg PER TUBE DAILY 02/23/17 02/23/17 History Omeprazole [Omeprazole] 40 mg PER TUBE DAILY 02/23/17 02/23/17 History Sertraline HCl 50 mg PER TUBE DAILY 02/23/17 02/23/17 History Sodium Chl/Potassium Chl Tab 0.5 tablet PER TUBE BID 02/23/17 02/23/17 History [Thermotabs] Allergies Allergy/AdvReac Type Severity Reaction Status Date / Time ciprofloxacin [From Cipro] Allergy Unknown Unknown/Unable Verified 12/21/16 16: 07 to obtain lorazepam [From Ativan] AdvReac Intermediate Agitated Verified 12/21/16 16:07 ROS unobtainable: due to mental status Exam (Pulmonay) H&P - Constitutional Vitals: Period Temp Pulse Resp BP Sys/Sims Pulse Ox Last 24 Hr 99.5 F-99.5 F 97-127 18-20 93-102/53-63 97-97 Exam: Temperature 99.5. Patient is alert but moaning rather than talking nods his head. Vital signs normal except blood pressure on the low side. Pupils react to light throat clear neck supple no bruits she does have a tremor chest reveals some rhonchi in both bases. Heart normal rate and rhythm no murmurs. Abdomen soft nontender no masses. PEG tube in place and looks clean. Extremities no clubbing cyanosis or edema. Calves nontender Medical,Surgical,& Family Hx - Medical History Cardio: History of: Cardiovascular Problems (hypotension) No history of: Hypertension (HYPOTENSION) Psychological: History of: Anxiety Disorders, Depression Neurology: History of: Neurological Problems (cerebellar ataxia) No history of: Seizures HEENT: History of: Eye Problem (WEARS GLASSES) Respiratory: History of: Bronchitis, COPD, Pneumonia, Respiratory Problems ( ASSOCIATED WITH CEREBLLA ATAXIA, bronchiectasis) Genitourinary: History of: Kidney Stones, Recurring Urinary Tract Infections Gastrointestinal: History of: GERD, GI Problems (difficulty swallowing) Musculoskeletal: History of: Musculoskeletal Problems (NEUROPATHY) No history of: Amputation Hematology: History of: Anemia - Surgical History Cardiac Surgeries: Patient Denies: Cardiac Catheterization Thoracic Surgeries: Patient denies;: Organ Transplant, Lobectomy Neurologic Surgeries: Patient denies: Neurologic Surgery HEENT Surgeries: Surgical HX of: Eye Surgery (CATARACT SURGERY) Patient denies: Thyroid Surgery, Tonsilectomy & Adenoidectomy Abdominal Surgeries: Surgical HX of: Colonoscopy, EGD Patient denies: Abdominal Surgery Reproductive Surgeries: Patient denies;: Genitourinary Surgery - Family History Family History: Reports;: Family Cancer (MOM-COLON) Denies;: Family Anesthesia Reaction, Family Diabetes, Family Heart Disease, Family Hypertension, Family Psychiatric Problems, Family Stroke - Social History Smoking Status: Never smoker Frequency of Alcohol Use: None Type of Drug Use: None Results - Labs CBC & BMP: 02/23/17 04:10 02/23/17 04:10 Lab Results: I have reviewed the past 24 hour labs - Diagnostic Findings Procedure: Chest x-ray: image reviewed by me (Patchy infiltrates both lower lobes)
[2017-02-23] MEDS: ASPIRIN EC 81 MG TABLET PO SCH (10:06)
[2017-02-23] MEDS: PANTOPRAZOLE 40 MG TABLET PO SCH (10:06)
[2017-02-23] MEDS: MONTELUKAST 10 MG TABLET PER TUBE SCH (10:06)
[2017-02-23] MEDS: MEMANTINE 5 MG TABLET PO SCH ×2 (10:06→22:04)
[2017-02-23] MEDS: guaiFENesin 200 MG/10 ML UDCUP PER TUBE SCH ×3 (10:06→22:04)
[2017-02-23] MEDS: MV MIN PEG SCH (10:07)
[2017-02-23] MEDS: IRON FUM PEG SCH (10:07)
[2017-02-23] MEDS: FOLIC ACID PEG SCH (10:07)
[2017-02-23] MEDS: MODAFINIL 200 MG PER TUBE SCH (10:08)
[2017-02-23] MEDS: ENOXAPARIN 40 MG/0.4 ML SYRINGE SUBCUT SCH (10:08)
[2017-02-23] MEDS: IPRATROPIUM 0.06% NASAL SPRAY 15 ML BOTTLE BOTH NARES SCH ×2 (11:38→22:48)
[2017-02-23] MEDS: PSEUDOEPHEDRINE 30 MG TABLET PEG SCH (11:41)
[2017-02-23] MEDS: SODIUM CHLORIDE 0.65% NASAL SPRAY 45 ML BOTTLE BOTH NARES SCH ×2 (12:00→22:48)
[2017-02-23] MEDS: ZINC OXIDE PASTE 113 GM TUBE TOP SCH ×2 (16:08→22:04)
[2017-02-23] MEDS: PREGABALIN 100 MG CAPSULE PEG SCH (22:04)
[2017-02-23] MEDS: CLORAZEPATE 3.75 MG TABLET PEG SCH (22:04)
[2017-02-23] MEDS: CETIRIZINE 10 MG TABLET PER TUBE SCH (22:08)
[2017-02-24] MEDS: SODIUM CHLORIDE 0.9% 1,000 ML IV SCH ×2 (05:16→17:06)
[2017-02-24 06:16] LABS: Basophils # 0.1 10*3/uL (0.0-0.2); Basophils % 0.4 % (0.0-0.8); Eosinophils # 1.3 10*3/uL (0.0-0.87); Hematocrit 30.7 VOL% (42.0-52.0); Immature Granulocytes % 0.4 %; Immature Granulocytes Absolute 0.05 #; Lymphocytes # 1.1 10*3/uL (1.4-4.0); Lymphocytes % 9.9 % (21.2-54.2); Mean Corpuscular HGB Conc 32.9 GM/DL (32-36); Mean Corpuscular Hemoglobin 30 PG (27-34); Mean Corpuscular Volume 90.3 FL (87-102); Mean Platelet Volume 11.2 FL (9.6-12.0); Monocytes # 1.1 10*3/uL (0.11-0.8); Monocytes % 9.7 % (1.7-12.7); Neutrophils # 7.8 10*3/uL (1.4-7.4); Neutrophils % 68.6 % (38.7-73.9); Red Cell Distribution Width 16.8 % (9.3-17.3)
[2017-02-24 06:17] LABS: Hemoglobin 10.1 GM/DL (14.0-18.0); Platelet Count 241 T/CUMM (130-400); White Blood Count 11.4 T/CUMM (4-12)
[2017-02-24 06:37] LABS: Alanine Aminotransferase 28 U/L (16-61); Albumin 2.5 G/DL (3.4-5.0); Alkaline Phosphatase 109 U/L (45-117); Aspartate Amino Transferase 15 U/L (0-37); Band Neutrophils 2 % (0-10); Bilirubin,Total < 0.39 MG/DL (0.2-1.0); Blood Urea Nitrogen 14 MG/DL (7-18); Calcium 8.3 MG/DL (8.5-10.1); Eosinophils 6 % (0-10); Glucose 82 MG/DL (74-106); Lymphocytes 10 % (20-55); Metamyelocytes 1 %; Osmolality,Calculated 280.3 MOS/KG (273-304); Platelet Estimate Normal; Potassium 4.1 MMOL/L (3.5-5.1); Segmented Neutrophils 77 % (50-85); Sodium 141 MMOL/L (136-145); Total Cells Counted 100; Total Protein 5.7 G/DL (6.4-8.3)
[2017-02-24] MEDS: ALBUTEROL/IPRATROPIUM 3 ML NEB RESP TX SCH ×4 (07:31→19:10)
[2017-02-24] MEDS ORDERED: PROMETHAZINE 25 MG/1 ML VIAL IM ONE (08:00)
[2017-02-24] MEDS ORDERED: MIDAZOLAM 2 MG/2 ML VIAL ONE (08:02)
[2017-02-24] MEDS ORDERED: MIDAZOLAM 2 MG/2 ML VIAL IV ONE (08:30)
[2017-02-24] MEDS ORDERED: LIDOCAINE 1% 20 ML VIAL MISC INJ ONE (08:30)
[2017-02-24] MEDS ORDERED: LIDOCAINE 2% 20 ML VIAL RESP TX ONE (08:30)
--- NOTE | 2017-02-24 09:18 | Event Note ---
In-hospital diagnostic and therapeutic fiberoptic bronchoscopy with bilateral bronchoalveolar lavages for Gram stain, bacterial cultures, fungal stains and cultures. This is a 71-year-old white male with severe neurologic disease. He has been fed with a patent tube. He is not supposed to be eating but his "tried him on a little putting". It was thought that he aspirated. He has had increased shortness of breath he has a cough but is unable to mobilize a sputum his chest x-ray shows early right lower lung pneumonia with atelectasis and there is atelectasis in the left base. For these reasons the patient's evaluated with fiberoptic bronchoscopy. Vocal cords were normal. There was no gag reflex. Trachea was slightly collapsible and the fletcher was sharp. See photograph #1. Photograph #1 shows a sharp fletcher. The right mainstem bronchus is been cleared of secretions. There were secretions obstructing the left mainstem bronchus in this photograph. Right mainstem bronchus was occluded with thick tenacious secretions that extended into the right upper lung, right middle lung and right lower lung. There was erosive friable bronchitis in the right lower lung. See photograph # 2. All 3 lobes of the right lung were cleared with bronchoalveolar lavage. There was moderate collapsibility of the large and small airways. There were no endobronchial lesions seen. Left mainstem bronchus was occluded with thick tenacious pulmonary secretions. See photograph #2. These extended into the left upper lung and the left lower lung. There was underlying collapsibility of the large and small airways. This was moderate in degree. No endobronchial lesions were seen. The material in the clot collection apparatus showed what appeared to be pulmonary secretions. I did not see any characteristic PEG feedings. I could not rule out the presence of putting. Patient tolerated procedure well there were no complications. Impression. 1. Ineffective cough 2. Retained secretions 3. Suspected aspiration. No conclusive evidence. 4. Erosive friable bronchitis right lower lung 5. Moderate collapsibility of large and small airways. Plan. 1. Antibiotic coverage 2. Will probably need repeat bronchoscopy in a day or 2 3. Follow-up bronchoscopy 4. Check bronchoscopy is
--- NOTE | 2017-02-24 09:37 | Pulmonology Progress Note ---
Pulmonary - PN: Subj Interval history: This is a 71-year-old white male. He was seen in consultation my behalf by Dr. Orta. Patient was admitted with bibasilar pneumonia, shortness of breath, dyspnea, ineffective cough. It was also suspected that he had aspirated. His said "I gave him a little bit of pudding". The patient was bronchoscoped on the morning of 02/24/2017. Had a tremendous amount of retained secretions. I did not see the characteristic changes of aspirated PEG feedings. Also did not see the pudding but they could have been missed. This patient's other problems are. 1. 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 Bronchiectasis. 5. Inability to urinate. Requires bladder catheterization. 6. Inability to swallow. Has a PEG tube which was placed in [place]. 7. Obstructive sleep apnea 8. Allergic sinusitis 9. History of anxiety and depression 10. History of small ulcers involving the superior gluteal folds. 11. History of iron deficiency anemia Microbiology. Gram-positive cocci from the urine. Blood cultures are negative. Chest x-ray. Right lower lobe pneumonia. Atelectasis in the right lower lung and left lower lung Lab. Admit white count was 21,500. This is dropped to 11,400. H&H with rehydration is 10.1/30.7. Platelets are 241,000. Electrolytes are normal. Glucoses are under good control. With rehydration creatinine has dropped from 1.20-0.80. Protein and albumin are low at 5.7 and 2.5 respectively. Urinalysis shows only 5 white blood cells per high-power field Physical exam. Vital signs. See below. Afebrile. Psychiatric. Able to follow instructions Neurologic. Cerebellar ataxia Face. Symmetrical. No edema to lips or tongue. Neck. Symmetrical. No mass. No meningismus. Chest. Generalized coarse large airway congestion. Heart. No gallop Abdomen. PEG site looks normal. Bowel sounds are present Extremities. Nothing to suggest deep venous thrombophlebitis Lymphatics. No submandibular cervical supraclavicular or epitrochlear adenopathy. Skin. Not examined. Plan. 1. Check bronchoscopy cultures 2. Follow-up chest x-ray 3. Probable repeat bronchoscopy on Friday Exam (Progress Note) - Constitutional Vitals: Period Temp Pulse Resp BP Sys/Sims Pulse Ox Last 24 Hr 97.6 F-99.6 F 61-99 14-22 76-152/42-79 91-100 Results - Labs CBC & BMP: 02/24/17 05:57 02/24/17 05:57
[2017-02-24] MEDS: MEROPENEM 1,000 MG in SODIUM CHLORIDE 0.9% 100 ML IV SCH ×3 (09:48→22:23)
[2017-02-24] MEDS: FOLIC ACID PEG SCH (10:18)
[2017-02-24] MEDS: MV MIN PEG SCH (10:18)
[2017-02-24] MEDS: IRON FUM PEG SCH (10:18)
[2017-02-24] MEDS: ENOXAPARIN 40 MG/0.4 ML SYRINGE SUBCUT SCH (10:29)
[2017-02-24] MEDS: guaiFENesin 200 MG/10 ML UDCUP PER TUBE SCH ×3 (10:29→22:21)
[2017-02-24] MEDS: SODIUM CHLORIDE 0.65% NASAL SPRAY 45 ML BOTTLE BOTH NARES SCH ×2 (10:30→22:22)
[2017-02-24] MEDS: ZINC OXIDE PASTE 113 GM TUBE TOP SCH ×2 (10:30→22:23)
[2017-02-24] MEDS: ASPIRIN EC 81 MG TABLET PO SCH (10:30)
[2017-02-24] MEDS: MEMANTINE 5 MG TABLET PO SCH ×2 (10:30→22:22)
[2017-02-24] MEDS: MODAFINIL 200 MG PER TUBE SCH (10:30)
[2017-02-24] MEDS: MONTELUKAST 10 MG TABLET PER TUBE SCH (10:30)
[2017-02-24] MEDS: PSEUDOEPHEDRINE 30 MG TABLET PEG SCH (10:30)
[2017-02-24] MEDS: IPRATROPIUM 0.06% NASAL SPRAY 15 ML BOTTLE BOTH NARES SCH ×2 (10:30→22:22)
[2017-02-24] MEDS: LACTOBACILLUS RHAMNOSUS GG CAPSULE PER TUBE SCH (10:31)
[2017-02-24] MEDS: PANTOPRAZOLE 40 MG TABLET PO SCH (10:31)
--- NOTE | 2017-02-24 13:27 | Hospitalist Progress Note ---
Assessment and Plan (1) Fever Status: Resolved Current Visit: Yes Qualifiers: Encounter type: initial encounter (2) Pneumonia, aspiration Status: Acute Assessment and plan: Continue merrem Bronch actually without signs of aspiration Leukocytosis is improved Might need repeat bronch in a couple of days Current Visit: Yes Qualifiers: Laterality: left Lung location: lower lobe of lung (3) Cerebellar ataxia Status: Chronic Current Visit: No (4) Leukocytosis Status: Resolved Current Visit: Yes Hospitalist: Subjective Interval history: No acute events overnight. Patient underwent bronch this morning. He is tolerating tube feeds well now. He denies any pain or nausea. Exam - Constitutional Vitals: Period Temp Pulse Resp BP Sys/Sims Pulse Ox Last 24 Hr 97.6 F-99.6 F 61-91 14-20 78-152/42-79 91-100 General appearance: under weight - Head Head exam: Present: normocephalic, atraumatic - Eye Eye exam: Present: EOMI Pupils: Present: JAYDE - ENT ENT exam: Present: normal exam - Neck Neck exam: Present: normal inspection - Respiratory Respiratory exam: Present: clear to auscultation bilaterally. Absent: rhonchi, wheezes - Cardiovascular Cardiovascular exam: Present: regular rate and rhythm - GI/Abdominal GI/Abdominal exam: Present: normal bowel sounds, soft. Absent: tenderness, rebound - Extremities Exam Extremities exam: Present: normal inspection - Back Exam Back exam: Present: normal inspection - Neurological Exam Neurological exam: Present: alert, oriented X3 - Psychiatric Psychiatric exam: Present: normal affect, normal mood - Skin Skin exam: Present: warm, intact Results - Labs CBC & BMP: 02/24/17 05:57 02/24/17 05:57
[2017-02-24] MEDS: IRON (CARBONYL)/VIT C/B12/FA TABLET PEG SCH (13:36)
[2017-02-24] MEDS: POTASSIUM IODIDE ORAL SOLN 1,000 MG/ML BOTTLE PEG SCH ×2 (14:16→22:20)
[2017-02-24] MEDS: ACETYLCYSTEINE 20% 800 MG/4 ML VIAL RESP TX SCH ×2 (14:52→19:10)
[2017-02-24] MEDS: CLORAZEPATE 3.75 MG TABLET PEG SCH (22:22)
[2017-02-24] MEDS: CETIRIZINE 10 MG TABLET PER TUBE SCH (22:22)
[2017-02-24] MEDS: PREGABALIN 100 MG CAPSULE PEG SCH (22:23)
[2017-02-25] MEDS: SODIUM CHLORIDE 0.9% 1,000 ML IV SCH ×3 (01:35→14:18)
[2017-02-25] MEDS: MEROPENEM 1,000 MG in SODIUM CHLORIDE 0.9% 100 ML IV SCH ×3 (06:00→21:41)
[2017-02-25 06:36] LABS: Magnesium 2.1 MG/DL (1.8-2.4); Osmolality,Calculated 278.3 MOS/KG (273-304); Phosphorous 2.3 MG/DL (2.5-4.9); Potassium 3.7 MMOL/L (3.5-5.1); Prealbumin 17.5 MG/DL (20-40)
[2017-02-25] MEDS: ALBUTEROL/IPRATROPIUM 3 ML NEB RESP TX SCH ×4 (07:30→20:04)
[2017-02-25] MEDS: ACETYLCYSTEINE 20% 800 MG/4 ML VIAL RESP TX SCH ×3 (07:30→20:04)
--- NOTE | 2017-02-25 08:14 | XRay Report ---
History is pneumonia and coughing Comparison 02/23/2017 The heart is normal in size There remain mild reticular pulmonary opacities in both lung bases without significant change. Upper lung quinonez are clear. No consolidation seen Impression: No significant change in the basilar reticular opacities of a some which are chronic and possibly superimposed interstitial infiltrates versus progressive fibrosis. PROCEDURE INTERPRETED AT [facility] DEPARTMENT OF RADIOLOGY Final Report Signed by: Dr. Liz Chilel
--- NOTE | 2017-02-25 09:01 | Pulmonology Progress Note ---
Pulmonary - PN: Subj Interval history: This is a 71-year-old white male. He was seen in consultation my behalf by Dr. Orta. Patient was admitted with bibasilar pneumonia, shortness of breath, dyspnea, ineffective cough. It was also suspected that he had aspirated. His said "I gave him a little bit of pudding". 02/24/2070 The patient was bronchoscoped on the morning of 02/24/2017. Had a tremendous amount of retained secretions. I did not see the characteristic changes of aspirated PEG feedings. Also did not see the pudding but they could have been missed. This patient's other problems are. 1. 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 Bronchiectasis. 5. Inability to urinate. Requires bladder catheterization. 6. Inability to swallow. Has a PEG tube which was placed in [place]. 7. Obstructive sleep apnea 8. Allergic sinusitis 9. History of anxiety and depression 10. History of small ulcers involving the superior gluteal folds. 11. History of iron deficiency anemia Microbiology. Gram-positive cocci from the urine. Blood cultures are negative. Chest x-ray. Right lower lobe pneumonia. Atelectasis in the right lower lung and left lower lung Lab. Admit white count was 21,500. This is dropped to 11,400. H&H with rehydration is 10.1/30.7. Platelets are 241,000. Electrolytes are normal. Glucoses are under good control. With rehydration creatinine has dropped from 1.20-0.80. Protein and albumin are low at 5.7 and 2.5 respectively. Urinalysis shows only 5 white blood cells per high-power field 02/25/2017 patient was seen along with his . He looks stronger. His chest still reveals a good bit of large airway congestion. His cough is ineffective. His PEG feedings seem to be going okay. Chest x-ray shows some residual right lower lung infiltrate and patient has bibasilar micro-macro atelectasis. This is improved slightly since his last x-ray. Urine is growing gram-positive cocci. Bronchoscopy specimen showed gram-positive cocci but no growth is reported. Patient has become afebrile and his white blood cell count has dropped from 21,000 511,400. H&H is 10.1/30.7 electrolytes are normal. Creatinine is dropped from 1.2-0.90. Physical exam. Vital signs. See below. Afebrile. Psychiatric. Able to follow instructions Neurologic. Cerebellar ataxia Face. Symmetrical. No edema to lips or tongue. Neck. Symmetrical. No mass. No meningismus. Chest. Generalized coarse large airway congestion. Heart. No gallop Abdomen. PEG site looks normal. Bowel sounds are present Extremities. Nothing to suggest deep venous thrombophlebitis Lymphatics. No submandibular cervical supraclavicular or epitrochlear adenopathy. Skin. Not examined. Plan. 02/24/2017. 1. Check bronchoscopy cultures 2. Follow-up chest x-ray 3. Probable repeat bronchoscopy on Friday02/25/2017. 1. Follow-up bronchoscopy is planned for 02/26/2017. Patient's cough is ineffective. 2. Check culture results when available 3. Continue PEG feedings and watch for reflux and aspiration. 4. If this patient does well he could be ready for discharge by Friday. Exam (Progress Note) - Constitutional Vitals: Period Temp Pulse Resp BP Sys/Sims Pulse Ox Last 24 Hr 97.1 F-100.5 F 72-94 16-22 83-124/51-69 91-100 Results - Labs CBC & BMP: 02/24/17 05:57 02/25/17 05:34
[2017-02-25] MEDS: guaiFENesin 200 MG/10 ML UDCUP PER TUBE SCH ×3 (09:40→20:35)
[2017-02-25] MEDS: ENOXAPARIN 40 MG/0.4 ML SYRINGE SUBCUT SCH (09:40)
[2017-02-25] MEDS: PSEUDOEPHEDRINE 30 MG TABLET PEG SCH (09:41)
[2017-02-25] MEDS: PANTOPRAZOLE 40 MG TABLET PO SCH (09:41)
[2017-02-25] MEDS: POTASSIUM IODIDE ORAL SOLN 1,000 MG/ML BOTTLE PEG SCH ×3 (09:41→20:34)
[2017-02-25] MEDS: LACTOBACILLUS RHAMNOSUS GG CAPSULE PER TUBE SCH (09:41)
[2017-02-25] MEDS: MEMANTINE 5 MG TABLET PO SCH ×2 (09:41→20:35)
[2017-02-25] MEDS: MONTELUKAST 10 MG TABLET PER TUBE SCH (09:41)
[2017-02-25] MEDS: ASPIRIN EC 81 MG TABLET PO SCH (09:41)
[2017-02-25] MEDS: SODIUM CHLORIDE 0.65% NASAL SPRAY 45 ML BOTTLE BOTH NARES SCH ×2 (09:55→20:34)
[2017-02-25] MEDS: IPRATROPIUM 0.06% NASAL SPRAY 15 ML BOTTLE BOTH NARES SCH ×2 (09:55→20:34)
[2017-02-25] MEDS: MODAFINIL 200 MG PER TUBE SCH (09:55)
[2017-02-25] MEDS: IRON (CARBONYL)/VIT C/B12/FA TABLET PEG SCH (09:56)
[2017-02-25] MEDS: ZINC OXIDE PASTE 113 GM TUBE TOP SCH ×2 (09:56→20:36)
--- NOTE | 2017-02-25 15:55 | Hospitalist Progress Note ---
Hospitalist: Subjective Interval history: Patient was admitted with aspiration pneumonia, he reports improved breathing. Exam - Constitutional Vitals: Period Temp Pulse Resp BP Sys/Sims Pulse Ox Last 24 Hr 97.1 F-100.5 F 78-95 16-22 107-124/57-69 95-100 Exam: General: [No Acute Distress] HEENT: [Normocephalic, atraumatic, Extra ocular movements intact] Neck: [Supple, No JVD] Chest: [Clear to auscultation B/L] CV: [S1 + S2 audible without murmur, gallop or rub] Abd: [soft, NT, Non-distended, PEG +, BS +] Ext: [No edema] Skin: [No purpura, bruising or rash] Rheumatologic: [No Joint deformities] Neurologic: [Awake and alert] Results - Labs CBC & BMP: 02/24/17 05:57 02/25/17 05:34 - Impressions Assessment and Plan: Pneumonia, aspiration Status: Acute Assessment and plan: He is doing better with antibiotic and after FOB. He is chronically n.p.o. due to aspiration and has PEG tube in place. He is undergoing PEG feedings Current Visit: Yes Qualifiers: Laterality: left Lung location: lower lobe of lung Chronic cerebellar ataxia Status: Chronic Current Visit: No
[2017-02-25] MEDS: GLYCOPYRROLATE 0.4 MG/2 ML VIAL IV SCH ×2 (17:03→23:56)
[2017-02-25] MEDS: PREGABALIN 100 MG CAPSULE PEG SCH (20:35)
[2017-02-25] MEDS: CLORAZEPATE 3.75 MG TABLET PEG SCH (20:35)
[2017-02-25] MEDS: CETIRIZINE 10 MG TABLET PER TUBE SCH (20:35)
[2017-02-26] MEDS: SODIUM CHLORIDE 0.9% 1,000 ML IV SCH ×2 (01:31→13:43)
[2017-02-26] MEDS: MEROPENEM 1,000 MG in SODIUM CHLORIDE 0.9% 100 ML IV SCH ×3 (06:00→22:41)
[2017-02-26 06:15] LABS: Basophils # 0.1 10*3/uL (0.0-0.2); Basophils % 0.5 % (0.0-0.8); Eosinophils # 1.4 10*3/uL (0.0-0.87); Eosinophils % 14.2 % (0.00-10.9); Hematocrit 31.4 VOL% (42.0-52.0); Hemoglobin 10.3 GM/DL (14.0-18.0); Immature Granulocytes % 0.5 %; Immature Granulocytes Absolute 0.05 #; Lymphocytes % 10.9 % (21.2-54.2); Mean Corpuscular HGB Conc 32.8 GM/DL (32-36); Mean Corpuscular Hemoglobin 29 PG (27-34); Mean Corpuscular Volume 89.2 FL (87-102); Mean Platelet Volume 11.2 FL (9.6-12.0); Monocytes # 0.9 10*3/uL (0.11-0.8); Monocytes % 9.3 % (1.7-12.7); Neutrophils # 6.2 10*3/uL (1.4-7.4); Neutrophils % 64.6 % (38.7-73.9); Platelet Count 277 T/CUMM (130-400); Red Blood Count 3.52 MC/CUMM (3.8-5.5); Red Cell Distribution Width 16.4 % (9.3-17.3); White Blood Count 9.6 T/CUMM (4-12)
[2017-02-26 06:21] LABS: PT Patient Result 10.6 SECS; Partial Thromboplastin Time 30.9 SECS (0-40)
[2017-02-26 06:37] LABS: Eosinophils 14 % (0-10); Giant Platelets Few; Hypochromasia 1+; Lymphocytes 11 % (20-55); Ovalocytes Slight; Platelet Estimate Adequate; Segmented Neutrophils 72 % (50-85); Total Cells Counted 100
[2017-02-26] MEDS: ALBUTEROL/IPRATROPIUM 3 ML NEB RESP TX SCH ×4 (06:57→19:03)
[2017-02-26] MEDS: ACETYLCYSTEINE 20% 800 MG/4 ML VIAL RESP TX SCH ×3 (06:57→19:20)
[2017-02-26] MEDS ORDERED: diphenhydrAMINE 50 MG/1 ML VIAL IM ONE (07:00)
[2017-02-26] MEDS ORDERED: PROMETHAZINE 25 MG/1 ML VIAL IM ONE (08:00)
[2017-02-26] MEDS ORDERED: LIDOCAINE 1% 20 ML VIAL MISC INJ ONE (08:00)
--- NOTE | 2017-02-26 08:54 | XRay Report ---
XR chest 1V portable Indication: Cough, pneumonia Comparison: 25 February 2017 Findings: The heart and mediastinum are normal in size and configuration. The pulmonary vascularity is normal in caliber. Small amounts of interstitial density are present in both lung bases, similar to previous exam. No other lung infiltrates, effusions, pneumothorax or other abnormality is demonstrated. Impression: No significant changes. PROCEDURE INTERPRETED AT [facility] DEPARTMENT OF RADIOLOGY Final Report Signed by: Dr. Dennys Quevedo
[2017-02-26] MEDS ORDERED: CHOLESTYRAMINE 4 GM PACK PO PRN (09:23)
[2017-02-26] MEDS ORDERED: CHOLESTYRAMINE 4 GM PACK PEG PRN (09:25)
--- NOTE | 2017-02-26 09:42 | Event Note ---
In-hospital therapeutic and diagnostic fiberoptic bronchoscopy. Left lower lung superior segment bronchoalveolar lavage was sent for cytology. Bilateral bronchoalveolar lavages were sent for Gram stain, bacterial culture, AFB stains and culture, fungal stains and cultures. This is a 71-year-old white male with cerebella ataxia and ineffective cough. There is been a history of aspiration. He has secretions which he cannot mobilize. His chest x-ray has been abnormal with a right lower lung infiltrate bibasilar atelectasis. For these reasons he is evaluated with fiberoptic bronchoscopy. The distal trachea containing secretions which were removed. The fletcher was sharp. There are retained secretions in both mainstem bronchi. See photograph #1 #2. The left mainstem bronchus was full of secretions that extended into the left upper lung the left lower lung. All these areas were lavaged until clear. In the superior segment of the left lower lung 1 of the subsegments is stenosed. See photographs #3 #4. This area was lavaged with 30 cc of normal saline and the specimens were sent for cytology. The underlying large and small airways are moderately collapsible. The right mainstem bronchus was full of thick tenacious secretions that extended into the right upper lung, right middle lung and right lower lung. These areas were cleared with bronchoalveolar lavage. There was mild erosive friable bronchitis in the right middle lung and the right lower lung. No endobronchial lesions or suspected lesions were seen on the right. Large and small airways were moderately collapsible. Patient tolerated procedure well. There were no complications. Findings were discussed with his . CARLOS Pulido nurse practitioner was present. Impression. 1. Ineffective cough. Exacerbated by his generalized weakness and cerebellar ataxia. 2. Retained secretions 3. Right middle lung and right lower lung erosive friable bronchitis 4. Partial stenosis of the second segment of the left lower lung superior segment. Specimen sent for cytology. 5. Moderately collapsible large and small airways. Compatible with COPD. Plan. 1. Follow-up chest x-ray 2. Check bronchoscopy specimens.
--- NOTE | 2017-02-26 09:48 | Pulmonology Progress Note ---
Pulmonary - PN: Subj Interval history: This is a 71-year-old white male. He was seen in consultation my behalf by Dr. Orta. Patient was admitted with bibasilar pneumonia, shortness of breath, dyspnea, ineffective cough. It was also suspected that he had aspirated. His said "I gave him a little bit of pudding". 02/24/2070 The patient was bronchoscoped on the morning of 02/24/2017. Had a tremendous amount of retained secretions. I did not see the characteristic changes of aspirated PEG feedings. Also did not see the pudding but they could have been missed. This patient's other problems are. 1. 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 Bronchiectasis. 5. Inability to urinate. Requires bladder catheterization. 6. Inability to swallow. Has a PEG tube which was placed in [place]. 7. Obstructive sleep apnea 8. Allergic sinusitis 9. History of anxiety and depression 10. History of small ulcers involving the superior gluteal folds. 11. History of iron deficiency anemia Microbiology. Gram-positive cocci from the urine. Blood cultures are negative. Chest x-ray. Right lower lobe pneumonia. Atelectasis in the right lower lung and left lower lung Lab. Admit white count was 21,500. This is dropped to 11,400. H&H with rehydration is 10.1/30.7. Platelets are 241,000. Electrolytes are normal. Glucoses are under good control. With rehydration creatinine has dropped from 1.20-0.80. Protein and albumin are low at 5.7 and 2.5 respectively. Urinalysis shows only 5 white blood cells per high-power field 02/25/2017 patient was seen along with his . He looks stronger. His chest still reveals a good bit of large airway congestion. His cough is ineffective. His PEG feedings seem to be going okay. Chest x-ray shows some residual right lower lung infiltrate and patient has bibasilar micro-macro atelectasis. This is improved slightly since his last x-ray. Urine is growing gram-positive cocci. Bronchoscopy specimen showed gram-positive cocci but no growth is reported. Patient has become afebrile and his white blood cell count has dropped from 21,000 511,400. H&H is 10.1/30.7 electrolytes are normal. Creatinine is dropped from 1.2-0.90. 02/26/2017. Today's chest x-ray shows stable cardiomegaly. There is resolving right lower lung infiltrate and a resolving left lower lung infiltrate with mild bibasilar atelectasis. No evidence of congestive heart failure. Patient was evaluated with fiberoptic bronchoscopy today. See report. He continues to have a great deal of retained secretions. His urine culture has grown enterococcus and I started the patient on Zyvox 300 mg IV piggyback every 12 hours. Previous bronchoscopy specimens show show no fungal elements and the cultures are growing "normal tamie at 48 hours" blood cultures have been negative. White count is dropped from 21,000 509,600 with 65 segs 11 lymphs and 9 monos. H&H is 10.3/31.4. INR is 1.0. Electrolytes are normal. Patient' s biggest problem now is mobilizing his secretions. We will see what grows from today's bronchoscopy. I think he could be ready for discharge by Friday. This is all been discussed with his and I have reviewed several of his medicines with her. Physical exam. Vital signs. See below. Afebrile. Psychiatric. Able to follow instructions Neurologic. Cerebellar ataxia Face. Symmetrical. No edema to lips or tongue. Neck. Symmetrical. No mass. No meningismus. Chest. Generalized coarse large airway congestion. Heart. No gallop Abdomen. PEG site looks normal. Bowel sounds are present Extremities. Nothing to suggest deep venous thrombophlebitis Lymphatics. No submandibular cervical supraclavicular or epitrochlear adenopathy. Skin. Not examined. Plan. 02/24/2017. 1. Check bronchoscopy cultures 2. Follow-up chest x-ray 3. Probable repeat bronchoscopy on Friday02/25/2017. 1. Follow-up bronchoscopy is planned for 02/26/2017. Patient's cough is ineffective. 2. Check culture results when available 3. Continue PEG feedings and watch for reflux and aspiration. 4. If this patient does well he could be ready for discharge by Friday. 02/26/2017. 1. See today's note above 2. Fiberoptic bronchoscopy done 02/26/2017. Check cultures. 3. Enterococcus faecalis. Start Zyvox 300 mg IV piggyback every 12 hours 4. Should be ready for discharge on Friday. No drop in white blood cell count 5. Chest x-ray on . Exam (Progress Note) - Constitutional Vitals: Period Temp Pulse Resp BP Sys/Sims Pulse Ox Last 24 Hr 97.3 F-97.9 F 73-101 12-24 101-130/58-75 93-99 Results - Labs CBC & BMP: 02/26/17 05:36 02/25/17 05:34
[2017-02-26] MEDS: IPRATROPIUM 0.06% NASAL SPRAY 15 ML BOTTLE BOTH NARES SCH ×2 (10:35→22:53)
[2017-02-26] MEDS: MONTELUKAST 10 MG TABLET PER TUBE SCH (10:37)
[2017-02-26] MEDS: MODAFINIL 200 MG PER TUBE SCH (10:37)
[2017-02-26] MEDS: IRON (CARBONYL)/VIT C/B12/FA TABLET PEG SCH (10:37)
[2017-02-26] MEDS: PANTOPRAZOLE 40 MG TABLET PO SCH (10:37)
[2017-02-26] MEDS: ASPIRIN EC 81 MG TABLET PO SCH (10:37)
[2017-02-26] MEDS: PSEUDOEPHEDRINE 30 MG TABLET PEG SCH (10:37)
[2017-02-26] MEDS: ENOXAPARIN 40 MG/0.4 ML SYRINGE SUBCUT SCH (10:38)
[2017-02-26] MEDS: guaiFENesin 200 MG/10 ML UDCUP PER TUBE SCH ×3 (10:38→22:41)
[2017-02-26] MEDS: MEMANTINE 5 MG TABLET PO SCH ×2 (10:38→22:40)
[2017-02-26] MEDS: LACTOBACILLUS RHAMNOSUS GG CAPSULE PER TUBE SCH (10:38)
[2017-02-26] MEDS: ZINC OXIDE PASTE 113 GM TUBE TOP SCH ×2 (10:39→22:53)
[2017-02-26] MEDS: SODIUM CHLORIDE 0.65% NASAL SPRAY 45 ML BOTTLE BOTH NARES SCH ×2 (10:46→22:53)
[2017-02-26] MEDS: GLYCOPYRROLATE 1 MG TABLET PO SCH ×3 (11:18→22:41)
[2017-02-26] MEDS: POTASSIUM IODIDE ORAL SOLN 1,000 MG/ML BOTTLE PEG SCH ×3 (11:18→22:42)
[2017-02-26] MEDS: LINEZOLID INJ 300 MG in PREMIX 1 EACH IV SCH (13:33)
--- NOTE | 2017-02-26 15:49 | Hospitalist Progress Note ---
Hospitalist: Subjective Interval history: 71-year-old male admitted with pneumonia. He is status post repeat bronchoscopy today and required good amount of bronchioloalveolar lavage as both bronchi were full of secretions. He is breathing comfortably Exam - Constitutional Vitals: Period Temp Pulse Resp BP Sys/Sims Pulse Ox Last 24 Hr 97.1 F-97.9 F 73-104 12-24 101-130/58-75 94-99 Exam: General: [No Acute Distress] HEENT: [Normocephalic, atraumatic, Extra ocular movements intact] Neck: [Supple, No JVD] Chest: [Clear to auscultation B/L] CV: [S1 + S2 audible without murmur, gallop or rub] Abd: [soft, NT, Non-distended, PEG +, BS +] Ext: [No edema] Skin: [No purpura, bruising or rash] Rheumatologic: [No Joint deformities] Neurologic: [Awake and alert] Results - Labs CBC & BMP: 02/26/17 05:36 02/25/17 05:34 - Impressions Pneumonia, aspiration Status: Acute Assessment and plan: He is doing better with antibiotic and after FOB. He is chronically n.p.o. due to aspiration and has PEG tube in place. He is undergoing PEG feedings. Continue IV Merrem Current Visit: Yes Qualifiers: Laterality: left Lung location: lower lobe of lung Enterococcus UTI, POA Status: Acute current Visit: Yes Patient is on Zyvox Chronic cerebellar ataxia Status: Chronic Current Visit: No
[2017-02-26] MEDS: PREGABALIN 100 MG CAPSULE PEG SCH (22:40)
[2017-02-26] MEDS: CLORAZEPATE 3.75 MG TABLET PEG SCH (22:40)
[2017-02-26] MEDS: CETIRIZINE 10 MG TABLET PER TUBE SCH (22:41)
[2017-02-27] MEDS: LINEZOLID INJ 300 MG in PREMIX 1 EACH IV SCH ×2 (00:13→11:26)
[2017-02-27] MEDS: MEROPENEM 1,000 MG in SODIUM CHLORIDE 0.9% 100 ML IV SCH (04:51)
[2017-02-27 07:04] LABS: Calcium 8.5 MG/DL (8.5-10.1); Magnesium 2.2 MG/DL (1.8-2.4); Osmolality,Calculated 282.1 MOS/KG (273-304); Prealbumin 15.6 MG/DL (20-40)
[2017-02-27] MEDS: ALBUTEROL/IPRATROPIUM 3 ML NEB RESP TX SCH ×4 (07:05→20:10)
[2017-02-27] MEDS: ACETYLCYSTEINE 20% 800 MG/4 ML VIAL RESP TX SCH ×3 (07:15→20:10)
--- NOTE | 2017-02-27 07:15 | XRay Report ---
Exam: XR chest 1V portable Date: 02/27/2017 4:00 AM Indication: Cough, pneumonia Comparison: None Technical: AP Findings: Patchy infiltrate present in the left base in the retrocardiac region with underlying component of interstitial infiltrates in the right base and underlying scarring is present in both bases. The heart is normal in size. The mediastinum is intact. Impression: 1. Pneumonic infiltrate suspected in the left base in the retrocardiac region superimposed on bilateral interstitial fibrotic scarring in both bases. PROCEDURE INTERPRETED AT [facility] DEPARTMENT OF RADIOLOGY Final Report Signed by: Dr. Mikael Osborn
[2017-02-27] MEDS ORDERED: CHOLESTYRAMINE 4 GM PACK PO SCH (09:00)
[2017-02-27] MEDS: guaiFENesin 200 MG/10 ML UDCUP PER TUBE SCH ×3 (09:59→22:20)
[2017-02-27] MEDS: POTASSIUM IODIDE ORAL SOLN 1,000 MG/ML BOTTLE PEG SCH ×3 (10:01→22:28)
[2017-02-27] MEDS: ENOXAPARIN 40 MG/0.4 ML SYRINGE SUBCUT SCH (10:01)
[2017-02-27] MEDS: IPRATROPIUM 0.06% NASAL SPRAY 15 ML BOTTLE BOTH NARES SCH ×2 (10:02→22:45)
[2017-02-27] MEDS: SODIUM CHLORIDE 0.65% NASAL SPRAY 45 ML BOTTLE BOTH NARES SCH ×2 (10:02→22:45)
[2017-02-27] MEDS: MODAFINIL 200 MG PER TUBE SCH (10:04)
[2017-02-27] MEDS: MONTELUKAST 10 MG TABLET PER TUBE SCH (10:05)
[2017-02-27] MEDS: PSEUDOEPHEDRINE 30 MG TABLET PEG SCH (10:05)
[2017-02-27] MEDS: LACTOBACILLUS RHAMNOSUS GG CAPSULE PER TUBE SCH (10:05)
[2017-02-27] MEDS: ASPIRIN EC 81 MG TABLET PO SCH (10:05)
[2017-02-27] MEDS: IRON (CARBONYL)/VIT C/B12/FA TABLET PEG SCH (10:05)
[2017-02-27] MEDS: MEMANTINE 5 MG TABLET PO SCH ×2 (10:05→22:21)
[2017-02-27] MEDS: GLYCOPYRROLATE 1 MG TABLET PO SCH ×3 (10:05→22:21)
[2017-02-27] MEDS: SODIUM CHLORIDE 0.9% 1,000 ML IV SCH (10:12)
--- NOTE | 2017-02-27 10:48 | Pulmonology Progress Note ---
Pulmonary - PN: Subj Interval history: Kj Jonny, [facility]-, acting as scribe for Dr. Mikael Renteria This is a 71-year-old white male. He was seen in consultation on our behalf by Dr. Orta. Patient was admitted with bibasilar pneumonia, shortness of breath , dyspnea, ineffective cough. It was also suspected that he had aspirated. His said "I gave him a little bit of pudding". 02/24/2017. The patient was bronchoscoped on the morning of 02/24/2017. Had a tremendous amount of retained secretions. I did not see the characteristic changes of aspirated PEG feedings. Also did not see the pudding but that could have been missed. This patient's other problems are: 1. 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 Bronchiectasis. 5. Inability to urinate. Requires bladder catheterization. 6. Inability to swallow. Has a PEG tube which was placed in [place]. 7. Obstructive sleep apnea 8. Allergic sinusitis 9. History of anxiety and depression 10. History of small ulcers involving the superior gluteal folds. 11. History of iron deficiency anemia Microbiology. Gram-positive cocci from the urine. Blood cultures are negative. Chest x-ray. Right lower lobe pneumonia. Atelectasis in the right lower lung and left lower lung Lab. Admit white count was 21,500. This is dropped to 11,400. H&H with rehydration is 10.1/30.7. Platelets are 241,000. Electrolytes are normal. Glucoses are under good control. With rehydration creatinine has dropped from 1.20-0.80. Protein and albumin are low at 5.7 and 2.5 respectively. Urinalysis shows only 5 white blood cells per high-power field 02/25/2017. The patient was seen along with his . He looks stronger. His chest still reveals a good bit of large airway congestion. His cough is ineffective. His PEG feedings seem to be going okay. Chest x-ray shows some residual right lower lung infiltrate and patient has bibasilar micro-macro atelectasis. This is improved slightly since his last x-ray. Urine is growing gram-positive cocci. Bronchoscopy specimen showed gram-positive cocci but no growth is reported. Patient has become afebrile and his white blood cell count has dropped from 21,000 511,400. H&H is 10.1/30.7 electrolytes are normal. Creatinine is dropped from 1.2-0.90. 02/26/2017. Today's chest x-ray shows stable cardiomegaly. There is resolving right lower lung infiltrate and a resolving left lower lung infiltrate with mild bibasilar atelectasis. No evidence of congestive heart failure. Patient was evaluated with fiberoptic bronchoscopy today. See report. He continues to have a great deal of retained secretions. His urine culture has grown enterococcus and I started the patient on Zyvox 300 mg IV piggyback every 12 hours. Previous bronchoscopy specimens show show no fungal elements and the cultures are growing "normal tamie at 48 hours" blood cultures have been negative. White count is dropped from 21,000 509,600 with 65 segs 11 lymphs and 9 monos. H&H is 10.3/31.4. INR is 1.0. Electrolytes are normal. Patient' s biggest problem now is mobilizing his secretions. We will see what grows from today's bronchoscopy. I think he could be ready for discharge by Friday. This is all been discussed with his and I have reviewed several of his medicines with her. 02/27/2017. Patient was seen today along with his . He has not had any further coughing episodes. On chest exam, he is fairly clear. Bronchoscopy Gram stain from 02/26/2017 is pending. Cultures pending as well. There is no AFB or fungus seen on smears. We will schedule him a follow-up appointment in approximately 3 weeks with Kamilah Rich, nurse practitioner with a chest x-ray. At that time, we will discuss with her the patient needs outpatient bronchoscopy. Previous urine culture grew VRE and he is on Zyvox for this. He continues to complain of urinary frequency, so we will ask for repeat urinalysis today. Medications have been reviewed. We made no changes today. Labs been reviewed. Creatinine 0.0, BUN 10, electrolytes were normal Exam (Progress Note) - Constitutional Vitals: Period Temp Pulse Resp BP Sys/Sims Pulse Ox Last 24 Hr 97.1 F-98.5 F 77-108 16-20 101-122/53-80 94-100 Exam: Chest with improved generalized coarse large airway congestion; no wheeze Heart no gallop Abdomen is nontender and nondistended; PEG site looks normal; bowel sounds are present Extremities with nothing to suggest acute deep venous thrombophlebitis Psychiatric alert and able to follow instructions Neurologic unchanged Plan: Repeat urinalysis today and will get culture if indicated. Continue present treatment. Scheduled the patient follow-up with Kamilah Rich, nurse practitioner, in approximately 3 weeks with a chest x-ray. The patient continues to do well, he will most likely be acceptable for discharge tomorrow from our standpoint. Results - Labs CBC & BMP: 02/26/17 05:36 02/27/17 06:01 Specialty Discharge - Follow Up or Referrals Follow up with: Kamilah Rich CFNP [Advanced Practice Nurse] - (3 weeks with CXR; will discuss the need for OP FOB at that time)
--- NOTE | 2017-02-27 12:15 | Hospitalist Progress Note ---
Hospitalist: Subjective Interval history: 71-year-old male admitted with pneumonia. He is status post repeat bronchoscopy yesterday and required good amount of bronchioloalveolar lavage as both bronchi were full of secretions. He is breathing comfortably Exam - Constitutional Vitals: Period Temp Pulse Resp BP Sys/Sims Pulse Ox Last 24 Hr 97.2 F-98.5 F 77-108 16-21 94-122/53-80 94-100 Exam: General: [No Acute Distress] HEENT: [Normocephalic, atraumatic, Extra ocular movements intact] Neck: [Supple, No JVD] Chest: [Clear to auscultation B/L] CV: [S1 + S2 audible without murmur, gallop or rub] Abd: [soft, NT, Non-distended, PEG +, BS +] Ext: [No edema] Skin: [No purpura, bruising or rash] Rheumatologic: [No Joint deformities] Neurologic: [Awake and alert] Results - Labs CBC & BMP: 02/26/17 05:36 02/27/17 06:01 - Impressions Pneumonia, aspiration Status: Acute Assessment and plan: He is doing better with antibiotic and after FOB. He is chronically n.p.o. due to aspiration and has PEG tube in place. He is undergoing PEG feedings. Continue IV Merrem Current Visit: Yes Qualifiers: Laterality: left Lung location: lower lobe of lung Enterococcus UTI, POA Status: Acute current Visit: Yes Patient is on Zyvox Chronic cerebellar ataxia Status: Chronic Current Visit: No Specialty Discharge - Follow Up or Referrals Follow up with: Kamilah Rich CFNP [Advanced Practice Nurse] - (3 weeks with CXR; will discuss the need for OP FOB at that time)
[2017-02-27] MEDS: MEROPENEM 1,000 MG in SODIUM CHLORIDE 0.9% 50 ML IV SCH ×2 (12:56→22:21)
[2017-02-27] MEDS: ZINC OXIDE PASTE 113 GM TUBE TOP SCH ×2 (12:56→22:45)
[2017-02-27] MEDS: PANTOPRAZOLE 40 MG TABLET PO SCH (12:58)
--- NOTE | 2017-02-27 13:17 | Pathology Report from [facility] ---
[facility] ACCESSION # : [id number] PATIENT NAME : Matthew Ashley ORDERING DR : MATTHIAS BUSBY MD CLINICAL HX: Insufficient Cough, COPD POST-OP DX: Same SPECIMEN INFO: Washing,Bronchial,LLLSuperiorSegment - 15 mls greyish white, mucoid CLASS: I CLASS COMMENTS: Inflammation, squamous metaplasia, benign respiratory epithelium , and pulmonary macrophages.CELL BLOCK: Same. CLASS LEGEND: CLASS 0 Material inadequate for diagnosis because of (see comment) CLASS I Absence of atypical or abnormal cells CLASS II Atypical Cytology but no evidence of malignancy CLASS III Cytology suggestive of but not conclusive for malignancy CLASS IV Cytology strongly suggestive of malignancy CLASS V Cytology conclusive for malignancy COLLECTED DATE: 02/26/2017 [facility] REPORT DATE: 02/27/2017 ELECTRONICALLY SIGNED BY: Adair Mercado M.D. 02/27/2017 - 10:03:36 [email or web address]
[2017-02-27 14:29] LABS: Apearance,Urine CLEAR (Clear); Bacteria,Urine Occasional /HPF (Few); Bilirubin,Urine Negative (Negative); Blood, Urine Negative (Negative); Glucose,Urine (UA) Negative (Negative); Ketones,Urine Negative (Negative); Mucus,Urine Occasional /LPF (Occasional); Nitrite,Urine Negative (Negative); Protein,Urine Negative; RBC,Urine 1 /HPF (0-4); Urine Color Yellow (Yellow); Urine Specific Gravity 1.008 (1.001-1.035); Urine Urobilinogen < 2.0 EU/DL (0.2-1.0); WBC,Urine 3 /HPF (0-6)
--- NOTE | 2017-02-27 15:02 | Physician Query Form ---
CLICK EDIT DOCUMENT TO SELECT QUERY ANSWER --> OK --> SIGN Jenny Milton RN Clinical Chemistry Associate W) [phone] (f) [phone] [email or web address] PROVIDERS: Make your selection(s) from the choices in EACH section by typing an "x" and enter comments in the comment section. Please use your independent medical judgment in providing your response. This request does not imply that any particular answer is desired or expected. CLINICAL INDICATORS: (Providers should not edit this section) Based on documentation of "Sepsis" "Acute Fever" "Acute Aspiration PNA" Temp of 100.5, BP of 80/48, WBC of 21.5. Urine culture grew "Faecium VRE" Treated with IV Rocephin, IV Merrem, NS bolus, and NS infusion. Please clarify which, if any, of the following is the etiology of the above symptoms and treatment rendered: ( ) Sepsis due to a localized infection, please specify infection: ( ) Severe Sepsis (sepsis with acute organ failure) - Please specify type acute organ failure: (x ) Septic Shock (severe sepsis with hypotension) ( ) Sepsis due to a device, implant or graft, please specify: ( ) Localized infection only, without systemic illness, please specify infection : ( ) Bacteremia (abnormal lab finding only, does not indicate systemic illness) ( ) Other condition, please specify: ( ) Clinically unable to determine Criteria for Sepsis (SIRS due to an infection) should be based on 2 or more of the following being present: Temperature > 101F or < 96.8F WBC > 12,000 or < 4,000, or > 10% bands Tachycardia HR > 90 beats/minute Tachypnea RR > 20 breaths/minute or PaCO2 > 32mmHg Lactate level > 2.0 mmol/L (>4 is equivalent to severe sepsis) Altered Mental Status Mottling of skin or prolonged capillary refill Non-diabetic hyperglycemia (blood sugar >120 mg/dl) Other evidence of acute organ failure associated with sepsis ( severe sepsis) COMMENTS: PLEASE ALSO DOCUMENT RESPONSE IN PROGRESS NOTES AND/OR DISCHARGE SUMMARY Use of terms such as suspected, likely, or probable (associated with a specific diagnosis that is being evaluated, monitored, or treated as if it exists) are acceptable and can be restated in the discharge summary if not ruled out. MTDD
[2017-02-27] MEDS: CLORAZEPATE 3.75 MG TABLET PEG SCH (22:21)
[2017-02-27] MEDS: PREGABALIN 100 MG CAPSULE PEG SCH (22:21)
[2017-02-27] MEDS: CETIRIZINE 10 MG TABLET PER TUBE SCH (22:21)
[2017-02-28] MEDS: LINEZOLID INJ 300 MG in PREMIX 1 EACH IV SCH ×2 (00:06→11:16)
[2017-02-28] MEDS: MEROPENEM 1,000 MG in SODIUM CHLORIDE 0.9% 50 ML IV SCH (04:43)
[2017-02-28] MEDS: ALBUTEROL/IPRATROPIUM 3 ML NEB RESP TX SCH ×2 (07:09→10:40)
[2017-02-28] MEDS: ACETYLCYSTEINE 20% 800 MG/4 ML VIAL RESP TX SCH (07:09)
[2017-02-28] MEDS: ENOXAPARIN 40 MG/0.4 ML SYRINGE SUBCUT SCH (08:56)
[2017-02-28] MEDS: guaiFENesin 200 MG/10 ML UDCUP PER TUBE SCH (08:56)
[2017-02-28] MEDS: IRON (CARBONYL)/VIT C/B12/FA TABLET PEG SCH (08:57)
[2017-02-28] MEDS: ASPIRIN EC 81 MG TABLET PO SCH (08:57)
[2017-02-28] MEDS: PSEUDOEPHEDRINE 30 MG TABLET PEG SCH (08:57)
[2017-02-28] MEDS: PANTOPRAZOLE 40 MG TABLET PO SCH (08:57)
[2017-02-28] MEDS: MEMANTINE 5 MG TABLET PO SCH (08:57)
[2017-02-28] MEDS: POTASSIUM IODIDE ORAL SOLN 1,000 MG/ML BOTTLE PEG SCH (08:57)
[2017-02-28] MEDS: GLYCOPYRROLATE 1 MG TABLET PO SCH (08:57)
[2017-02-28] MEDS: LACTOBACILLUS RHAMNOSUS GG CAPSULE PER TUBE SCH (08:57)
[2017-02-28] MEDS: MONTELUKAST 10 MG TABLET PER TUBE SCH (08:57)
[2017-02-28] MEDS: IPRATROPIUM 0.06% NASAL SPRAY 15 ML BOTTLE BOTH NARES SCH (08:58)
[2017-02-28] MEDS: SODIUM CHLORIDE 0.65% NASAL SPRAY 45 ML BOTTLE BOTH NARES SCH (08:59)
[2017-02-28] MEDS: SODIUM CHLORIDE 0.9% 1,000 ML IV SCH ×2 (09:00→10:00)
[2017-02-28] MEDS: ZINC OXIDE PASTE 113 GM TUBE TOP SCH (09:06)
--- NOTE | 2017-02-28 10:37 | Pulmonology Progress Note ---
Pulmonary - PN: Subj Interval history: This is a 71-year-old white male. He was seen in consultation on our behalf by Dr. Orta. Patient was admitted with bibasilar pneumonia, shortness of breath , dyspnea, ineffective cough. It was also suspected that he had aspirated. His said "I gave him a little bit of pudding". 02/24/2017. The patient was bronchoscoped on the morning of 02/24/2017. Had a tremendous amount of retained secretions. I did not see the characteristic changes of aspirated PEG feedings. Also did not see the pudding but that could have been missed. This patient's other problems are: 1. 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 Bronchiectasis. 5. Inability to urinate. Requires bladder catheterization. 6. Inability to swallow. Has a PEG tube which was placed in [place]. 7. Obstructive sleep apnea 8. Allergic sinusitis 9. History of anxiety and depression 10. History of small ulcers involving the superior gluteal folds. 11. History of iron deficiency anemia Microbiology. Gram-positive cocci from the urine. Blood cultures are negative. Chest x-ray. Right lower lobe pneumonia. Atelectasis in the right lower lung and left lower lung Lab. Admit white count was 21,500. This is dropped to 11,400. H&H with rehydration is 10.1/30.7. Platelets are 241,000. Electrolytes are normal. Glucoses are under good control. With rehydration creatinine has dropped from 1.20-0.80. Protein and albumin are low at 5.7 and 2.5 respectively. Urinalysis shows only 5 white blood cells per high-power field 02/25/2017. The patient was seen along with his . He looks stronger. His chest still reveals a good bit of large airway congestion. His cough is ineffective. His PEG feedings seem to be going okay. Chest x-ray shows some residual right lower lung infiltrate and patient has bibasilar micro-macro atelectasis. This is improved slightly since his last x-ray. Urine is growing gram-positive cocci. Bronchoscopy specimen showed gram-positive cocci but no growth is reported. Patient has become afebrile and his white blood cell count has dropped from 21,000 511,400. H&H is 10.1/30.7 electrolytes are normal. Creatinine is dropped from 1.2-0.90. 02/26/2017. Today's chest x-ray shows stable cardiomegaly. There is resolving right lower lung infiltrate and a resolving left lower lung infiltrate with mild bibasilar atelectasis. No evidence of congestive heart failure. Patient was evaluated with fiberoptic bronchoscopy today. See report. He continues to have a great deal of retained secretions. His urine culture has grown enterococcus and I started the patient on Zyvox 300 mg IV piggyback every 12 hours. Previous bronchoscopy specimens show show no fungal elements and the cultures are growing "normal tamie at 48 hours" blood cultures have been negative. White count is dropped from 21,000 509,600 with 65 segs 11 lymphs and 9 monos. H&H is 10.3/31.4. INR is 1.0. Electrolytes are normal. Patient' s biggest problem now is mobilizing his secretions. We will see what grows from today's bronchoscopy. I think he could be ready for discharge by Friday. This is all been discussed with his and I have reviewed several of his medicines with her. 02/27/2017. Patient was seen today along with his . He has not had any further coughing episodes. On chest exam, he is fairly clear. Bronchoscopy Gram stain from 02/26/2017 is pending. Cultures pending as well. There is no AFB or fungus seen on smears. We will schedule him a follow-up appointment in approximately 3 weeks with Kamilah Rich nurse practitioner with a chest x-ray. At that time, we will discuss with her the patient needs outpatient bronchoscopy. Previous urine culture grew VRE and he is on Zyvox for this. He continues to complain of urinary frequency, so we will ask for repeat urinalysis today. Medications have been reviewed. We made no changes today. Labs been reviewed. Creatinine 0.0, BUN 10, electrolytes were normal 02/28/2017. Electrolytes are normal. Patient's urine shows a sinus infection has resolved. Chest x-ray done 02/27/2017 showed good clearance of infiltrates. Last bronchoscopy showed no bacteria. This patient's chest exam is markedly better. I think he is ready for discharge home. I think it will be safe for him to go home without any antibiotics. I have made an appointment to see my nurse practitioner Kamilah Rich NP in 3 weeks. All of this is been discussed in detail with the patient and his . CARLOS Pulido nurse practitioner was present. Exam (Progress Note) - Constitutional Vitals: Period Temp Pulse Resp BP Sys/Sims Pulse Ox Last 24 Hr 97.1 F-98.5 F 77-108 16-20 101-122/53-80 94-100 Exam: Vital signs. See below Face. Symmetrical. No edema lips or tongue. Neck. No masses. No meningismus Lymphatics. No submandibular cervical supraclavicular or epitrochlear adenopathy Chest with improved generalized coarse large airway congestion; no wheeze Heart no gallop Abdomen is nontender and nondistended; PEG site looks normal; bowel sounds are present Extremities with nothing to suggest acute deep venous thrombophlebitis Psychiatric alert and able to follow instructions Neurologic. Alert and oriented. Cranial nerves are grossly intact. Patient has some minimal movement in all 4 extremities. Plan: 02/27/2017. 1. Repeat urinalysis today and will get culture if indicated. 2. Continue present treatment. 3. Scheduled the patient follow-up with Kamilah Rich, nurse practitioner, in approximately 3 weeks with a chest x-ray. 4. The patient continues to do well, he will most likely be acceptable for discharge tomorrow from our standpoint. 02/28/2017. 1. Patient's repeat urine shows complete resolution of his urinary tract infection 2. Chest is surprisingly clear. 3. All recent fiberoptic bronchoscopy showed no bacteria on Gram stain's and the cultures were negative 4. Patient be discharged home. He will not need antibiotics. 5. Patient has an appointment to see Kamilah Rich NP her in approximately 3 weeks. He will have a chest x-ray at that time. Based on the patient's tremendous tendency to retained secretions and his inability to mobilize these I suspect that we will do repeat outpatient fiberoptic bronchoscopies every 3-4 weeks depending on what is needed. At that time we can reculture sputum and help keep him clear and hopefully avoid repeat hospitalizations. 6. Patient can be sent home on his present medicines. He does not need Zyvox, meropenem, Lovenox. Patient can continue his home inhalation treatments that include duo nebs and Mucomyst. Exam (Progress Note) - Constitutional Vitals: Period Temp Pulse Resp BP Sys/Sims Pulse Ox Last 24 Hr 97.1 F-98.1 F 82-105 16-22 94-118/52-71 94-100 Results - Labs CBC & BMP: 02/26/17 05:36 02/27/17 06:01 Specialty Discharge - Follow Up or Referrals Follow up with: Kamilah Rich CFNP [Advanced Practice Nurse] - (3 weeks with CXR; will discuss the need for OP FOB at that time)
[2017-02-28] MEDS: MODAFINIL 200 MG PER TUBE SCH (11:12)
[2017-02-28 11:33] VITALS: BP 106/66
--- NOTE | 2017-02-28 11:45 | Discharge Summary ---
Hospital Course - Hospital Course Hospital Course: 71 year old male presenting to the ED with c/o decrease in urine output and fever due to bibasilar aspiration pneumonia, sepsis dehydration and VRE UTI. Patient has chronic dysphagia due to stroke and has a PEG tube and is n.p.o.. He was admitted and started on broad-spectrum antibiotics.Dr. Vitale from pulmonary service was following. And had lung congestion and ineffective cough and required bronchoscopy by Dr. Vitale with removal of thick secretions from both lungs. Bronchoscopy had to be repeated after a few days and again a large amount of thick secretions were removed from both lungs. Urine culture grew VRE which was treated with Zyvox. Patient has chronic cerebellar ataxia and is chronically bedbound. 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 With aggressive pulmonary care bronchodilators and antibiotics his condition has stabilized. He is much improved and will be discharged home today. Dr. Vitale will continue following as an outpatient and will consider bronchoscopies every few weeks as needed. Repeat urinalysis shows evidence of UTI. Patient has reached maximal hospital benefit and being discharged home in improved and stable condition. Total discharge time 35 minutes. - Time spent with patient Time with patient DS: Greater than 30 minutes Diagnosis - Discharge Diagnosis (1) Pneumonia, aspiration Status: Resolved (2) UTI (urinary tract infection) Status: Resolved Specialty Discharge - Follow Up or Referrals Follow up with: Kamilah Rich CFNP [Advanced Practice Nurse] - 03/21/17 10:00 am (3 weeks with CXR ; will discuss the need for OP FOB at that time) Discharge Plan - Discharge Data Condition at Discharge: Stable - Discharge Medications New Phenazopyridine [Pyridium] 190 mg PO TID W/MEALS #90 tablet Cholestyramine [Questran] 4 gm PEG DAILY PRN PRN Reason: Diarrhea Glycopyrrolate Tab [Robinul Tab] 1 mg PO TID #90 tablet Continue Multivitamin [Daily Multiple Vitamin] 1 each PEG DAILY Modafinil [Provigil] 200 mg PER TUBE DAILY Memantine [Namenda] 5 mg PEG BID Clorazepate [Tranxene] 3.75 mg PEG BEDTIME Albuterol/Ipratropium Neb [Duoneb] 3 ml RESP TX RT QID #120 nebulization solution Pseudoephedrine [Sudafed] 30 mg PEG DAILY predniSONE [PredniSONE] 2.5 mg PER TUBE DAILY Potassium Iodide Oral Soln [Sski] 0.9 ml PEG TID guaiFENesin [Guaifenesin] 20 ml PER TUBE TID buPROPion [Wellbutrin] 100 mg PEG BID Iron Fum/Folic Acid/Mv,Min 15 [Hemocyte Plus Capsule] 1 tablet PEG DAILY Pregabalin [Lyrica] 100 mg PEG BEDTIME Ipratropium 0.06% Nasal [place] [Atrovent 0.06% Nasal [place]] 2 spray BOTH NARES BID spray Sodium Chloride 0.65% Nasal Sp [[place] Nasal [place]] 2 spray BOTH NARES BID bottle Aspirin EC Tab 81 mg PEG DAILY Sodium Chl/Potassium Chl Tab [Thermotabs] 0.5 tablet PER TUBE BID Finasteride 5 mg PER TUBE DAILY Albuterol Inhaler [Proventil Inhaler] 1 puff INH Q8H PRN PRN Reason: sob Sertraline HCl 50 mg PER TUBE DAILY Cranberry Fruit Extract [Cranberry] 1,000 mg PER TUBE DAILY Omeprazole 40 mg PER TUBE DAILY Cholestyramine (with Sugar) [Cholestyramine Packet] 4 gm PER TUBE DAILY PRN PRN Reason: Diarrhea Cetirizine HCl [ZyrTEC Cap] 10 mg PER TUBE BEDTIME Montelukast Tab [Singulair Tab] 10 mg PER TUBE DAILY Acetylcysteine Soln (APAP Od) [Mucomyst 20% (APAP Od)] 3 ml INH TID Folic Acid/Vit B Complex and C [[place] Plus Tablet] 5 mg PER TUBE DAILY Ferrous Sulfate Tab [Feosol Original Tab] 1 tablet PEG BID Bifidobacterium Infantis [Align] 4 mg PER TUBE BID - Follow Up or Referral Follow Up: Kamilah Rich CFNP [Advanced Practice Nurse] - 03/21/17 10:00 am (3 weeks with CXR ; will discuss the need for OP FOB at that time) - Forms/Instructions Exam - Constitutional Vitals: Period Temp Pulse Resp BP Sys/Sims Pulse Ox Last 24 Hr 97.1 F-98.1 F 82-105 16-22 94-118/52-71 94-100 Exam: General: [No Acute Distress] HEENT: [Normocephalic, atraumatic, Extra ocular movements intact] Neck: [Supple, No JVD] Chest: [Clear to auscultation B/L] CV: [S1 + S2 audible without murmur, gallop or rub] Abd: [soft, NT, Non-distended, PEG +, BS +] Ext: [No edema] Skin: [No purpura, bruising or rash] Rheumatologic: [No Joint deformities] Neurologic: [Awake and alert] Discharge Results Procedures and tests throughout hospitalization: Pending Orders 02/23/17 04:10 Blood Culture Stat 02/23/17 06:42 Sputum Culture and Gram Stain Routine 02/24/17 09:12 Fungal Culture w/ Prep Stat 02/26/17 AFB Culture/Smears Stat Fungal Culture w/ Prep Stat Labs on day of discharge: Labs from last 24 hours 02/27/17 10:47 Urine Color Yellow Urine Appearance Clear Urine pH 7.0 Ur Specific [place] 1.008 Urine Protein Negative Urine Glucose (UA) Negative Urine Ketones Negative Urine Blood Negative Urine Nitrate Negative Urine Bilirubin Negative Urine Urobilinogen < 2.0 H Urine Leukocytes Negative Urine RBC 1 Urine WBC 3 Urine Bacteria Occasional Urine Mucus Occasional Ur Culture Indicated? Not indicated Preliminary micro results at discharge 02/23/17 04:20 Blood Culture - Preliminary Blood No growth at 3 days DS: Provider Date of admission: 02/23/17 05:53 Primary care physician: Mikael Renteria MD Attending physician on admission: Jordan Ayala MD Consults: 02/23/17 06:40 Consult to Physician [CONS] Routine Comment: pneumonia, fever Consulting Provider: Mikael Renteria Consult to Specialist Group: Pulmonology Person Notified: Nash Date Notified: 02/24/17 Time Notified: 07:50 Discharging clinician: Guera Logan MD
[2017-02-28] MEDS ORDERED: PHENAZOPYRIDINE 95 MG TABLET PO SCH (12:00)
== END 2017-02-28 13:22 | disposition home or self-care (01) | DRG 853 ==
LOC: N.ED 03:08 → SUATTDRO 05:53 → N.EDINP 05:53 → N.TELES 07:49 → N.2E 02-24 21:39
PROVIDERS: ADMIT Family Medicine; ATTEND Hospitalist

== ENCOUNTER 2017-10-07 15:42 | Inpatient (IN) ==
[2017-10-07 18:34] LABS: Basophils # 0.1 10*3/uL (0.0-0.2); Basophils % 0.3 % (0.0-0.8); Eosinophils # 0.3 10*3/uL (0.0-0.87); Eosinophils % 1.8 % (0.00-10.9); Hematocrit 35.6 VOL% (42.0-52.0); Hemoglobin 11.7 GM/DL (14.0-18.0); Immature Granulocytes % 0.4 %; Immature Granulocytes Absolute 0.06 #; Lymphocytes # 0.7 10*3/uL (1.4-4.0); Lymphocytes % 4.4 % (21.2-54.2); Mean Corpuscular HGB Conc 32.9 GM/DL (32-36); Mean Corpuscular Hemoglobin 32 PG (27-34); Mean Corpuscular Volume 96.7 FL (87-102); Mean Platelet Volume 11.5 FL (9.6-12.0); Monocytes # 1.2 10*3/uL (0.11-0.8); Monocytes % 7.3 % (1.7-12.7); Neutrophils # 14.2 10*3/uL (1.4-7.4); Neutrophils % 85.8 % (38.7-73.9); Platelet Count 241 T/CUMM (130-400); Red Blood Count 3.68 MC/CUMM (3.8-5.5); Red Cell Distribution Width 14.1 % (9.3-17.3); White Blood Count 16.5 T/CUMM (4-12)
[2017-10-07 18:46] LABS: PT Patient Result 10.3 SECS; Partial Thromboplastin Time 26.6 SECS (0-40)
[2017-10-07 19:03] LABS: Alanine Aminotransferase 42 U/L (16-61); Albumin 2.8 G/DL (3.4-5.0); Alkaline Phosphatase 97 U/L (45-117); Aspartate Amino Transferase 17 U/L (0-37); Bilirubin,Total < 0.39 MG/DL (0.2-1.0); Blood Urea Nitrogen 34 MG/DL (7-18); Calcium 8.3 MG/DL (8.5-10.1); Glucose 98 MG/DL (74-106); Osmolality,Calculated 284.5 MOS/KG (273-304); Potassium 4.4 MMOL/L (3.5-5.1); Sodium 139 MMOL/L (136-145); Troponin I Only < 0.015 NG/ML (0.00-0.045)
[2017-10-07 20:11] LABS: Apearance,Urine Slightly Hazy (Clear); Bacteria,Urine Occasional /HPF (Few); Bilirubin,Urine Negative (Negative); Blood, Urine Negative (Negative); Glucose,Urine (UA) Negative (Negative); Ketones,Urine Negative (Negative); Mucus,Urine Occasional /LPF (Occasional); Nitrite,Urine Negative (Negative); Protein,Urine 30 MG/DL; RBC,Urine 1 /HPF (0-4); Squamous Epithelial Cell,Urine Occasional /HPF (0-10); Urine Color Yellow (Yellow); Urine Specific Gravity 1.016 (1.001-1.035); Urine Urobilinogen < 2.0 EU/DL (0.2-1.0); WBC,Urine 5 /HPF (0-6)
[2017-10-07] MEDS ORDERED: SODIUM CHLORIDE 0.9% 1,000 ML IV STA (20:19)
[2017-10-07] MEDS ORDERED: cefTRIAXone 1,000 MG in SYRINGE 1 EACH IV STA (20:37)
[2017-10-08] MEDS ORDERED: PROMETHAZINE 25 MG/1 ML VIAL IM PRN (00:03)
[2017-10-08] MEDS ORDERED: guaiFENesin 200 MG/10 ML UDCUP PER TUBE PRN (00:03)
[2017-10-08] MEDS ORDERED: ATROPINE 1 % OPH SOLN 5 ML BOTTLE SL PRN (00:03)
[2017-10-08] MEDS ORDERED: ALBUTEROL/IPRATROPIUM 3 ML NEB RESP TX PRN (00:03)
[2017-10-08] MEDS ORDERED: SODIUM CHLORIDE 0.9% 1,000 ML IV ONE (00:03)
[2017-10-08] MEDS ORDERED: QUINIDINE PER TUBE SCH (00:03)
[2017-10-08] MEDS ORDERED: ACETAMINOPHEN 325 MG TABLET PEG PRN (00:03)
[2017-10-08] MEDS ORDERED: MORPHINE 4 MG/1 ML VIAL IV PRN (00:03)
[2017-10-08] MEDS ORDERED: [UNRECOGNIZED DRUG - OTHER] PER TUBE SCH (00:03)
[2017-10-08] MEDS: SODIUM CHLORIDE 0.9% 1,000 ML IV SCH ×3 (01:14→17:40)
[2017-10-08] MEDS: PREGABALIN 100 MG CAPSULE PO SCH ×2 (01:15→20:56)
[2017-10-08] MEDS: MONTELUKAST 10 MG TABLET PER TUBE SCH ×2 (01:15→20:57)
[2017-10-08] MEDS: CLORAZEPATE 3.75 MG TABLET PER TUBE SCH ×2 (01:16→20:57)
[2017-10-08] MEDS: ASPIRIN EC 81 MG TABLET PO SCH ×2 (01:16→20:55)
[2017-10-08] MEDS: CHOLESTYRAMINE 4 GM PACK PER TUBE SCH ×3 (01:16→20:57)
[2017-10-08] MEDS: CETIRIZINE 10 MG TABLET PER TUBE SCH ×2 (01:16→20:55)
[2017-10-08] MEDS: MEMANTINE 5 MG TABLET PER TUBE SCH ×3 (01:17→20:56)
[2017-10-08] MEDS: ALBUTEROL/IPRATROPIUM 3 ML NEB RESP TX SCH ×4 (01:24→19:57)
[2017-10-08] MEDS: SODIUM CHLORIDE/POTASSIUM CHLORIDE TABLET PER TUBE SCH ×3 (01:34→20:55)
[2017-10-08] MEDS ORDERED: NOREPINEPHRINE 8 MG in SODIUM CHLORIDE 0.9% 242 ML IV PRN (03:21)
[2017-10-08 06:38] LABS: Basophils % 0.3 % (0.0-0.8); Eosinophils # 0.8 10*3/uL (0.0-0.87); Eosinophils % 8.8 % (0.00-10.9); Hematocrit 30.8 VOL% (42.0-52.0); Immature Granulocytes % 0.3 %; Immature Granulocytes Absolute 0.03 #; Lymphocytes # 1.1 10*3/uL (1.4-4.0); Lymphocytes % 11.7 % (21.2-54.2); Mean Corpuscular HGB Conc 32.5 GM/DL (32-36); Mean Corpuscular Hemoglobin 32 PG (27-34); Mean Corpuscular Volume 98.4 FL (87-102); Monocytes # 0.7 10*3/uL (0.11-0.8); Monocytes % 7.8 % (1.7-12.7); Neutrophils # 6.7 10*3/uL (1.4-7.4); Neutrophils % 71.1 % (38.7-73.9); Platelet Count 219 T/CUMM (130-400); Red Blood Count 3.13 MC/CUMM (3.8-5.5); Red Cell Distribution Width 14.2 % (9.3-17.3); White Blood Count 9.4 T/CUMM (4-12)
[2017-10-08 07:15] LABS: Alanine Aminotransferase 32 U/L (16-61); Albumin 2.4 G/DL (3.4-5.0); Alkaline Phosphatase 74 U/L (45-117); Aspartate Amino Transferase 17 U/L (0-37); Bilirubin,Total < 0.39 MG/DL (0.2-1.0); Blood Urea Nitrogen 27 MG/DL (7-18); Calcium 7.7 MG/DL (8.5-10.1); Glucose 87 MG/DL (74-106); Potassium 4.1 MMOL/L (3.5-5.1); Sodium 143 MMOL/L (136-145); Total Protein 5.4 G/DL (6.4-8.3)
[2017-10-08] MEDS: ACETYLCYSTEINE 20% 6,000 MG/30 ML VIAL RESP TX SCH ×3 (07:25→19:57)
[2017-10-08] MEDS ORDERED: SODIUM CHLORIDE 0.9% 500 ML IV ONE (08:25)
[2017-10-08] MEDS ORDERED: PANTOPRAZOLE 40 MG VIAL IV SCH (09:00)
[2017-10-08] MEDS: CHOLECALCIFEROL 5,000 UNIT TABLET PEG SCH (09:11)
[2017-10-08] MEDS: MULTIVITAMIN (CENTRUM) TABLET PER TUBE SCH (09:11)
[2017-10-08] MEDS: MULTIVITAMIN (BEROCCA) TABLET PER TUBE SCH (09:11)
[2017-10-08] MEDS: DOCUSATE SODIUM 100 MG CAPSULE PEG SCH ×2 (09:12→20:56)
[2017-10-08] MEDS: FINASTERIDE 5 MG TABLET PO SCH (09:12)
[2017-10-08] MEDS: FERROUS SULFATE 325 MG TABLET PO SCH (09:12)
[2017-10-08] MEDS: POTASSIUM IODIDE ORAL SOLN 1,000 MG/ML BOTTLE PER TUBE SCH ×3 (09:17→20:53)
[2017-10-08] MEDS: ENOXAPARIN 40 MG/0.4 ML SYRINGE SUBCUT SCH (09:27)
[2017-10-08] MEDS: cefTRIAXone 1,000 MG in SYRINGE 1 EACH IV SCH ×2 (09:33→20:57)
[2017-10-08] MEDS: NYSTATIN CREAM 15 GM TUBE TOP SCH ×2 (14:17→21:37)
[2017-10-09] MEDS: SSKI PER TUBE SCH ×4 (00:10→20:49)
[2017-10-09] MEDS: ACETYLCYSTEINE 20% 6,000 MG/30 ML VIAL RESP TX SCH ×4 (00:49→19:30)
[2017-10-09] MEDS: ALBUTEROL/IPRATROPIUM 3 ML NEB RESP TX SCH ×4 (00:49→19:30)
[2017-10-09] MEDS: SODIUM CHLORIDE 0.9% 1,000 ML IV SCH ×3 (02:18→17:45)
[2017-10-09 04:48] LABS: Basophils % 0.2 % (0.0-0.8); Eosinophils # 0.7 10*3/uL (0.0-0.87); Eosinophils % 5.3 % (0.00-10.9); Hematocrit 31.7 VOL% (42.0-52.0); Immature Granulocytes % 0.4 %; Immature Granulocytes Absolute 0.05 #; Lymphocytes # 0.8 10*3/uL (1.4-4.0); Lymphocytes % 6.2 % (21.2-54.2); Mean Corpuscular HGB Conc 31.5 GM/DL (32-36); Mean Corpuscular Hemoglobin 32 PG (27-34); Mean Platelet Volume 11.5 FL (9.6-12.0); Monocytes # 0.9 10*3/uL (0.11-0.8); Monocytes % 7.3 % (1.7-12.7); Neutrophils # 10.1 10*3/uL (1.4-7.4); Neutrophils % 80.6 % (38.7-73.9); Platelet Count 230 T/CUMM (130-400); Red Blood Count 3.17 MC/CUMM (3.8-5.5); Red Cell Distribution Width 13.8 % (9.3-17.3); White Blood Count 12.5 T/CUMM (4-12)
[2017-10-09 05:22] LABS: Calcium 7.6 MG/DL (8.5-10.1); Osmolality,Calculated 287.8 MOS/KG (273-304); Potassium 3.9 MMOL/L (3.5-5.1)
[2017-10-09 05:28] LABS: Prealbumin 20.6 MG/DL (20-40)
[2017-10-09] MEDS ORDERED: cefTRIAXone 1,000 MG in SYRINGE 1 EACH IV SCH (08:30)
[2017-10-09] MEDS: MEMANTINE 5 MG TABLET PER TUBE SCH ×2 (09:28→20:39)
[2017-10-09] MEDS: MULTIVITAMIN (CENTRUM) TABLET PER TUBE SCH (09:28)
[2017-10-09] MEDS: CHOLESTYRAMINE 4 GM PACK PER TUBE SCH ×2 (09:28→20:40)
[2017-10-09] MEDS: FINASTERIDE 5 MG TABLET PO SCH (09:28)
[2017-10-09] MEDS: CHOLECALCIFEROL 5,000 UNIT TABLET PEG SCH (09:29)
[2017-10-09] MEDS: FERROUS SULFATE 325 MG TABLET PO SCH (09:29)
[2017-10-09] MEDS: SODIUM CHLORIDE/POTASSIUM CHLORIDE TABLET PER TUBE SCH ×2 (09:29→20:39)
[2017-10-09] MEDS: DOCUSATE SODIUM 100 MG CAPSULE PEG SCH ×2 (09:29→20:39)
[2017-10-09] MEDS: MULTIVITAMIN (BEROCCA) TABLET PER TUBE SCH (09:29)
[2017-10-09] MEDS: PANTOPRAZOLE 40 MG TABLET PO SCH (09:30)
[2017-10-09] MEDS: ENOXAPARIN 40 MG/0.4 ML SYRINGE SUBCUT SCH (09:30)
[2017-10-09] MEDS: NYSTATIN CREAM 15 GM TUBE TOP SCH ×2 (09:30→21:39)
[2017-10-09] MEDS: cefTAZidime 1,000 MG in SYRINGE 1 EACH IV SCH ×2 (11:15→17:45)
[2017-10-09] MEDS: CLORAZEPATE 3.75 MG TABLET PER TUBE SCH (20:39)
[2017-10-09] MEDS: MONTELUKAST 10 MG TABLET PER TUBE SCH (20:39)
[2017-10-09] MEDS: ASPIRIN EC 81 MG TABLET PO SCH (20:39)
[2017-10-09] MEDS: CETIRIZINE 10 MG TABLET PER TUBE SCH (20:39)
[2017-10-09] MEDS: PREGABALIN 100 MG CAPSULE PO SCH (20:40)
[2017-10-10] MEDS: ACETYLCYSTEINE 20% 6,000 MG/30 ML VIAL RESP TX SCH ×4 (00:43→19:50)
[2017-10-10] MEDS: ALBUTEROL/IPRATROPIUM 3 ML NEB RESP TX SCH ×4 (00:43→19:54)
[2017-10-10] MEDS: SODIUM CHLORIDE 0.9% 1,000 ML IV SCH ×5 (01:46→18:47)
[2017-10-10] MEDS: cefTAZidime 1,000 MG in SYRINGE 1 EACH IV SCH ×3 (03:13→17:33)
[2017-10-10] MEDS: MULTIVITAMIN (CENTRUM) TABLET PER TUBE SCH (08:43)
[2017-10-10] MEDS: MULTIVITAMIN (BEROCCA) TABLET PER TUBE SCH (08:43)
[2017-10-10] MEDS: DOCUSATE SODIUM 100 MG CAPSULE PEG SCH ×2 (08:43→20:25)
[2017-10-10] MEDS: FERROUS SULFATE 325 MG TABLET PO SCH (08:43)
[2017-10-10] MEDS: ENOXAPARIN 40 MG/0.4 ML SYRINGE SUBCUT SCH (08:44)
[2017-10-10] MEDS: CHOLESTYRAMINE 4 GM PACK PER TUBE SCH ×2 (08:44→20:25)
[2017-10-10] MEDS: MEMANTINE 5 MG TABLET PER TUBE SCH ×2 (08:44→20:22)
[2017-10-10] MEDS: SSKI PER TUBE SCH ×3 (08:44→20:25)
[2017-10-10] MEDS: FINASTERIDE 5 MG TABLET PO SCH (08:44)
[2017-10-10] MEDS: PANTOPRAZOLE 40 MG TABLET PO SCH (08:44)
[2017-10-10] MEDS: NYSTATIN CREAM 15 GM TUBE TOP SCH ×2 (08:44→23:47)
[2017-10-10] MEDS: SODIUM CHLORIDE/POTASSIUM CHLORIDE TABLET PER TUBE SCH ×2 (08:45→20:20)
[2017-10-10] MEDS: CHOLECALCIFEROL 5,000 UNIT TABLET PEG SCH (08:45)
[2017-10-10] MEDS ORDERED: NON-FORMULARY MEDICATION (Modafinil [Provigil] 200 MG) PER TUBE SCH (09:15)
[2017-10-10] MEDS: buPROPion 100 MG TABLET PEG SCH ×2 (12:53→20:21)
[2017-10-10] MEDS: LACTOBACILLUS ACIDOPHILUS/BULGARICUS CAPLET PER TUBE SCH ×2 (12:53→17:33)
[2017-10-10] MEDS: SERTRALINE 50 MG TABLET PEG SCH (12:53)
[2017-10-10] MEDS: CLINDAMYCIN INJ 300 MG in PREMIX 1 EACH IV SCH ×3 (13:01→20:31)
[2017-10-10] MEDS: CETIRIZINE 10 MG TABLET PER TUBE SCH (20:21)
[2017-10-10] MEDS: CLORAZEPATE 3.75 MG TABLET PER TUBE SCH (20:21)
[2017-10-10] MEDS: MONTELUKAST 10 MG TABLET PER TUBE SCH (20:21)
[2017-10-10] MEDS: ASPIRIN EC 81 MG TABLET PO SCH (20:21)
[2017-10-10] MEDS: PREGABALIN 100 MG CAPSULE PO SCH (20:22)
[2017-10-11] MEDS: ACETYLCYSTEINE 20% 6,000 MG/30 ML VIAL RESP TX SCH ×5 (00:35→19:24)
[2017-10-11] MEDS: ALBUTEROL/IPRATROPIUM 3 ML NEB RESP TX SCH ×4 (00:35→19:24)
[2017-10-11] MEDS: SODIUM CHLORIDE 0.9% 1,000 ML IV SCH ×5 (02:35→23:51)
[2017-10-11] MEDS: CLINDAMYCIN INJ 300 MG in PREMIX 1 EACH IV SCH ×3 (03:08→20:17)
[2017-10-11] MEDS: cefTAZidime 1,000 MG in SYRINGE 1 EACH IV SCH ×3 (03:08→18:41)
[2017-10-11] MEDS: SODIUM CHLORIDE/POTASSIUM CHLORIDE TABLET PER TUBE SCH ×2 (08:32→20:28)
[2017-10-11] MEDS: SERTRALINE 50 MG TABLET PEG SCH (08:32)
[2017-10-11] MEDS: LACTOBACILLUS ACIDOPHILUS/BULGARICUS CAPLET PER TUBE SCH ×3 (08:32→18:25)
[2017-10-11] MEDS: MULTIVITAMIN (BEROCCA) TABLET PER TUBE SCH (08:32)
[2017-10-11] MEDS: MEMANTINE 5 MG TABLET PER TUBE SCH ×2 (08:32→20:21)
[2017-10-11] MEDS: FINASTERIDE 5 MG TABLET PO SCH (08:32)
[2017-10-11] MEDS: PANTOPRAZOLE 40 MG TABLET PO SCH (08:33)
[2017-10-11] MEDS: ENOXAPARIN 40 MG/0.4 ML SYRINGE SUBCUT SCH (08:33)
[2017-10-11] MEDS: buPROPion 100 MG TABLET PEG SCH ×2 (08:33→20:21)
[2017-10-11] MEDS: CHOLESTYRAMINE 4 GM PACK PER TUBE SCH ×2 (08:33→20:20)
[2017-10-11] MEDS: MULTIVITAMIN (CENTRUM) TABLET PER TUBE SCH (08:33)
[2017-10-11] MEDS: DOCUSATE SODIUM 100 MG CAPSULE PEG SCH (08:33)
[2017-10-11] MEDS: CHOLECALCIFEROL 5,000 UNIT TABLET PEG SCH (08:33)
[2017-10-11] MEDS: FERROUS SULFATE 325 MG TABLET PO SCH (08:33)
[2017-10-11] MEDS: NYSTATIN CREAM 15 GM TUBE TOP SCH ×2 (08:34→20:20)
[2017-10-11] MEDS: SSKI PER TUBE SCH ×3 (08:34→20:23)
[2017-10-11 10:13] LABS: Basophils % 0.3 % (0.0-0.8); Eosinophils % 13.9 % (0.00-10.9); Hematocrit 29.3 VOL% (42.0-52.0); Hemoglobin 9.3 GM/DL (14.0-18.0); Immature Granulocytes % 0.4 %; Immature Granulocytes Absolute 0.03 #; Lymphocytes # 0.9 10*3/uL (1.4-4.0); Lymphocytes % 12.3 % (21.2-54.2); Mean Corpuscular HGB Conc 31.7 GM/DL (32-36); Mean Corpuscular Hemoglobin 31 PG (27-34); Mean Corpuscular Volume 98.3 FL (87-102); Mean Platelet Volume 11.7 FL (9.6-12.0); Monocytes # 0.7 10*3/uL (0.11-0.8); Monocytes % 9.4 % (1.7-12.7); Neutrophils # 4.6 10*3/uL (1.4-7.4); Neutrophils % 63.7 % (38.7-73.9); Platelet Count 194 T/CUMM (130-400); Red Blood Count 2.98 MC/CUMM (3.8-5.5); Red Cell Distribution Width 13.9 % (9.3-17.3); White Blood Count 7.2 T/CUMM (4-12)
[2017-10-11 10:42] LABS: Band Neutrophils 1 % (0-10); Eosinophils 20 % (0-10); Lymphocytes 16 % (20-55); Segmented Neutrophils 57 % (50-85); Total Cells Counted 100
[2017-10-11 10:43] LABS: Hypochromasia 1+; Platelet Estimate Adequate
[2017-10-11] MEDS: ACETYLCYSTEINE 20% 800 MG/4 ML VIAL RESP TX SCH (19:24)
[2017-10-11] MEDS: PREGABALIN 100 MG CAPSULE PO SCH (20:20)
[2017-10-11] MEDS: CETIRIZINE 10 MG TABLET PER TUBE SCH (20:21)
[2017-10-11] MEDS: CLORAZEPATE 3.75 MG TABLET PER TUBE SCH (20:21)
[2017-10-11] MEDS: ASPIRIN EC 81 MG TABLET PO SCH (20:22)
[2017-10-11] MEDS: MONTELUKAST 10 MG TABLET PER TUBE SCH (20:22)
[2017-10-12] MEDS: cefTAZidime 1,000 MG in SYRINGE 1 EACH IV SCH ×3 (02:09→18:39)
[2017-10-12] MEDS: CLINDAMYCIN INJ 300 MG in PREMIX 1 EACH IV SCH ×3 (03:18→21:49)
[2017-10-12 07:33] LABS: Calcium 7.7 MG/DL (8.5-10.1); Potassium 4.4 MMOL/L (3.5-5.1)
[2017-10-12] MEDS: ACETYLCYSTEINE 20% 800 MG/4 ML VIAL RESP TX SCH ×5 (07:52→23:51)
[2017-10-12] MEDS: ALBUTEROL/IPRATROPIUM 3 ML NEB RESP TX SCH ×5 (07:52→23:51)
[2017-10-12] MEDS: MEMANTINE 5 MG TABLET PER TUBE SCH ×2 (10:51→21:50)
[2017-10-12] MEDS: LACTOBACILLUS ACIDOPHILUS/BULGARICUS CAPLET PER TUBE SCH ×3 (10:51→18:14)
[2017-10-12] MEDS: CHOLECALCIFEROL 5,000 UNIT TABLET PEG SCH (10:51)
[2017-10-12] MEDS: SSKI PER TUBE SCH ×3 (10:51→21:51)
[2017-10-12] MEDS: SERTRALINE 50 MG TABLET PEG SCH (10:52)
[2017-10-12] MEDS: MULTIVITAMIN (BEROCCA) TABLET PER TUBE SCH (10:52)
[2017-10-12] MEDS: MULTIVITAMIN (CENTRUM) TABLET PER TUBE SCH (10:52)
[2017-10-12] MEDS: FINASTERIDE 5 MG TABLET PO SCH (10:52)
[2017-10-12] MEDS: PANTOPRAZOLE 40 MG TABLET PO SCH (10:52)
[2017-10-12] MEDS: FERROUS SULFATE 325 MG TABLET PO SCH (10:52)
[2017-10-12] MEDS: ENOXAPARIN 40 MG/0.4 ML SYRINGE SUBCUT SCH (10:52)
[2017-10-12] MEDS: NYSTATIN CREAM 15 GM TUBE TOP SCH ×2 (10:53→21:51)
[2017-10-12] MEDS: SODIUM CHLORIDE 0.9% 1,000 ML IV SCH ×2 (10:53→18:38)
[2017-10-12] MEDS: SODIUM CHLORIDE/POTASSIUM CHLORIDE TABLET PER TUBE SCH ×2 (12:34→21:51)
[2017-10-12] MEDS: buPROPion 100 MG TABLET PEG SCH ×2 (12:34→21:50)
[2017-10-12] MEDS: CHOLESTYRAMINE 4 GM PACK PER TUBE SCH ×2 (12:35→21:51)
[2017-10-12] MEDS: CLORAZEPATE 3.75 MG TABLET PER TUBE SCH (21:50)
[2017-10-12] MEDS: MONTELUKAST 10 MG TABLET PER TUBE SCH (21:50)
[2017-10-12] MEDS: PREGABALIN 100 MG CAPSULE PO SCH (21:51)
[2017-10-12] MEDS: ASPIRIN EC 81 MG TABLET PO SCH (21:51)
[2017-10-12] MEDS: CETIRIZINE 10 MG TABLET PER TUBE SCH (21:51)
[2017-10-13] MEDS: cefTAZidime 1,000 MG in SYRINGE 1 EACH IV SCH ×3 (02:23→16:47)
[2017-10-13] MEDS: SODIUM CHLORIDE 0.9% 1,000 ML IV SCH ×2 (02:23→12:21)
[2017-10-13] MEDS: CLINDAMYCIN INJ 300 MG in PREMIX 1 EACH IV SCH ×3 (03:03→16:47)
[2017-10-13 07:04] LABS: Basophils % 0.4 % (0.0-0.8); Eosinophils # 0.8 10*3/uL (0.0-0.87); Eosinophils % 11.6 % (0.00-10.9); Hematocrit 30.2 VOL% (42.0-52.0); Hemoglobin 10.1 GM/DL (14.0-18.0); Immature Granulocytes % 0.3 %; Immature Granulocytes Absolute 0.02 #; Lymphocytes # 0.9 10*3/uL (1.4-4.0); Lymphocytes % 13.2 % (21.2-54.2); Mean Corpuscular HGB Conc 33.4 GM/DL (32-36); Mean Corpuscular Hemoglobin 32 PG (27-34); Mean Corpuscular Volume 94.4 FL (87-102); Mean Platelet Volume 12.1 FL (9.6-12.0); Monocytes # 0.7 10*3/uL (0.11-0.8); Monocytes % 9.6 % (1.7-12.7); Neutrophils # 4.5 10*3/uL (1.4-7.4); Neutrophils % 64.9 % (38.7-73.9); Platelet Count 220 T/CUMM (130-400); Red Cell Distribution Width 13.5 % (9.3-17.3); White Blood Count 6.9 T/CUMM (4-12)
[2017-10-13] MEDS: ACETYLCYSTEINE 20% 800 MG/4 ML VIAL RESP TX SCH ×3 (07:16→20:27)
[2017-10-13] MEDS: ALBUTEROL/IPRATROPIUM 3 ML NEB RESP TX SCH ×3 (07:16→20:27)
[2017-10-13 07:26] LABS: Eosinophils 15 % (0-10); Giant Platelets Few; Hypochromasia 1+; Lymphocytes 14 % (20-55); Ovalocytes Slight; Platelet Estimate Adequate; Segmented Neutrophils 64 % (50-85); Total Cells Counted 100
[2017-10-13 07:35] LABS: Calcium 7.8 MG/DL (8.5-10.1); Osmolality,Calculated 285.8 MOS/KG (273-304); Potassium 4.4 MMOL/L (3.5-5.1)
[2017-10-13] MEDS: LACTOBACILLUS ACIDOPHILUS/BULGARICUS CAPLET PER TUBE SCH ×3 (09:40→16:47)
[2017-10-13] MEDS: CHOLESTYRAMINE 4 GM PACK PER TUBE SCH ×2 (09:40→21:15)
[2017-10-13] MEDS: CHOLECALCIFEROL 5,000 UNIT TABLET PEG SCH (09:40)
[2017-10-13] MEDS: MULTIVITAMIN (CENTRUM) TABLET PER TUBE SCH (09:40)
[2017-10-13] MEDS: PANTOPRAZOLE 40 MG TABLET PO SCH (09:40)
[2017-10-13] MEDS: NYSTATIN CREAM 15 GM TUBE TOP SCH ×2 (09:41→21:15)
[2017-10-13] MEDS: MEMANTINE 5 MG TABLET PER TUBE SCH ×2 (09:41→21:15)
[2017-10-13] MEDS: SERTRALINE 50 MG TABLET PEG SCH (09:41)
[2017-10-13] MEDS: FINASTERIDE 5 MG TABLET PO SCH (09:41)
[2017-10-13] MEDS: SSKI PER TUBE SCH ×3 (09:41→21:16)
[2017-10-13] MEDS: ENOXAPARIN 40 MG/0.4 ML SYRINGE SUBCUT SCH (09:41)
[2017-10-13] MEDS: MULTIVITAMIN (BEROCCA) TABLET PER TUBE SCH (09:41)
[2017-10-13] MEDS: FERROUS SULFATE 325 MG TABLET PO SCH (09:41)
[2017-10-13] MEDS: SODIUM CHLORIDE/POTASSIUM CHLORIDE TABLET PER TUBE SCH ×2 (12:21→21:14)
[2017-10-13] MEDS: buPROPion 100 MG TABLET PEG SCH ×2 (12:21→21:15)
[2017-10-13] MEDS: MONTELUKAST 10 MG TABLET PER TUBE SCH (21:15)
[2017-10-13] MEDS: CETIRIZINE 10 MG TABLET PER TUBE SCH (21:15)
[2017-10-13] MEDS: CLORAZEPATE 3.75 MG TABLET PER TUBE SCH (21:15)
[2017-10-13] MEDS: PREGABALIN 100 MG CAPSULE PO SCH (21:15)
[2017-10-13] MEDS: ASPIRIN EC 81 MG TABLET PO SCH (21:15)
[2017-10-14] MEDS: ACETYLCYSTEINE 20% 800 MG/4 ML VIAL RESP TX SCH ×4 (00:13→19:27)
[2017-10-14] MEDS: ALBUTEROL/IPRATROPIUM 3 ML NEB RESP TX SCH ×4 (00:13→19:27)
[2017-10-14] MEDS: CLINDAMYCIN INJ 300 MG in PREMIX 1 EACH IV SCH ×3 (01:20→17:13)
[2017-10-14] MEDS: cefTAZidime 1,000 MG in SYRINGE 1 EACH IV SCH ×3 (01:25→17:13)
[2017-10-14] MEDS: SODIUM CHLORIDE 0.9% 1,000 ML IV SCH ×3 (05:46→10:48)
[2017-10-14] MEDS: MULTIVITAMIN (CENTRUM) TABLET PER TUBE SCH (10:05)
[2017-10-14] MEDS: FERROUS SULFATE 325 MG TABLET PO SCH (10:05)
[2017-10-14] MEDS: MEMANTINE 5 MG TABLET PER TUBE SCH ×2 (10:05→21:35)
[2017-10-14] MEDS: MULTIVITAMIN (BEROCCA) TABLET PER TUBE SCH (10:05)
[2017-10-14] MEDS: SODIUM CHLORIDE/POTASSIUM CHLORIDE TABLET PER TUBE SCH ×2 (10:05→21:35)
[2017-10-14] MEDS: LACTOBACILLUS ACIDOPHILUS/BULGARICUS CAPLET PER TUBE SCH ×3 (10:05→17:13)
[2017-10-14] MEDS: SERTRALINE 50 MG TABLET PEG SCH (10:05)
[2017-10-14] MEDS: FINASTERIDE 5 MG TABLET PO SCH (10:05)
[2017-10-14] MEDS: ENOXAPARIN 40 MG/0.4 ML SYRINGE SUBCUT SCH (10:06)
[2017-10-14] MEDS: CHOLECALCIFEROL 5,000 UNIT TABLET PEG SCH (10:06)
[2017-10-14] MEDS: CHOLESTYRAMINE 4 GM PACK PER TUBE SCH ×2 (10:06→21:36)
[2017-10-14] MEDS: buPROPion 100 MG TABLET PEG SCH ×2 (10:06→21:35)
[2017-10-14] MEDS: PANTOPRAZOLE 40 MG TABLET PO SCH (10:06)
[2017-10-14] MEDS: SSKI PER TUBE SCH ×3 (10:08→21:36)
[2017-10-14] MEDS: NYSTATIN CREAM 15 GM TUBE TOP SCH ×2 (10:08→21:52)
[2017-10-14] MEDS: DESITIN 4OZ/NYSTATIN 15 GRAM MIXTURE PASTE TOP SCH ×2 (11:59→21:36)
[2017-10-14] MEDS: ASPIRIN EC 81 MG TABLET PO SCH (21:35)
[2017-10-14] MEDS: CLORAZEPATE 3.75 MG TABLET PER TUBE SCH (21:35)
[2017-10-14] MEDS: PREGABALIN 100 MG CAPSULE PO SCH (21:35)
[2017-10-14] MEDS: MONTELUKAST 10 MG TABLET PER TUBE SCH (21:35)
[2017-10-14] MEDS: CETIRIZINE 10 MG TABLET PER TUBE SCH (21:51)
[2017-10-15] MEDS: ALBUTEROL/IPRATROPIUM 3 ML NEB RESP TX SCH ×4 (00:29→20:25)
[2017-10-15] MEDS: ACETYLCYSTEINE 20% 800 MG/4 ML VIAL RESP TX SCH ×4 (00:29→20:25)
[2017-10-15] MEDS: cefTAZidime 1,000 MG in SYRINGE 1 EACH IV SCH ×3 (01:30→17:38)
[2017-10-15] MEDS: SODIUM CHLORIDE 0.9% 1,000 ML IV SCH ×3 (01:31→17:24)
[2017-10-15 06:21] LABS: Basophils % 0.3 % (0.0-0.8); Eosinophils # 0.8 10*3/uL (0.0-0.87); Eosinophils % 11.2 % (0.00-10.9); Hematocrit 34.3 VOL% (42.0-52.0); Immature Granulocytes % 0.5 %; Immature Granulocytes Absolute 0.04 #; Lymphocytes % 13.7 % (21.2-54.2); Mean Corpuscular HGB Conc 32.1 GM/DL (32-36); Mean Corpuscular Hemoglobin 31 PG (27-34); Mean Corpuscular Volume 97.2 FL (87-102); Mean Platelet Volume 11.5 FL (9.6-12.0); Monocytes # 0.7 10*3/uL (0.11-0.8); Monocytes % 9.6 % (1.7-12.7); Neutrophils # 4.9 10*3/uL (1.4-7.4); Neutrophils % 64.7 % (38.7-73.9); Platelet Count 224 T/CUMM (130-400); Red Blood Count 3.53 MC/CUMM (3.8-5.5); Red Cell Distribution Width 13.5 % (9.3-17.3); White Blood Count 7.5 T/CUMM (4-12)
[2017-10-15 06:54] LABS: Calcium 8.1 MG/DL (8.5-10.1); Potassium 4.8 MMOL/L (3.5-5.1)
[2017-10-15 07:10] LABS: Eosinophils 9 % (0-10); Lymphocytes 13 % (20-55); Segmented Neutrophils 73 % (50-85); Total Cells Counted 100
[2017-10-15 07:11] LABS: Hypochromasia 1+; Microcytosis 1+
[2017-10-15 07:13] LABS: Anisocytosis Slight
[2017-10-15 07:14] LABS: Platelet Estimate Adequate
[2017-10-15] MEDS: ENOXAPARIN 40 MG/0.4 ML SYRINGE SUBCUT SCH (08:55)
[2017-10-15] MEDS: MEMANTINE 5 MG TABLET PER TUBE SCH ×2 (08:56→20:39)
[2017-10-15] MEDS: DESITIN 4OZ/NYSTATIN 15 GRAM MIXTURE PASTE TOP SCH ×2 (08:56→20:40)
[2017-10-15] MEDS: FINASTERIDE 5 MG TABLET PO SCH (08:56)
[2017-10-15] MEDS: LACTOBACILLUS ACIDOPHILUS/BULGARICUS CAPLET PER TUBE SCH ×3 (08:56→17:35)
[2017-10-15] MEDS: PANTOPRAZOLE 40 MG TABLET PO SCH (08:56)
[2017-10-15] MEDS: CHOLESTYRAMINE 4 GM PACK PER TUBE SCH ×2 (08:56→20:39)
[2017-10-15] MEDS: NYSTATIN CREAM 15 GM TUBE TOP SCH ×2 (08:56→20:40)
[2017-10-15] MEDS: SSKI PER TUBE SCH ×3 (08:56→20:40)
[2017-10-15] MEDS: MULTIVITAMIN (CENTRUM) TABLET PER TUBE SCH (08:56)
[2017-10-15] MEDS: MULTIVITAMIN (BEROCCA) TABLET PER TUBE SCH (08:56)
[2017-10-15] MEDS: FERROUS SULFATE 325 MG TABLET PO SCH (08:56)
[2017-10-15] MEDS: buPROPion 100 MG TABLET PEG SCH ×2 (08:57→20:39)
[2017-10-15] MEDS: SODIUM CHLORIDE/POTASSIUM CHLORIDE TABLET PER TUBE SCH ×2 (08:57→20:39)
[2017-10-15] MEDS: CHOLECALCIFEROL 5,000 UNIT TABLET PEG SCH (08:57)
[2017-10-15] MEDS: SERTRALINE 50 MG TABLET PEG SCH (08:57)
[2017-10-15] MEDS: CETIRIZINE 10 MG TABLET PER TUBE SCH (20:39)
[2017-10-15] MEDS: ASPIRIN EC 81 MG TABLET PO SCH (20:39)
[2017-10-15] MEDS: MONTELUKAST 10 MG TABLET PER TUBE SCH (20:39)
[2017-10-16] MEDS: ALBUTEROL/IPRATROPIUM 3 ML NEB RESP TX SCH ×4 (00:11→18:59)
[2017-10-16] MEDS: ACETYLCYSTEINE 20% 800 MG/4 ML VIAL RESP TX SCH ×4 (00:11→18:59)
[2017-10-16] MEDS: cefTAZidime 1,000 MG in SYRINGE 1 EACH IV SCH ×2 (01:40→04:34)
[2017-10-16 05:00] LABS: Basophils # 0.1 10*3/uL (0.0-0.2); Basophils % 0.6 % (0.0-0.8); Eosinophils # 0.8 10*3/uL (0.0-0.87); Eosinophils % 9.4 % (0.00-10.9); Hematocrit 35.2 VOL% (42.0-52.0); Hemoglobin 11.5 GM/DL (14.0-18.0); Immature Granulocytes % 0.6 %; Immature Granulocytes Absolute 0.05 #; Lymphocytes % 11.9 % (21.2-54.2); Mean Corpuscular HGB Conc 32.7 GM/DL (32-36); Mean Corpuscular Hemoglobin 32 PG (27-34); Mean Corpuscular Volume 96.4 FL (87-102); Mean Platelet Volume 11.9 FL (9.6-12.0); Monocytes # 0.7 10*3/uL (0.11-0.8); Monocytes % 8.1 % (1.7-12.7); Neutrophils # 5.5 10*3/uL (1.4-7.4); Neutrophils % 69.4 % (38.7-73.9); Platelet Count 252 T/CUMM (130-400); Red Blood Count 3.65 MC/CUMM (3.8-5.5); Red Cell Distribution Width 13.3 % (9.3-17.3)
[2017-10-16 05:12] LABS: PT Patient Result 10.7 SECS; Partial Thromboplastin Time 26.4 SECS (0-40)
[2017-10-16] MEDS ORDERED: MEPERIDINE 50 MG/1 ML VIAL IM ONE (07:30)
[2017-10-16] MEDS ORDERED: diphenhydrAMINE 50 MG/1 ML VIAL IM ONE (07:30)
[2017-10-16] MEDS ORDERED: LIDOCAINE 2% VISCOUS 100 ML BOTTLE SWISH/SPIT ONE (08:00)
[2017-10-16] MEDS ORDERED: LIDOCAINE 1% 20 ML VIAL MISC INJ ONE (08:00)
[2017-10-16] MEDS ORDERED: LIDOCAINE 2% 20 ML VIAL RESP TX ONE (08:00)
[2017-10-16 09:56] LABS: S. Pneumo Serotype 1 5.1 mcg/mL (>=2.3); S. Pneumo Serotype 10A 0.5 mcg/mL (>=2.9); S. Pneumo Serotype 11A 0.3 mcg/mL (>=2.4); S. Pneumo Serotype 12F 0.1 mcg/mL (>=0.6); S. Pneumo Serotype 14 1.6 mcg/mL (>=7.0); S. Pneumo Serotype 17F 4.3 mcg/mL (>=7.8); S. Pneumo Serotype 19A 2.2 mcg/mL (>=17.1); S. Pneumo Serotype 19F 2.9 mcg/mL (>=15.0); S. Pneumo Serotype 2 0.5 mcg/mL (>=1.0); S. Pneumo Serotype 20 0.4 mcg/mL (>=1.3); S. Pneumo Serotype 22F 3.2 mcg/mL (>=7.2); S. Pneumo Serotype 3 0.2 mcg/mL (>=1.8); S. Pneumo Serotype 33F 0.8 mcg/mL (>=1.7); S. Pneumo Serotype 4 0.9 mcg/mL (>=0.6); S. Pneumo Serotype 6B 5.3 mcg/mL (>=4.7); S. Pneumo Serotype 7F 1.2 mcg/mL (>=3.2); S. Pneumo Serotype 8 0.2 mcg/mL (>=2.9); S. Pneumo Serotype 9N 0.4 mcg/mL (>=9.2); S. Pneumo Serotype 9V 2.8 mcg/mL (>=2.6)
[2017-10-16] MEDS: LACTOBACILLUS ACIDOPHILUS/BULGARICUS CAPLET PER TUBE SCH ×3 (10:29→16:06)
[2017-10-16] MEDS: SSKI PER TUBE SCH ×2 (10:29→16:07)
[2017-10-16] MEDS: MEMANTINE 5 MG TABLET PER TUBE SCH (10:29)
[2017-10-16] MEDS: SODIUM CHLORIDE/POTASSIUM CHLORIDE TABLET PER TUBE SCH (10:30)
[2017-10-16] MEDS: CHOLESTYRAMINE 4 GM PACK PER TUBE SCH (10:30)
[2017-10-16] MEDS: buPROPion 100 MG TABLET PEG SCH (12:30)
[2017-10-16] MEDS: MULTIVITAMIN (CENTRUM) TABLET PER TUBE SCH (12:51)
[2017-10-16] MEDS: SERTRALINE 50 MG TABLET PEG SCH (12:51)
[2017-10-16] MEDS: FERROUS SULFATE 325 MG TABLET PO SCH (12:51)
[2017-10-16] MEDS: MULTIVITAMIN (BEROCCA) TABLET PER TUBE SCH (12:51)
[2017-10-16] MEDS: CHOLECALCIFEROL 5,000 UNIT TABLET PEG SCH (12:51)
[2017-10-16] MEDS: DESITIN 4OZ/NYSTATIN 15 GRAM MIXTURE PASTE TOP SCH ×2 (12:52→21:05)
[2017-10-16] MEDS: NYSTATIN CREAM 15 GM TUBE TOP SCH (12:52)
[2017-10-16] MEDS: FINASTERIDE 5 MG TABLET PO SCH (12:52)
[2017-10-16] MEDS: PANTOPRAZOLE 40 MG TABLET PO SCH (12:52)
[2017-10-16] MEDS: ENOXAPARIN 40 MG/0.4 ML SYRINGE SUBCUT SCH (12:52)
[2017-10-17] MEDS: CHOLESTYRAMINE 4 GM PACK PER TUBE SCH ×2 (00:04→09:39)
[2017-10-17] MEDS: MONTELUKAST 10 MG TABLET PER TUBE SCH (00:04)
[2017-10-17] MEDS: SSKI PER TUBE SCH ×3 (00:04→16:53)
[2017-10-17] MEDS: ASPIRIN EC 81 MG TABLET PO SCH (00:04)
[2017-10-17] MEDS: NYSTATIN CREAM 15 GM TUBE TOP SCH ×2 (00:04→09:40)
[2017-10-17] MEDS: MEMANTINE 5 MG TABLET PER TUBE SCH ×2 (00:04→09:40)
[2017-10-17] MEDS: buPROPion 100 MG TABLET PEG SCH ×2 (00:05→09:39)
[2017-10-17] MEDS: SODIUM CHLORIDE/POTASSIUM CHLORIDE TABLET PER TUBE SCH ×2 (00:05→09:39)
[2017-10-17] MEDS: CETIRIZINE 10 MG TABLET PER TUBE SCH (00:05)
[2017-10-17] MEDS: ACETYLCYSTEINE 20% 800 MG/4 ML VIAL RESP TX SCH ×3 (00:34→13:15)
[2017-10-17] MEDS: ALBUTEROL/IPRATROPIUM 3 ML NEB RESP TX SCH ×3 (00:34→13:15)
[2017-10-17] MEDS: MULTIVITAMIN (BEROCCA) TABLET PER TUBE SCH (09:39)
[2017-10-17] MEDS: MULTIVITAMIN (CENTRUM) TABLET PER TUBE SCH (09:39)
[2017-10-17] MEDS: LACTOBACILLUS ACIDOPHILUS/BULGARICUS CAPLET PER TUBE SCH ×2 (09:39→12:42)
[2017-10-17] MEDS: CHOLECALCIFEROL 5,000 UNIT TABLET PEG SCH (09:39)
[2017-10-17] MEDS: FINASTERIDE 5 MG TABLET PO SCH (09:39)
[2017-10-17] MEDS: PANTOPRAZOLE 40 MG TABLET PO SCH (09:39)
[2017-10-17] MEDS: ENOXAPARIN 40 MG/0.4 ML SYRINGE SUBCUT SCH (09:39)
[2017-10-17] MEDS: DESITIN 4OZ/NYSTATIN 15 GRAM MIXTURE PASTE TOP SCH (09:40)
[2017-10-17] MEDS: SERTRALINE 50 MG TABLET PEG SCH (09:40)
[2017-10-17] MEDS: FERROUS SULFATE 325 MG TABLET PO SCH (09:40)
[2017-10-17 16:02] VITALS: BP 91/55
[2017-10-17] MEDS ORDERED: CLORAZEPATE 3.75 MG TABLET PO ONE (16:14)
== END 2017-10-17 17:00 | disposition home health service (06) | DRG 871 ==
LOC: N.ED 15:42 → SUATTDRO 21:12 → N.EDINP 21:12 → N.CC 23:29 → N.2E 10-11 14:56
PROVIDERS: ADMIT Internal Medicine; ATTEND Internal Medicine

== ENCOUNTER 2018-03-20 13:28 | Inpatient (IN) ==
[2018-03-20] MEDS ORDERED: ALBUTEROL/IPRATROPIUM 3 ML NEB RESP TX PRN (13:31)
[2018-03-20] MEDS ORDERED: FLUTICASONE 50 MCG NASAL SPRAY 16 GM BOTTLE BOTH NARES PRN (13:56)
[2018-03-20] MEDS ORDERED: guaiFENesin 200 MG/10 ML UDCUP PER TUBE PRN (13:56)
[2018-03-20] MEDS ORDERED: POTASSIUM IODIDE ORAL SOLN 1,000 MG/ML BOTTLE PER TUBE SCH (15:00)
[2018-03-20] MEDS: ALBUTEROL/IPRATROPIUM 3 ML NEB RESP TX SCH ×2 (16:04→19:48)
[2018-03-20 16:14] LABS: Albumin 2.8 G/DL (3.4-5.0); Calcium 9.2 MG/DL (8.5-10.1); Osmolality,Calculated 287.5 MOS/KG (273-304); Potassium 4.1 MMOL/L (3.5-5.1); Thyroid Stimulating Hormone 11.3 uIU/ml (0.358-3.74); Total Protein 8.8 G/DL (6.4-8.3)
[2018-03-20] MEDS: cefTAZidime 1,000 MG in SYRINGE 1 EACH IV SCH ×2 (17:05→21:31)
[2018-03-20] MEDS: MEROPENEM 1,000 MG in SYRINGE 1 EACH IV SCH ×2 (17:08→21:38)
[2018-03-20] MEDS: DEXTROSE 5% NACL 0.9% 1,000 ML IV SCH (17:29)
[2018-03-20 17:41] LABS: Apearance,Urine CLEAR (Clear); Bilirubin,Urine Negative (Negative); Blood, Urine Negative (Negative); Glucose,Urine (UA) Negative (Negative); Hyaline Casts,Urine 1 /LPF (0-3); Ketones,Urine Negative (Negative); Nitrite,Urine Negative (Negative); Protein,Urine Negative; RBC,Urine 1 /HPF (0-4); Urine Color Yellow (Yellow); Urine Specific Gravity 1.013 (1.001-1.035); Urine Urobilinogen < 2.0 EU/DL (0.2-1.0); WBC,Urine 16 /HPF (0-6)
[2018-03-20] MEDS: DORNASE ALFA 2.5 MG/2.5 ML VIAL RESP TX SCH (19:48)
[2018-03-20] MEDS ORDERED: QUINIDINE PER TUBE SCH (21:00)
[2018-03-20] MEDS ORDERED: DEXTROMETHORPHAN PER TUBE SCH (21:00)
[2018-03-20] MEDS: MONTELUKAST 10 MG TABLET PER TUBE SCH (21:30)
[2018-03-20] MEDS: PREGABALIN 50 MG CAPSULE PER TUBE SCH (21:31)
[2018-03-20] MEDS: METHENAMINE HIPPURATE 1 GM TABLET PER TUBE SCH (21:31)
[2018-03-20] MEDS: CLORAZEPATE 3.75 MG TABLET PER TUBE SCH (21:31)
[2018-03-20] MEDS: SODIUM CHLORIDE/POTASSIUM CHLORIDE TABLET PER TUBE SCH (21:31)
[2018-03-20] MEDS: CETIRIZINE 10 MG TABLET PER TUBE SCH (21:31)
[2018-03-20] MEDS: MEMANTINE 5 MG TABLET PER TUBE SCH (21:31)
[2018-03-21 05:33] LABS: Basophils % 0.3 % (0.0-0.8); Eosinophils # 0.9 10*3/uL (0.0-0.87); Eosinophils % 9.1 % (0.00-10.9); Hematocrit 29.8 VOL% (42.0-52.0); Hemoglobin 9.2 GM/DL (14.0-18.0); Immature Granulocytes % 0.4 %; Immature Granulocytes Absolute 0.04 #; Lymphocytes % 9.7 % (21.2-54.2); Mean Corpuscular HGB Conc 30.9 GM/DL (32-36); Mean Corpuscular Hemoglobin 29 PG (27-34); Mean Corpuscular Volume 94.9 FL (87-102); Mean Platelet Volume 12.3 FL (9.6-12.0); Monocytes # 1.1 10*3/uL (0.11-0.8); Monocytes % 10.4 % (1.7-12.7); Neutrophils # 7.2 10*3/uL (1.4-7.4); Neutrophils % 70.1 % (38.7-73.9); Platelet Count 239 T/CUMM (130-400); Red Blood Count 3.14 MC/CUMM (3.8-5.5); Red Cell Distribution Width 14.2 % (9.3-17.3); White Blood Count 10.3 T/CUMM (4-12)
[2018-03-21 05:52] LABS: Calcium 8.3 MG/DL (8.5-10.1); Osmolality,Calculated 290.1 MOS/KG (273-304); Potassium 4.2 MMOL/L (3.5-5.1)
[2018-03-21] MEDS: cefTAZidime 1,000 MG in SYRINGE 1 EACH IV SCH ×3 (06:08→22:26)
[2018-03-21] MEDS: MEROPENEM 1,000 MG in SYRINGE 1 EACH IV SCH ×3 (06:09→22:26)
[2018-03-21] MEDS: DORNASE ALFA 2.5 MG/2.5 ML VIAL RESP TX SCH ×2 (07:30→19:41)
[2018-03-21] MEDS: ALBUTEROL/IPRATROPIUM 3 ML NEB RESP TX SCH ×4 (07:30→19:35)
[2018-03-21] MEDS ORDERED: Modafinil [Provigil] 200 MG PER TUBE SCH (09:00)
[2018-03-21] MEDS: SODIUM CHLORIDE/POTASSIUM CHLORIDE TABLET PER TUBE SCH ×2 (09:28→22:24)
[2018-03-21] MEDS: SERTRALINE 50 MG TABLET PER TUBE SCH (09:28)
[2018-03-21] MEDS: FINASTERIDE 5 MG TABLET PO SCH (09:28)
[2018-03-21] MEDS: MEMANTINE 5 MG TABLET PER TUBE SCH ×2 (09:28→22:25)
[2018-03-21] MEDS: METHENAMINE HIPPURATE 1 GM TABLET PER TUBE SCH ×2 (09:28→22:25)
[2018-03-21] MEDS: PREGABALIN 50 MG CAPSULE PER TUBE SCH ×2 (09:28→22:25)
[2018-03-21] MEDS: LANSOPRAZOLE ODT 30 MG TABLET PO SCH (09:29)
[2018-03-21] MEDS: MULTIVITAMIN (CENTRUM) TABLET PER TUBE SCH (09:29)
[2018-03-21] MEDS: BUDESONIDE 0.5 MG/2 ML NEB RESP TX SCH (11:46)
[2018-03-21] MEDS: CETIRIZINE 10 MG TABLET PER TUBE SCH (22:25)
[2018-03-21] MEDS: MONTELUKAST 10 MG TABLET PER TUBE SCH (22:25)
[2018-03-21] MEDS: DEXTROSE 5% NACL 0.9% 1,000 ML IV SCH (22:26)
[2018-03-21] MEDS: CLORAZEPATE 3.75 MG TABLET PER TUBE SCH (22:26)
[2018-03-22] MEDS: MEROPENEM 1,000 MG in SYRINGE 1 EACH IV SCH ×3 (05:31→22:59)
[2018-03-22] MEDS: cefTAZidime 1,000 MG in SYRINGE 1 EACH IV SCH ×3 (05:31→22:58)
[2018-03-22 06:25] LABS: Basophils % 0.4 % (0.0-0.8); Eosinophils % 13.5 % (0.00-10.9); Hematocrit 29.5 VOL% (42.0-52.0); Hemoglobin 8.9 GM/DL (14.0-18.0); Immature Granulocytes % 0.4 %; Immature Granulocytes Absolute 0.03 #; Lymphocytes # 0.9 10*3/uL (1.4-4.0); Mean Corpuscular HGB Conc 30.2 GM/DL (32-36); Mean Corpuscular Hemoglobin 29 PG (27-34); Mean Corpuscular Volume 96.1 FL (87-102); Mean Platelet Volume 12.2 FL (9.6-12.0); Monocytes # 0.9 10*3/uL (0.11-0.8); Monocytes % 11.9 % (1.7-12.7); Neutrophils # 4.6 10*3/uL (1.4-7.4); Neutrophils % 61.8 % (38.7-73.9); Platelet Count 231 T/CUMM (130-400); Red Blood Count 3.07 MC/CUMM (3.8-5.5); White Blood Count 7.5 T/CUMM (4-12)
[2018-03-22 06:50] LABS: Calcium 8.2 MG/DL (8.5-10.1)
[2018-03-22 07:38] LABS: Band Neutrophils 1 % (0-10); Eosinophils 8 % (0-10); Lymphocytes 25 % (20-55); Macrocytosis 1+; Platelet Estimate Normal; Segmented Neutrophils 59 % (50-85); Total Cells Counted 100
[2018-03-22] MEDS: ALBUTEROL/IPRATROPIUM 3 ML NEB RESP TX SCH ×4 (07:45→19:10)
[2018-03-22] MEDS: BUDESONIDE 0.5 MG/2 ML NEB RESP TX SCH (07:45)
[2018-03-22] MEDS: DORNASE ALFA 2.5 MG/2.5 ML VIAL RESP TX SCH ×2 (07:45→19:10)
[2018-03-22] MEDS: SODIUM CHLORIDE/POTASSIUM CHLORIDE TABLET PER TUBE SCH ×2 (09:19→22:57)
[2018-03-22] MEDS: SERTRALINE 50 MG TABLET PER TUBE SCH (09:19)
[2018-03-22] MEDS: MULTIVITAMIN (CENTRUM) TABLET PER TUBE SCH (09:19)
[2018-03-22] MEDS: METHENAMINE HIPPURATE 1 GM TABLET PER TUBE SCH ×2 (09:19→22:57)
[2018-03-22] MEDS: FINASTERIDE 5 MG TABLET PO SCH (09:20)
[2018-03-22] MEDS: MEMANTINE 5 MG TABLET PER TUBE SCH (09:20)
[2018-03-22] MEDS: LANSOPRAZOLE ODT 30 MG TABLET PO SCH (09:20)
[2018-03-22] MEDS: PREGABALIN 50 MG CAPSULE PER TUBE SCH ×2 (09:20→22:58)
[2018-03-22] MEDS ORDERED: CHOLESTYRAMINE 4 GM PACK PO PRN (10:38)
[2018-03-22] MEDS: CHOLESTYRAMINE 4 GM PACK PER TUBE SCH (11:20)
[2018-03-22] MEDS: MONTELUKAST 10 MG TABLET PER TUBE SCH (22:57)
[2018-03-22] MEDS: MEMANTINE 10 MG TABLET PER TUBE SCH (22:57)
[2018-03-22] MEDS: CETIRIZINE 10 MG TABLET PER TUBE SCH (22:58)
[2018-03-22] MEDS: CLORAZEPATE 3.75 MG TABLET PER TUBE SCH (22:58)
[2018-03-22] MEDS: DEXTROSE 5% NACL 0.9% 1,000 ML IV SCH (23:00)
[2018-03-23] MEDS: cefTAZidime 1,000 MG in SYRINGE 1 EACH IV SCH ×3 (05:31→21:47)
[2018-03-23] MEDS: MEROPENEM 1,000 MG in SYRINGE 1 EACH IV SCH ×3 (05:31→21:42)
[2018-03-23] MEDS: DEXTROSE 5% NACL 0.9% 1,000 ML IV SCH ×2 (05:32→23:52)
[2018-03-23 05:38] LABS: Basophils % 0.6 % (0.0-0.8); Eosinophils # 1.1 10*3/uL (0.0-0.87); Eosinophils % 15.7 % (0.00-10.9); Hematocrit 28.8 VOL% (42.0-52.0); Hemoglobin 8.7 GM/DL (14.0-18.0); Immature Granulocytes % 0.1 %; Immature Granulocytes Absolute 0.01 #; Lymphocytes % 14.2 % (21.2-54.2); Mean Corpuscular HGB Conc 30.2 GM/DL (32-36); Mean Corpuscular Hemoglobin 29 PG (27-34); Mean Corpuscular Volume 95.4 FL (87-102); Mean Platelet Volume 11.9 FL (9.6-12.0); Monocytes # 0.8 10*3/uL (0.11-0.8); Monocytes % 12.4 % (1.7-12.7); Neutrophils # 3.8 10*3/uL (1.4-7.4); Platelet Count 223 T/CUMM (130-400); Red Blood Count 3.02 MC/CUMM (3.8-5.5); White Blood Count 6.7 T/CUMM (4-12)
[2018-03-23 05:51] LABS: Calcium 8.2 MG/DL (8.5-10.1); Osmolality,Calculated 290.8 MOS/KG (273-304); Potassium 4.3 MMOL/L (3.5-5.1)
[2018-03-23 05:55] LABS: Prealbumin 15.2 MG/DL (20-40)
[2018-03-23 06:03] LABS: Eosinophils 17 % (0-10); Hypochromasia 1+; Lymphocytes 11 % (20-55); Macrocytosis Slight; Platelet Estimate Adequate; Segmented Neutrophils 62 % (50-85); Total Cells Counted 100
[2018-03-23] MEDS: ALBUTEROL/IPRATROPIUM 3 ML NEB RESP TX SCH ×4 (07:43→19:34)
[2018-03-23] MEDS: BUDESONIDE 0.5 MG/2 ML NEB RESP TX SCH (07:43)
[2018-03-23] MEDS: DORNASE ALFA 2.5 MG/2.5 ML VIAL RESP TX SCH ×2 (07:48→19:40)
[2018-03-23] MEDS: METHENAMINE HIPPURATE 1 GM TABLET PER TUBE SCH ×2 (09:53→21:28)
[2018-03-23] MEDS: MULTIVITAMIN (CENTRUM) TABLET PER TUBE SCH (09:53)
[2018-03-23] MEDS: CHOLESTYRAMINE 4 GM PACK PER TUBE SCH (09:53)
[2018-03-23] MEDS: SODIUM CHLORIDE/POTASSIUM CHLORIDE TABLET PER TUBE SCH ×2 (09:53→21:28)
[2018-03-23] MEDS: PREGABALIN 50 MG CAPSULE PER TUBE SCH ×2 (09:53→21:28)
[2018-03-23] MEDS: SERTRALINE 50 MG TABLET PER TUBE SCH (09:53)
[2018-03-23] MEDS: LANSOPRAZOLE ODT 30 MG TABLET PO SCH (09:53)
[2018-03-23] MEDS: MEMANTINE 10 MG TABLET PER TUBE SCH ×2 (09:53→21:28)
[2018-03-23] MEDS: FINASTERIDE 5 MG TABLET PO SCH (09:54)
[2018-03-23] MEDS: CLORAZEPATE 3.75 MG TABLET PER TUBE SCH (21:28)
[2018-03-23] MEDS: CETIRIZINE 10 MG TABLET PER TUBE SCH (21:28)
[2018-03-23] MEDS: MONTELUKAST 10 MG TABLET PER TUBE SCH (21:28)
[2018-03-24 05:48] LABS: Basophils % 0.4 % (0.0-0.8); Eosinophils % 13.8 % (0.00-10.9); Hematocrit 29.7 VOL% (42.0-52.0); Immature Granulocytes % 0.3 %; Immature Granulocytes Absolute 0.02 #; Lymphocytes # 1.2 10*3/uL (1.4-4.0); Lymphocytes % 15.5 % (21.2-54.2); Mean Corpuscular HGB Conc 30.3 GM/DL (32-36); Mean Corpuscular Hemoglobin 29 PG (27-34); Mean Corpuscular Volume 94.9 FL (87-102); Mean Platelet Volume 12.2 FL (9.6-12.0); Monocytes # 0.7 10*3/uL (0.11-0.8); Monocytes % 9.8 % (1.7-12.7); Neutrophils # 4.5 10*3/uL (1.4-7.4); Neutrophils % 60.2 % (38.7-73.9); Platelet Count 228 T/CUMM (130-400); Red Blood Count 3.13 MC/CUMM (3.8-5.5); Red Cell Distribution Width 13.8 % (9.3-17.3); White Blood Count 7.5 T/CUMM (4-12)
[2018-03-24 05:56] LABS: PT Patient Result 10.8 SECS; Partial Thromboplastin Time 28.2 SECS (0-40)
[2018-03-24 06:07] LABS: Calcium 8.3 MG/DL (8.5-10.1); Potassium 4.2 MMOL/L (3.5-5.1)
[2018-03-24 06:13] LABS: Band Neutrophils 1 % (0-10); Eosinophils 14 % (0-10); Hypochromasia 1+; Lymphocytes 16 % (20-55); Macrocytosis Slight; Platelet Estimate Adequate; Segmented Neutrophils 55 % (50-85); Total Cells Counted 100
[2018-03-24] MEDS: MEROPENEM 1,000 MG in SYRINGE 1 EACH IV SCH ×3 (06:25→22:03)
[2018-03-24] MEDS: cefTAZidime 1,000 MG in SYRINGE 1 EACH IV SCH ×3 (06:28→22:08)
[2018-03-24] MEDS: ALBUTEROL/IPRATROPIUM 3 ML NEB RESP TX SCH ×4 (07:24→19:07)
[2018-03-24] MEDS: DORNASE ALFA 2.5 MG/2.5 ML VIAL RESP TX SCH ×2 (07:24→19:21)
[2018-03-24] MEDS: BUDESONIDE 0.5 MG/2 ML NEB RESP TX SCH (07:24)
[2018-03-24] MEDS ORDERED: MEPERIDINE 50 MG/1 ML VIAL IM ONE (08:30)
[2018-03-24] MEDS ORDERED: diphenhydrAMINE 50 MG/1 ML VIAL IM ONE (08:30)
[2018-03-24] MEDS: LANSOPRAZOLE ODT 30 MG TABLET PO SCH ×2 (08:37→10:27)
[2018-03-24] MEDS ORDERED: LIDOCAINE 1% 20 ML VIAL MISC INJ ONE (09:00)
[2018-03-24] MEDS ORDERED: LIDOCAINE 2% VISCOUS 100 ML BOTTLE SWISH/SPIT ONE (09:00)
[2018-03-24] MEDS ORDERED: LIDOCAINE 2% 20 ML VIAL RESP TX ONE (09:00)
[2018-03-24] MEDS: SODIUM CHLORIDE/POTASSIUM CHLORIDE TABLET PER TUBE SCH ×2 (10:27→21:40)
[2018-03-24] MEDS: METHENAMINE HIPPURATE 1 GM TABLET PER TUBE SCH ×2 (10:27→21:40)
[2018-03-24] MEDS: FINASTERIDE 5 MG TABLET PO SCH (10:27)
[2018-03-24] MEDS: PREGABALIN 50 MG CAPSULE PER TUBE SCH ×2 (10:27→21:40)
[2018-03-24] MEDS: MULTIVITAMIN (CENTRUM) TABLET PER TUBE SCH (10:27)
[2018-03-24] MEDS: MEMANTINE 10 MG TABLET PER TUBE SCH ×2 (10:27→21:41)
[2018-03-24] MEDS: SERTRALINE 50 MG TABLET PER TUBE SCH (10:27)
[2018-03-24] MEDS: CHOLESTYRAMINE 4 GM PACK PER TUBE SCH ×2 (10:28→22:27)
[2018-03-24 14:55] LABS: Procalcitonin, S 0.12 ng/mL (<=0.15)
[2018-03-24 15:28] LABS: Apearance,Urine CLEAR (Clear); Bilirubin,Urine Negative (Negative); Blood, Urine Negative (Negative); Glucose,Urine (UA) Negative (Negative); Ketones,Urine Negative (Negative); Nitrite,Urine Negative (Negative); Protein,Urine Negative; RBC,Urine 1 /HPF (0-4); Urine Color Yellow (Yellow); Urine Specific Gravity 1.013 (1.001-1.035); Urine Urobilinogen < 2.0 EU/DL (0.2-1.0); WBC,Urine 3 /HPF (0-6)
[2018-03-24] MEDS: DEXTROSE 5% NACL 0.9% 1,000 ML IV SCH (21:39)
[2018-03-24] MEDS: CETIRIZINE 10 MG TABLET PER TUBE SCH (21:40)
[2018-03-24] MEDS: CLORAZEPATE 3.75 MG TABLET PER TUBE SCH (21:40)
[2018-03-24] MEDS: MONTELUKAST 10 MG TABLET PER TUBE SCH (21:41)
[2018-03-25] MEDS: MEROPENEM 1,000 MG in SYRINGE 1 EACH IV SCH ×3 (06:15→21:31)
[2018-03-25] MEDS: cefTAZidime 1,000 MG in SYRINGE 1 EACH IV SCH ×3 (06:20→21:35)
[2018-03-25] MEDS: ALBUTEROL/IPRATROPIUM 3 ML NEB RESP TX SCH ×4 (07:15→19:10)
[2018-03-25] MEDS: BUDESONIDE 0.5 MG/2 ML NEB RESP TX SCH (07:15)
[2018-03-25] MEDS: DORNASE ALFA 2.5 MG/2.5 ML VIAL RESP TX SCH ×2 (07:15→19:10)
[2018-03-25] MEDS: MULTIVITAMIN (CENTRUM) TABLET PER TUBE SCH (08:57)
[2018-03-25] MEDS: SERTRALINE 50 MG TABLET PER TUBE SCH (08:57)
[2018-03-25] MEDS: LANSOPRAZOLE ODT 30 MG TABLET PO SCH (08:57)
[2018-03-25] MEDS: METHENAMINE HIPPURATE 1 GM TABLET PER TUBE SCH ×2 (08:57→21:28)
[2018-03-25] MEDS: PREGABALIN 50 MG CAPSULE PER TUBE SCH ×2 (08:57→21:29)
[2018-03-25] MEDS: CHOLESTYRAMINE 4 GM PACK PER TUBE SCH ×2 (08:57→21:28)
[2018-03-25] MEDS: FINASTERIDE 5 MG TABLET PO SCH (08:57)
[2018-03-25] MEDS: SODIUM CHLORIDE/POTASSIUM CHLORIDE TABLET PER TUBE SCH ×2 (08:57→21:28)
[2018-03-25] MEDS: MEMANTINE 10 MG TABLET PER TUBE SCH ×2 (08:57→21:29)
[2018-03-25] MEDS: TOBRAMYCIN 80 MG/2 ML VIAL RESP TX SCH ×2 (10:46→19:10)
[2018-03-25] MEDS: PENICILLIN VK 500 MG TABLET PER TUBE SCH ×2 (11:35→17:38)
[2018-03-25] MEDS: DEXTROSE 5% NACL 0.9% 1,000 ML IV SCH (21:27)
[2018-03-25] MEDS: MONTELUKAST 10 MG TABLET PER TUBE SCH (21:28)
[2018-03-25] MEDS: CLORAZEPATE 3.75 MG TABLET PER TUBE SCH (21:29)
[2018-03-25] MEDS: CETIRIZINE 10 MG TABLET PER TUBE SCH (21:35)
[2018-03-26 05:04] LABS: Basophils % 0.5 % (0.0-0.8); Eosinophils # 1.4 10*3/uL (0.0-0.87); Eosinophils % 18.7 % (0.00-10.9); Hematocrit 30.8 VOL% (42.0-52.0); Hemoglobin 9.3 GM/DL (14.0-18.0); Immature Granulocytes % 0.3 %; Immature Granulocytes Absolute 0.02 #; Lymphocytes % 14.1 % (21.2-54.2); Mean Corpuscular HGB Conc 30.2 GM/DL (32-36); Mean Corpuscular Hemoglobin 29 PG (27-34); Mean Corpuscular Volume 94.5 FL (87-102); Mean Platelet Volume 12.3 FL (9.6-12.0); Monocytes # 0.7 10*3/uL (0.11-0.8); Monocytes % 9.9 % (1.7-12.7); Neutrophils # 4.2 10*3/uL (1.4-7.4); Neutrophils % 56.5 % (38.7-73.9); Platelet Count 236 T/CUMM (130-400); Red Blood Count 3.26 MC/CUMM (3.8-5.5); Red Cell Distribution Width 13.8 % (9.3-17.3); White Blood Count 7.4 T/CUMM (4-12)
[2018-03-26 05:27] LABS: Band Neutrophils 1 % (0-10); Eosinophils 6 % (0-10); Lymphocytes 18 % (20-55); Segmented Neutrophils 70 % (50-85); Total Cells Counted 100
[2018-03-26 05:28] LABS: Platelet Estimate Normal
[2018-03-26 05:44] LABS: Calcium 8.3 MG/DL (8.5-10.1); Osmolality,Calculated 287.1 MOS/KG (273-304); Potassium 4.4 MMOL/L (3.5-5.1)
[2018-03-26] MEDS: PENICILLIN VK 500 MG TABLET PER TUBE SCH ×4 (06:12→17:29)
[2018-03-26] MEDS: cefTAZidime 1,000 MG in SYRINGE 1 EACH IV SCH (06:12)
[2018-03-26] MEDS: MEROPENEM 1,000 MG in SYRINGE 1 EACH IV SCH (06:16)
[2018-03-26] MEDS: ALBUTEROL/IPRATROPIUM 3 ML NEB RESP TX SCH ×4 (07:00→19:03)
[2018-03-26] MEDS: TOBRAMYCIN 80 MG/2 ML VIAL RESP TX SCH ×2 (07:10→19:10)
[2018-03-26] MEDS: DORNASE ALFA 2.5 MG/2.5 ML VIAL RESP TX SCH ×2 (07:15→19:17)
[2018-03-26] MEDS: BUDESONIDE 0.5 MG/2 ML NEB RESP TX SCH (07:19)
[2018-03-26] MEDS: PREGABALIN 50 MG CAPSULE PER TUBE SCH ×2 (09:36→21:10)
[2018-03-26] MEDS: LANSOPRAZOLE ODT 30 MG TABLET PO SCH (09:36)
[2018-03-26] MEDS: MULTIVITAMIN (CENTRUM) TABLET PER TUBE SCH (09:37)
[2018-03-26] MEDS: MEMANTINE 10 MG TABLET PER TUBE SCH ×2 (09:37→21:10)
[2018-03-26] MEDS: SODIUM CHLORIDE/POTASSIUM CHLORIDE TABLET PER TUBE SCH ×2 (09:37→21:09)
[2018-03-26] MEDS: CHOLESTYRAMINE 4 GM PACK PER TUBE SCH ×4 (09:37→21:09)
[2018-03-26] MEDS: METHENAMINE HIPPURATE 1 GM TABLET PER TUBE SCH ×2 (09:37→21:10)
[2018-03-26] MEDS: FINASTERIDE 5 MG TABLET PO SCH (09:37)
[2018-03-26] MEDS: SERTRALINE 50 MG TABLET PER TUBE SCH (09:37)
[2018-03-26] MEDS ORDERED: ACETAMINOPHEN 325 MG TABLET PO ONE (12:32)
[2018-03-26] MEDS ORDERED: diphenhydrAMINE 50 MG/1 ML VIAL IV ONE (12:33)
[2018-03-26] MEDS: DEXTROSE 5% NACL 0.9% 1,000 ML IV SCH ×2 (12:46→17:40)
[2018-03-26] MEDS ORDERED: diphenhydrAMINE CAP 25 MG CAPSULE PO ONE (12:50)
[2018-03-26 13:59] LABS: Apearance,Urine CLEAR (Clear); Bilirubin,Urine Negative (Negative); Blood, Urine Small mg/dL (Negative); Glucose,Urine (UA) Negative (Negative); Ketones,Urine Negative (Negative); Nitrite,Urine Negative (Negative); Protein,Urine Negative; RBC,Urine <1 /HPF (0-4); Urine Color Yellow (Yellow); Urine Specific Gravity 1.008 (1.001-1.035); Urine Urobilinogen < 2.0 EU/DL (0.2-1.0); WBC,Urine 2 /HPF (0-6)
[2018-03-26] MEDS: metroNIDAZOLE 250 MG TABLET PER TUBE SCH ×2 (17:28→21:10)
[2018-03-26] MEDS: CLORAZEPATE 3.75 MG TABLET PER TUBE SCH (21:09)
[2018-03-26] MEDS: MONTELUKAST 10 MG TABLET PER TUBE SCH (21:10)
[2018-03-26] MEDS: CETIRIZINE 10 MG TABLET PER TUBE SCH (21:10)
[2018-03-27] MEDS: PENICILLIN VK 500 MG TABLET PER TUBE SCH ×2 (01:27→05:29)
[2018-03-27] MEDS: DEXTROSE 5% NACL 0.9% 1,000 ML IV SCH (01:30)
[2018-03-27 04:28] LABS: Basophils % 0.5 % (0.0-0.8); Eosinophils % 13.9 % (0.00-10.9); Hematocrit 30.3 VOL% (42.0-52.0); Hemoglobin 9.3 GM/DL (14.0-18.0); Immature Granulocytes % 0.3 %; Immature Granulocytes Absolute 0.02 #; Lymphocytes # 1.1 10*3/uL (1.4-4.0); Lymphocytes % 15.3 % (21.2-54.2); Mean Corpuscular HGB Conc 30.7 GM/DL (32-36); Mean Corpuscular Hemoglobin 29 PG (27-34); Mean Corpuscular Volume 94.1 FL (87-102); Mean Platelet Volume 12.1 FL (9.6-12.0); Monocytes # 0.7 10*3/uL (0.11-0.8); Monocytes % 9.4 % (1.7-12.7); Neutrophils # 4.4 10*3/uL (1.4-7.4); Neutrophils % 60.6 % (38.7-73.9); Platelet Count 221 T/CUMM (130-400); Red Blood Count 3.22 MC/CUMM (3.8-5.5); Red Cell Distribution Width 13.8 % (9.3-17.3); White Blood Count 7.3 T/CUMM (4-12)
[2018-03-27 04:45] LABS: Calcium 7.6 MG/DL (8.5-10.1); Osmolality,Calculated 303.1 MOS/KG (273-304)
[2018-03-27 05:10] LABS: Platelet Estimate Normal
[2018-03-27 05:11] LABS: Anisocytosis Slight
[2018-03-27] MEDS: ALBUTEROL/IPRATROPIUM 3 ML NEB RESP TX SCH ×2 (07:03→11:16)
[2018-03-27] MEDS: BUDESONIDE 0.5 MG/2 ML NEB RESP TX SCH (07:03)
[2018-03-27] MEDS: DORNASE ALFA 2.5 MG/2.5 ML VIAL RESP TX SCH (07:03)
[2018-03-27] MEDS: TOBRAMYCIN 80 MG/2 ML VIAL RESP TX SCH (07:03)
[2018-03-27] MEDS: CHOLESTYRAMINE 4 GM PACK PER TUBE SCH (09:00)
[2018-03-27] MEDS: PREGABALIN 50 MG CAPSULE PER TUBE SCH (09:01)
[2018-03-27] MEDS: MULTIVITAMIN (CENTRUM) TABLET PER TUBE SCH (09:01)
[2018-03-27] MEDS: SODIUM CHLORIDE/POTASSIUM CHLORIDE TABLET PER TUBE SCH (09:01)
[2018-03-27] MEDS: MEMANTINE 10 MG TABLET PER TUBE SCH (09:01)
[2018-03-27] MEDS: metroNIDAZOLE 250 MG TABLET PER TUBE SCH (09:01)
[2018-03-27] MEDS: FINASTERIDE 5 MG TABLET PO SCH (09:01)
[2018-03-27] MEDS: LANSOPRAZOLE ODT 30 MG TABLET PO SCH (09:01)
[2018-03-27] MEDS: SERTRALINE 50 MG TABLET PER TUBE SCH (09:01)
[2018-03-27] MEDS: METHENAMINE HIPPURATE 1 GM TABLET PER TUBE SCH (09:01)
[2018-03-27 13:30] VITALS: BP 88/58
== END 2018-03-27 13:41 | disposition home health service (06) | DRG 167 ==
LOC: N.5E 13:38
PROVIDERS: ADMIT Internal Medicine Pulmonary Disease; ATTEND Internal Medicine Pulmonary Disease

== ENCOUNTER 2018-08-13 15:13 | Inpatient (IN) ==
[2018-08-13] MEDS ORDERED: ORPHENADRINE 60 MG/2 ML VIAL IV STA (16:08)
[2018-08-13] MEDS ORDERED: KETOROLAC 30 MG/1 ML VIAL IV STA (16:08)
[2018-08-13] MEDS ORDERED: ALBUTEROL/IPRATROPIUM 3 ML NEB RESP TX STA (16:08)
[2018-08-13] MEDS ORDERED: AZITHROMYCIN INJ 500 MG in SODIUM CHLORIDE 0.9% 250 ML IV STA (16:28)
[2018-08-13] MEDS ORDERED: cefTRIAXone 1,000 MG in SODIUM CHLORIDE 0.9% 100 ML IV STA (16:28)
[2018-08-13 16:49] LABS: Basophils # 0.1 10*3/uL (0.0-0.2); Basophils % 0.4 % (0.0-0.8); Eosinophils % 7.5 % (0.00-10.9); Hematocrit 37.5 VOL% (42.0-52.0); Hemoglobin 11.5 GM/DL (14.0-18.0); Immature Granulocytes % 0.4 %; Immature Granulocytes Absolute 0.05 #; Lymphocytes # 0.9 10*3/uL (1.4-4.0); Lymphocytes % 7.2 % (21.2-54.2); Mean Corpuscular HGB Conc 30.7 GM/DL (32-36); Mean Corpuscular Hemoglobin 29 PG (27-34); Mean Corpuscular Volume 95.7 FL (87-102); Monocytes # 1.4 10*3/uL (0.11-0.8); Monocytes % 10.7 % (1.7-12.7); Neutrophils # 9.7 10*3/uL (1.4-7.4); Neutrophils % 73.8 % (38.7-73.9); Platelet Count 252 T/CUMM (130-400); Red Blood Count 3.92 MC/CUMM (3.8-5.5); Red Cell Distribution Width 15.4 % (9.3-17.3); White Blood Count 13.1 T/CUMM (4-12)
[2018-08-13 17:02] LABS: PT Patient Result 10.4 SECS; Partial Thromboplastin Time 26.5 SECS (0-40)
[2018-08-13 17:14] LABS: Apearance,Urine CLEAR (Clear); Bilirubin,Urine Negative (Negative); Blood, Urine Negative (Negative); Glucose,Urine (UA) Negative (Negative); Ketones,Urine Negative (Negative); Nitrite,Urine Negative (Negative); Protein,Urine Negative; RBC,Urine 1 /HPF (0-4); Urine Color Yellow (Yellow); Urine Specific Gravity 1.025 (1.001-1.035); Urine Urobilinogen < 2.0 EU/DL (0.2-1.0); WBC,Urine 3 /HPF (0-6)
[2018-08-13 17:16] LABS: Alanine Aminotransferase 102 U/L (16-61); Albumin 2.7 G/DL (3.4-5.0); Alkaline Phosphatase 174 U/L (45-117); Aspartate Amino Transferase 47 U/L (0-37); Bilirubin,Total < 0.39 MG/DL (0.2-1.0); Blood Urea Nitrogen 44 MG/DL (7-18); Calcium 8.4 MG/DL (8.5-10.1); Glucose 83 MG/DL (74-106); Osmolality,Calculated 286.5 MOS/KG (273-304); Potassium 4.5 MMOL/L (3.5-5.1); Sodium 139 MMOL/L (136-145); Total Protein 7.7 G/DL (6.4-8.3); Troponin I < 0.015 NG/ML (0.00-0.045)
[2018-08-13] MEDS ORDERED: LACTULOSE 20 GM/30 ML UDCUP PO PRN (18:47)
[2018-08-13] MEDS ORDERED: ONDANSETRON 4 MG/2 ML VIAL IV PRN (18:47)
[2018-08-13] MEDS ORDERED: ALBUTEROL 2.5 MG/3 ML NEB RESP TX PRN (19:10)
[2018-08-13] MEDS ORDERED: guaiFENesin 200 MG/10 ML UDCUP PER TUBE PRN (19:10)
[2018-08-13] MEDS ORDERED: FLUTICASONE 50 MCG NASAL SPRAY 16 GM BOTTLE BOTH NARES PRN (19:10)
[2018-08-13] MEDS ORDERED: PSEUDOEPHEDRINE 30 MG TABLET PER TUBE PRN (19:10)
[2018-08-13] MEDS ORDERED: SODIUM CHLORIDE 0.9% 2,000 ML IV STA (19:37)
[2018-08-13] MEDS ORDERED: SODIUM CHLORIDE 0.9% 2,200 ML IV ONE (19:39)
[2018-08-13] MEDS: CHOLESTYRAMINE 4 GM PACK PER TUBE SCH (20:52)
[2018-08-13] MEDS: ENOXAPARIN 40 MG/0.4 ML SYRINGE SUBCUT SCH (20:52)
[2018-08-13] MEDS: ASPIRIN EC 81 MG TABLET PO SCH (20:54)
[2018-08-13] MEDS: CETIRIZINE 10 MG TABLET PER TUBE SCH (20:54)
[2018-08-13] MEDS: LACTOBACILLUS ACIDOPHILUS/BULGARICUS CAPLET PER TUBE SCH (20:54)
[2018-08-13] MEDS: MEMANTINE 10 MG TABLET PER TUBE SCH (20:54)
[2018-08-13] MEDS: METHENAMINE HIPPURATE 1 GM TABLET PER TUBE SCH (20:54)
[2018-08-13] MEDS: buPROPion 100 MG TABLET PER TUBE SCH (20:54)
[2018-08-13] MEDS: MONTELUKAST 10 MG TABLET PER TUBE SCH (20:54)
[2018-08-13] MEDS: CLORAZEPATE 3.75 MG TABLET PER TUBE SCH (20:54)
[2018-08-13] MEDS: FERROUS SULFATE 300 MG/5 ML UDCUP PER TUBE SCH (20:55)
[2018-08-13] MEDS ORDERED: [UNRECOGNIZED DRUG - OTHER] PER TUBE SCH (21:00)
[2018-08-13] MEDS ORDERED: POTASSIUM IODIDE ORAL SOLN 1,000 MG/ML BOTTLE PER TUBE SCH (21:00)
[2018-08-13] MEDS ORDERED: QUINIDINE PER TUBE SCH (21:00)
[2018-08-13] MEDS: SODIUM CHLORIDE 0.9% 1,000 ML IV SCH (22:45)
[2018-08-13] MEDS: methylPREDNISolone SOD SUC 40 MG/1 ML VIAL IV SCH (22:46)
[2018-08-13] MEDS: ALBUTEROL/IPRATROPIUM 3 ML NEB RESP TX SCH (22:53)
[2018-08-14] MEDS ORDERED: ACETYLCYSTEINE 20% 800 MG/4 ML VIAL RESP TX SCH (01:00)
[2018-08-14] MEDS: ALBUTEROL/IPRATROPIUM 3 ML NEB RESP TX SCH ×6 (03:15→23:55)
[2018-08-14 04:55] LABS: Basophils % 0.2 % (0.0-0.8); Eosinophils % 0.4 % (0.00-10.9); Hematocrit 31.6 VOL% (42.0-52.0); Hemoglobin 9.6 GM/DL (14.0-18.0); Immature Granulocytes % 0.3 %; Immature Granulocytes Absolute 0.03 #; Lymphocytes # 0.5 10*3/uL (1.4-4.0); Lymphocytes % 5.5 % (21.2-54.2); Mean Corpuscular HGB Conc 30.4 GM/DL (32-36); Mean Corpuscular Hemoglobin 29 PG (27-34); Mean Corpuscular Volume 94.6 FL (87-102); Mean Platelet Volume 12.3 FL (9.6-12.0); Monocytes # 0.1 10*3/uL (0.11-0.8); Monocytes % 1.5 % (1.7-12.7); Neutrophils # 8.7 10*3/uL (1.4-7.4); Neutrophils % 92.1 % (38.7-73.9); Platelet Count 209 T/CUMM (130-400); Red Blood Count 3.34 MC/CUMM (3.8-5.5); Red Cell Distribution Width 15.2 % (9.3-17.3); White Blood Count 9.5 T/CUMM (4-12)
[2018-08-14 05:15] LABS: Albumin 2.3 G/DL (3.4-5.0); Bilirubin,Total 0.6 MG/DL (0.2-1.0); Calcium 7.6 MG/DL (8.5-10.1); Potassium 4.9 MMOL/L (3.5-5.1); Risk Ratio 2.24; Thyroid Stimulating Hormone 3.75 uIU/ml (0.358-3.74); Total Protein 6.5 G/DL (6.4-8.3)
[2018-08-14 05:24] LABS: Lymphocytes 4 % (20-55); Platelet Estimate Normal; Segmented Neutrophils 96 % (50-85); Total Cells Counted 100
[2018-08-14 05:25] LABS: Polychromasia Few
[2018-08-14] MEDS: SODIUM CHLORIDE 0.9% 1,000 ML IV SCH (06:45)
[2018-08-14] MEDS: LEVOTHYROXINE 50 MCG TABLET PER TUBE SCH (07:15)
[2018-08-14] MEDS: DORNASE ALFA 2.5 MG/2.5 ML VIAL RESP TX SCH ×2 (07:21→19:51)
[2018-08-14] MEDS: MULTIVITAMIN (CENTRUM) TABLET PER TUBE SCH (08:45)
[2018-08-14] MEDS: CHOLESTYRAMINE 4 GM PACK PER TUBE SCH ×2 (08:45→20:21)
[2018-08-14] MEDS: SERTRALINE 50 MG TABLET PER TUBE SCH (08:46)
[2018-08-14] MEDS: cefTRIAXone 1,000 MG in SYRINGE 1 EACH IV SCH (08:46)
[2018-08-14] MEDS: METHENAMINE HIPPURATE 1 GM TABLET PER TUBE SCH (08:46)
[2018-08-14] MEDS: methylPREDNISolone SOD SUC 40 MG/1 ML VIAL IV SCH ×2 (08:46→20:28)
[2018-08-14] MEDS: buPROPion 100 MG TABLET PER TUBE SCH ×2 (08:46→20:23)
[2018-08-14] MEDS: LANSOPRAZOLE ODT 30 MG TABLET PER TUBE SCH (08:46)
[2018-08-14] MEDS: MEMANTINE 10 MG TABLET PER TUBE SCH ×2 (08:46→20:23)
[2018-08-14] MEDS: MULTIVITAMIN (BEROCCA) TABLET PER TUBE SCH (08:46)
[2018-08-14] MEDS: LACTOBACILLUS ACIDOPHILUS/BULGARICUS CAPLET PER TUBE SCH ×2 (08:46→20:22)
[2018-08-14] MEDS ORDERED: MODAFINIL 200 MG PER TUBE SCH (09:00)
[2018-08-14] MEDS: DEXTROSE 5% NACL 0.9% 1,000 ML IV SCH (12:08)
[2018-08-14] MEDS: SULFAMETH/TRIMETH INJ 160 MG in DEXTROSE 5% 250 ML IV SCH ×2 (13:44→22:53)
[2018-08-14] MEDS ORDERED: AZITHROMYCIN INJ 500 MG in SODIUM CHLORIDE 0.9% 250 ML IV SCH (18:00)
[2018-08-14] MEDS: FLUCONAZOLE INJ 100 MG in IV BAG 1 EACH IV SCH (18:16)
[2018-08-14] MEDS: FERROUS SULFATE 300 MG/5 ML UDCUP PER TUBE SCH (20:20)
[2018-08-14] MEDS: CETIRIZINE 10 MG TABLET PER TUBE SCH (20:21)
[2018-08-14] MEDS: MONTELUKAST 10 MG TABLET PER TUBE SCH (20:22)
[2018-08-14] MEDS: ASPIRIN EC 81 MG TABLET PO SCH (20:22)
[2018-08-14] MEDS: CLORAZEPATE 3.75 MG TABLET PER TUBE SCH (20:22)
[2018-08-14] MEDS: ENOXAPARIN 40 MG/0.4 ML SYRINGE SUBCUT SCH (20:27)
[2018-08-15] MEDS: ALBUTEROL/IPRATROPIUM 3 ML NEB RESP TX SCH ×4 (03:57→14:30)
[2018-08-15] MEDS: SULFAMETH/TRIMETH INJ 160 MG in DEXTROSE 5% 250 ML IV SCH ×2 (04:46→09:56)
[2018-08-15 06:12] LABS: Calcium 7.9 MG/DL (8.5-10.1); Osmolality,Calculated 290.1 MOS/KG (273-304); Potassium 4.9 MMOL/L (3.5-5.1)
[2018-08-15] MEDS: LEVOTHYROXINE 50 MCG TABLET PER TUBE SCH (07:13)
[2018-08-15] MEDS: DORNASE ALFA 2.5 MG/2.5 ML VIAL RESP TX SCH ×2 (07:30→20:00)
[2018-08-15] MEDS: MEMANTINE 10 MG TABLET PER TUBE SCH ×2 (09:03→21:00)
[2018-08-15] MEDS: MULTIVITAMIN (BEROCCA) TABLET PER TUBE SCH (09:03)
[2018-08-15] MEDS: CHOLESTYRAMINE 4 GM PACK PER TUBE SCH ×2 (09:03→21:00)
[2018-08-15] MEDS: LACTOBACILLUS ACIDOPHILUS/BULGARICUS CAPLET PER TUBE SCH ×2 (09:03→20:59)
[2018-08-15] MEDS: MULTIVITAMIN (CENTRUM) TABLET PER TUBE SCH (09:03)
[2018-08-15] MEDS: SERTRALINE 50 MG TABLET PER TUBE SCH (09:04)
[2018-08-15] MEDS: methylPREDNISolone SOD SUC 40 MG/1 ML VIAL IV SCH ×2 (09:04→21:01)
[2018-08-15] MEDS: buPROPion 100 MG TABLET PER TUBE SCH ×2 (09:04→21:07)
[2018-08-15] MEDS: cefTRIAXone 1,000 MG in SYRINGE 1 EACH IV SCH (09:04)
[2018-08-15] MEDS: LANSOPRAZOLE ODT 30 MG TABLET PER TUBE SCH (09:06)
[2018-08-15] MEDS: DEXTROSE 5% NACL 0.9% 1,000 ML IV SCH ×2 (09:55→10:33)
[2018-08-15] MEDS ORDERED: diphenhydrAMINE 25 MG/10 ML UDCUP PEG PRN (11:42)
[2018-08-15] MEDS ORDERED: methylPREDNISolone SOD SUC 40 MG/1 ML VIAL IV ONE (13:16)
[2018-08-15] MEDS: DESITIN 4OZ/NYSTATIN 15 GRAM MIXTURE PASTE TOP SCH ×2 (13:35→21:34)
[2018-08-15] MEDS ORDERED: LEVALBUTEROL 1.25 MG/3 ML NEB RESP TX PRN (14:49)
[2018-08-15] MEDS: PREGABALIN 50 MG CAPSULE PEG SCH (15:28)
[2018-08-15] MEDS: IPRATROPIUM 500 MCG/2.5 ML NEB RESP TX SCH ×2 (15:58→23:35)
[2018-08-15] MEDS: FLUCONAZOLE INJ 100 MG in IV BAG 1 EACH IV SCH (18:24)
[2018-08-15] MEDS: CLORAZEPATE 3.75 MG TABLET PER TUBE SCH (20:59)
[2018-08-15] MEDS: PREGABALIN 100 MG CAPSULE PEG SCH (21:00)
[2018-08-15] MEDS: ASPIRIN EC 81 MG TABLET PO SCH (21:00)
[2018-08-15] MEDS: CETIRIZINE 10 MG TABLET PER TUBE SCH (21:00)
[2018-08-15] MEDS: MONTELUKAST 10 MG TABLET PER TUBE SCH (21:00)
[2018-08-15] MEDS: ENOXAPARIN 40 MG/0.4 ML SYRINGE SUBCUT SCH (21:03)
[2018-08-15] MEDS: FERROUS SULFATE 300 MG/5 ML UDCUP PER TUBE SCH (21:06)
[2018-08-16] MEDS: methylPREDNISolone SOD SUC 40 MG/1 ML VIAL IV SCH ×3 (05:58→21:58)
[2018-08-16] MEDS: LEVOTHYROXINE 50 MCG TABLET PER TUBE SCH (06:00)
[2018-08-16 06:05] LABS: Calcium 7.9 MG/DL (8.5-10.1); Osmolality,Calculated 286.4 MOS/KG (273-304); Potassium 5.4 MMOL/L (3.5-5.1)
[2018-08-16] MEDS: CHOLESTYRAMINE 4 GM PACK PER TUBE SCH ×3 (06:13→21:43)
[2018-08-16] MEDS: DEXTROSE 5% NACL 0.9% 1,000 ML IV SCH (06:14)
[2018-08-16] MEDS: IPRATROPIUM 500 MCG/2.5 ML NEB RESP TX SCH ×3 (06:59→23:51)
[2018-08-16] MEDS: DORNASE ALFA 2.5 MG/2.5 ML VIAL RESP TX SCH ×2 (06:59→18:59)
[2018-08-16] MEDS: cefTRIAXone 1,000 MG in SYRINGE 1 EACH IV SCH (08:57)
[2018-08-16] MEDS: SERTRALINE 50 MG TABLET PER TUBE SCH (08:58)
[2018-08-16] MEDS: MULTIVITAMIN (CENTRUM) TABLET PER TUBE SCH (08:58)
[2018-08-16] MEDS: MULTIVITAMIN (BEROCCA) TABLET PER TUBE SCH (08:58)
[2018-08-16] MEDS: LACTOBACILLUS ACIDOPHILUS/BULGARICUS CAPLET PER TUBE SCH ×2 (08:58→21:43)
[2018-08-16] MEDS: LANSOPRAZOLE ODT 30 MG TABLET PER TUBE SCH (08:58)
[2018-08-16] MEDS: PREGABALIN 50 MG CAPSULE PEG SCH (08:58)
[2018-08-16] MEDS: MEMANTINE 10 MG TABLET PER TUBE SCH ×2 (08:58→21:44)
[2018-08-16] MEDS: DESITIN 4OZ/NYSTATIN 15 GRAM MIXTURE PASTE TOP SCH ×2 (08:59→21:53)
[2018-08-16] MEDS: buPROPion 100 MG TABLET PER TUBE SCH ×2 (08:59→21:44)
[2018-08-16] MEDS ORDERED: SODIUM POLYSTYRENE SULFATE 15 GM/60 ML BOTTLE PO STA (09:27)
[2018-08-16] MEDS: FLUCONAZOLE INJ 100 MG in IV BAG 1 EACH IV SCH (18:14)
[2018-08-16] MEDS: ASPIRIN EC 81 MG TABLET PO SCH (21:43)
[2018-08-16] MEDS: CLORAZEPATE 3.75 MG TABLET PER TUBE SCH (21:43)
[2018-08-16] MEDS: MONTELUKAST 10 MG TABLET PER TUBE SCH (21:44)
[2018-08-16] MEDS: CETIRIZINE 10 MG TABLET PER TUBE SCH (21:44)
[2018-08-16] MEDS: PREGABALIN 100 MG CAPSULE PEG SCH (21:44)
[2018-08-16] MEDS: FERROUS SULFATE 300 MG/5 ML UDCUP PER TUBE SCH (21:44)
[2018-08-16] MEDS: ENOXAPARIN 40 MG/0.4 ML SYRINGE SUBCUT SCH (21:46)
[2018-08-17 04:37] LABS: Basophils % 0.1 % (0.0-0.8); Hematocrit 32.1 VOL% (42.0-52.0); Hemoglobin 9.7 GM/DL (14.0-18.0); Immature Granulocytes % 0.4 %; Immature Granulocytes Absolute 0.04 #; Lymphocytes # 0.5 10*3/uL (1.4-4.0); Lymphocytes % 4.4 % (21.2-54.2); Mean Corpuscular HGB Conc 30.2 GM/DL (32-36); Mean Corpuscular Hemoglobin 29 PG (27-34); Mean Corpuscular Volume 95.5 FL (87-102); Monocytes # 0.3 10*3/uL (0.11-0.8); Monocytes % 2.7 % (1.7-12.7); Neutrophils # 10.3 10*3/uL (1.4-7.4); Neutrophils % 92.4 % (38.7-73.9); Platelet Count 214 T/CUMM (130-400); Red Blood Count 3.36 MC/CUMM (3.8-5.5); Red Cell Distribution Width 15.5 % (9.3-17.3); White Blood Count 11.1 T/CUMM (4-12)
[2018-08-17 04:54] LABS: PT Patient Result 10.4 SECS; Partial Thromboplastin Time 22.6 SECS (0-40)
[2018-08-17 05:01] LABS: Calcium 7.7 MG/DL (8.5-10.1); Osmolality,Calculated 294.1 MOS/KG (273-304); Potassium 5.2 MMOL/L (3.5-5.1)
[2018-08-17 05:03] LABS: Prealbumin 24.2 MG/DL (20-40)
[2018-08-17 05:10] LABS: Hypochromasia 1+; Lymphocytes 3 % (20-55); Platelet Estimate Adequate; Segmented Neutrophils 95 % (50-85); Total Cells Counted 100
[2018-08-17] MEDS: DEXTROSE 5% NACL 0.9% 1,000 ML IV SCH (06:04)
[2018-08-17] MEDS: LEVOTHYROXINE 50 MCG TABLET PER TUBE SCH (07:07)
[2018-08-17] MEDS: IPRATROPIUM 500 MCG/2.5 ML NEB RESP TX SCH ×2 (07:10→13:29)
[2018-08-17] MEDS: DORNASE ALFA 2.5 MG/2.5 ML VIAL RESP TX SCH ×2 (07:15→20:40)
[2018-08-17] MEDS ORDERED: diphenhydrAMINE 50 MG/1 ML VIAL IM ONE (08:00)
[2018-08-17] MEDS ORDERED: BENZONATATE 100 MG CAPSULE PO ONE (08:00)
[2018-08-17] MEDS ORDERED: LIDOCAINE 1% 20 ML VIAL MISC INJ ONE (08:30)
[2018-08-17] MEDS ORDERED: LIDOCAINE 2% 20 ML VIAL RESP TX ONE (08:30)
[2018-08-17] MEDS ORDERED: LIDOCAINE 2% VISCOUS 100 ML BOTTLE SWISH/SPIT ONE (08:30)
[2018-08-17] MEDS: cefTRIAXone 1,000 MG in SYRINGE 1 EACH IV SCH (10:10)
[2018-08-17] MEDS: SERTRALINE 50 MG TABLET PER TUBE SCH (10:11)
[2018-08-17] MEDS: methylPREDNISolone SOD SUC 40 MG/1 ML VIAL IV SCH ×2 (10:11→21:40)
[2018-08-17] MEDS: MULTIVITAMIN (CENTRUM) TABLET PER TUBE SCH (10:11)
[2018-08-17] MEDS: LANSOPRAZOLE ODT 30 MG TABLET PER TUBE SCH (10:12)
[2018-08-17] MEDS: buPROPion 100 MG TABLET PER TUBE SCH (10:12)
[2018-08-17] MEDS: MULTIVITAMIN (BEROCCA) TABLET PER TUBE SCH (10:12)
[2018-08-17] MEDS: LACTOBACILLUS ACIDOPHILUS/BULGARICUS CAPLET PER TUBE SCH ×2 (10:12→21:33)
[2018-08-17] MEDS: MEMANTINE 10 MG TABLET PER TUBE SCH ×2 (10:12→21:34)
[2018-08-17] MEDS: CHOLESTYRAMINE 4 GM PACK PER TUBE SCH ×2 (10:12→21:35)
[2018-08-17] MEDS: DESITIN 4OZ/NYSTATIN 15 GRAM MIXTURE PASTE TOP SCH ×2 (10:13→21:24)
[2018-08-17] MEDS: PREGABALIN 50 MG CAPSULE PEG SCH (10:40)
[2018-08-17] MEDS: TOBRAMYCIN 80 MG/2 ML VIAL RESP TX SCH ×2 (13:29→20:10)
[2018-08-17] MEDS: CETIRIZINE 10 MG TABLET PER TUBE SCH (21:33)
[2018-08-17] MEDS: MONTELUKAST 10 MG TABLET PER TUBE SCH (21:34)
[2018-08-17] MEDS: ENOXAPARIN 40 MG/0.4 ML SYRINGE SUBCUT SCH (21:34)
[2018-08-17] MEDS: ASPIRIN EC 81 MG TABLET PO SCH (21:34)
[2018-08-18] MEDS: IPRATROPIUM 500 MCG/2.5 ML NEB RESP TX SCH ×3 (00:19→15:30)
[2018-08-18] MEDS: buPROPion 100 MG TABLET PER TUBE SCH ×3 (01:12→21:52)
[2018-08-18] MEDS: CLORAZEPATE 3.75 MG TABLET PER TUBE SCH ×2 (01:12→21:53)
[2018-08-18] MEDS: PREGABALIN 100 MG CAPSULE PEG SCH ×2 (01:13→21:52)
[2018-08-18] MEDS: FERROUS SULFATE 300 MG/5 ML UDCUP PER TUBE SCH ×2 (01:13→21:53)
[2018-08-18] MEDS: DEXTROSE 5% NACL 0.9% 1,000 ML IV SCH ×2 (01:26→18:20)
[2018-08-18 05:29] LABS: Basophils % 0.1 % (0.0-0.8); Hematocrit 33.6 VOL% (42.0-52.0); Hemoglobin 10.1 GM/DL (14.0-18.0); Immature Granulocytes % 0.4 %; Immature Granulocytes Absolute 0.05 #; Lymphocytes # 0.5 10*3/uL (1.4-4.0); Mean Corpuscular HGB Conc 30.1 GM/DL (32-36); Mean Corpuscular Hemoglobin 29 PG (27-34); Mean Corpuscular Volume 96.6 FL (87-102); Mean Platelet Volume 11.9 FL (9.6-12.0); Monocytes # 0.4 10*3/uL (0.11-0.8); Monocytes % 3.3 % (1.7-12.7); Neutrophils % 92.2 % (38.7-73.9); Platelet Count 199 T/CUMM (130-400); Red Blood Count 3.48 MC/CUMM (3.8-5.5); Red Cell Distribution Width 15.4 % (9.3-17.3); White Blood Count 11.9 T/CUMM (4-12)
[2018-08-18 05:54] LABS: Eosinophils 1 % (0-10); Lymphocytes 6 % (20-55); Platelet Estimate Adequate; Polychromasia Slight; Segmented Neutrophils 93 % (50-85); Total Cells Counted 100
[2018-08-18 05:57] LABS: Calcium 7.9 MG/DL (8.5-10.1); Osmolality,Calculated 290.3 MOS/KG (273-304); Potassium 5.1 MMOL/L (3.5-5.1)
[2018-08-18] MEDS: LEVOTHYROXINE 50 MCG TABLET PER TUBE SCH (06:47)
[2018-08-18] MEDS: TOBRAMYCIN 80 MG/2 ML VIAL RESP TX SCH ×2 (07:18→19:21)
[2018-08-18] MEDS: DORNASE ALFA 2.5 MG/2.5 ML VIAL RESP TX SCH ×2 (07:18→19:21)
[2018-08-18] MEDS: cefTRIAXone 1,000 MG in SYRINGE 1 EACH IV SCH (09:17)
[2018-08-18] MEDS: PREGABALIN 50 MG CAPSULE PEG SCH (09:18)
[2018-08-18] MEDS: SERTRALINE 50 MG TABLET PER TUBE SCH (09:18)
[2018-08-18] MEDS: MULTIVITAMIN (BEROCCA) TABLET PER TUBE SCH (09:18)
[2018-08-18] MEDS: MEMANTINE 10 MG TABLET PER TUBE SCH ×2 (09:18→21:53)
[2018-08-18] MEDS: LACTOBACILLUS ACIDOPHILUS/BULGARICUS CAPLET PER TUBE SCH ×2 (09:18→21:52)
[2018-08-18] MEDS: MULTIVITAMIN (CENTRUM) TABLET PER TUBE SCH (09:18)
[2018-08-18] MEDS: LANSOPRAZOLE ODT 30 MG TABLET PER TUBE SCH (09:18)
[2018-08-18] MEDS: CHOLESTYRAMINE 4 GM PACK PER TUBE SCH ×2 (09:18→21:53)
[2018-08-18] MEDS: methylPREDNISolone SOD SUC 40 MG/1 ML VIAL IV SCH ×2 (09:24→21:52)
[2018-08-18] MEDS: DESITIN 4OZ/NYSTATIN 15 GRAM MIXTURE PASTE TOP SCH ×2 (09:24→21:54)
[2018-08-18] MEDS: ENOXAPARIN 40 MG/0.4 ML SYRINGE SUBCUT SCH (21:52)
[2018-08-18] MEDS: MONTELUKAST 10 MG TABLET PER TUBE SCH (21:52)
[2018-08-18] MEDS: ASPIRIN EC 81 MG TABLET PO SCH (21:52)
[2018-08-18] MEDS: CETIRIZINE 10 MG TABLET PER TUBE SCH (21:53)
[2018-08-19] MEDS: IPRATROPIUM 500 MCG/2.5 ML NEB RESP TX SCH ×3 (00:05→14:28)
[2018-08-19 05:33] LABS: Basophils % 0.1 % (0.0-0.8); Hematocrit 33.9 VOL% (42.0-52.0); Hemoglobin 10.3 GM/DL (14.0-18.0); Immature Granulocytes % 0.6 %; Immature Granulocytes Absolute 0.07 #; Lymphocytes # 0.5 10*3/uL (1.4-4.0); Lymphocytes % 4.2 % (21.2-54.2); Mean Corpuscular HGB Conc 30.4 GM/DL (32-36); Mean Corpuscular Hemoglobin 29 PG (27-34); Mean Corpuscular Volume 95.8 FL (87-102); Monocytes # 0.3 10*3/uL (0.11-0.8); Neutrophils # 10.4 10*3/uL (1.4-7.4); Neutrophils % 92.1 % (38.7-73.9); Platelet Count 200 T/CUMM (130-400); Red Blood Count 3.54 MC/CUMM (3.8-5.5); Red Cell Distribution Width 15.4 % (9.3-17.3); White Blood Count 11.3 T/CUMM (4-12)
[2018-08-19 05:51] LABS: Calcium 7.7 MG/DL (8.5-10.1); Osmolality,Calculated 290.3 MOS/KG (273-304); Potassium 5.1 MMOL/L (3.5-5.1)
[2018-08-19] MEDS: LEVOTHYROXINE 50 MCG TABLET PER TUBE SCH (06:02)
[2018-08-19 06:14] LABS: Calcium 7.8 MG/DL (8.5-10.1); Osmolality,Calculated 290.3 MOS/KG (273-304); Potassium 5.1 MMOL/L (3.5-5.1)
[2018-08-19 06:20] LABS: Lymphocytes 1 % (20-55); Metamyelocytes 1 %; Platelet Estimate Normal; Polychromasia Few; Segmented Neutrophils 97 % (50-85); Total Cells Counted 100
[2018-08-19] MEDS: TOBRAMYCIN 80 MG/2 ML VIAL RESP TX SCH ×2 (07:21→19:59)
[2018-08-19] MEDS: DORNASE ALFA 2.5 MG/2.5 ML VIAL RESP TX SCH ×2 (07:38→19:59)
[2018-08-19] MEDS: MEMANTINE 10 MG TABLET PER TUBE SCH ×2 (08:39→21:34)
[2018-08-19] MEDS: CHOLESTYRAMINE 4 GM PACK PER TUBE SCH ×2 (08:39→21:33)
[2018-08-19] MEDS: LACTOBACILLUS ACIDOPHILUS/BULGARICUS CAPLET PER TUBE SCH ×2 (08:39→21:34)
[2018-08-19] MEDS: buPROPion 100 MG TABLET PER TUBE SCH ×2 (08:39→21:33)
[2018-08-19] MEDS: MULTIVITAMIN (CENTRUM) TABLET PER TUBE SCH (08:39)
[2018-08-19] MEDS: PREGABALIN 50 MG CAPSULE PEG SCH (08:39)
[2018-08-19] MEDS: MULTIVITAMIN (BEROCCA) TABLET PER TUBE SCH (08:39)
[2018-08-19] MEDS: SERTRALINE 50 MG TABLET PER TUBE SCH (08:39)
[2018-08-19] MEDS: LANSOPRAZOLE ODT 30 MG TABLET PER TUBE SCH (08:40)
[2018-08-19] MEDS: methylPREDNISolone SOD SUC 40 MG/1 ML VIAL IV SCH ×2 (08:40→21:37)
[2018-08-19] MEDS: cefTRIAXone 1,000 MG in SYRINGE 1 EACH IV SCH (08:40)
[2018-08-19] MEDS: DESITIN 4OZ/NYSTATIN 15 GRAM MIXTURE PASTE TOP SCH ×2 (08:40→21:56)
[2018-08-19] MEDS: ENOXAPARIN 40 MG/0.4 ML SYRINGE SUBCUT SCH (21:32)
[2018-08-19] MEDS: MONTELUKAST 10 MG TABLET PER TUBE SCH (21:33)
[2018-08-19] MEDS: CETIRIZINE 10 MG TABLET PER TUBE SCH (21:33)
[2018-08-19] MEDS: PREGABALIN 100 MG CAPSULE PEG SCH (21:33)
[2018-08-19] MEDS: FERROUS SULFATE 300 MG/5 ML UDCUP PER TUBE SCH (21:33)
[2018-08-19] MEDS: CLORAZEPATE 3.75 MG TABLET PER TUBE SCH (21:34)
[2018-08-19] MEDS: ASPIRIN EC 81 MG TABLET PO SCH (21:37)
[2018-08-20] MEDS: IPRATROPIUM 500 MCG/2.5 ML NEB RESP TX SCH ×2 (00:16→07:19)
[2018-08-20] MEDS: LEVOTHYROXINE 50 MCG TABLET PER TUBE SCH (06:28)
[2018-08-20] MEDS: TOBRAMYCIN 80 MG/2 ML VIAL RESP TX SCH (07:19)
[2018-08-20] MEDS: DORNASE ALFA 2.5 MG/2.5 ML VIAL RESP TX SCH (07:19)
[2018-08-20] MEDS: cefTRIAXone 1,000 MG in SYRINGE 1 EACH IV SCH (08:31)
[2018-08-20] MEDS: MULTIVITAMIN (CENTRUM) TABLET PER TUBE SCH (08:31)
[2018-08-20] MEDS: CHOLESTYRAMINE 4 GM PACK PER TUBE SCH (08:31)
[2018-08-20] MEDS: LACTOBACILLUS ACIDOPHILUS/BULGARICUS CAPLET PER TUBE SCH (08:31)
[2018-08-20] MEDS: methylPREDNISolone SOD SUC 40 MG/1 ML VIAL IV SCH (08:32)
[2018-08-20] MEDS: MULTIVITAMIN (BEROCCA) TABLET PER TUBE SCH (08:32)
[2018-08-20] MEDS: LANSOPRAZOLE ODT 30 MG TABLET PER TUBE SCH (08:32)
[2018-08-20] MEDS: DESITIN 4OZ/NYSTATIN 15 GRAM MIXTURE PASTE TOP SCH (08:32)
[2018-08-20] MEDS: buPROPion 100 MG TABLET PER TUBE SCH (08:32)
[2018-08-20] MEDS: MEMANTINE 10 MG TABLET PER TUBE SCH (08:32)
[2018-08-20] MEDS: PREGABALIN 50 MG CAPSULE PEG SCH (08:32)
[2018-08-20] MEDS: SERTRALINE 50 MG TABLET PER TUBE SCH (08:33)
[2018-08-20 11:44] VITALS: BP 110/76
== END 2018-08-20 12:34 | disposition home health service (06) | DRG 178 ==
LOC: EDUNIT# → N.ED 15:13 → SUATTDRO 18:47 → N.EDINP 18:47 → N.2E 19:49
PROVIDERS: ADMIT Internal Medicine; ATTEND Internal Medicine

== ENCOUNTER 2018-09-10 15:35 | Observation (INO) ==
[2018-09-10] MEDS ORDERED: SODIUM CHLORIDE 0.9% 500 ML IV STA (16:40)
[2018-09-10 16:55] LABS: Basophils % 0.3 % (0.0-0.8); Eosinophils # 0.6 10*3/uL (0.0-0.87); Eosinophils % 5.6 % (0.00-10.9); Immature Granulocytes % 0.5 %; Immature Granulocytes Absolute 0.06 #; Lymphocytes # 0.7 10*3/uL (1.4-4.0); Lymphocytes % 6.6 % (21.2-54.2); Mean Corpuscular HGB Conc 30.3 GM/DL (32-36); Mean Corpuscular Hemoglobin 30 PG (27-34); Mean Corpuscular Volume 97.3 FL (87-102); Mean Platelet Volume 11.7 FL (9.6-12.0); Monocytes # 1.3 10*3/uL (0.11-0.8); Monocytes % 12.1 % (1.7-12.7); Neutrophils # 8.2 10*3/uL (1.4-7.4); Neutrophils % 74.9 % (38.7-73.9); Platelet Count 281 T/CUMM (130-400); Red Blood Count 3.39 MC/CUMM (3.8-5.5); Red Cell Distribution Width 16.5 % (9.3-17.3)
[2018-09-10 17:02] LABS: INR 0.9; PT Patient Result 10.3 SECS
[2018-09-10 17:12] LABS: Albumin 2.6 G/DL (3.4-5.0); Calcium 8.3 MG/DL (8.5-10.1); Osmolality,Calculated 294.1 MOS/KG (273-304); Potassium 4.5 MMOL/L (3.5-5.1); Total Protein 7.1 G/DL (6.4-8.3)
[2018-09-10 17:17] LABS: Apearance,Urine CLOUDY (Clear); Bilirubin,Urine Negative (Negative); Blood, Urine Negative (Negative); Glucose,Urine (UA) Negative (Negative); Ketones,Urine Negative (Negative); Mucus,Urine Occasional /LPF (Occasional); Nitrite,Urine Negative (Negative); Protein,Urine Negative; RBC,Urine 6 /HPF (0-4); Squamous Epithelial Cell,Urine Occasional /HPF (0-10); Urine Color Yellow (Yellow); Urine Specific Gravity 1.017 (1.001-1.035); Urine Urobilinogen < 2.0 EU/DL (0.2-1.0); WBC,Urine 7 /HPF (0-6)
[2018-09-10 17:22] LABS: Barbiturates Screen,Urine Negative (Negative); Benzodiazepines Screen,Urine Positive (Negative); Cannabinoid Screen,Urine Negative (Negative); Opiate Screen,Urine Negative (Negative); Phencyclidine Screen,Urine Negative (Negative)
[2018-09-10 17:58] LABS: Sedimentation Rate-Westergren 110 MM/HR (0-20)
[2018-09-10] MEDS ORDERED: MEROPENEM 1,000 MG in SODIUM CHLORIDE 0.9% 100 ML IV STA (17:58)
[2018-09-10] MEDS ORDERED: ONDANSETRON 4 MG/2 ML VIAL IV PRN (18:33)
[2018-09-10] MEDS ORDERED: FLUTICASONE 50 MCG NASAL SPRAY 16 GM BOTTLE BOTH NARES PRN (18:36)
[2018-09-10] MEDS ORDERED: guaiFENesin 200 MG/10 ML UDCUP PER TUBE PRN (18:36)
[2018-09-10] MEDS ORDERED: PSEUDOEPHEDRINE 30 MG TABLET PER TUBE PRN (18:36)
[2018-09-10] MEDS ORDERED: BUDESONIDE 0.25 MG/2 ML NEB RESP TX PRN (18:36)
[2018-09-10] MEDS: SODIUM CHLORIDE 0.9% 1,000 ML IV SCH (19:56)
[2018-09-10] MEDS ORDERED: CLORAZEPATE 3.75 MG TABLET PER TUBE SCH (21:00)
[2018-09-10] MEDS ORDERED: QUINIDINE PER TUBE SCH (21:00)
[2018-09-10] MEDS ORDERED: CETIRIZINE 10 MG TABLET PER TUBE SCH (21:00)
[2018-09-10] MEDS ORDERED: CRANBERRY FRUIT EXTRACT 200 MG PO SCH (21:00)
[2018-09-10] MEDS ORDERED: PREGABALIN 100 MG CAPSULE PER TUBE SCH (21:00)
[2018-09-10] MEDS ORDERED: [UNRECOGNIZED DRUG - OTHER] PER TUBE SCH (21:00)
[2018-09-10] MEDS ORDERED: cefTRIAXone 1,000 MG in SYRINGE 1 EACH IV SCH (21:00)
[2018-09-10] MEDS ORDERED: ENOXAPARIN 40 MG/0.4 ML SYRINGE SUBCUT SCH (21:00)
[2018-09-10] MEDS ORDERED: FAMOTIDINE 20 MG TABLET PER TUBE SCH (21:00)
[2018-09-10] MEDS ORDERED: MONTELUKAST 10 MG TABLET PER TUBE SCH (21:00)
[2018-09-10] MEDS: ALBUTEROL/IPRATROPIUM 3 ML NEB RESP TX SCH (21:18)
[2018-09-10] MEDS: MEMANTINE 10 MG TABLET PER TUBE SCH (23:12)
[2018-09-10] MEDS: LACTOBACILLUS ACIDOPHILUS/BULGARICUS CAPLET PER TUBE SCH (23:12)
[2018-09-10] MEDS: CHOLESTYRAMINE 4 GM PACK PER TUBE SCH (23:12)
[2018-09-10] MEDS: buPROPion 100 MG TABLET PER TUBE SCH (23:12)
[2018-09-10] MEDS: METHENAMINE HIPPURATE 1 GM TABLET PER TUBE SCH (23:12)
[2018-09-10] MEDS: SODIUM CHLORIDE 0.65% NASAL SPRAY 45 ML BOTTLE BOTH NARES SCH (23:13)
[2018-09-11 04:46] LABS: Basophils % 0.1 % (0.0-0.8); Eosinophils # 0.6 10*3/uL (0.0-0.87); Eosinophils % 6.5 % (0.00-10.9); Hematocrit 31.6 VOL% (42.0-52.0); Hemoglobin 9.7 GM/DL (14.0-18.0); Immature Granulocytes % 0.3 %; Immature Granulocytes Absolute 0.03 #; Lymphocytes # 1.1 10*3/uL (1.4-4.0); Lymphocytes % 11.1 % (21.2-54.2); Mean Corpuscular HGB Conc 30.7 GM/DL (32-36); Mean Corpuscular Hemoglobin 29 PG (27-34); Mean Corpuscular Volume 95.8 FL (87-102); Mean Platelet Volume 12.2 FL (9.6-12.0); Monocytes % 10.4 % (1.7-12.7); Neutrophils # 6.9 10*3/uL (1.4-7.4); Neutrophils % 71.6 % (38.7-73.9); Platelet Count 263 T/CUMM (130-400); Red Cell Distribution Width 16.3 % (9.3-17.3); White Blood Count 9.6 T/CUMM (4-12)
[2018-09-11 05:03] LABS: Calcium 8.2 MG/DL (8.5-10.1); Osmolality,Calculated 287.1 MOS/KG (273-304); Potassium 4.2 MMOL/L (3.5-5.1); Thyroid Stimulating Hormone 3.48 uIU/ml (0.358-3.74)
[2018-09-11] MEDS ORDERED: LEVOTHYROXINE 50 MCG TABLET PER TUBE SCH (06:30)
[2018-09-11] MEDS: ALBUTEROL/IPRATROPIUM 3 ML NEB RESP TX SCH ×3 (07:29→15:56)
[2018-09-11] MEDS ORDERED: FERROUS SULFATE 300 MG/5 ML UDCUP PER TUBE SCH (09:00)
[2018-09-11] MEDS ORDERED: PREGABALIN 50 MG CAPSULE PER TUBE SCH (09:00)
[2018-09-11] MEDS ORDERED: MULTIVITAMIN (BEROCCA) TABLET PER TUBE SCH (09:00)
[2018-09-11] MEDS ORDERED: MODAFINIL 200 MG PER TUBE SCH (09:00)
[2018-09-11] MEDS: SODIUM CHLORIDE 0.9% 1,000 ML IV SCH (09:06)
[2018-09-11] MEDS: LACTOBACILLUS ACIDOPHILUS/BULGARICUS CAPLET PER TUBE SCH (11:23)
[2018-09-11] MEDS: METHENAMINE HIPPURATE 1 GM TABLET PER TUBE SCH (11:23)
[2018-09-11] MEDS: MEMANTINE 10 MG TABLET PER TUBE SCH (11:23)
[2018-09-11] MEDS: buPROPion 100 MG TABLET PER TUBE SCH (11:24)
[2018-09-11] MEDS: CHOLESTYRAMINE 4 GM PACK PER TUBE SCH (11:30)
[2018-09-11] MEDS: SODIUM CHLORIDE 0.65% NASAL SPRAY 45 ML BOTTLE BOTH NARES SCH (11:31)
[2018-09-11 16:48] VITALS: BP 89/55
== END 2018-09-11 17:50 | disposition home or self-care (01) ==
LOC: EDUNIT# → N.ED 15:35 → N.EDINP 15:35 → N.5E 19:43
PROVIDERS: ADMIT Internal Medicine; ATTEND Internal Medicine

== ENCOUNTER 2019-04-13 16:34 | Observation (INO) ==
[2019-04-13] MEDS ORDERED: SODIUM CHLORIDE 0.9% 500 ML IV STA (17:17)
[2019-04-13 18:06] LABS: Basophils # 0.1 10*3/uL (0.0-0.2); Basophils % 0.4 % (0.0-0.8); Eosinophils # 0.8 10*3/uL (0.0-0.87); Eosinophils % 6.8 % (0.00-10.9); Hematocrit 41.2 VOL% (42.0-52.0); Hemoglobin 12.9 GM/DL (14.0-18.0); Immature Granulocytes % 0.4 %; Immature Granulocytes Absolute 0.05 #; Lymphocytes % 7.7 % (21.2-54.2); Mean Corpuscular HGB Conc 31.3 GM/DL (32-36); Mean Corpuscular Volume 96.9 FL (87-102); Mean Platelet Volume 11.8 FL (9.6-12.0); Monocytes % 6.5 % (1.7-12.7); Neutrophils % 78.2 % (38.7-73.9); Platelet Count 216 T/CUMM (130-400); Red Blood Count 4.25 MC/CUMM (3.8-5.5); Red Cell Distribution Width 16.4 % (9.3-17.3); White Blood Count 12.4 T/CUMM (4-12)
[2019-04-13] MEDS ORDERED: ONDANSETRON 4 MG/2 ML VIAL IV PRN (18:17)
[2019-04-13 18:34] LABS: Alanine Aminotransferase 80 U/L (16-61); Albumin 3.3 G/DL (3.4-5.0); Alkaline Phosphatase 165 U/L (45-117); Aspartate Amino Transferase 31 U/L (0-37); Bilirubin,Total < 0.39 MG/DL (0.2-1.0); Blood Urea Nitrogen 38 MG/DL (7-18); Calcium 9.4 MG/DL (8.5-10.1); Estimated Glom Filtration Rate 68 ML/MIN; Glucose 90 MG/DL (74-106); Osmolality,Calculated 289.3 MOS/KG (273-304); Total Protein 8.6 G/DL (6.4-8.3)
[2019-04-13] MEDS ORDERED: FLUTICASONE 50 MCG NASAL SPRAY 16 GM BOTTLE BOTH NARES PRN (19:41)
[2019-04-13] MEDS ORDERED: THIAMINE INJ 100 MG, FOLIC ACID INJ 1 MG, MULTIVITAMIN INJ 10 ML in DEXTROSE 5% NACL 0.... IV ONE (20:00)
[2019-04-13] MEDS: SODIUM CHLORIDE 0.65% NASAL SPRAY 45 ML BOTTLE BOTH NARES SCH (21:03)
[2019-04-13] MEDS: ACETYLCYSTEINE 20% 800 MG/4 ML VIAL RESP TX SCH (21:45)
[2019-04-13] MEDS: ALBUTEROL/IPRATROPIUM 3 ML NEB RESP TX SCH (21:45)
[2019-04-13] MEDS: BUDESONIDE 0.25 MG/2 ML NEB RESP TX PRN (21:45)
[2019-04-13] MEDS ORDERED: ALBUTEROL 2.5 MG/3 ML NEB RESP TX PRN (23:00)
[2019-04-14] MEDS ORDERED: SODIUM CHLORIDE 0.9% 1,000 ML IV SCH (04:30)
[2019-04-14] MEDS: ACETYLCYSTEINE 20% 800 MG/4 ML VIAL RESP TX SCH ×2 (06:50→11:03)
[2019-04-14] MEDS: ALBUTEROL/IPRATROPIUM 3 ML NEB RESP TX SCH ×2 (06:50→11:03)
[2019-04-14] MEDS: BUDESONIDE 0.25 MG/2 ML NEB RESP TX PRN (06:50)
[2019-04-14] MEDS: SODIUM CHLORIDE 0.65% NASAL SPRAY 45 ML BOTTLE BOTH NARES SCH (10:23)
[2019-04-14] MEDS ORDERED: CLORAZEPATE 3.75 MG TABLET PEG PRN (15:29)
[2019-04-14] MEDS ORDERED: IMMUNE GLOBULIN IV SCH (15:30)
[2019-04-14] MEDS ORDERED: [UNRECOGNIZED DRUG - OTHER] IV SCH (15:30)
[2019-04-14 16:26] VITALS: BP 104/89
[2019-04-14] MEDS ORDERED: NYSTATIN 500,000 UNIT/5 ML UDCUP PO SCH (17:00)
[2019-04-14] MEDS ORDERED: DEXTROMETHORPHAN ER 6 MG/ML 90 ML/BOTTLE PO SCH (17:00)
[2019-04-14] MEDS ORDERED: TOBRAMYCIN 80 MG/2 ML VIAL RESP TX SCH (19:00)
[2019-04-14] MEDS ORDERED: MEMANTINE 5 MG TABLET PER TUBE SCH (21:00)
[2019-04-14] MEDS ORDERED: CETIRIZINE 10 MG TABLET PEG SCH (21:00)
[2019-04-14] MEDS ORDERED: METHENAMINE HIPPURATE 1 GM TABLET PEG SCH (21:00)
[2019-04-14] MEDS ORDERED: MONTELUKAST 10 MG TABLET PEG SCH (21:00)
[2019-04-14] MEDS ORDERED: FERROUS SULFATE 300 MG/5 ML UDCUP PEG SCH (21:00)
[2019-04-14] MEDS ORDERED: buPROPion 100 MG TABLET PER TUBE SCH (21:00)
[2019-04-15] MEDS ORDERED: LEVOTHYROXINE 100 MCG TABLET PO SCH (07:00)
[2019-04-15] MEDS ORDERED: PREGABALIN 50 MG CAPSULE PEG SCH (09:00)
[2019-04-15] MEDS ORDERED: SERTRALINE 50 MG TABLET PEG SCH (09:00)
[2019-04-15] MEDS ORDERED: MULTIVITAMIN (CENTRUM) TABLET PO SCH (09:00)
[2019-04-15] MEDS ORDERED: prednisoLONE 15 MG/5 ML ORAL.SYR PEG SCH (09:00)
[2019-04-15] MEDS ORDERED: MULTIVITAMIN (BEROCCA) TABLET PEG SCH (09:00)
== END 2019-04-14 16:42 | disposition home health service (06) ==
LOC: N.EDINP 16:34 → N.ED 16:34 → N.2E 18:51
PROVIDERS: ADMIT Internal Medicine; ATTEND Internal Medicine

== ENCOUNTER 2019-06-24 10:00 | Inpatient (IN) ==
[2019-06-24] MEDS ORDERED: SODIUM CHLORIDE 0.9% 500 ML IV STA (10:06)
[2019-06-24] MEDS ORDERED: PIPERACILLIN/TAZOBACTAM 3,375 MG in SODIUM CHLORIDE 0.9% 100 ML IV STA (10:06)
[2019-06-24] MEDS ORDERED: MIDAZOLAM 10 MG/2 ML VIAL ONE (10:21)
[2019-06-24] MEDS ORDERED: SODIUM CHLORIDE 0.9% 1,750 ML IV ONE (10:21)
[2019-06-24] MEDS ORDERED: MIDAZOLAM 2 MG/2 ML VIAL ONE (10:23)
[2019-06-24 10:24] LABS: Basophils % 0.3 % (0.0-0.8); Hematocrit 36.1 VOL% (42.0-52.0); Hemoglobin 11.6 GM/DL (14.0-18.0); Immature Granulocytes % 0.4 %; Immature Granulocytes Absolute 0.06 #; Lymphocytes # 0.6 10*3/uL (1.4-4.0); Lymphocytes % 3.9 % (21.2-54.2); Mean Corpuscular HGB Conc 32.1 GM/DL (32-36); Mean Corpuscular Volume 95.5 FL (87-102); Mean Platelet Volume 11.9 FL (9.6-12.0); Monocytes % 6.2 % (1.7-12.7); Neutrophils % 89.2 % (38.7-73.9); Platelet Count 233 T/CUMM (130-400); Red Blood Count 3.78 MC/CUMM (3.8-5.5); Red Cell Distribution Width 15.9 % (9.3-17.3); White Blood Count 14.5 T/CUMM (4-12)
[2019-06-24] MEDS ORDERED: ACETAMINOPHEN 650 MG SUPP RECTAL ONE (10:34)
[2019-06-24] MEDS ORDERED: ACETAMINOPHEN 325 MG SUPP RECTAL ONE (10:34)
[2019-06-24 10:45] LABS: Band Neutrophils 3 % (0-10); Hypochromasia 1+; Lymphocytes 2 % (20-55); Microcytosis Slight; Segmented Neutrophils 84 % (50-85); Total Cells Counted 100
[2019-06-24 10:46] LABS: Alanine Aminotransferase 43 U/L (16-61); Albumin 2.6 G/DL (3.4-5.0); Alkaline Phosphatase 124 U/L (45-117); Aspartate Amino Transferase 75 U/L (0-37); Bilirubin,Total < 0.39 MG/DL (0.2-1.0); Blood Urea Nitrogen 49 MG/DL (7-18); Calcium 8.4 MG/DL (8.5-10.1); Estimated Glom Filtration Rate 48 ML/MIN; Glucose 98 MG/DL (74-106); Osmolality,Calculated 289.5 MOS/KG (273-304); Platelet Estimate Normal; Total Protein 7.6 G/DL (6.4-8.3)
[2019-06-24] MEDS ORDERED: ACETAMINOPHEN 650 MG SUPP RECTAL STA (10:48)
[2019-06-24] MEDS ORDERED: MIDAZOLAM 2 MG/2 ML VIAL IV ONE (10:49)
[2019-06-24] MEDS: MIDAZOLAM 100 MG in SODIUM CHLORIDE 0.9% 80 ML IV PRN ×2 (11:05→15:26)
[2019-06-24 11:17] LABS: ABG Base Excess 0.5 MMOL/L (-2.5-2.5); ABG HCO3 24.9 MMOL/L (20-26); ABG PCO2 33.9 MM HG (35-48); ABG PH 7.457 (7.35-7.45); ABG TCO2 21.6 MMOL/L (23-27)
[2019-06-24] MEDS ORDERED: ALBUTEROL 2.5 MG/3 ML NEB RESP TX PRN (11:27)
[2019-06-24] MEDS ORDERED: ACETAMINOPHEN 325 MG TABLET PO PRN (11:27)
[2019-06-24] MEDS ORDERED: ONDANSETRON 4 MG/2 ML VIAL IV PRN (11:27)
[2019-06-24] MEDS ORDERED: MORPHINE 4 MG/1 ML VIAL IV PRN (11:27)
[2019-06-24] MEDS ORDERED: SODIUM CHLORIDE 0.9% 1,000 ML IV SCH (11:30)
[2019-06-24 11:33] LABS: Apearance,Urine Slightly Hazy (Clear); Bacteria,Urine Occasional /HPF (Few); Bilirubin,Urine Negative (Negative); Blood, Urine Small mg/dL (Negative); Glucose,Urine (UA) Negative (Negative); Ketones,Urine Negative (Negative); Nitrite,Urine Negative (Negative); Protein,Urine Negative; RBC,Urine 3 /HPF (0-4); Squamous Epithelial Cell,Urine Occasional /HPF (0-10); Urine Color Yellow (Yellow); Urine Specific Gravity 1.014 (1.001-1.035); Urine Urobilinogen < 2.0 EU/DL (0.2-1.0); WBC,Urine 1 /HPF (0-6)
[2019-06-24] MEDS ORDERED: ROCURONIUM 100 MG/10 ML VIAL IV ONE (11:35)
[2019-06-24] MEDS ORDERED: ROCURONIUM 100 MG/10 ML VIAL IV STA (11:47)
[2019-06-24 11:55] LABS: PT Patient Result 10.4 SECS (9.6-12.2)
[2019-06-24] MEDS ORDERED: PIPERACILLIN/TAZOBACTAM 3,375 MG in SODIUM CHLORIDE 0.9% 100 ML IV SCH (12:00)
[2019-06-24] MEDS ORDERED: ENOXAPARIN 40 MG/0.4 ML SYRINGE SUBCUT SCH (12:00)
[2019-06-24] MEDS ORDERED: PANTOPRAZOLE 40 MG VIAL IV SCH (12:00)
[2019-06-24] MEDS ORDERED: NON-FORMULARY MEDICATION (Dextromethorphan-Quinidine [Nuedexta] 1 CAPSULE) PEG SCH (12:15)
[2019-06-24] MEDS ORDERED: LEVOFLOXACIN 500 MG TABLET PEG SCH (12:30)
[2019-06-24] MEDS ORDERED: DEXTROMETHORPHAN ER 6 MG/ML 90 ML/BOTTLE PO SCH (13:00)
[2019-06-24 13:53] VITALS: BP 88/57
[2019-06-24] MEDS ORDERED: MULTIVITAMIN LIQUID (CENTRUM) 60 ML BOTTLE PEG SCH (14:00)
[2019-06-24] MEDS ORDERED: VANCOMYCIN INJ 1,000 MG in SODIUM CHLORIDE 0.9% 250 ML IV SCH (14:00)
[2019-06-24] MEDS ORDERED: NYSTATIN 500,000 UNIT/5 ML UDCUP PO SCH (15:00)
[2019-06-24] MEDS ORDERED: POTASSIUM IODIDE 1000 MG/ML PEG SCH (15:00)
[2019-06-24] MEDS ORDERED: ALBUTEROL/IPRATROPIUM 3 ML NEB RESP TX SCH (15:00)
[2019-06-24] MEDS ORDERED: TOBRAMYCIN 80 MG/2 ML VIAL RESP TX SCH (19:00)
[2019-06-24] MEDS ORDERED: MEMANTINE 5 MG TABLET PER TUBE SCH (21:00)
[2019-06-24] MEDS ORDERED: PREGABALIN 50 MG CAPSULE PEG SCH (21:00)
[2019-06-24] MEDS ORDERED: METHENAMINE HIPPURATE 1 GM TABLET PEG SCH (21:00)
[2019-06-24] MEDS ORDERED: FERROUS SULFATE 300 MG/5 ML UDCUP PEG SCH (21:00)
[2019-06-24] MEDS ORDERED: CRANBERRY EXTRACT 400 MG PEG SCH (21:00)
[2019-06-24] MEDS ORDERED: CETIRIZINE 10 MG TABLET PEG SCH (21:00)
[2019-06-24] MEDS ORDERED: CLORAZEPATE 3.75 MG TABLET PEG SCH (21:00)
[2019-06-24] MEDS ORDERED: SODIUM CHLORIDE/POTASSIUM CHLORIDE TABLET PEG SCH (21:00)
[2019-06-24] MEDS ORDERED: buPROPion 100 MG TABLET PER TUBE SCH (21:00)
[2019-06-24] MEDS ORDERED: SERTRALINE 25 MG TABLET PEG SCH (21:00)
[2019-06-25] MEDS ORDERED: ASPIRIN CHEW 81 MG TABLET PO SCH (09:00)
[2019-06-25] MEDS ORDERED: MODAFINIL 200 MG PEG SCH (09:00)
[2019-06-25] MEDS ORDERED: ARGININE GLUTAMINE CALCIUM HMB PO SCH (09:00)
[2019-06-25] MEDS ORDERED: MONTELUKAST 10 MG TABLET PEG SCH (09:00)
[2019-06-25] MEDS ORDERED: PREGABALIN 50 MG CAPSULE PEG SCH (09:00)
[2019-06-25] MEDS ORDERED: LEVOTHYROXINE 100 MCG TABLET PEG SCH (09:00)
[2019-06-25] MEDS ORDERED: NON-FORMULARY MEDICATION (Bifidobacterium Infantis [Align] 4 MG) PEG SCH (09:00)
[2019-06-25] MEDS ORDERED: AMINO ACIDS PROTEIN HYDROLYS PEG SCH (09:00)
[2019-06-25] MEDS ORDERED: FINASTERIDE 5 MG TABLET PO SCH (09:00)
[2019-06-25] MEDS ORDERED: BUDESONIDE 0.5 MG/2 ML NEB RESP TX SCH (09:00)
== END 2019-06-24 16:02 | disposition hospice, home (50) | DRG 82 ==
LOC: EDBD → EDUNIT# → N.ED 10:00 → N.EDINP 11:27 → N.ICU 12:48
PROVIDERS: ADMIT Internal Medicine; ATTEND Internal Medicine